=== PATIENT | female | born 1965 | race Caucasian/White ===

== ENCOUNTER 2017-04-15 20:57 | Inpatient (IN) | payer SELFPAY ==
[~2017-04-15] VITALS: Ht 170.2 cm; Wt 78.1 kg
[~2017-04-15 20:57] MED LIST: ACET325 PO; ASPI81TA82 PO; LISI-360 PO
[2017-04-15 20:58] VITALS: BP 152/79; PULSE 110; RESP 16; TEMP 98.9; O2SAT 96
[2017-04-16] VITALS (16 sets, daily range): BP systolic 96–133; BP diastolic 58–81; PULSE 81–95; RESP 16–20; TEMP 96.1–97.7; O2SAT 95–100
[2017-04-16] MEDS ORDERED: SODIUM CHLORIDE 0.9% FLUSH 10 ML FLUSH IV FLUSH PRN ×2 (00:15→02:00)
[2017-04-16 00:29] LABS: AUTOMATED NEUTROPHIL # 4.3 TH/MM3 (1.8-7.7); BASOPHIL # 0.1 TH/MM3 (0-0.2); EOSINOPHIL # 0.2 TH/MM3 (0-0.4); EOSINOPHIL % 2.1 % (0.0-4.0); LYMPH % 29.6 % (9.0-44.0); LYMPHOCYTE # 2.3 TH/MM3 (1.0-4.8); MEAN CELL VOLUME 130.5 FL (80.0-100.0); MEAN CORPUSCULAR HEMOGLOBIN 44.2 PG (27.0-34.0); MEAN CORPUSCULAR HGB CONC 33.8 % (32.0-36.0); MONO % 12.6 % (0.0-8.0); NEUT % 54.7 % (16.0-70.0); PLATELET COUNT 100 TH/MM3 (150-450); RED BLOOD COUNT 1.45 MIL/MM3 (4.00-5.30); WHITE BLOOD COUNT 7.8 TH/MM3 (4.0-11.0)
[2017-04-16 00:35] LABS: HEMO FLAGS DIFF FINAL
[2017-04-16 00:37] LABS: HEMATOCRIT 18.9 % (35.0-46.0)
[2017-04-16 00:38] LABS: APTT (PATIENT) 39.2 SEC (24.3-30.1); INTERNATIONAL NORMALIZED RATIO 2.1 RATIO; PROTHROMBIN TIME - PATIENT 23.7 SEC (9.8-11.6)
[2017-04-16 00:59] LABS: ALT (GPT) 22 U/L (10-53); ANION GAP 13 MEQ/L (5-15); AST (GOT) 67 U/L (15-37); BICARBONATE 18.1 MEQ/L (21.0-32.0); BLOOD UREA NITROGEN 10 MG/DL (7-18); CHLORIDE 108 MEQ/L (98-107); GLOMERULAR FILTRATION RATE 34 ML/MIN (>89); POTASSIUM 4.1 MEQ/L (3.5-5.1); SODIUM (NA) 139 MEQ/L (136-145)
[2017-04-16 01:00] LABS: ALKALINE PHOSPHATASE 66 U/L (45-117); TOTAL BILIRUBIN ADULT 4.4 MG/DL (0.2-1.0)
[2017-04-16] MEDS ORDERED: SODIUM CHLOR 0.9% 250 ML INJ 250 ML IV ONE ×2 (01:15→11:45)
[2017-04-16] MEDS ORDERED: PANTOPRAZOLE SODIUM 40 MG VIAL IV PUSH SCH (02:00)
[2017-04-16] MEDS ORDERED: NALOXONE HCL 0.4 MG/ML AMP IV PRN (02:00)
--- NOTE | 2017-04-16 02:08 | PD ---
HPI Chief Complaint: Abdominal Pain Time Seen by Provider: 00:11 Travel History International Travel<30 days: No Contact w/Intl Traveler<30days: No Traveled to known affect area: No History of Present Illness HPI Patient is a 52-year-old female with a history of heavy alcohol use in the past quit 7 days ago presents emergency Department with abdominal swelling. Patient states she first started noticing January and went away and then over the past week and started coming back. She denies any abdominal pain denies any fevers denies any nausea or vomiting. Patient states she has never discussed this with her care physician as she doesn't have one. She also notices some said some leg swelling. Denies any blood in the stool bloody emesis. She states she has little cut on her lip that she noticed started bleeding. No easy bruising. PFSH Past Medical History Arthritis: Yes (knees, arms ,hands feet , back) Asthma: Yes Autoimmune Disease: No Blood Disorders: Yes (BLOOD CLOTS) Anxiety: No Depression: No Heart Rhythm Problems: Yes Cancer: No Cardiac Catheterization: Yes (ANGIOPLASTY 2004) Cardiovascular Problems: Yes (HTN) High Cholesterol: No Chemotherapy: No Chest Pain: Yes Congestive Heart Failure: No Cirrhosis: Yes COPD: Yes Cerebrovascular Accident: Yes Diabetes: No Diminished Hearing: No Endocrine: No Gastrointestinal Disorders: Yes GERD: No Glaucoma: No Genitourinary: No Headaches: Yes Hepatitis: Yes (HEP C) Hiatal Hernia: No Hypertension: Yes Immune Disorder: No Implanted Vascular Access Dvce: Yes Kidney Stones: No Neurologic: No Psychiatric: No Reproductive: No Immunizations Current: Yes Migraines: Yes Myocardial Infarction: Yes (X1) Radiation Therapy: No Renal Failure: No Seizures: No Sickle Cell Disease: No Sleep Apnea: No Thyroid Disease: No Ulcer: No ?: Not Menopausal: Yes : 5 Para: 3 Miscarriage: 1 : 1 Tubal Ligation: Yes Past Surgical History Abdominal Surgery: No AICD: No Appendectomy: No Arteriovenous Shunt: No Body Medical Devices: TITANIUM ANDRES WITH SCREWS Cardiac Surgery: Yes (pt had one tia x 2 and one mi) Cholecystectomy: No Coronary Artery Bypass Graft: No Ear Surgery: Yes (LEFT EARDRUM PERFORATED , SURGERY REPAIR) Endocrine Surgery: No Eye Surgery: No Genitourinary Surgery: No Insulin Pump: No Joint Replacement: No Neurologic Surgery: No Oral Surgery: No Pacemaker: No Tympanostomy Tube: Yes Other Surgery: Yes (eardrun, back , tubal ligation, angioplasty,) Social History Alcohol Use: Yes (2-3 BEERS PER DAY) Tobacco Use: Yes (PK/DAY) Substance Use: No Allergies-Medications (Allergen,Severity, Reaction): Coded Allergies: No Known Allergies (Verified , 04/16/17) Reported Meds & Prescriptions Reported Meds & Active Scripts Active Lisinopril 10 mg (Lisinopril) 10 Mg Tab 10 Mg PO DAILY Tylenol (Acetaminophen) 325 Mg Tab 650 Mg PO Q6H 7 Days Reported Aspir-81 (Aspirin) 81 Mg Tab 81 Mg PO DAILY Review of Systems Except as stated in HPI: all other systems reviewed are Neg Physical Exam Narrative GENERAL: Well-developed, well-nourished in no obvious distress. SKIN: Pale and jaundiced. HEAD: Atraumatic. Normocephalic. EYES: Pupils equal and round. Positive scleral icterus. No injection or drainage. ENT: No nasal bleeding or discharge. Mucous membranes pink and moist. NECK: Trachea midline. No JVD. CARDIOVASCULAR: Regular rate and rhythm. No murmur appreciated. 2+ bilateral equal pulses in all 4 extremity's. RESPIRATORY: No accessory muscle use. Clear to auscultation. Breath sounds equal bilaterally. GASTROINTESTINAL: Abdomen soft, non-tender, moderately distended abdomen. Positive fluid wave. Hepatic and splenic margins not palpable. No rebound no percussive tenderness. Abdomen is distended but otherwise benign. MUSCULOSKELETAL: No obvious deformities. No clubbing. No cyanosis. No edema. NEUROLOGICAL: Awake and alert. No obvious cranial nerve deficits. Motor grossly within normal limits. Normal speech. PSYCHIATRIC: Appropriate mood and affect; insight and judgment normal. Data Data Last Documented VS Vital Signs Date Time Temp Pulse Resp B/P Pulse Ox O2 Delivery O2 Flow Rate FiO2 04/16/17 00:16 89 20 131/61 100 Room Air 04/15/17 20:58 98.9 Orders Complete Blood Count With Diff (04/16/17 00:01) Comprehensive Metabolic Panel (04/16/17 00:01) Prothrombin Time / Inr (Pt) (04/16/17 00:01) Act Partial Throm Time (Ptt) (04/16/17 00:01) Urinalysis - C+S If Indicated (04/16/17 00:01) Iv Access Insert/Monitor (04/16/17 00:01) Ecg Monitoring (04/16/17 00:01) Oximetry (04/16/17 00:01) Sodium Chloride 0.9% Flush (Ns Flush) (04/16/17 00:15) Ed Poc Ultrasound (04/16/17 ) Type And Screen (04/16/17 01:08) Red Blood Cells (Rbc) (04/16/17 01:08) Blood Product Administration .UPON TRANSFUSION (04/16/17 01:08) Sodium Chlor 0.9% 250 Ml Inj (Ns 250 Ml (04/16/17 01:15) Admit Order (Ed Use Only) (04/16/17 ) Labs Laboratory Tests Test 04/16/17 04/16/17 00:10 01:20 White Blood Count 7.8 TH/MM3 Red Blood Count 1.45 MIL/MM3 Hemoglobin 6.4 GM/DL Hematocrit 18.9 % Mean Corpuscular Volume 130.5 FL Mean Corpuscular Hemoglobin 44.2 PG Mean Corpuscular Hemoglobin 33.8 % Concent Red Cell Distribution Width 21.0 % Platelet Count 100 TH/MM3 Mean Platelet Volume 8.8 FL Neutrophils (%) (Auto) 54.7 % Lymphocytes (%) (Auto) 29.6 % Monocytes (%) (Auto) 12.6 % Eosinophils (%) (Auto) 2.1 % Basophils (%) (Auto) 1.0 % Neutrophils # (Auto) 4.3 TH/MM3 Lymphocytes # (Auto) 2.3 TH/MM3 Monocytes # (Auto) 1.0 TH/MM3 Eosinophils # (Auto) 0.2 TH/MM3 Basophils # (Auto) 0.1 TH/MM3 CBC Comment DIFF FINAL Differential Comment Prothrombin Time 23.7 SEC Prothromb Time International 2.1 RATIO Ratio Activated Partial 39.2 SEC Thromboplast Time Sodium Level 139 MEQ/L Potassium Level 4.1 MEQ/L Chloride Level 108 MEQ/L Carbon Dioxide Level 18.1 MEQ/L Anion Gap 13 MEQ/L Blood Urea Nitrogen 10 MG/DL Creatinine 1.61 MG/DL Estimat Glomerular Filtration 34 ML/MIN Rate Random Glucose 105 MG/DL Calcium Level 7.7 MG/DL Total Bilirubin 4.4 MG/DL Aspartate Amino Transf 67 U/L (AST/SGOT) Alanine Aminotransferase 22 U/L (ALT/SGPT) Alkaline Phosphatase 66 U/L Total Protein 8.0 GM/DL Albumin 1.8 GM/DL Urine Color DARK-BROWN Urine Turbidity HAZY Urine pH 5.5 Urine Specific [place] 1.019 Urine Protein TRACE mg/dL Urine Glucose (UA) NEG mg/dL Urine Ketones NEG mg/dL Urine Occult Blood NEG Urine Nitrite NEG Urine Bilirubin MOD Urine Urobilinogen 4.0 MG/DL Urine Leukocyte Esterase LARGE Urine RBC 1 /hpf Urine WBC 133 /hpf Urine Squamous Epithelial 5 /hpf Cells Urine Renal Epithelial Cells <1 /hpf Urine Amorphous Sediment RARE Urine Bacteria MOD /hpf Urine Hyaline Casts 11 /lpf Urine Mucus FEW /lpf Microscopic Urinalysis Comment CULTURE INDICATED Blood Type AB NEGATIVE Antibody Screen NEGATIVE Crossmatch Leukocyte-Reduced Red Blood Cells Blood Bank Comment MDM Medical Decision Making Medical Screen Exam Complete: Yes Emergency Medical Condition: Yes Differential Diagnosis Anemia, ascites, SBP seems unlikely, chronic liver disease. Narrative Course Patient roomed in the emergency department, hemoglobin 6.6 and after discussion of risks benefits, occasions alternative for blood transfusion patient agreed for blood transfusion. Bedside ultrasound does show that she does have some ascites, she has never had a paracentesis before. I think that given her benign abdomen and her not having any respiratory symptoms or hemodynamic compromise this should be postponed until she is transfused reassessed. This was discussed with Dr. Johnson who is agreeable for observation status. Her Meld- Na score predicts 14-15% 90 day mortality. HemaPrompt Point of Care Internal Pos. & Neg. Controls: Passed Fecal Specimen Occult Blood: Negative Diagnosis Primary Impression: Macrocytic anemia Additional Impressions: Liver failure Ascites Admitting Information Admitting Physician Requests: Admit Condition: Stable Christian Lechuga MD Apr 16, 2017 02:08
[2017-04-16 02:14] LABS: BACTERIA, URINE MOD /hpf; BLOOD, URINE NEG (NEG); GLUCOSE,URINE NEG (NEG); HYALINE CAST, URINE 11 /lpf (RARE); KETONE, URINE NEG (NEG); MUCUS URINE FEW /lpf (OCC); NITRITE,URINE NEG (NEG); PH, URINE 5.5 (5.0-8.5); RENAL EPITHELIAL CELLS <1 /hpf; SQUAMOUS EPITHELIAL CELL URINE 5 /hpf (0-5)
[2017-04-16 02:15] LABS: COMMENT (UR) CULTURE INDICATED; CULTURE IF INDICATED CULTURE INDICATED; URINE COLOR DARK-BROWN (YELLW/STRAW)
--- NOTE | 2017-04-16 04:52 | HHI.HP ---
[facility] Service [facility] Primary Care Physician No Primary Care Physician Admission Diagnosis Anemia, Chronic liver failure, Ascites (new onset) Diagnoses: Chief Complaint: abdominal pain and swelling Travel History International Travel<30 Days: No Contact w/Intl Traveler <30 Da: No Traveled to Known Affected Are: No History of Present Illness Written by PAULINO Jo acting as scribe for [Maxi] on 04/16/17 at 05: 02. 52 y/o female with a history of alcohol abuse, arthritis, HTN (no medication for 1 month), CAD, TIA, Questionable cirrhosis, Hep C, DVT, and COPD presented to the ED with complaints of abdomen swelling and pain that has increased the past week. She states she does have intermittent pain with associated diarrhea. States she had black stools at home. No red stools. She states 2 weeks ago she was having blood clots in her mouth from brushing her teeth. Denies any dysuria , chest pain or sob. She has never had a paracentesis in the past. She does not have a pcp, she states she did not like the PA/[employer]ARD at Dr. Rodriguez office so she never went back. Review of Systems Constitutional: DENIES: Fever, Chills Respiratory: DENIES: Cough, Sputum production, Shortness of breath Cardiovascular: DENIES: Chest pain, Lower Extremity Edema Gastrointestinal: COMPLAINS OF: Abdominal pain, Black stools, Diarrhea, DENIES : Nausea, Vomiting Genitourinary: DENIES: Hematuria, Dysuria Musculoskeletal: DENIES: Back pain, Neck pain Integumentary: DENIES: Rash Hematologic/lymphatic: DENIES: Lymphadenopathy Immunologic/allergic: DENIES: Urticaria Neurologic: DENIES: Headache Past Family Social History Past Medical History Alcohol abuse Arthritis HTN CAD Questionable Cirrhosis Hep C COPD Asthma TIA LA Past Surgical History Angioplasty Tubal Back surgery Bilateral TM (tympanic membrane) surgery Reported Medications Current Medications Medications (Trade) Dose Ordered Sig/Teresa Route Start Time Stop Time Status Last Admin (NS 250 ml Inj) 250 ml @ 15 mls/hr ONCE ONCE IV 04/16/17 01:15 04/16/17 17:54 (NS Flush) 2 ml UNSCH PRN IV FLUSH 04/16/17 02:00 (NS Flush) 2 ml BID IV FLUSH 04/16/17 09:00 (Narcan Inj) 0.4 mg UNSCH PRN IV 04/16/17 02:00 (Protonix Inj) 40 mg Q12H IV PUSH 04/16/17 02:00 04/16/17 04:33 (Morphine Inj) 2 mg Q4H PRN IV PUSH 04/16/17 04:30 Allergies: Coded Allergies: No Known Allergies (Verified , 04/16/17) Active Ordered Medications Current Medications Medications (Trade) Dose Ordered Sig/Teresa Route Start Time Stop Time Status Last Admin (NS 250 ml Inj) 250 ml @ 15 mls/hr ONCE ONCE IV 04/16/17 01:15 04/16/17 17:54 (NS Flush) 2 ml UNSCH PRN IV FLUSH 04/16/17 02:00 (NS Flush) 2 ml BID IV FLUSH 04/16/17 09:00 (Narcan Inj) 0.4 mg UNSCH PRN IV 04/16/17 02:00 (Protonix Inj) 40 mg Q12H IV PUSH 04/16/17 02:00 04/16/17 04:33 (Morphine Inj) 2 mg Q4H PRN IV PUSH 04/16/17 04:30 Family History Mom: Cirrhosis Brother: DM Social History Tobacco use: Quit 7 days ago Alcohol use: Quit 7 days ago, 3-4 beers a day prior Illicit drug use: Denies Physical Exam Vital Signs Vital Signs Date Time Temp Pulse Resp B/P Pulse Ox O2 Delivery O2 Flow Rate FiO2 04/16/17 04:00 97.0 89 18 133/73 99 04/16/17 04:00 96.3 84 18 121/81 99 04/16/17 00:16 89 20 131/61 100 Room Air 04/15/17 20:58 98.9 110 16 152/79 96 Room Air Physical Exam GENERAL: This is a well-nourished, well-developed patient, in no apparent distress. SKIN: No rashes, ecchymoses or lesions. Cool and dry. Spider angioma on chest HEAD: Atraumatic. Normocephalic. No temporal or scalp tenderness. EYES: Pupils equal round and reactive. ENT: Nose without bleeding, purulent drainage or septal hematoma. NECK: Trachea midline. No JVD or lymphadenopathy. CARDIOVASCULAR: Regular rate and rhythm without murmurs, gallops, or rubs. RESPIRATORY: Clear to auscultation. Breath sounds equal bilaterally. No wheezes , rales, or rhonchi. GASTROINTESTINAL: Abdomen soft, tender, distended. No hepato-splenomegaly, or palpable masses. MUSCULOSKELETAL: Bilateral lower extremities with +2 edema. No calf tenderness. NEUROLOGICAL: Awake and alert. Motor and sensory grossly within normal limits. Normal speech. Laboratory Laboratory Tests Test 04/16/17 04/16/17 00:10 01:20 White Blood Count 7.8 Red Blood Count 1.45 Hemoglobin 6.4 Hematocrit 18.9 Mean Corpuscular Volume 130.5 Mean Corpuscular Hemoglobin 44.2 Mean Corpuscular Hemoglobin 33.8 Concent Red Cell Distribution Width 21.0 Platelet Count 100 Mean Platelet Volume 8.8 Neutrophils (%) (Auto) 54.7 Lymphocytes (%) (Auto) 29.6 Monocytes (%) (Auto) 12.6 Eosinophils (%) (Auto) 2.1 Basophils (%) (Auto) 1.0 Neutrophils # (Auto) 4.3 Lymphocytes # (Auto) 2.3 Monocytes # (Auto) 1.0 Eosinophils # (Auto) 0.2 Basophils # (Auto) 0.1 CBC Comment DIFF FINAL Differential Comment Prothrombin Time 23.7 Prothromb Time International 2.1 Ratio Activated Partial 39.2 Thromboplast Time Sodium Level 139 Potassium Level 4.1 Chloride Level 108 Carbon Dioxide Level 18.1 Anion Gap 13 Blood Urea Nitrogen 10 Creatinine 1.61 Estimat Glomerular Filtration 34 Rate Random Glucose 105 Calcium Level 7.7 Total Bilirubin 4.4 Aspartate Amino Transf 67 (AST/SGOT) Alanine Aminotransferase 22 (ALT/SGPT) Alkaline Phosphatase 66 Total Protein 8.0 Albumin 1.8 Urine Color DARK-BROWN Urine Turbidity HAZY Urine pH 5.5 Urine Specific [place] 1.019 Urine Protein TRACE Urine Glucose (UA) NEG Urine Ketones NEG Urine Occult Blood NEG Urine Nitrite NEG Urine Bilirubin MOD Urine Urobilinogen 4.0 Urine Leukocyte Esterase LARGE Urine RBC 1 Urine WBC 133 Urine Squamous Epithelial 5 Cells Urine Renal Epithelial Cells <1 Urine Amorphous Sediment RARE Urine Bacteria MOD Urine Hyaline Casts 11 Urine Mucus FEW Microscopic Urinalysis Comment CULTURE INDICATED Blood Type AB NEGATIVE Antibody Screen NEGATIVE Crossmatch Leukocyte-Reduced Red Blood Cells Blood Bank Comment Date/Time Procedure Status Source Growth 04/16/17 01:20 Urine Culture Received Urine Clean Catch Pending Result Diagram: 04/16/17 0010 04/16/17 0010 Assessment and Plan Problem List: (1) Alcohol abuse ICD Code: F10.10 Status: Acute (2) NEGRO (acute kidney injury) ICD Code: N17.9 Status: Acute (3) Symptomatic anemia ICD Code: D64.9 Status: Acute Assessment and Plan 52 y/o female with a history of alcohol abuse, arthritis, HTN (no medication for 1 month), CAD, TIA, Questionable, cirrhosis, Hep C, DVT, and COPD presented to the ED with complaints of abdomen swelling and pain that has increased the past week. Symptomatic anemia, Hemoccult negative in ED, patient reports black stools Hgb 6.4 -2 units of PRBCs ordered -Serial H&H Q6 -Consult GI for recommendations -Protonix drip Acute kidney injury, creatine 1.6, baseline Oct 2015 .7, suspected volume loss from questionable gi bleed -Trend CBC -Encourage fluids Cirrhosis with Ascites -Paracentesis ordered with labs and cultures -Pain management with IV morphine -Patient will need treatment out patient treatment for Hep C Abnormal UA, no fever, no leukocytosis, no dysuria -Await antibiotics until culture returns Alcohol abuse, chronic, patient states last drink was 7 days ago -Encouraged to quit DVT prophylaxis: SCDs, avoid chemical due to anemia GI prophylaxis: Protonix Discussed Condition With Patient and ED physician Physician Certification 2 Midnight Certification Type: Admission for Inpatient Services Order for Inpatient Services The services are ordered in accordance with Medicare regulations or non- Medicare payer requirements, as applicable. In the case of services not specified as inpatient-only, they are appropriately provided as inpatient services in accordance with the 2-midnight benchmark. Estimated LOS (days): 2 days is the estimated time the patient will need to remain in the hospital, assuming treatment plan goals are met and no additional complications. Post-Hospital Plan: Kate Saha Apr 16, 2017 04:52
--- NOTE | 2017-04-16 08:01 | HHI.PR ---
Subjective Remarks in no acute distress. has mild abdominal pain. blood transfusion in process. Objective Vitals Vital Signs Date Time Temp Pulse Resp B/P Pulse Ox O2 Delivery O2 Flow Rate FiO2 04/16/17 06:44 97.7 89 19 119/70 100 04/16/17 04:41 89 04/16/17 04:25 97.1 88 18 112/73 99 04/16/17 04:00 97.0 89 18 133/73 99 04/16/17 04:00 96.3 84 18 121/81 99 04/16/17 00:16 89 20 131/61 100 Room Air 04/15/17 20:58 98.9 110 16 152/79 96 Room Air Result Diagram: 04/16/17 0010 04/16/17 0010 Objective Remarks GENERAL: This is a well-nourished, well-developed patient, in no apparent distress. CARDIOVASCULAR: Regular rate and regular rhythm without murmurs, gallops, or rubs. RESPIRATORY: Clear to auscultation. Breath sounds equal bilaterally. No wheezes , rales, or rhonchi. GASTROINTESTINAL: Abdomen soft, non-tender, nondistended. Normal, active bowel sounds MUSCULOSKELETAL: Extremities without clubbing, cyanosis, or edema. NEURO: Alert & Oriented x4 to person, place, time, situation. Moves all ext x4 Medications and IVs Current Medications Sodium Chloride 2 ml 2 ml UNSCH PRN IV FLUSH FLUSH AFTER USING IV ACCESS; Start 04/16/17 at 00:15; Stop 04/16/17 at 01:52; Status DC Sodium Chloride (NS 250 ml Inj) 250 ml @ 15 mls/hr ONCE ONCE IV ; Start at 01:15; Stop 04/16/17 at 17:54 Sodium Chloride (NS Flush) 2 ml UNSCH PRN IV FLUSH FLUSH AFTER USING IV ACCESS ; Start 04/16/17 at 02:00 Sodium Chloride (NS Flush) 2 ml BID IV FLUSH ; Start 04/16/17 at 09:00 Naloxone HCl (Narcan Inj) 0.4 mg UNSCH PRN IV SEE LABEL COMMENTS; Start at 02:00 Pantoprazole Sodium (Protonix Inj) 40 mg Q12H IV PUSH Last administered on t 04:33; Start 04/16/17 at 02:00; Stop 04/16/17 at 05:19; Status DC Morphine Sulfate 2 mg 2 mg Q4H PRN IV PUSH pain >5; Start 04/16/17 at 04:30 Pantoprazole Sodium/Sodium Chloride (Protonix Inj/NS Inj) 100 ml @ 10 mls/hr CONTINUOUS IV ; Start 04/16/17 at 05:30 A/P Assessment and Plan Symptomatic anemia, Hemoccult negative in ED, patient reports black stools Hgb 6.4 -blood transfusion in progress -Serial H&H Q6 -Consulted GI for recommendations -Protonix drip Acute kidney injury, creatine 1.6, baseline Oct 2015 .7, suspected volume loss from questionable gi bleed -Trend renal function -Encourage fluids Cirrhosis with Ascites -Paracentesis ordered with labs and cultures -Pain management with IV morphine -Patient will need treatment out patient treatment for Hep C Abnormal UA, no fever, no leukocytosis, no dysuria -Await antibiotics until culture returns Alcohol abuse, chronic, patient states last drink was 7 days ago -Encouraged to quit DVT prophylaxis: SCDs, avoid chemical due to anemia GI prophylaxis: Protonix Darling Diamond MD Apr 16, 2017 08:01
[2017-04-16] MEDS: SODIUM CHLORIDE 0.9% FLUSH 10 ML FLUSH IV FLUSH SCH ×2 (09:00→23:42)
--- NOTE | 2017-04-16 10:24 | PD.RAD ---
Post US Procedure Prog Note Pre Procedure Diagnosis: (1) Ascites (2) Liver failure Post Procedure Diagnosis: (1) Ascites (2) Liver failure Procedure Date: Apr 16, 2017 Supervising Radiologist: Dave Saha Proceduralist/Assist: Marilin Munson RDMS Estimated blood loss: none Anesthesia: Local Plan of Activity Patient to Unit: ROPU Patient Condition: Fair See PACS Report for procedural detail/treatment Drainage Procedure Procedure 1 Imaging Guidance: Ultrasound Side: Left Procedure Type: Paracentesis Fluid Removal (CCs): 4000 Fluid Description: Yellow Plan to ROPU then to floor Dave Saha MD Apr 16, 2017 10:24
--- NOTE | 2017-04-16 10:26 | RADRPT ---
EXAM DATE/TIME: 04/16/2017 09:39 [facility] COMPARISON: No previous studies available for comparison. INDICATIONS : Ascites. MEDICAL HISTORY : Hypertension. Hepatitis C. Myocardial infarction. ETOH. COPD. TIA. SURGICAL HISTORY : Back surgery. Ear drum surgery. ENCOUNTER: Initial ACUITY: 1 day PAIN SCORE: 6/10 LOCATION: Left FLUID: Total volume of 4000 cc of clear, yellow fluid was removed. Fluid was sent to lab for ordered studies. Post procedure scanning reveals no hematoma or other complication. TECHNIQUE: 1. Ultrasound guidance for abdominal paracentesis. 2. Paracentesis. The risks, benefits, and alternatives to ultrasound guided paracentesis were explained to the patient in detail including the risk of bleeding and infection. Written and verbal informed consent was obt ained. With the patient on the ultrasound table, ultrasound imaging was used to select the most appropriate approach for paracentesis. Overlying skin was prepped and draped in the usual sterile fashion and wi th a local anesthetic, a dermatotomy was made with an 11 blade scalpel. A 6 [place] [employer]-jxspokin ca theter was introduced into the peritoneal cavity and fluid was collected. The patient tolerated the procedure well and left the ultrasound suite in stable condition. CONCLUSION: Uncomplicated ultrasound guided paracentesis. Dave Saha MD on April 16, 2017 at 10:20 Board Certified Radiologist. This report was verified electronically.
[2017-04-16 11:08] LABS: PERITONEAL WBC 39 /MM3 (0-10)
--- NOTE | 2017-04-16 11:31 | PD.CONS ---
HPI History of Present Illness This is a 52 year old female patient with a history of liver disease and hepatitis C, who presented to the ER for evaluation of worsening abdominal distention and abdominal pain. She reports that she has been told off and on that she has liver disease, but denies ever being told specifically that she has cirrhosis until last night. She also reports that she's been told she may have hepatitis C, but has never been treated and states that it has never been confirmed. Looking back at the records, she had was noted to have antibodies for hepatitis C and October 2010. She reports that she is never had any further testing and has never been treated. She currently does not have a medical provider. She reports that she's been seen [facility] but felt as if they were not doing anything and therefore never went back. She has been having worsening abdominal distention with lower extremity edema for the past 2 weeks. She has diffuse abdominal pain that she describes this tightness or pressure that is constant but without any radiation. She reports it is related to her abdominal distention. She denies any nausea or vomiting. She has occasional heartburn but denies any hematemesis. She denies any weight loss. She has had dark tarry stools since last night. She does not take any medications for her stomach. She denies any history of peptic ulcer disease or GI bleeding. She denies any fevers. She reports that she quit smoking and drinking alcohol about one week ago. Prior to that she was drinking 3-4 beers per day. PFSH Past Medical History Alcohol abuse Arthritis HTN CAD Chronic liver disease Hep C COPD Asthma TIA MT Past Surgical History Angioplasty Tubal Back surgery Bilateral TM (tympanic membrane) surgery Coded Allergies: No Known Allergies (Verified , 04/16/17) Medications Allergies Coded Allergies Type Severity Reaction Last Updated Verified No Known Allergies 04/16/17 Yes Active Scripts Medications Dose Route/Sig Days Date Category Lisinopril 10 mg (Lisinopril) 10 Mg Tab 10 Mg PO DAILY 11/13/15 Rx Tylenol (Acetaminophen) 325 Mg Tab 650 Mg PO Q6H 7 02/10/14 Rx Aspir-81 (Aspirin) 81 Mg Tab 81 Mg PO DAILY 10/26/12 Reported Family History Mother had Cirrhosis Brother has DM Social History Tobacco use: Quit 7 days ago Alcohol use: Quit 7 days ago, 3-4 beers a day prior Illicit drug use: Denies Review of Systems Constitutional: COMPLAINS OF: Fatigue, Change in appetite, DENIES: Fever, Chills Respiratory: DENIES: Cough Gastrointestinal: COMPLAINS OF: Abdominal pain, Black stools, Swelling of Abdomen, Heartburn, DENIES: Bloody stools, Constipation, Diarrhea, Nausea, Vomiting Musculoskeletal: DENIES: Back pain Integumentary: DENIES: Abnormal pigmentation Hematologic/lymphatic: COMPLAINS OF: Bruising Neurologic: DENIES: Headache Psychiatric: DENIES: Confusion GI Exam Vitals I&O Vital Signs Date Time Temp Pulse Resp B/P Pulse Ox O2 Delivery O2 Flow Rate FiO2 04/16/17 10:44 97.0 81 16 108/77 97 04/16/17 10:31 97.0 85 16 107/70 99 04/16/17 09:53 97.4 89 18 126/79 100 04/16/17 08:00 97.7 95 16 126/70 96 04/16/17 06:44 97.7 89 19 119/70 100 04/16/17 04:41 89 04/16/17 04:25 97.1 88 18 112/73 99 04/16/17 04:00 97.0 89 18 133/73 99 04/16/17 04:00 96.3 84 18 121/81 99 04/16/17 00:16 89 20 131/61 100 Room Air 04/15/17 20:58 98.9 110 16 152/79 96 Room Air Imaging Last Impressions Cyst Biopsy Asp-Paracentesis US 04/16/17 0000 Signed Impressions: Service Date/Time: April 09:39 - CONCLUSION: Uncomplicated ultrasound guided paracentesis. Dave Saha MD Laboratory Test 04/16/17 04/16/17 00:10 01:20 White Blood Count 7.8 TH/MM3 Red Blood Count 1.45 MIL/MM3 Hemoglobin 6.4 GM/DL Hematocrit 18.9 % Mean Corpuscular Volume 130.5 FL Mean Corpuscular Hemoglobin 44.2 PG Mean Corpuscular Hemoglobin 33.8 % Concent Red Cell Distribution Width 21.0 % Platelet Count 100 TH/MM3 Mean Platelet Volume 8.8 FL Neutrophils (%) (Auto) 54.7 % Lymphocytes (%) (Auto) 29.6 % Monocytes (%) (Auto) 12.6 % Eosinophils (%) (Auto) 2.1 % Basophils (%) (Auto) 1.0 % Neutrophils # (Auto) 4.3 TH/MM3 Lymphocytes # (Auto) 2.3 TH/MM3 Monocytes # (Auto) 1.0 TH/MM3 Eosinophils # (Auto) 0.2 TH/MM3 Basophils # (Auto) 0.1 TH/MM3 CBC Comment DIFF FINAL Differential Comment Prothrombin Time 23.7 SEC Prothromb Time International 2.1 RATIO Ratio Activated Partial 39.2 SEC Thromboplast Time Sodium Level 139 MEQ/L Potassium Level 4.1 MEQ/L Chloride Level 108 MEQ/L Carbon Dioxide Level 18.1 MEQ/L Anion Gap 13 MEQ/L Blood Urea Nitrogen 10 MG/DL Creatinine 1.61 MG/DL Estimat Glomerular Filtration 34 ML/MIN Rate Random Glucose 105 MG/DL Calcium Level 7.7 MG/DL Total Bilirubin 4.4 MG/DL Aspartate Amino Transf 67 U/L (AST/SGOT) Alanine Aminotransferase 22 U/L (ALT/SGPT) Alkaline Phosphatase 66 U/L Total Protein 8.0 GM/DL Albumin 1.8 GM/DL Urine Color DARK-BROWN Urine Turbidity HAZY Urine pH 5.5 Urine Specific [place] 1.019 Urine Protein TRACE mg/dL Urine Glucose (UA) NEG mg/dL Urine Ketones NEG mg/dL Urine Occult Blood NEG Urine Nitrite NEG Urine Bilirubin MOD Urine Urobilinogen 4.0 MG/DL Urine Leukocyte Esterase LARGE Urine RBC 1 /hpf Urine WBC 133 /hpf Urine Squamous Epithelial 5 /hpf Cells Urine Renal Epithelial Cells <1 /hpf Urine Amorphous Sediment RARE Urine Bacteria MOD /hpf Urine Hyaline Casts 11 /lpf Urine Mucus FEW /lpf Microscopic Urinalysis Comment CULTURE INDICATED Blood Type AB NEGATIVE Antibody Screen NEGATIVE Crossmatch Leukocyte-Reduced Red Blood Cells Blood Bank Comment Date/Time Procedure Status Source Growth 04/16/17 09:53 Gram Stain Received Fluid Peritoneal Fluid Pending 04/16/17 09:53 Body Fluid Culture Received Fluid Peritoneal Fluid Pending 04/16/17 01:20 Urine Culture Received Urine Clean Catch Pending Physical Examination HEENT: Normocephalic; atraumatic; no jaundice. CHEST: CTA CARDIAC: RRR ABDOMEN: Soft, distended with large amount of ascites, diffuse tenderness, hepatosplenomegaly; bowel sounds are present in all four quadrants. EXTREMITIES: BLE edema. SKIN: Normal; no rash; no jaundice. INCIDENT RESPONSE LEAD: No focal deficits; alert and oriented times three. Assessment and Plan Plan ASSESSMENT: - Upper GIB with melena. Reports that she has had melena since last night. No hematemesis. Denies any hx of GI bleeding, PUD, or known varices. Will plan for EGD with possible band ligation today, ? FFP prior to procedure. Protonix Gtt. - Severe anemia secondary to blood loss. .01/27.9. 2 units PRBC ordered. - New onset ascites. Cyst Biopsy Asp-Paracentesis US (04/16/17)----> Uncomplicated ultrasound guided paracentesis with 4000cc removed. Fluid studies pending. Start Spironolactone 50mg po daily. - Liver cirrhosis with elevated LFTs. States she was told that she had liver disease for several years, but never told specifically that she had liver cirrhosis until last night. She has a hx of ETOH use, 3-4 beers per day up until one week ago and has HCV antibodies. MELD 25. - Thrombocytopenia, Coagulopathy. PT 23.7, INR 2.1. Plt 100. - HCV antibodies. - NEGRO. In October, she had GFR of 83. This is now 34. - HTN, CAD, Hx TIA, COPD, Hx DVT per primary PLAN: - Plan for EGD with possible band ligation - Obtain consents - NPO - Protonix Gtt - Monitor HH - Transfuse as necessary - HCV Genotype, Viral load - SHEA, ASMA, AMA - 2 units FFP today - Notify GI of active bleeding - Supportive care - Further recommendations to follow based on results of above - Pt seen and examined by Dr. Lemos and myself and this note is written on his behalf Krystyna Jessica Apr 16, 2017 11:31
[2017-04-16] MEDS ORDERED: PROPOFOL 200 MG/20 ML AMP IV ONE (12:19)
[2017-04-16] MEDS ORDERED: ROCURONIUM INJ 50 MG/5 ML VIAL IV ONE (12:19)
[2017-04-16] MEDS ORDERED: SUGAMMADEX SODIUM 200 MG/2 ML VIAL IV PUSH ONE ×2 (12:26)
--- NOTE | 2017-04-16 12:37 | HHI.GIFU ---
Subjective Remarks Immediate postop note: EGD Indication: GI bleeding with melena Meds: GET Findings: Loose teeth, poor dental hygiene Esophagus: barretts mucosa 3cm prox to GE Junction. No Varices. Stomach: erosive gastritis Duodenum: small ulcerations, no visible vessel, clot or active bleeding. Objective Vitals I&O Vital Signs Date Time Temp Pulse Resp B/P Pulse Ox O2 Delivery O2 Flow Rate FiO2 04/16/17 11:21 96.1 84 18 101/58 99 04/16/17 11:06 96.2 86 16 108/63 99 04/16/17 10:44 97.0 81 16 108/77 97 04/16/17 10:31 97.0 85 16 107/70 99 04/16/17 09:53 97.4 89 18 126/79 100 04/16/17 08:00 97.7 95 16 126/70 96 04/16/17 06:44 97.7 89 19 119/70 100 04/16/17 04:41 89 04/16/17 04:25 97.1 88 18 112/73 99 04/16/17 04:00 97.0 89 18 133/73 99 04/16/17 04:00 96.3 84 18 121/81 99 04/16/17 00:16 89 20 131/61 100 Room Air 04/15/17 20:58 98.9 110 16 152/79 96 Room Air Laboratory Laboratory Tests Test 04/16/17 04/16/17 04/16/17 04/16/17 00:10 01:20 09:53 11:47 White Blood Count 7.8 Red Blood Count 1.45 Hemoglobin 6.4 Hematocrit 18.9 Mean Corpuscular Volume 130.5 Mean Corpuscular Hemoglobin 44.2 Mean Corpuscular Hemoglobin 33.8 Concent Red Cell Distribution Width 21.0 Platelet Count 100 Mean Platelet Volume 8.8 Neutrophils (%) (Auto) 54.7 Lymphocytes (%) (Auto) 29.6 Monocytes (%) (Auto) 12.6 Eosinophils (%) (Auto) 2.1 Basophils (%) (Auto) 1.0 Neutrophils # (Auto) 4.3 Lymphocytes # (Auto) 2.3 Monocytes # (Auto) 1.0 Eosinophils # (Auto) 0.2 Basophils # (Auto) 0.1 CBC Comment DIFF FINAL Differential Comment Prothrombin Time 23.7 Prothromb Time International 2.1 Ratio Activated Partial 39.2 Thromboplast Time Sodium Level 139 Potassium Level 4.1 Chloride Level 108 Carbon Dioxide Level 18.1 Anion Gap 13 Blood Urea Nitrogen 10 Creatinine 1.61 Estimat Glomerular Filtration 34 Rate Random Glucose 105 Calcium Level 7.7 Total Bilirubin 4.4 Aspartate Amino Transf 67 (AST/SGOT) Alanine Aminotransferase 22 (ALT/SGPT) Alkaline Phosphatase 66 Total Protein 8.0 Albumin 1.8 Urine Color DARK-BROWN Urine Turbidity HAZY Urine pH 5.5 Urine Specific [place] 1.019 Urine Protein TRACE Urine Glucose (UA) NEG Urine Ketones NEG Urine Occult Blood NEG Urine Nitrite NEG Urine Bilirubin MOD Urine Urobilinogen 4.0 Urine Leukocyte Esterase LARGE Urine RBC 1 Urine WBC 133 Urine Squamous Epithelial 5 Cells Urine Renal Epithelial Cells <1 Urine Amorphous Sediment RARE Urine Bacteria MOD Urine Hyaline Casts 11 Urine Mucus FEW Microscopic Urinalysis Comment CULTURE INDICATED Blood Type AB NEGATIVE Antibody Screen NEGATIVE Crossmatch Leukocyte-Reduced Red Blood Cells Blood Bank Comment Peritoneal Fluid WBC 39 Peritoneal Fluid RBC 111 Date/Time Procedure Status Source Growth 04/16/17 09:53 Gram Stain Received Fluid Peritoneal Fluid Pending 04/16/17 09:53 Body Fluid Culture Received Fluid Peritoneal Fluid Pending 04/16/17 01:20 Urine Culture Received Urine Clean Catch Pending Physical Exam HEENT: Pupils round and reactive to light; normocephalic; atraumatic; no jaundice. Throat is clear. NECK: Neck is supple, no JVD, no lymphadenopathy. CHEST: Chest is clear to auscultation and percussion. CARDIAC: Regular rate and rhythm with no murmur gallop or rubs. ABDOMEN: Soft, nondistended, nontender; no hepatosplenomegaly; bowel sounds are present in all four quadrants. EXTREMITIES: No clubbing, cyanosis, or edema. SKIN: Normal; no rash; no jaundice. INSPECTOR RADAR AND ELECTRONICS: No focal deficits; alert and oriented times three. Assessment and Plan Plan ASSESSMENT: - Upper GIB with melena. Reports that she has had melena since last night. No hematemesis. Denies any hx of GI bleeding, PUD, or known varices. Will plan for EGD with possible band ligation today, ? FFP prior to procedure. Protonix Gtt. - Severe anemia secondary to blood loss. 6.4/18.9. 2 units PRBC ordered. - New onset ascites. Cyst Biopsy Asp-Paracentesis US (04/16/17)----> Uncomplicated ultrasound guided paracentesis with 4000cc removed. Fluid studies pending. Start Spironolactone 50mg po daily. - Liver cirrhosis with elevated LFTs. States she was told that she had liver disease for several years, but never told specifically that she had liver cirrhosis until last night. She has a hx of ETOH use, 3-4 beers per day up until one week ago and has HCV antibodies. MELD 25. - Thrombocytopenia, Coagulopathy. PT 23.7, INR 2.1. Plt 100. - HCV antibodies. - NEGRO. In October, she had GFR of 83. This is now 34. - HTN, CAD, Hx TIA, COPD, Hx DVT per primary - EGD performed. No active bleeding. No varices. ERosive gastritis, small duodenal ulcers. No intervention needed PLAN: - Clear liquids - Protonix Gtt - Monitor HH - Transfuse as necessary - HCV Genotype, Viral load - SHEA, ASMA, AMA - 2 units FFP today - Supportive care Ryan Lemos MD Apr 16, 2017 12:37
[2017-04-16 12:39] LABS: PERITONEAL EOS 4 %; PERITONEAL LYMPHS 21 %; PERITONEAL MONOS 18 %; PERITONEAL POLYS(SEGS) 49 %
[2017-04-16 12:40] LABS: PERITONEAL HISTIOCYTES 7 %; PERITONEAL MESOTHELIAL 1 %
[2017-04-16] MEDS ORDERED: DO NOT ADM ANY ANTICOAGULANT DRUGS PRN (12:42)
[2017-04-16] MEDS: SPIRONOLACTONE 50 MG TAB PO SCH (15:11)
[2017-04-16 17:45] LABS: HEMATOCRIT 21.8 % (35.0-46.0)
[2017-04-16 17:47] LABS: REVIEW FLAG FINAL
[2017-04-16] MEDS: PANTOPRAZOLE INJ 80 MG in SODIUM CHLORIDE 0.9% INJ 100 ML IV SCH (23:42)
[2017-04-17] VITALS (13 sets, daily range): BP systolic 91–133; BP diastolic 48–95; PULSE 84–91; RESP 16–19; TEMP 96.7–97.9; O2SAT 96–100
[2017-04-17 00:31] LABS: REVIEW FLAG FINAL
[2017-04-17 00:33] LABS: HEMATOCRIT 19.6 % (35.0-46.0)
[2017-04-17] MEDS: SODIUM CHLOR 0.45% 1000 ML INJ 1,000 ML IV SCH ×3 (00:40→17:20)
[2017-04-17 06:50] LABS: BODY FLUID LDH 41 U/L (()); BODY FLUID LDH SOURCE PERITONEAL (())
--- NOTE | 2017-04-17 06:57 | MR ---
cc: MISHA DIAMOND MD, HAROLD H. MD DATE OF PROCEDURE 04/16/2017 PROCEDURE Esophagogastroduodenoscopy. INDICATION GI bleeding with melena. REQUESTING PHYSICIAN Referred by Dr. Diamond. PROCEDURE After informed consent was obtained, the patient was placed in the supine position in the operating room. She was given general endotracheal anesthesia. Care was taken to avoid damaging her teeth many of which are loose because of her poor dental hygiene. The bite block was placed carefully to avoid loosening of her chief further after adequate sedation was achieved the Pentax video gastroscope was inserted in the oropharynx and advanced through the esophagus, stomach and duodenum. It was then slowly withdrawn examining the mucosal surfaces carefully. A retroflex exam was performed in the fundus and cardia. The scope was then straightened and pulsed slowly through the esophagus and the procedure was terminated. She tolerated the procedure well and was taken to the recovery area in stable condition. FINDINGS 1. Her esophagus showed Lackey's mucosa for about 3 cm proximal to the GE junction. No varices were present and no biopsies were taken because of her prolonged pro time. 2. Her stomach showed erosive gastritis. No biopsies were taken. 3. The duodenum showed some small ulcerations and duodenitis but there was no visible vessel, clot are active bleeding. IMPRESSION 1. Lackey's esophagus. 2. Erosive gastritis. 3. Duodenal ulcers. PLAN 1. She may take a clear liquid diet. 1. Supportive measures for her alcohol hepatitis. 2. Protonix should be given 40 mg b.i.d. intravenously. Ryan Lemos MD HHS/SSB /3:37 PM /6:50 AM
[2017-04-17] MEDS: SPIRONOLACTONE 50 MG TAB PO SCH (08:22)
[2017-04-17] MEDS: SODIUM CHLORIDE 0.9% FLUSH 10 ML FLUSH IV FLUSH SCH ×2 (08:23→21:00)
--- NOTE | 2017-04-17 08:26 | HHI.PR ---
Subjective Remarks f/u; anemia resting comfortably with no distress. has mild pain to the right flank. received PRBC last night. no active GI bleed over night. d/w the RN. Objective Vitals Vital Signs Date Time Temp Pulse Resp B/P Pulse Ox O2 Delivery O2 Flow Rate FiO2 04/17/17 04:42 97.6 84 18 103/55 97 04/17/17 04:27 97.1 90 19 103/65 99 04/17/17 02:11 97.5 89 18 91/48 96 04/17/17 01:57 97.5 89 19 102/56 97 04/17/17 00:00 97.1 88 16 101/55 100 04/16/17 21:00 97.2 86 20 96/73 95 04/16/17 20:43 97.4 88 20 106/79 100 04/16/17 20:00 97.6 89 16 117/65 100 04/16/17 16:03 97.2 85 20 104/59 100 04/16/17 16:00 97.2 85 20 104/59 100 04/16/17 13:00 81 16 128/64 99 Room Air 04/16/17 12:45 78 16 110/57 99 Room Air 04/16/17 12:41 97.3 79 17 106/58 100 Simple Mask 5 04/16/17 11:21 96.1 84 18 101/58 99 04/16/17 11:06 96.2 86 16 108/63 99 04/16/17 10:44 97.0 81 16 108/77 97 04/16/17 10:31 97.0 85 16 107/70 99 04/16/17 09:53 97.4 89 18 126/79 100 I/O 04/16/17 04/16/17 04/16/17 04/17/17 04/17/17 04/17/17 07:00 15:00 23:00 07:00 15:00 23:00 Intake Total 650 ml 1301 ml Balance 650 ml 1301 ml Intake Oral 0 ml IV Total 1301 ml Packed Cells 250 ml Other 400 ml # Voids 1 2 # Bowel Movements 2 Result Diagram: 04/16/17 2353 04/16/17 0010 Imaging Last Impressions Cyst Biopsy Asp-Paracentesis US 04/16/17 0000 Signed Impressions: Service Date/Time: April 09:39 - CONCLUSION: Uncomplicated ultrasound guided paracentesis. Dave Saha MD Objective Remarks GENERAL: This is a well-nourished, well-developed patient, in no apparent distress. CARDIOVASCULAR: Regular rate and regular rhythm without murmurs, gallops, or rubs. RESPIRATORY: Clear to auscultation. Breath sounds equal bilaterally. No wheezes , rales, or rhonchi. GASTROINTESTINAL: Abdomen soft, non-tender, distended. Normal, active bowel sounds MUSCULOSKELETAL: Extremities with bilateral pedal edema. NEURO: Alert & Oriented x4 to person, place, time, situation. Moves all ext x4 Procedures EGD paracentesis Medications and IVs Current Medications Sodium Chloride 2 ml 2 ml UNSCH PRN IV FLUSH FLUSH AFTER USING IV ACCESS; Start 04/16/17 at 00:15; Stop 04/16/17 at 01:52; Status DC Sodium Chloride (NS 250 ml Inj) 250 ml @ 15 mls/hr ONCE ONCE IV ; Start at 01:15; Stop 04/16/17 at 17:54; Status DC Sodium Chloride (NS Flush) 2 ml UNSCH PRN IV FLUSH FLUSH AFTER USING IV ACCESS ; Start 04/16/17 at 02:00 Sodium Chloride (NS Flush) 2 ml BID IV FLUSH Last administered on 04/16/17 23: 42; Start 04/16/17 at 09:00 Naloxone HCl (Narcan Inj) 0.4 mg UNSCH PRN IV SEE LABEL COMMENTS; Start at 02:00 Pantoprazole Sodium (Protonix Inj) 40 mg Q12H IV PUSH Last administered on 04:33; Start 04/16/17 at 02:00; Stop 04/16/17 at 05:19; Status DC Morphine Sulfate 2 mg 2 mg Q4H PRN IV PUSH pain >5; Start 04/16/17 at 04:30 Pantoprazole Sodium 80 mg/ Sodium Chloride 100 ml @ 10 mls/hr CONTINUOUS IV Last administered on 04/16/17 23:42; Start 04/16/17 at 05:30 Sodium Chloride 1,000 ml @ 60 mls/hr [id number] IV Last administered on 04/17/17 07:00; Start 04/16/17 at 08:00 Sodium Chloride (NS 250 ml Inj) 250 ml @ 15 mls/hr ONCE ONCE IV ; Start at 11:45; Stop 04/17/17 at 04:24; Status DC Spironolactone (Aldactone) 50 mg DAILY PO Last administered on 04/16/17t 15:11; Start 04/16/17 at 11:45 Sugammadex Sodium ([place] Inj) 200 mg STK-MED ONCE IV PUSH ; Start 04/16/17 at 12:26; Stop 04/16/17 at 12:27; Status DC Miscellaneous Information ALL NURSING DEPARTME... UNSCH PRN .XX SEE LABEL COMMENTS; Start 04/16/17 at 12:42; Stop 04/17/17 at 12:41 Propofol (Diprivan 200 Mg/20 ml Inj) 150 mg STK-MED ONCE IV ; Start 04/16/17 at 12:19; Stop 04/16/17 at 14:24; Status DC Rocuronium [place] (Zemuron Inj) 50 mg STK-MED ONCE IV ; Start 04/16/17 at 12:19 ; Stop 04/16/17 at 14:24; Status DC A/P Assessment and Plan A/P Symptomatic anemia, Hemoccult negative in ED, patient reports black stools - s/p PRBC transfusion -continue to monitor H/H and transfuse as needed - s/p EGD with 1. Lackey's esophagus. 2. Erosive gastritis. 3. Duodenal ulcers. -continue PPI. -follow the pathology -GI following. Acute kidney injury, creatine 1.6, baseline Oct 2015 .7, suspected volume loss from questionable gi bleed -Trend renal function -Encourage fluids Cirrhosis with Ascites -s/p paracentesis with removal of four liters of fluid -follow the fluid culture -Pain management with IV morphine -Patient will need treatment out patient treatment for Hep C -follow-up with GI Abnormal UA, no fever, no leukocytosis, no dysuria -Await antibiotics until culture returns Alcohol abuse, chronic, patient states last drink was 7 days ago -Encouraged to quit DVT prophylaxis: SCDs, avoid chemical due to anemia GI prophylaxis: Protonix Darling Diamond MD Apr 17, 2017 08:26
[2017-04-17 12:32] LABS: INTERNATIONAL NORMALIZED RATIO 1.9 RATIO; PROTHROMBIN TIME - PATIENT 21.8 SEC (9.8-11.6)
[2017-04-17 12:34] LABS: AUTOMATED NEUTROPHIL # 3.6 TH/MM3 (1.8-7.7); BASOPHIL # 0.1 TH/MM3 (0-0.2); BASOPHIL % 0.8 % (0.0-2.0); EOSINOPHIL # 0.2 TH/MM3 (0-0.4); HEMATOCRIT 26.1 % (35.0-46.0); LYMPH % 26.1 % (9.0-44.0); LYMPHOCYTE # 1.7 TH/MM3 (1.0-4.8); MEAN CELL VOLUME 104.2 FL (80.0-100.0); MEAN CORPUSCULAR HEMOGLOBIN 36.3 PG (27.0-34.0); MEAN CORPUSCULAR HGB CONC 34.8 % (32.0-36.0); MONO % 14.1 % (0.0-8.0); PLATELET COUNT 71 TH/MM3 (150-450); RED BLOOD COUNT 2.51 MIL/MM3 (4.00-5.30); RED CELL DISTRIBUTION WIDTH 29.2 % (11.6-17.2); WHITE BLOOD COUNT 6.4 TH/MM3 (4.0-11.0)
[2017-04-17 12:42] LABS: HEMO FLAGS AUTO DIFF
[2017-04-17 13:11] LABS: CALCIUM-PROTEIN CORRECTED 7.6 MG/DL (8.5-10.1); POTASSIUM 3.9 MEQ/L (3.5-5.1); TOTAL BILIRUBIN ADULT 7.9 MG/DL (0.2-1.0)
[2017-04-17] MEDS: PANTOPRAZOLE INJ 80 MG in SODIUM CHLORIDE 0.9% INJ 100 ML IV SCH (13:42)
[2017-04-17 13:47] LABS: ACANTHOCYTES OCC (NORMAL); OVALOCYTES 1+ (NORMAL)
[2017-04-17 13:48] LABS: PLATELET ESTIMATE SMEAR LOW (NORMAL); PLATELET MORPHOLOGY NORMAL (NORMAL); SCAN/DIFF AUTO DIFF CONFIRMED
--- NOTE | 2017-04-17 16:54 | HHI.GIFU ---
Subjective Remarks Resting in bed reading the newspaper in no distress. Mild nausea at times. No vomiting. No abdominal pain. No bleeding. Tolerating liquids. requesting "real food." Upset that she has not been able to eat "real food" in a few days. Objective Vitals I&O Vital Signs Date Time Temp Pulse Resp B/P Pulse Ox O2 Delivery O2 Flow Rate FiO2 04/17/17 12:37 97.4 86 16 126/75 99 04/17/17 08:00 97.2 89 16 124/93 98 04/17/17 04:42 97.6 84 18 103/55 97 04/17/17 04:27 97.1 90 19 103/65 99 04/17/17 02:11 97.5 89 18 91/48 96 04/17/17 01:57 97.5 89 19 102/56 97 04/17/17 00:00 97.1 88 16 101/55 100 04/16/17 21:00 97.2 86 20 96/73 95 04/16/17 20:43 97.4 88 20 106/79 100 04/16/17 20:00 97.6 89 16 117/65 100 I/O 04/16/17 04/16/17 04/16/17 04/17/17 04/17/17 04/17/17 07:00 15:00 23:00 07:00 15:00 23:00 Intake Total 650 ml 1301 ml 900 ml Balance 650 ml 1301 ml 900 ml Intake Oral 0 ml 900 ml IV Total 1301 ml Packed Cells 250 ml Other 400 ml # Voids 1 2 3 # Bowel Movements 2 1 Laboratory Laboratory Tests Test 04/16/17 04/16/17 04/17/17 04/17/17 17:30 23:53 01:22 11:52 Hemoglobin 7.5 6.8 9.1 Hematocrit 21.8 19.6 26.1 Lactate Dehydrogenase 225 Total Protein 6.7 6.7 Anti-Nuclear Antibody Screen NEG Blood Type AB NEGATIVE Crossmatch Leukocyte-Reduced Red Blood Cells Blood Bank Comment White Blood Count 6.4 Red Blood Count 2.51 Mean Corpuscular Volume 104.2 Mean Corpuscular Hemoglobin 36.3 Mean Corpuscular Hemoglobin 34.8 Concent Red Cell Distribution Width 29.2 Platelet Count 71 Mean Platelet Volume 8.6 Neutrophils (%) (Auto) 56.0 Lymphocytes (%) (Auto) 26.1 Monocytes (%) (Auto) 14.1 Eosinophils (%) (Auto) 3.0 Basophils (%) (Auto) 0.8 Neutrophils # (Auto) 3.6 Lymphocytes # (Auto) 1.7 Monocytes # (Auto) 0.9 Eosinophils # (Auto) 0.2 Basophils # (Auto) 0.1 CBC Comment AUTO DIFF Differential Comment AUTO DIFF CONFIRMED Platelet Estimate LOW Platelet Morphology Comment NORMAL Ovalocytes 1+ Acanthocytes OCC Prothrombin Time 21.8 Prothromb Time International 1.9 Ratio Sodium Level 137 Potassium Level 3.9 Chloride Level 107 Carbon Dioxide Level 21.0 Anion Gap 9 Blood Urea Nitrogen 8 Creatinine 1.18 Estimat Glomerular Filtration 48 Rate Random Glucose 104 Calcium Level 7.4 Protein Corrected Calcium 7.6 Total Bilirubin 7.9 Aspartate Amino Transf 50 (AST/SGOT) Alanine Aminotransferase 20 (ALT/SGPT) Alkaline Phosphatase 53 Albumin 1.7 Date/Time Procedure Status Source Growth 04/16/17 09:53 Gram Stain - Final Resulted Fluid Peritoneal Fluid 04/16/17 09:53 Body Fluid Culture - Preliminary Resulted Fluid Peritoneal Fluid NO GROWTH IN 24 HOURS. 04/16/17 01:20 Urine Culture - Preliminary Resulted Urine Clean Catch Gram Negative [facility] Imaging Last Impressions Cyst Biopsy Asp-Paracentesis US 04/16/17 0000 Signed Impressions: Service Date/Time: April 09:39 - CONCLUSION: Uncomplicated ultrasound guided paracentesis. Dave Saha MD Physical Exam HEENT: Normocephalic; atraumatic; no jaundice. CHEST: CTA CARDIAC: RRR ABDOMEN: Soft, mildly distended with ascites, nontender; hepatosplenomegaly; bowel sounds are present in all four quadrants. EXTREMITIES: No clubbing, cyanosis, or edema. SKIN: Normal; no rash; no jaundice. CLUB WAITER/WAITRESS: No focal deficits; alert and oriented times three. Assessment and Plan Plan ASSESSMENT: - Upper GIB with melena. Denies any hx of GI bleeding, PUD, or known varices. S /P EGD (04/16/17)----> Lackey's Esophagus, erosive gastritis, duodenal ulcers. No further bleeding. Tolerating clears. HH stable 9.1/26.1. Protonix Gtt. - Duodenal ulcers. Change to Protonix with BID dosing. - Severe anemia secondary to blood loss. S/P 4 units PRBC, 2 units FFP. 0..1. - New onset ascites. Cyst Biopsy Asp-Paracentesis US (04/16/17)----> Uncomplicated ultrasound guided paracentesis with 4000cc removed. Fluid studies wbc 39, Peritoneal rbc 111. Cytology pending. Peritoneal cx no growth x 24 hours. Start Spironolactone 50mg po daily. Add ceftriaxone - Liver cirrhosis with elevated LFTs. States she was told that she had liver disease for several years, but never told specifically that she had liver cirrhosis until this hospitalization. She has a hx of ETOH use, 3-4 beers per day up until one week ago and has HCV antibodies. MELD 25. T. Bilirubin went to 7.9 today AST 50, ALT 20, Alk Phosph. 53. DF is 52.9. This is likely alcoholic hepatitis on underlying liver cirrhosis. Has UTI so will avoid steroids and start pentoxifylline. - Alcoholic hepatitis. DF 52.9. Add pentoxifylline. (UTI) - Thrombocytopenia, Coagulopathy. PT 21.8, INR 1.9. Plt 72. - HCV antibodies. HCV Genotype, viral load pending. - NEGRO. In October, she had GFR of 83. This is now 34. - UTI, Cx with GNR. Add Ceftriaxone. - HTN, CAD, Hx TIA, COPD, Hx DVT per primary PLAN: - Heart healthy diet - D/C Protonix Gtt - Protonix 40mg po bid - Start Pentoxifylline - Add Ceftriaxone for uti and possible sbp - Monitor HH - Transfuse as necessary - Await HCV Genotype, Viral load - Await ASMA, AMA - CBC, CMP in am - Supportive care - Pt seen and examined by Dr. Lemos and myself and this note is written on his behalf Krystyna Jessica Apr 17, 2017 16:54
[2017-04-17] MEDS: cefTRIAXone INJ 1,000 MG in SODIUM CHLORIDE 0.9% INJ 100 ML IV SCH (18:49)
[2017-04-17] MEDS: PENTOXIFYLLINE 400 MG CONTROLLED RELEASE TAB PO SCH (23:19)
[2017-04-18 04:00] VITALS: BP 112/80; PULSE 95; RESP 18; TEMP 97.9; O2SAT 97
[2017-04-18] MEDS: PENTOXIFYLLINE 400 MG CONTROLLED RELEASE TAB PO SCH ×3 (05:38→21:53)
[2017-04-18 06:16] LABS: BASOPHIL % 0.7 % (0.0-2.0); EOSINOPHIL # 0.1 TH/MM3 (0-0.4); EOSINOPHIL % 2.2 % (0.0-4.0); HEMATOCRIT 25.7 % (35.0-46.0); LYMPH % 27.2 % (9.0-44.0); LYMPHOCYTE # 1.8 TH/MM3 (1.0-4.8); MEAN CELL VOLUME 104.5 FL (80.0-100.0); MEAN CORPUSCULAR HEMOGLOBIN 35.9 PG (27.0-34.0); MEAN CORPUSCULAR HGB CONC 34.3 % (32.0-36.0); MONO % 10.3 % (0.0-8.0); NEUT % 59.6 % (16.0-70.0); PLATELET COUNT 66 TH/MM3 (150-450); RED BLOOD COUNT 2.46 MIL/MM3 (4.00-5.30); RED CELL DISTRIBUTION WIDTH 29.5 % (11.6-17.2); WHITE BLOOD COUNT 6.7 TH/MM3 (4.0-11.0)
[2017-04-18] MEDS: ONDANSETRON HCL 4 MG/2 ML VIAL IV PUSH PRN ×2 (06:18→20:18)
[2017-04-18 06:23] LABS: HEMO FLAGS AUTO DIFF
[2017-04-18 07:07] LABS: BICARBONATE 21.9 MEQ/L (21.0-32.0); CALCIUM-PROTEIN CORRECTED 7.5 MG/DL (8.5-10.1); POTASSIUM 3.6 MEQ/L (3.5-5.1); TOTAL BILIRUBIN ADULT 5.5 MG/DL (0.2-1.0)
--- NOTE | 2017-04-18 07:24 | HHI.PR ---
Subjective Remarks resting comfortably with no distress. says that she has small rectal bleed over night. no dizziness, chest pain or sob. had some nausea earlier which has resolved. d/w the RN. Objective Vitals Vital Signs Date Time Temp Pulse Resp B/P Pulse Ox O2 Delivery O2 Flow Rate FiO2 04/18/17 04:00 97.9 95 18 112/80 97 04/18/17 00:52 19 04/17/17 23:52 97.9 89 18 133/82 100 04/17/17 20:00 97.3 91 18 121/95 99 04/17/17 16:30 96.7 85 16 127/85 100 04/17/17 16:00 85 04/17/17 12:37 97.4 86 16 126/75 99 04/17/17 12:00 91 04/17/17 08:00 97.2 89 16 124/93 98 I/O 04/17/17 04/17/17 04/17/17 04/18/17 04/18/17 04/18/17 07:00 15:00 23:00 07:00 15:00 23:00 Intake Total 1301 ml 900 ml 480 ml 720 ml Balance 1301 ml 900 ml 480 ml 720 ml Intake Oral 900 ml 480 ml 720 ml IV Total 1301 ml # Voids 2 3 2 # Bowel Movements 1 1 Result Diagram: 04/18/17 0552 04/18/17 0552 Imaging Last Impressions Cyst Biopsy Asp-Paracentesis US 04/16/17 0000 Signed Impressions: Service Date/Time: April 09:39 - CONCLUSION: Uncomplicated ultrasound guided paracentesis. Dave Saha MD Objective Remarks GENERAL: This is a well-nourished, well-developed patient, in no apparent distress. CARDIOVASCULAR: Regular rate and regular rhythm without murmurs, gallops, or rubs. RESPIRATORY: Clear to auscultation. Breath sounds equal bilaterally. No wheezes , rales, or rhonchi. GASTROINTESTINAL: Abdomen soft, non-tender, distended. Normal, active bowel sounds MUSCULOSKELETAL: Extremities with bilateral pedal edema. NEURO: Alert & Oriented x4 to person, place, time, situation. Moves all ext x4 Procedures EGD paracentesis Medications and IVs Current Medications Sodium Chloride 2 ml 2 ml UNSCH PRN IV FLUSH FLUSH AFTER USING IV ACCESS; Start 04/16/17 at 00:15; Stop 04/16/17 at 01:52; Status DC Sodium Chloride (NS 250 ml Inj) 250 ml @ 15 mls/hr ONCE ONCE IV ; Start at 01:15; Stop 04/16/17 at 17:54; Status DC Sodium Chloride (NS Flush) 2 ml UNSCH PRN IV FLUSH FLUSH AFTER USING IV ACCESS ; Start 04/16/17 at 02:00 Sodium Chloride (NS Flush) 2 ml BID IV FLUSH Last administered on 04/16/17 23: 42; Start 04/16/17 at 09:00 Naloxone HCl (Narcan Inj) 0.4 mg UNSCH PRN IV SEE LABEL COMMENTS; Start at 02:00 Pantoprazole Sodium (Protonix Inj) 40 mg Q12H IV PUSH Last administered on 04:33; Start 04/16/17 at 02:00; Stop 04/16/17 at 05:19; Status DC Morphine Sulfate 2 mg 2 mg Q4H PRN IV PUSH pain >5; Start 04/16/17 at 04:30 Pantoprazole Sodium 80 mg/ Sodium Chloride 100 ml @ 10 mls/hr CONTINUOUS IV Last administered on 04/17/17 13:42; Start 04/16/17 at 05:30; Stop 04/17/17 at 16: 37; Status DC Sodium Chloride 1,000 ml @ 60 mls/hr [id number] IV Last administered on 04/17/17 07:00; Start 04/16/17 at 08:00 Sodium Chloride (NS 250 ml Inj) 250 ml @ 15 mls/hr ONCE ONCE IV Last administered on 04/17/17 06:50; Start 04/16/17 at 11:45; Stop 04/17/17 at 04:24; Status DC Spironolactone (Aldactone) 50 mg DAILY PO Last administered on 04/17/17 08:22; Start 04/16/17 at 11:45 Sugammadex Sodium (Bridion Inj) 200 mg STK-MED ONCE IV PUSH ; Start 04/16/17 at 12:26; Stop 04/16/17 at 12:27; Status DC Miscellaneous Information ALL NURSING DEPARTME... UNSCH PRN .XX SEE LABEL COMMENTS; Start 04/16/17 at 12:42; Stop 04/17/17 at 12:41; Status DC Propofol (Diprivan 200 Mg/20 ml Inj) 150 mg STK-MED ONCE IV ; Start 04/16/17 at 12:19; Stop 04/16/17 at 14:24; Status DC Rocuronium [place] (Zemuron Inj) 50 mg STK-MED ONCE IV ; Start 04/16/17 at 12:19 ; Stop 04/16/17 at 14:24; Status DC Oxycodone HCl (Roxicodone) 5 mg Q8H PRN PO PAIN >5 Last administered on 23:24; Start 04/17/17 at 08:15 Pantoprazole Sodium (Protonix) 40 mg DAILY PO ; Start 04/18/17 at 09:00; Stop 04/18/17 at 09:00; Status DC Pantoprazole Sodium (Protonix) 40 mg BID PO ; Start 04/18/17 at 09:00 Pentoxifylline 400 mg 400 mg Q8HR PO Last administered on 04/18/17 05:38; Start 04/17/17 at 22:00 Ceftriaxone Sodium/Sodium Chloride (Rocephin Inj/NS Inj) 100 ml @ 200 mls/hr Q24H IV Last administered on 04/17/17 18:49; Start 04/17/17 at 18:00 Ondansetron HCl (Zofran Inj) 4 mg Q6HR PRN IV PUSH nausea Last administered on 04/18/17 06:18; Start 04/18/17 at 06:15 A/P Assessment and Plan A/P Symptomatic anemia- - s/p PRBC transfusion; H/H fairly stable -continue to monitor H/H and transfuse as needed - s/p EGD with 1. Lackey's esophagus. 2. Erosive gastritis. 3. Duodenal ulcers. -continue PPI. -follow the pathology -GI following. Acute kidney injury, creatine 1.6, baseline Oct 2015 .7, suspected volume loss from questionable gi bleed- improved. -Encourage fluids Cirrhosis with Ascites -s/p paracentesis with removal of four liters of fluid -fluid culture negative so far. -continue pain control -Patient will need treatment out patient treatment for Hep C -follow-up with GI UTI with gram negative jonah -continue Rocephin Alcohol abuse, chronic, patient states last drink was 7 days ago -Encouraged to quit DVT prophylaxis: SCDs, avoid chemical due to anemia GI prophylaxis: Protonix Darling Diamond MD Apr 18, 2017 07:24
[2017-04-18 07:40] LABS: EOSINOPHILS 5 % (0-4); METAMYELOCYTES 1 % (0-1); NEUTROPHIL # MANUAL DIFF 4.5 TH/MM3 (1.8-7.7); POLYS (SEG NEUTROPHILS) 66 % (16-70); WBC DIFF SAMPLE 100
[2017-04-18 07:41] LABS: PLATELET ESTIMATE SMEAR LOW (NORMAL); PLATELET MORPHOLOGY NORMAL (NORMAL); SCAN/DIFF FINAL DIFF MANUAL
[2017-04-18 08:50] VITALS: BP 107/81; PULSE 84; RESP 16; TEMP 97.8; O2SAT 98
[2017-04-18] MEDS: PANTOPRAZOLE SOD 40 MG DELAYED RELEASE TAB PO SCH ×2 (08:53→20:18)
[2017-04-18] MEDS: SPIRONOLACTONE 50 MG TAB PO SCH (08:53)
[2017-04-18] MEDS ORDERED: PANTOPRAZOLE SOD 40 MG DELAYED RELEASE TAB PO SCH (09:00)
[2017-04-18 12:00] VITALS: BP 106/62; PULSE 88; RESP 16; TEMP 97.1; O2SAT 98
[2017-04-18] MEDS: SODIUM CHLOR 0.45% 1000 ML INJ 1,000 ML IV SCH (13:29)
[2017-04-18] MEDS: SODIUM CHLORIDE 0.9% FLUSH 10 ML FLUSH IV FLUSH SCH ×2 (13:31→20:18)
[2017-04-18 16:00] VITALS: BP 104/61; PULSE 83; PULSE 89; RESP 16; TEMP 96.4; O2SAT 99
[2017-04-18] MEDS: cefTRIAXone INJ 1,000 MG in SODIUM CHLORIDE 0.9% INJ 100 ML IV SCH (18:33)
[2017-04-18 20:00] VITALS: BP 118/59; PULSE 86; RESP 18; TEMP 97.6; O2SAT 98
[2017-04-18 21:00] VITALS: PULSE 82
[2017-04-19] VITALS: BP 97/52; PULSE 88; RESP 18; TEMP 96.9; O2SAT 97
[2017-04-19 04:00] VITALS: BP 99/55; PULSE 87; RESP 18; TEMP 96.9; O2SAT 97
[2017-04-19] MEDS: ONDANSETRON HCL 4 MG/2 ML VIAL IV PUSH PRN ×2 (06:15→18:43)
[2017-04-19] MEDS: PENTOXIFYLLINE 400 MG CONTROLLED RELEASE TAB PO SCH ×3 (06:19→22:12)
[2017-04-19] MEDS: SODIUM CHLOR 0.45% 1000 ML INJ 1,000 ML IV SCH (06:50)
--- NOTE | 2017-04-19 07:43 | HHI.PR ---
Subjective Remarks she says that ' she's not feeling good today'. complaining of nausea. has mild generalized abdominal pain. no rectal bleed. d/w the RN. Objective Vitals Vital Signs Date Time Temp Pulse Resp B/P Pulse Ox O2 Delivery O2 Flow Rate FiO2 04/19/17 04:00 96.9 87 18 99/55 97 04/19/17 00:00 96.9 88 18 97/52 97 04/18/17 23:13 20 04/18/17 21:00 82 04/18/17 20:00 97.6 86 18 118/59 98 04/18/17 16:00 83 04/18/17 16:00 96.4 89 16 104/61 99 04/18/17 12:00 97.1 88 16 106/62 98 04/18/17 08:50 97.8 84 16 107/81 98 I/O 04/18/17 04/18/17 04/18/17 04/19/17 04/19/17 04/19/17 07:00 15:00 23:00 07:00 15:00 23:00 Intake Total 720 ml 720 ml 1046 ml 669 ml Balance 720 ml 720 ml 1046 ml 669 ml Intake Oral 720 ml 720 ml 480 ml 120 ml IV Total 566 ml 549 ml # Voids 2 3 2 3 # Bowel Movements 1 Result Diagram: 04/18/17 0552 04/18/17 0552 Imaging Last Impressions Cyst Biopsy Asp-Paracentesis US 04/16/17 0000 Signed Impressions: Service Date/Time: April 09:39 - CONCLUSION: Uncomplicated ultrasound guided paracentesis. Dave Saha MD Objective Remarks GENERAL: This is a well-nourished, well-developed patient, in no apparent distress. CARDIOVASCULAR: Regular rate and regular rhythm without murmurs, gallops, or rubs. RESPIRATORY: Clear to auscultation. Breath sounds equal bilaterally. No wheezes , rales, or rhonchi. GASTROINTESTINAL: Abdomen soft, non-tender, distended. Normal, active bowel sounds MUSCULOSKELETAL: Extremities with bilateral pedal edema. NEURO: Alert & Oriented x4 to person, place, time, situation. Moves all ext x4 Procedures EGD paracentesis Medications and IVs Current Medications Sodium Chloride 2 ml 2 ml UNSCH PRN IV FLUSH FLUSH AFTER USING IV ACCESS; Start 04/16/17 at 00:15; Stop 04/16/17 at 01:52; Status DC Sodium Chloride (NS 250 ml Inj) 250 ml @ 15 mls/hr ONCE ONCE IV ; Start at 01:15; Stop 04/16/17 at 17:54; Status DC Sodium Chloride (NS Flush) 2 ml UNSCH PRN IV FLUSH FLUSH AFTER USING IV ACCESS ; Start 04/16/17 at 02:00 Sodium Chloride (NS Flush) 2 ml BID IV FLUSH Last administered on 04/18/17 20: 18; Start 04/16/17 at 09:00 Naloxone HCl (Narcan Inj) 0.4 mg UNSCH PRN IV SEE LABEL COMMENTS; Start at 02:00 Pantoprazole Sodium (Protonix Inj) 40 mg Q12H IV PUSH Last administered on 04:33; Start 04/16/17 at 02:00; Stop 04/16/17 at 05:19; Status DC Morphine Sulfate 2 mg 2 mg Q4H PRN IV PUSH pain >5; Start 04/16/17 at 04:30 Pantoprazole Sodium 80 mg/ Sodium Chloride 100 ml @ 10 mls/hr CONTINUOUS IV Last administered on 04/17/17 13:42; Start 04/16/17 at 05:30; Stop 04/17/17 at 16: 37; Status DC Sodium Chloride 1,000 ml @ 60 mls/hr [id number] IV Last administered on 04/18/17 13:29; Start 04/16/17 at 08:00 Sodium Chloride (NS 250 ml Inj) 250 ml @ 15 mls/hr ONCE ONCE IV Last administered on 04/17/17 06:50; Start 04/16/17 at 11:45; Stop 04/17/17 at 04:24; Status DC Spironolactone (Aldactone) 50 mg DAILY PO Last administered on 04/18/17 08:53; Start 04/16/17 at 11:45 Sugammadex Sodium (Bridion Inj) 200 mg STK-MED ONCE IV PUSH ; Start 04/16/17 at 12:26; Stop 04/16/17 at 12:27; Status DC Miscellaneous Information ALL NURSING DEPARTME... UNSCH PRN .XX SEE LABEL COMMENTS; Start 04/16/17 at 12:42; Stop 04/17/17 at 12:41; Status DC Propofol (Diprivan 200 Mg/20 ml Inj) 150 mg STK-MED ONCE IV ; Start 04/16/17 at 12:19; Stop 04/16/17 at 14:24; Status DC Rocuronium [place] (Zemuron Inj) 50 mg STK-MED ONCE IV ; Start 04/16/17 at 12:19 ; Stop 04/16/17 at 14:24; Status DC Oxycodone HCl (Roxicodone) 5 mg Q8H PRN PO PAIN >5 Last administered on 06:15; Start 04/17/17 at 08:15 Pantoprazole Sodium (Protonix) 40 mg DAILY PO ; Start 04/18/17 at 09:00; Stop 04/18/17 at 09:00; Status DC Pantoprazole Sodium (Protonix) 40 mg BID PO Last administered on 04/18/17 20:18 ; Start 04/18/17 at 09:00 Pentoxifylline 400 mg 400 mg Q8HR PO Last administered on 04/19/17 06:19; Start 04/17/17 at 22:00 Ceftriaxone Sodium/Sodium Chloride (Rocephin Inj/NS Inj) 100 ml @ 200 mls/hr Q24H IV Last administered on 04/18/17 18:33; Start 04/17/17 at 18:00 Ondansetron HCl (Zofran Inj) 4 mg Q6HR PRN IV PUSH nausea Last administered on 04/19/17 06:15; Start 04/18/17 at 06:15 A/P Assessment and Plan A/P Symptomatic anemia- - s/p PRBC transfusion; H/H fairly stable -continue to monitor H/H and transfuse as needed - s/p EGD with 1. Lackey's esophagus. 2. Erosive gastritis. 3. Duodenal ulcers. -continue PPI. -follow the pathology -GI following. Acute kidney injury- suspected volume loss from questionable gi bleed- improved. -Encourage fluids Cirrhosis with Ascites -s/p paracentesis with removal of four liters of fluid -fluid culture negative so far. -continue pain control -Patient will need treatment out patient treatment for Hep C -follow-up with GI UTI with e-coli -continue Rocephin Alcohol abuse, chronic, patient states last drink was 7 days ago -Encouraged to quit DVT prophylaxis: SCDs, avoid chemical due to anemia GI prophylaxis: Protonix consult PT Discharge Planning dc planning within the next 24-48 hrs if stable and ok with GI. Darling Diamond MD Apr 19, 2017 07:43
[2017-04-19 08:00] VITALS: BP 120/68; PULSE 85; RESP 14; TEMP 97.3; O2SAT 99
[2017-04-19] MEDS: MORPHINE SULFATE 8 MG/ML INJ IV PUSH PRN (08:07)
[2017-04-19 08:09] LABS: AUTOMATED NEUTROPHIL # 3.4 TH/MM3 (1.8-7.7); BASOPHIL % 0.5 % (0.0-2.0); EOSINOPHIL # 0.1 TH/MM3 (0-0.4); EOSINOPHIL % 2.3 % (0.0-4.0); HEMATOCRIT 26.3 % (35.0-46.0); LYMPH % 28.4 % (9.0-44.0); LYMPHOCYTE # 1.7 TH/MM3 (1.0-4.8); MEAN CELL VOLUME 106.5 FL (80.0-100.0); MEAN CORPUSCULAR HEMOGLOBIN 36.8 PG (27.0-34.0); MEAN CORPUSCULAR HGB CONC 34.6 % (32.0-36.0); MONO % 10.3 % (0.0-8.0); NEUT % 58.5 % (16.0-70.0); PLATELET COUNT 69 TH/MM3 (150-450); RED BLOOD COUNT 2.47 MIL/MM3 (4.00-5.30); WHITE BLOOD COUNT 5.9 TH/MM3 (4.0-11.0)
[2017-04-19 08:21] LABS: HEMO FLAGS AUTO DIFF
[2017-04-19 09:23] LABS: ACANTHOCYTES OCC (NORMAL)
[2017-04-19 09:24] LABS: OVALOCYTES 1+ (NORMAL); PLATELET ESTIMATE SMEAR LOW (NORMAL); PLATELET MORPHOLOGY NORMAL (NORMAL); SCAN/DIFF AUTO DIFF CONFIRMED
[2017-04-19] MEDS: PANTOPRAZOLE SOD 40 MG DELAYED RELEASE TAB PO SCH ×2 (11:10→22:12)
[2017-04-19] MEDS: SPIRONOLACTONE 50 MG TAB PO SCH ×2 (11:10→22:13)
[2017-04-19] MEDS: SODIUM CHLORIDE 0.9% FLUSH 10 ML FLUSH IV FLUSH SCH ×2 (11:10→21:00)
--- NOTE | 2017-04-19 11:35 | HHI.GIFU ---
Subjective Remarks Patient reports that she has had nausea and vomiting with po intake the last 2 days. She had a very small stool this morning but feels her abdomen is more distended. Some flatus. (Sharlene Boles) Objective Vitals I&O Vital Signs Date Time Temp Pulse Resp B/P Pulse Ox O2 Delivery O2 Flow Rate FiO2 04/19/17 08:12 18 04/19/17 08:00 97.3 85 14 120/68 99 04/19/17 07:15 20 04/19/17 04:00 96.9 87 18 99/55 97 04/19/17 00:00 96.9 88 18 97/52 97 04/18/17 21:00 82 04/18/17 20:00 97.6 86 18 118/59 98 04/18/17 16:00 83 04/18/17 16:00 96.4 89 16 104/61 99 04/18/17 12:00 97.1 88 16 106/62 98 I/O 04/18/17 04/18/17 04/18/17 04/19/17 04/19/17 04/19/17 07:00 15:00 23:00 07:00 15:00 23:00 Intake Total 720 ml 720 ml 1046 ml 669 ml Balance 720 ml 720 ml 1046 ml 669 ml Intake Oral 720 ml 720 ml 480 ml 120 ml IV Total 566 ml 549 ml # Voids 2 3 2 3 # Bowel Movements 1 Laboratory Laboratory Tests Test 04/19/17 07:23 White Blood Count 5.9 Red Blood Count 2.47 Hemoglobin 9.1 Hematocrit 26.3 Mean Corpuscular Volume 106.5 Mean Corpuscular Hemoglobin 36.8 Mean Corpuscular Hemoglobin 34.6 Concent Red Cell Distribution Width 29.0 Platelet Count 69 Mean Platelet Volume 8.6 Neutrophils (%) (Auto) 58.5 Lymphocytes (%) (Auto) 28.4 Monocytes (%) (Auto) 10.3 Eosinophils (%) (Auto) 2.3 Basophils (%) (Auto) 0.5 Neutrophils # (Auto) 3.4 Lymphocytes # (Auto) 1.7 Monocytes # (Auto) 0.6 Eosinophils # (Auto) 0.1 Basophils # (Auto) 0.0 CBC Comment AUTO DIFF Differential Comment AUTO DIFF CONFIRMED Platelet Estimate LOW Platelet Morphology Comment NORMAL Ovalocytes 1+ Acanthocytes OCC Date/Time Procedure Status Source Growth 04/16/17 09:53 Gram Stain - Final Complete Fluid Peritoneal Fluid 04/16/17 09:53 Body Fluid Culture - Final Complete Fluid Peritoneal Fluid NO GROWTH IN 72 HRS.--AEROBICALLY OR ... 04/16/17 01:20 Urine Culture - Final Complete Urine Clean Catch Escherichia Coli Imaging Last Impressions Cyst Biopsy Asp-Paracentesis US 04/16/17 0000 Signed Impressions: Service Date/Time: April 09:39 - CONCLUSION: Uncomplicated ultrasound guided paracentesis. Dave Saha MD Physical Exam HEENT: Normocephalic; atraumatic; no jaundice. CHEST: CTA CARDIAC: RRR ABDOMEN: Minimal BS, mildly distended, mild diffuse tenderness; hepatosplenomegaly. EXTREMITIES: Bilateral LE edema. SKIN: Normal; no rash; no jaundice. SEEING EYE DOG TEACHER: No focal deficits; alert and oriented times three. (Sharlene Boles) Assessment and Plan Plan ASSESSMENT: - Upper GIB with melena. Denies any hx of GI bleeding, PUD, or known varices. S /P EGD (04/16/17)----> Lackey's Esophagus, erosive gastritis, duodenal ulcers. No further bleeding. HH stable .11/06.3. Protonix Gtt. - Duodenal ulcers. Change to Protonix with BID dosing. - Severe anemia secondary to blood loss. S/P 4 units PRBC, 2 units FFP. ..3. - New onset ascites. Cyst Biopsy Asp-Paracentesis US (04/16/17)----> Uncomplicated ultrasound guided paracentesis with 4000cc removed. Fluid studies wbc 39, Peritoneal rbc 111. Cytology pending. Peritoneal cx no growth x 24 hours. Spironolactone 50mg po daily. Ceftriaxone added on 04/17. - Liver cirrhosis with elevated LFTs. States she was told that she had liver disease for several years, but never told specifically that she had liver cirrhosis until this hospitalization. She has a hx of ETOH use, 3-4 beers per day up until one week ago and has HCV antibodies. MELD 25. Labs on 04/18 with T. Bilirubin 5.5, AST 49, ALT 20, Alk Phosph. 61. DF is 52.9. This is likely alcoholic hepatitis on underlying liver cirrhosis. Has UTI so will avoid steroids and start pentoxifylline. ASA negative; ASMA negative; AMA pending; - Alcoholic hepatitis. DF 52.9. Pentoxifylline. (UTI) - Thrombocytopenia, Coagulopathy. PT 21.8, INR 1.9 (04/17). Plt 69. - HCV antibodies. HCV Genotype, viral load pending. - NEGRO. In October, she had GFR of 83. This is now 34. - UTI, Cx with GNR. Ceftriaxone. - HTN, CAD, Hx TIA, COPD, Hx DVT per primary PLAN: - Deescalate diet to full liquids - KUB today - Minimize narcotics - Zofran Q4H PRN - Cont. Protonix 40mg po bid - Cont. Pentoxifylline - Monitor HH - Transfuse as necessary - Await HCV Genotype, Viral load - Await AMA - CBC, CMP in am - Supportive care - Pt seen and examined by Dr. Lee and myself and this note is written on her behalf (Sharlene Boles) Physician Comments seen, examined agree with above ascites, increase distension, mass right flank-possible loculated ascites edema of lower extremities fu albumin/protein from peritoneal fluid add albumin iv , followed by lasix ib bid increase Aldactone to 50 mg po bid low salt diet strict i/o charting (Tamara Lee MD) Sharlene Boles Apr 19, 2017 11:35 Tamara Lee MD Apr 19, 2017 14:46
[2017-04-19 12:00] VITALS: BP 164/58; PULSE 81; RESP 12; TEMP 97.5; O2SAT 98
[2017-04-19] MEDS ORDERED: DIATRIZOATE MEGLUM/DIATRIZOATE SOD 9 ML CUP PO ONE (15:00)
[2017-04-19] MEDS: ALBUMIN HUMAN 25% 25 GM/100 ML BAGP IV SCH (15:06)
[2017-04-19 15:47] VITALS: BP 115/81; PULSE 82; RESP 18; TEMP 97.6; O2SAT 100
[2017-04-19] MEDS: FUROSEMIDE 40 MG/4 ML VIAL IV PUSH SCH (18:00)
[2017-04-19] MEDS: cefTRIAXone INJ 1,000 MG in SODIUM CHLORIDE 0.9% INJ 100 ML IV SCH (18:43)
[2017-04-19] MEDS ORDERED: IOHEXOL 350 MG/ML 10 ML VIAL (for RAD DIAG) IV ONE (19:25)
--- NOTE | 2017-04-19 19:56 | RADRPT ---
EXAM DATE/TIME: 04/19/2017 19:24 [facility] COMPARISON: No previous studies available for comparison. INDICATIONS : Ascites and abdominal distention. IV CONTRAST: 91 cc Omnipaque 350 (iohexol) IV ORAL CONTRAST: Prescribed oral contrast ingested. RADIATION DOSE: 15.77 CTDIvol (mGy) MEDICAL HISTORY : Cardiovascular disease. Hepatitis C. Hypertension.CVA. SURGICAL HISTORY : Tubal ligation. ENCOUNTER: Initial ACUITY: 1 day PAIN SCALE: 6/10 LOCATION: Bilateral abdomen TECHNIQUE: Volumetric scanning of the abdomen and pelvis was performed. Using automated exposure control and ad justment of the mA and/or kV according to patient size, radiation dose was kept as low as reasonably achievable to obtain optimal diagnostic quality images. DICOM format image data is available electro nically for review and comparison. FINDINGS: LOWER LUNGS: There is a small right pleural effusion. LIVER: The liver is small in size and mildly heterogeneous with no focal mass or ductal dilatation. The gall bladder appears unremarkable. There is a moderate amount of ascitic fluid surrounding the liver. SPLEEN: Normal size without lesion. PANCREAS: Within normal limits. KIDNEYS: Normal in size and shape. There is no mass, stone or hydronephrosis. ADRENAL GLANDS: Within normal limits. VASCULAR: There is no aortic aneurysm. BOWEL/MESENTERY: The stomach, small bowel, and colon demonstrate no acute abnormality. There is no free intraperitone al air. There is a moderate amount of ascitic fluid in the abdomen and pelvis. ABDOMINAL WALL: Within normal limits. There is evidence of diffuse anasarca. RETROPERITONEUM: There is no lymphadenopathy. BLADDER: No wall thickening or mass. REPRODUCTIVE: Within normal limits. INGUINAL: There is no lymphadenopathy or hernia. MUSCULOSKELETAL: There are postsurgical changes in the lumbar spine status post multilevel fusion. CONCLUSION: 1. Moderate amount of ascitic fluid in the abdomen and pelvis. 2. Small right pleural effusion. 3. The liver is small and mildly heterogeneous with no focal mass or ductal dilatation. Devang Mustafa MD on April 19, 2017 at 19:52 Board Certified Radiologist. This report was verified electronically.
[2017-04-19 20:00] VITALS: BP 109/68; PULSE 78; RESP 18; TEMP 97.6; O2SAT 98
[2017-04-19 23:52] LABS: HCV RNA PCR IU/ML 12100 IU/mL (()); HCV RNA PCR LOGIU/ML 4.08 (())
[2017-04-20] VITALS (8 sets, daily range): BP systolic 95–118; BP diastolic 57–74; PULSE 76–88; RESP 17–20; TEMP 96–96.5; O2SAT 98–100
[2017-04-20] MEDS: SODIUM CHLOR 0.45% 1000 ML INJ 1,000 ML IV SCH (03:49)
[2017-04-20] MEDS: ALBUMIN HUMAN 25% 25 GM/100 ML BAGP IV SCH ×2 (03:49→14:52)
[2017-04-20] MEDS: PENTOXIFYLLINE 400 MG CONTROLLED RELEASE TAB PO SCH ×3 (06:00→21:43)
[2017-04-20] MEDS: SPIRONOLACTONE 50 MG TAB PO SCH ×2 (08:20→21:43)
[2017-04-20] MEDS: PANTOPRAZOLE SOD 40 MG DELAYED RELEASE TAB PO SCH ×2 (08:20→21:43)
[2017-04-20] MEDS: FUROSEMIDE 40 MG/4 ML VIAL IV PUSH SCH ×2 (08:21→18:00)
--- NOTE | 2017-04-20 08:21 | HHI.PR ---
Subjective Remarks in no acute distress. but still with on and off nausea and emesis. no GI bleed. d/w the RN. Objective Vitals Vital Signs Date Time Temp Pulse Resp B/P Pulse Ox O2 Delivery O2 Flow Rate FiO2 04/20/17 04:00 96.2 82 18 106/58 98 04/20/17 00:00 96.2 80 18 109/57 99 04/19/17 20:00 97.6 78 18 109/68 98 04/19/17 15:47 97.6 82 18 115/81 100 04/19/17 15:00 18 04/19/17 12:00 97.5 81 12 164/58 98 I/O 04/19/17 04/19/17 04/19/17 04/20/17 04/20/17 04/20/17 07:00 15:00 23:00 07:00 15:00 23:00 Intake Total 669 ml 769 ml 240 ml Balance 669 ml 769 ml 240 ml Intake Oral 120 ml 220 ml 240 ml IV Total 549 ml 549 ml # Voids 3 7 3 # Bowel Movements 1 Result Diagram: 04/19/17 0723 04/18/17 0552 Imaging Last Impressions Abdomen/Pelvis CT 04/19/17 0000 Signed Impressions: Service Date/Time: Wednesday, April 19, 2017 19:24 - CONCLUSION: 1. Moderate amount of ascitic fluid in the abdomen and pelvis. 2. Small right pleural effusion. 3. The liver is small and mildly heterogeneous with no focal mass or ductal dilatation. Devang Mustafa MD Cyst Biopsy Asp-Paracentesis US 04/16/17 0000 Signed Impressions: Service Date/Time: April 09:39 - CONCLUSION: Uncomplicated ultrasound guided paracentesis. Dave Saha MD Objective Remarks GENERAL: This is a well-nourished, well-developed patient, in no apparent distress. CARDIOVASCULAR: Regular rate and regular rhythm without murmurs, gallops, or rubs. RESPIRATORY: Clear to auscultation. Breath sounds equal bilaterally. No wheezes , rales, or rhonchi. GASTROINTESTINAL: Abdomen soft, non-tender, distended. Normal, active bowel sounds MUSCULOSKELETAL: Extremities with bilateral pedal edema. NEURO: Alert & Oriented x4 to person, place, time, situation. Moves all ext x4 Procedures EGD paracentesis Medications and IVs Current Medications Sodium Chloride 2 ml 2 ml UNSCH PRN IV FLUSH FLUSH AFTER USING IV ACCESS; Start 04/16/17 at 00:15; Stop 04/16/17 at 01:52; Status DC Sodium Chloride (NS 250 ml Inj) 250 ml @ 15 mls/hr ONCE ONCE IV ; Start at 01:15; Stop 04/16/17 at 17:54; Status DC Sodium Chloride (NS Flush) 2 ml UNSCH PRN IV FLUSH FLUSH AFTER USING IV ACCESS ; Start 04/16/17 at 02:00 Sodium Chloride (NS Flush) 2 ml BID IV FLUSH Last administered on 04/19/17 11: 10; Start 04/16/17 at 09:00 Naloxone HCl (Narcan Inj) 0.4 mg UNSCH PRN IV SEE LABEL COMMENTS; Start at 02:00 Pantoprazole Sodium (Protonix Inj) 40 mg Q12H IV PUSH Last administered on 04:33; Start 04/16/17 at 02:00; Stop 04/16/17 at 05:19; Status DC Morphine Sulfate 2 mg 2 mg Q4H PRN IV PUSH pain >5 Last administered on 08:07; Start 04/16/17 at 04:30 Pantoprazole Sodium 80 mg/ Sodium Chloride 100 ml @ 10 mls/hr CONTINUOUS IV Last administered on 04/17/17 13:42; Start 04/16/17 at 05:30; Stop 04/17/17 at 16: 37; Status DC Sodium Chloride 1,000 ml @ 60 mls/hr [id number] IV Last administered on 03:49; Start 04/16/17 at 08:00 Sodium Chloride (NS 250 ml Inj) 250 ml @ 15 mls/hr ONCE ONCE IV Last administered on 04/17/17 06:50; Start 04/16/17 at 11:45; Stop 04/17/17 at 04:24; Status DC Spironolactone (Aldactone) 50 mg DAILY PO Last administered on 04/19/17 11:10; Start 04/16/17 at 11:45; Stop 04/19/17 at 14:51; Status DC Sugammadex Sodium (Bridion Inj) 200 mg STK-MED ONCE IV PUSH ; Start 04/16/17 at 12:26; Stop 04/16/17 at 12:27; Status DC Miscellaneous Information ALL NURSING DEPARTME... UNSCH PRN .XX SEE LABEL COMMENTS; Start 04/16/17 at 12:42; Stop 04/17/17 at 12:41; Status DC Propofol (Diprivan 200 Mg/20 ml Inj) 150 mg STK-MED ONCE IV ; Start 04/16/17 at 12:19; Stop 04/16/17 at 14:24; Status DC Rocuronium [place] (Zemuron Inj) 50 mg STK-MED ONCE IV ; Start 04/16/17 at 12:19 ; Stop 04/16/17 at 14:24; Status DC Oxycodone HCl (Roxicodone) 5 mg Q8H PRN PO PAIN >5 Last administered on 11:10; Start 04/17/17 at 08:15 Pantoprazole Sodium (Protonix) 40 mg DAILY PO ; Start 04/18/17 at 09:00; Stop 04/18/17 at 09:00; Status DC Pantoprazole Sodium (Protonix) 40 mg BID PO Last administered on 04/19/17 22:12 ; Start 04/18/17 at 09:00 Pentoxifylline 400 mg 400 mg Q8HR PO Last administered on 04/20/17 06:00; Start 04/17/17 at 22:00 Ceftriaxone Sodium/Sodium Chloride (Rocephin Inj/NS Inj) 100 ml @ 200 mls/hr Q24H IV Last administered on 04/19/17 18:43; Start 04/17/17 at 18:00 Ondansetron HCl (Zofran Inj) 4 mg Q6HR PRN IV PUSH nausea Last administered on 04/19/17 06:15; Start 04/18/17 at 06:15; Stop 04/19/17 at 11:29; Status DC Ondansetron HCl (Zofran Inj) 4 mg Q4HR PRN IV PUSH nausea Last administered on 04/19/17 18:43; Start 04/19/17 at 12:00 Furosemide (Lasix Inj) 40 mg BID@09,18 IV PUSH ; Start 04/19/17 at 18:00 Albumin Human (Albumin 25% Inj) 25 gm Q12H IV Last administered on 04/20/17 03 :49; Start 04/19/17 at 15:00 Spironolactone (Aldactone) 50 mg BID PO Last administered on 04/19/17 22:13; Start 04/19/17 at 21:00 Diatrizoate Meglum/ Diatrizoate Sod ( Gastroview Liq) 18 ml ONCE ONCE PO Last administered on 04/19/17 15:43; Start 04/19/17 at 15:00; Stop 04/19/17 at 15: 01; Status DC Iohexol (Omnipaque 350 Inj) 91 ml STK-MED ONCE IV Last administered on 19:25; Start 04/19/17 at 19:25; Stop 04/19/17 at 19:26; Status DC A/P Assessment and Plan A/P Symptomatic anemia- - s/p PRBC transfusion; H/H fairly stable -continue to monitor H/H and transfuse as needed - s/p EGD with 1. Lackey's esophagus. 2. Erosive gastritis. 3. Duodenal ulcers. -continue PPI. -follow the pathology -GI following. Acute kidney injury- suspected volume loss from questionable GI bleed- improved. -Encourage fluids Cirrhosis with Ascites -s/p paracentesis with removal of four liters of fluid -fluid culture negative so far. -continue with lasix, albumin and aldactone -might need repeated paracentesis -continue pain control -Patient will need treatment out patient treatment for Hep C -follow-up with GI UTI with e-coli -continue Rocephin Alcohol abuse, chronic, patient states last drink was 7 days ago -Encouraged to quit DVT prophylaxis: SCDs, avoid chemical due to anemia GI prophylaxis: Protonix consulted PT Discharge Planning awaiting GI follow-up and recommendations. Darling Diamond MD Apr 20, 2017 08:21
[2017-04-20] MEDS: SODIUM CHLORIDE 0.9% FLUSH 10 ML FLUSH IV FLUSH SCH ×2 (08:22→21:00)
[2017-04-20] MEDS: ONDANSETRON HCL 4 MG/2 ML VIAL IV PUSH PRN ×3 (08:33→21:45)
[2017-04-20 10:22] LABS: AUTOMATED NEUTROPHIL # 4.3 TH/MM3 (1.8-7.7); BASOPHIL # 0.1 TH/MM3 (0-0.2); BASOPHIL % 1.1 % (0.0-2.0); EOSINOPHIL # 0.1 TH/MM3 (0-0.4); EOSINOPHIL % 1.7 % (0.0-4.0); HEMATOCRIT 27.7 % (35.0-46.0); LYMPH % 20.3 % (9.0-44.0); LYMPHOCYTE # 1.3 TH/MM3 (1.0-4.8); MEAN CELL VOLUME 108.5 FL (80.0-100.0); MEAN CORPUSCULAR HEMOGLOBIN 36.3 PG (27.0-34.0); MEAN CORPUSCULAR HGB CONC 33.4 % (32.0-36.0); NEUT % 67.9 % (16.0-70.0); PLATELET COUNT 60 TH/MM3 (150-450); RED BLOOD COUNT 2.55 MIL/MM3 (4.00-5.30); RED CELL DISTRIBUTION WIDTH 28.7 % (11.6-17.2); WHITE BLOOD COUNT 6.3 TH/MM3 (4.0-11.0)
[2017-04-20 10:30] LABS: HEMO FLAGS AUTO DIFF
[2017-04-20 10:58] LABS: ALKALINE PHOSPHATASE 52 U/L (45-117); ALT (GPT) 17 U/L (10-53); ANION GAP 14 MEQ/L (5-15); AST (GOT) 40 U/L (15-37); BICARBONATE 17.9 MEQ/L (21.0-32.0); BLOOD UREA NITROGEN 7 MG/DL (7-18); CHLORIDE 103 MEQ/L (98-107); GLOMERULAR FILTRATION RATE 47 ML/MIN (>89); POTASSIUM 3.5 MEQ/L (3.5-5.1); SODIUM (NA) 135 MEQ/L (136-145); TOTAL BILIRUBIN ADULT 5.2 MG/DL (0.2-1.0)
[2017-04-20 11:06] LABS: ACANTHOCYTES 1+ (NORMAL); OVALOCYTES 1+ (NORMAL)
[2017-04-20 11:07] LABS: PLATELET ESTIMATE SMEAR LOW (NORMAL); PLATELET MORPHOLOGY NORMAL (NORMAL); SCAN/DIFF AUTO DIFF CONFIRMED; TARGET CELLS 1+ (NORMAL)
[2017-04-20 13:53] LABS: MITOCHONDRIAL ABS LESS THAN 20.0 U (())
[2017-04-20 15:53] LABS: HEPATITIS C RNA GENOTYPE 1a (())
[2017-04-20] MEDS: cefTRIAXone INJ 1,000 MG in SODIUM CHLORIDE 0.9% INJ 100 ML IV SCH (18:01)
[2017-04-21] VITALS (9 sets, daily range): BP systolic 96–112; BP diastolic 55–72; PULSE 86–98; RESP 17–20; TEMP 96.1–97.3; O2SAT 95–98
[2017-04-21] MEDS: ALBUMIN HUMAN 25% 25 GM/100 ML BAGP IV SCH ×2 (03:17→13:26)
[2017-04-21] MEDS: SODIUM CHLOR 0.45% 1000 ML INJ 1,000 ML IV SCH ×3 (03:18→21:00)
[2017-04-21] MEDS: PENTOXIFYLLINE 400 MG CONTROLLED RELEASE TAB PO SCH ×3 (05:09→20:55)
[2017-04-21 06:39] LABS: AUTOMATED NEUTROPHIL # 4.9 TH/MM3 (1.8-7.7); BASOPHIL % 0.6 % (0.0-2.0); EOSINOPHIL # 0.1 TH/MM3 (0-0.4); EOSINOPHIL % 1.4 % (0.0-4.0); HEMATOCRIT 23.2 % (35.0-46.0); LYMPHOCYTE # 1.1 TH/MM3 (1.0-4.8); MEAN CORPUSCULAR HEMOGLOBIN 36.5 PG (27.0-34.0); MEAN CORPUSCULAR HGB CONC 33.8 % (32.0-36.0); MONO % 10.3 % (0.0-8.0); NEUT % 71.7 % (16.0-70.0); PLATELET COUNT 48 TH/MM3 (150-450); RED BLOOD COUNT 2.15 MIL/MM3 (4.00-5.30); WHITE BLOOD COUNT 6.9 TH/MM3 (4.0-11.0)
[2017-04-21 06:52] LABS: HEMO FLAGS AUTO DIFF
[2017-04-21 07:30] LABS: ACANTHOCYTES 1+ (NORMAL); OVALOCYTES 1+ (NORMAL); PLATELET ESTIMATE SMEAR LOW (NORMAL); PLATELET MORPHOLOGY NORMAL (NORMAL); SCAN/DIFF AUTO DIFF CONFIRMED; TARGET CELLS 1+ (NORMAL)
[2017-04-21 07:56] LABS: BICARBONATE 17.2 MEQ/L (21.0-32.0); POTASSIUM 3.3 MEQ/L (3.5-5.1); TOTAL BILIRUBIN ADULT 3.7 MG/DL (0.2-1.0)
--- NOTE | 2017-04-21 08:15 | HHI.PR ---
Subjective Remarks in no acute distress. mild generalized abdominal pain. has nausea but with no emesis. d/w the RN. Objective Vitals Vital Signs Date Time Temp Pulse Resp B/P Pulse Ox O2 Delivery O2 Flow Rate FiO2 04/21/17 04:00 96.5 91 17 96/55 98 04/21/17 00:00 96.1 89 18 99/55 98 04/20/17 21:54 76 04/20/17 20:00 96.5 83 17 110/59 99 04/20/17 16:00 82 04/20/17 15:50 96.1 86 20 118/74 99 04/20/17 11:30 96.0 88 20 95/60 99 I/O 04/20/17 04/20/17 04/20/17 04/21/17 04/21/17 04/21/17 07:00 15:00 23:00 07:00 15:00 23:00 Intake Total 240 ml 401 ml Balance 240 ml 401 ml Intake Oral 240 ml 401 ml # Voids 3 4 1 2 # Bowel Movements 2 Result Diagram: 04/21/17 0618 04/20/17 0933 Imaging Last Impressions Abdomen/Pelvis CT 04/19/17 0000 Signed Impressions: Service Date/Time: Wednesday, April 19, 2017 19:24 - CONCLUSION: 1. Moderate amount of ascitic fluid in the abdomen and pelvis. 2. Small right pleural effusion. 3. The liver is small and mildly heterogeneous with no focal mass or ductal dilatation. Devang Mustafa MD Cyst Biopsy Asp-Paracentesis US 04/16/17 0000 Signed Impressions: Service Date/Time: April 09:39 - CONCLUSION: Uncomplicated ultrasound guided paracentesis. Dave Saha MD Objective Remarks GENERAL: This is a well-nourished, well-developed patient, in no apparent distress. CARDIOVASCULAR: Regular rate and regular rhythm without murmurs, gallops, or rubs. RESPIRATORY: Clear to auscultation. Breath sounds equal bilaterally. No wheezes , rales, or rhonchi. GASTROINTESTINAL: Abdomen soft, non-tender, distended. Normal, active bowel sounds MUSCULOSKELETAL: Extremities with bilateral pedal edema. NEURO: Alert & Oriented x4 to person, place, time, situation. Moves all ext x4 Procedures EGD paracentesis Medications and IVs Current Medications Sodium Chloride 2 ml 2 ml UNSCH PRN IV FLUSH FLUSH AFTER USING IV ACCESS; Start 04/16/17 at 00:15; Stop 04/16/17 at 01:52; Status DC Sodium Chloride (NS 250 ml Inj) 250 ml @ 15 mls/hr ONCE ONCE IV ; Start at 01:15; Stop 04/16/17 at 17:54; Status DC Sodium Chloride (NS Flush) 2 ml UNSCH PRN IV FLUSH FLUSH AFTER USING IV ACCESS ; Start 04/16/17 at 02:00 Sodium Chloride (NS Flush) 2 ml BID IV FLUSH Last administered on 04/20/17 08: 22; Start 04/16/17 at 09:00 Naloxone HCl (Narcan Inj) 0.4 mg UNSCH PRN IV SEE LABEL COMMENTS; Start at 02:00 Pantoprazole Sodium (Protonix Inj) 40 mg Q12H IV PUSH Last administered on 04:33; Start 04/16/17 at 02:00; Stop 04/16/17 at 05:19; Status DC Morphine Sulfate 2 mg 2 mg Q4H PRN IV PUSH pain >5 Last administered on 08:07; Start 04/16/17 at 04:30 Pantoprazole Sodium 80 mg/ Sodium Chloride 100 ml @ 10 mls/hr CONTINUOUS IV Last administered on 04/17/17 13:42; Start 04/16/17 at 05:30; Stop 04/17/17 at 16: 37; Status DC Sodium Chloride 1,000 ml @ 60 mls/hr [id number] IV Last administered on 05:10; Start 04/16/17 at 08:00 Sodium Chloride (NS 250 ml Inj) 250 ml @ 15 mls/hr ONCE ONCE IV Last administered on 04/17/17 06:50; Start 04/16/17 at 11:45; Stop 04/17/17 at 04:24; Status DC Spironolactone (Aldactone) 50 mg DAILY PO Last administered on 04/19/17 11:10; Start 04/16/17 at 11:45; Stop 04/19/17 at 14:51; Status DC Sugammadex Sodium (Bridion Inj) 200 mg STK-MED ONCE IV PUSH ; Start 04/16/17 at 12:26; Stop 04/16/17 at 12:27; Status DC Miscellaneous Information ALL NURSING DEPARTME... UNSCH PRN .XX SEE LABEL COMMENTS; Start 04/16/17 at 12:42; Stop 04/17/17 at 12:41; Status DC Propofol (Diprivan 200 Mg/20 ml Inj) 150 mg STK-MED ONCE IV ; Start 04/16/17 at 12:19; Stop 04/16/17 at 14:24; Status DC Rocuronium [place] (Zemuron Inj) 50 mg STK-MED ONCE IV ; Start 04/16/17 at 12:19 ; Stop 04/16/17 at 14:24; Status DC Oxycodone HCl (Roxicodone) 5 mg Q8H PRN PO PAIN >5 Last administered on 08:20; Start 04/17/17 at 08:15 Pantoprazole Sodium (Protonix) 40 mg DAILY PO ; Start 04/18/17 at 09:00; Stop 04/18/17 at 09:00; Status DC Pantoprazole Sodium (Protonix) 40 mg BID PO Last administered on 04/20/17 21: 43; Start 04/18/17 at 09:00 Pentoxifylline 400 mg 400 mg Q8HR PO Last administered on 04/21/17 05:09; Start 04/17/17 at 22:00 Ceftriaxone Sodium/Sodium Chloride (Rocephin Inj/NS Inj) 100 ml @ 200 mls/hr Q24H IV Last administered on 04/20/17 18:01; Start 04/17/17 at 18:00 Ondansetron HCl (Zofran Inj) 4 mg Q6HR PRN IV PUSH nausea Last administered on 04/19/17 06:15; Start 04/18/17 at 06:15; Stop 04/19/17 at 11:29; Status DC Ondansetron HCl (Zofran Inj) 4 mg Q4HR PRN IV PUSH nausea Last administered on 04/20/17 21:45; Start 04/19/17 at 12:00 Furosemide (Lasix Inj) 40 mg BID@09,18 IV PUSH Last administered on 04/20/17 18:00; Start 04/19/17 at 18:00 Albumin Human (Albumin 25% Inj) 25 gm Q12H IV Last administered on 04/21/17 03 :17; Start 04/19/17 at 15:00 Spironolactone (Aldactone) 50 mg BID PO Last administered on 04/20/17 21:43; Start 04/19/17 at 21:00 Diatrizoate Meglum/ Diatrizoate Sod ( Gastroashwini Liq) 18 ml ONCE ONCE PO Last administered on 04/19/17 15:43; Start 04/19/17 at 15:00; Stop 04/19/17 at 15: 01; Status DC Iohexol (Omnipaque 350 Inj) 91 ml STK-MED ONCE IV Last administered on 19:25; Start 04/19/17 at 19:25; Stop 04/19/17 at 19:26; Status DC A/P Assessment and Plan A/P Symptomatic anemia- - s/p PRBC transfusion. -continue to monitor H/H and transfuse as needed - s/p EGD with 1. Lackey's esophagus. 2. Erosive gastritis. 3. Duodenal ulcers. -continue PPI. -GI following. Acute kidney injury- suspected volume loss from questionable GI bleed- improved. -Encourage fluids Cirrhosis with Ascites -s/p paracentesis with removal of four liters of fluid -fluid culture negative so far and negative for malignant cells. -continue with lasix, albumin and aldactone -might need repeated paracentesis -continue pain control -Patient will need treatment out patient treatment for Hep C -awaiting GI f/u and recommendations. UTI with e-coli -continue Rocephin Alcohol abuse, chronic, patient states last drink was 7 days ago -Encouraged to quit DVT prophylaxis: SCDs, avoid chemical due to anemia GI prophylaxis: Protonix consulted PT Discharge Planning awaiting GI follow-up . Darling Diamond MD Apr 21, 2017 08:15
[2017-04-21 08:27] LABS: CALCIUM-PROTEIN CORRECTED 7.4 MG/DL (8.5-10.1)
[2017-04-21] MEDS: PANTOPRAZOLE SOD 40 MG DELAYED RELEASE TAB PO SCH ×2 (09:33→20:55)
[2017-04-21] MEDS: FUROSEMIDE 40 MG/4 ML VIAL IV PUSH SCH ×2 (09:33→16:59)
[2017-04-21] MEDS: SODIUM CHLORIDE 0.9% FLUSH 10 ML FLUSH IV FLUSH SCH ×2 (09:33→21:00)
[2017-04-21] MEDS: SPIRONOLACTONE 50 MG TAB PO SCH ×2 (09:33→20:55)
[2017-04-21] MEDS: MORPHINE SULFATE 8 MG/ML INJ IV PUSH PRN ×2 (09:37→20:59)
--- NOTE | 2017-04-21 12:50 | HHI.GIFU ---
Subjective Remarks Resting in bed. No n/v. States her abdomen is slightly more bloated today and that she does have some discomfort from the distention. Multiple loose stools today. No active gi bleeding. Objective Vitals I&O Vital Signs Date Time Temp Pulse Resp B/P Pulse Ox O2 Delivery O2 Flow Rate FiO2 04/21/17 07:50 97.3 93 20 108/57 96 04/21/17 04:00 96.5 91 17 96/55 98 04/21/17 00:00 96.1 89 18 99/55 98 04/20/17 21:54 76 04/20/17 20:00 96.5 83 17 110/59 99 04/20/17 16:00 82 04/20/17 15:50 96.1 86 20 118/74 99 I/O 04/20/17 04/20/17 04/20/17 04/21/17 04/21/17 04/21/17 07:00 15:00 23:00 07:00 15:00 23:00 Intake Total 240 ml 401 ml Balance 240 ml 401 ml Intake Oral 240 ml 401 ml # Voids 3 4 1 2 # Bowel Movements 2 Laboratory Laboratory Tests Test 04/21/17 04/21/17 05:37 06:18 Sodium Level 135 Potassium Level 3.3 Chloride Level 105 Carbon Dioxide Level 17.2 Anion Gap 13 Blood Urea Nitrogen 6 Creatinine 1.13 Estimat Glomerular Filtration 51 Rate Random Glucose 94 Calcium Level 7.3 Protein Corrected Calcium 7.4 Total Bilirubin 3.7 Aspartate Amino Transf 34 (AST/SGOT) Alanine Aminotransferase 14 (ALT/SGPT) Alkaline Phosphatase 38 Total Protein 7.0 Albumin 2.5 White Blood Count 6.9 Red Blood Count 2.15 Hemoglobin 7.8 Hematocrit 23.2 Mean Corpuscular Volume 108.0 Mean Corpuscular Hemoglobin 36.5 Mean Corpuscular Hemoglobin 33.8 Concent Red Cell Distribution Width 28.0 Platelet Count 48 Mean Platelet Volume 9.1 Neutrophils (%) (Auto) 71.7 Lymphocytes (%) (Auto) 16.0 Monocytes (%) (Auto) 10.3 Eosinophils (%) (Auto) 1.4 Basophils (%) (Auto) 0.6 Neutrophils # (Auto) 4.9 Lymphocytes # (Auto) 1.1 Monocytes # (Auto) 0.7 Eosinophils # (Auto) 0.1 Basophils # (Auto) 0.0 CBC Comment AUTO DIFF Differential Comment AUTO DIFF CONFIRMED Platelet Estimate LOW Platelet Morphology Comment NORMAL Target Cells 1+ Ovalocytes 1+ Acanthocytes 1+ Imaging Last Impressions Abdomen/Pelvis CT 04/19/17 0000 Signed Impressions: Service Date/Time: Wednesday, April 19, 2017 19:24 - CONCLUSION: 1. Moderate amount of ascitic fluid in the abdomen and pelvis. 2. Small right pleural effusion. 3. The liver is small and mildly heterogeneous with no focal mass or ductal dilatation. Devang Mustafa MD Cyst Biopsy Asp-Paracentesis US 04/16/17 0000 Signed Impressions: Service Date/Time: April 09:39 - CONCLUSION: Uncomplicated ultrasound guided paracentesis. Dave Saha MD Physical Exam HEENT: Normocephalic; atraumatic; no jaundice. CHEST: CTA CARDIAC: RRR ABDOMEN: Abdomen, moderately distended, mild diffuse tenderness; hepatosplenomegaly. EXTREMITIES: Bilateral LE edema. SKIN: Normal; no rash; no jaundice. GAS LINE SERVICER: No focal deficits; alert and oriented times three. Assessment and Plan Plan ASSESSMENT: - Upper GIB with melena. Denies any hx of GI bleeding, PUD, or known varices. S /P EGD (04/16/17)----> Lackey's Esophagus, erosive gastritis, duodenal ulcers. No obvious active bleeding, although HH dropped from 9.3--- > 7.8/23.2 overnight. further bleeding. HH stable ./26.3. She is on Protonix 40mg po BID. - Duodenal ulcers. Change to Protonix with BID dosing. - Severe anemia secondary to blood loss. Abdomen/Pelvis CT (04/19/17)----> 1. Moderate amount of ascitic fluid in the abdomen and pelvis. 2. Small right pleural effusion. 3. The liver is small and mildly heterogeneous with no focal mass or ductal dilatation. S/P 4 units PRBC, 2 units FFP. 9./26.3. - New onset ascites. Cyst Biopsy Asp-Paracentesis US (04/16/17)----> Uncomplicated ultrasound guided paracentesis with 4000cc removed. Fluid studies wbc 39, Peritoneal rbc 111. Cytology numerous mesothelial cells, macrophages and few neutrophils, negative for malignant cells. Peritoneal cx no growth x 48 hours. Spironolactone 50mg po with BID dosing, Lasix 40mg IV BID, Albumin. Ceftriaxone. She does seem to have worsening ascites again, but I am hesitant to adjust the diuretics given her renal function, will defer to attending. She is on a full liquid diet. Will change this to low sodium diet with fluid restriction. - Liver cirrhosis with elevated LFTs. States she was told that she had liver disease for several years, but never told specifically that she had liver cirrhosis until this hospitalization. She has a hx of ETOH use, 3-4 beers per day up until one week ago and has HCV antibodies. MELD 25. CT as above. This is likely alcoholic hepatitis on underlying liver cirrhosis. Has UTI so will avoid steroids and start pentoxifylline. ASA negative; ASMA negative; AMA < 20.0. LFTs are improving. T. Bili 3.7, AST 34, ALT 14, ALk Phosph 38. - Alcoholic hepatitis. DF 52.9. Pentoxifylline. LFTs improving. - Thrombocytopenia, Coagulopathy. Persistent coagulopathy. PT 23.0, INR 2.0 yesterday. Will recheck in am. - HCV antibodies. 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 - Diarrhea. Pt denies black stool or red blood. Will get CDiff (on ceftriaxone ) - NEGRO. Improving. Creat 1.13, GFR 94. - UTI, Cx with GNR. Ceftriaxone. - HTN, CAD, Hx TIA, COPD, Hx DVT per primary PLAN: - Low sodium diet, fluid restriction - Will make NPO after MN just in case she has another drop in Hgb overnight - Cont. Protonix 40mg po bid - Cont. Pentoxifylline - Stool for Cdiff - Monitor HH - Transfuse as necessary - CBC, CMP, PT/INR in am - Supportive care - Had drop in hgb overnight, although does not have any obvious active bleeding. Will make NPO after MN just in case she needs repeat EGD tomorrow - Further recommendations to follow based on results of above - Pt seen and examined by Dr. Lemos and myself and this note is written on his behalf Krystyna Jessica Apr 21, 2017 12:50
[2017-04-21 15:42] LABS: HEMATOCRIT 23.6 % (35.0-46.0)
[2017-04-21 15:44] LABS: REVIEW FLAG FINAL
[2017-04-21 16:24] LABS: INTERNATIONAL NORMALIZED RATIO 2.5 RATIO; PROTHROMBIN TIME - PATIENT 28.2 SEC (9.8-11.6)
[2017-04-21] MEDS: cefTRIAXone INJ 1,000 MG in SODIUM CHLORIDE 0.9% INJ 100 ML IV SCH (16:59)
[2017-04-21] MEDS: ONDANSETRON HCL 4 MG/2 ML VIAL IV PUSH PRN (21:00)
[2017-04-21 21:05] LABS: HEMATOCRIT 24.3 % (35.0-46.0)
[2017-04-21 21:09] LABS: REVIEW FLAG FINAL
[2017-04-22] VITALS: BP 107/56; PULSE 88; PULSE 90; RESP 18; TEMP 96.4; O2SAT 97
[2017-04-22 01:04] LABS: HEMATOCRIT 22.9 % (35.0-46.0)
[2017-04-22 01:09] LABS: REVIEW FLAG FINAL
[2017-04-22 04:00] VITALS: BP 95/75; PULSE 93; PULSE 94; RESP 18; TEMP 96.9; O2SAT 96
[2017-04-22] MEDS: ALBUMIN HUMAN 25% 25 GM/100 ML BAGP IV SCH ×2 (04:05→16:09)
[2017-04-22] MEDS: MORPHINE SULFATE 8 MG/ML INJ IV PUSH PRN ×3 (04:08→23:12)
[2017-04-22] MEDS: PENTOXIFYLLINE 400 MG CONTROLLED RELEASE TAB PO SCH ×3 (04:08→23:09)
[2017-04-22] MEDS: ONDANSETRON HCL 4 MG/2 ML VIAL IV PUSH PRN ×3 (04:11→20:08)
[2017-04-22 07:53] LABS: AUTOMATED NEUTROPHIL # 4.9 TH/MM3 (1.8-7.7); BASOPHIL % 0.3 % (0.0-2.0); EOSINOPHIL # 0.1 TH/MM3 (0-0.4); EOSINOPHIL % 1.4 % (0.0-4.0); HEMATOCRIT 22.5 % (35.0-46.0); LYMPH % 18.4 % (9.0-44.0); LYMPHOCYTE # 1.3 TH/MM3 (1.0-4.8); MEAN CELL VOLUME 108.1 FL (80.0-100.0); MEAN CORPUSCULAR HEMOGLOBIN 36.3 PG (27.0-34.0); MEAN CORPUSCULAR HGB CONC 33.6 % (32.0-36.0); MONO % 10.9 % (0.0-8.0); PLATELET COUNT 45 TH/MM3 (150-450); RED BLOOD COUNT 2.08 MIL/MM3 (4.00-5.30); RED CELL DISTRIBUTION WIDTH 27.3 % (11.6-17.2); WHITE BLOOD COUNT 7.1 TH/MM3 (4.0-11.0)
[2017-04-22 08:00] VITALS: BP 127/69; PULSE 90; RESP 20; TEMP 98.2; O2SAT 97
[2017-04-22 08:00] LABS: HEMO FLAGS AUTO DIFF
[2017-04-22] MEDS: PANTOPRAZOLE SOD 40 MG DELAYED RELEASE TAB PO SCH ×2 (08:10→20:06)
[2017-04-22] MEDS: SODIUM CHLORIDE 0.9% FLUSH 10 ML FLUSH IV FLUSH SCH ×2 (08:10→20:04)
[2017-04-22] MEDS: SPIRONOLACTONE 50 MG TAB PO SCH ×2 (08:10→20:06)
[2017-04-22] MEDS: FUROSEMIDE 40 MG/4 ML VIAL IV PUSH SCH ×2 (08:10→17:12)
--- NOTE | 2017-04-22 08:19 | HHI.PR ---
Subjective Remarks in no acute distress. has on and off nausea. has mild abdominal pain. no fever. Objective Vitals Vital Signs Date Time Temp Pulse Resp B/P Pulse Ox O2 Delivery O2 Flow Rate FiO2 04/22/17 04:00 96.9 94 18 95/75 96 04/22/17 04:00 93 04/22/17 00:00 88 04/22/17 00:00 96.4 90 18 107/56 97 04/21/17 20:00 96.8 90 18 101/61 95 04/21/17 15:50 96.6 92 20 112/72 97 04/21/17 15:08 86 04/21/17 12:53 86 04/21/17 11:50 96.2 86 20 107/56 98 I/O 04/21/17 04/21/17 04/21/17 04/22/17 04/22/17 04/22/17 07:00 15:00 23:00 07:00 15:00 23:00 Intake Total 720 ml 977 ml Balance 720 ml 977 ml Intake Oral 720 ml IV Total 977 ml # Voids 2 3 1 # Bowel Movements 0 1 Result Diagram: 04/22/17 0715 04/21/17 0537 Imaging Last Impressions Abdomen/Pelvis CT 04/19/17 0000 Signed Impressions: Service Date/Time: Wednesday, April 19, 2017 19:24 - CONCLUSION: 1. Moderate amount of ascitic fluid in the abdomen and pelvis. 2. Small right pleural effusion. 3. The liver is small and mildly heterogeneous with no focal mass or ductal dilatation. Devang Mustafa MD Cyst Biopsy Asp-Paracentesis US 04/16/17 0000 Signed Impressions: Service Date/Time: April 09:39 - CONCLUSION: Uncomplicated ultrasound guided paracentesis. Dave Saha MD Objective Remarks GENERAL: This is a well-nourished, well-developed patient, in no apparent distress. CARDIOVASCULAR: Regular rate and regular rhythm without murmurs, gallops, or rubs. RESPIRATORY: Clear to auscultation. Breath sounds equal bilaterally. No wheezes , rales, or rhonchi. GASTROINTESTINAL: Abdomen soft, non-tender, distended. Normal, active bowel sounds MUSCULOSKELETAL: Extremities with bilateral pedal edema. NEURO: Alert & Oriented x4 to person, place, time, situation. Moves all ext x4 Procedures EGD paracentesis Medications and IVs Current Medications Sodium Chloride 2 ml 2 ml UNSCH PRN IV FLUSH FLUSH AFTER USING IV ACCESS; Start 04/16/17 at 00:15; Stop 04/16/17 at 01:52; Status DC Sodium Chloride (NS 250 ml Inj) 250 ml @ 15 mls/hr ONCE ONCE IV ; Start at 01:15; Stop 04/16/17 at 17:54; Status DC Sodium Chloride (NS Flush) 2 ml UNSCH PRN IV FLUSH FLUSH AFTER USING IV ACCESS ; Start 04/16/17 at 02:00 Sodium Chloride (NS Flush) 2 ml BID IV FLUSH Last administered on 04/22/17 08: 10; Start 04/16/17 at 09:00 Naloxone HCl (Narcan Inj) 0.4 mg UNSCH PRN IV SEE LABEL COMMENTS; Start at 02:00 Pantoprazole Sodium (Protonix Inj) 40 mg Q12H IV PUSH Last administered on 04:33; Start 04/16/17 at 02:00; Stop 04/16/17 at 05:19; Status DC Morphine Sulfate 2 mg 2 mg Q4H PRN IV PUSH pain >5 Last administered on 04:08; Start 04/16/17 at 04:30 Pantoprazole Sodium 80 mg/ Sodium Chloride 100 ml @ 10 mls/hr CONTINUOUS IV Last administered on 04/17/17 13:42; Start 04/16/17 at 05:30; Stop 04/17/17 at 16: 37; Status DC Sodium Chloride 1,000 ml @ 60 mls/hr [id number] IV Last administered on 21:00; Start 04/16/17 at 08:00 Sodium Chloride (NS 250 ml Inj) 250 ml @ 15 mls/hr ONCE ONCE IV Last administered on 04/17/17 06:50; Start 04/16/17 at 11:45; Stop 04/17/17 at 04:24; Status DC Spironolactone (Aldactone) 50 mg DAILY PO Last administered on 04/19/17 11:10; Start 04/16/17 at 11:45; Stop 04/19/17 at 14:51; Status DC Sugammadex Sodium (Bridion Inj) 200 mg STK-MED ONCE IV PUSH ; Start 04/16/17 at 12:26; Stop 04/16/17 at 12:27; Status DC Miscellaneous Information ALL NURSING DEPARTME... UNSCH PRN .XX SEE LABEL COMMENTS; Start 04/16/17 at 12:42; Stop 04/17/17 at 12:41; Status DC Propofol (Diprivan 200 Mg/20 ml Inj) 150 mg STK-MED ONCE IV ; Start 04/16/17 at 12:19; Stop 04/16/17 at 14:24; Status DC Rocuronium [place] (Zemuron Inj) 50 mg STK-MED ONCE IV ; Start 04/16/17 at 12:19 ; Stop 04/16/17 at 14:24; Status DC Oxycodone HCl (Roxicodone) 5 mg Q8H PRN PO PAIN >5 Last administered on 08:20; Start 04/17/17 at 08:15 Pantoprazole Sodium (Protonix) 40 mg DAILY PO ; Start 04/18/17 at 09:00; Stop 04/18/17 at 09:00; Status DC Pantoprazole Sodium (Protonix) 40 mg BID PO Last administered on 04/22/17 08: 10; Start 04/18/17 at 09:00 Pentoxifylline 400 mg 400 mg Q8HR PO Last administered on 04/22/17 04:08; Start 04/17/17 at 22:00 Ceftriaxone Sodium/Sodium Chloride (Rocephin Inj/NS Inj) 100 ml @ 200 mls/hr Q24H IV Last administered on 04/21/17 16:59; Start 04/17/17 at 18:00 Ondansetron HCl (Zofran Inj) 4 mg Q6HR PRN IV PUSH nausea Last administered on 04/19/17 06:15; Start 04/18/17 at 06:15; Stop 04/19/17 at 11:29; Status DC Ondansetron HCl (Zofran Inj) 4 mg Q4HR PRN IV PUSH nausea Last administered on 04/22/17 08:10; Start 04/19/17 at 12:00 Furosemide (Lasix Inj) 40 mg BID@09,18 IV PUSH Last administered on 04/22/17 08:10; Start 04/19/17 at 18:00 Albumin Human (Albumin 25% Inj) 25 gm Q12H IV Last administered on 04/22/17 04 :05; Start 04/19/17 at 15:00 Spironolactone (Aldactone) 50 mg BID PO Last administered on 04/22/17 08:10; Start 04/19/17 at 21:00 Diatrizoate Meglum/ Diatrizoate Sod ( Gastroview Liq) 18 ml ONCE ONCE PO Last administered on 04/19/17 15:43; Start 04/19/17 at 15:00; Stop 04/19/17 at 15: 01; Status DC Iohexol (Omnipaque 350 Inj) 91 ml STK-MED ONCE IV Last administered on 19:25; Start 04/19/17 at 19:25; Stop 04/19/17 at 19:26; Status DC A/P Assessment and Plan A/P Symptomatic anemia- - s/p PRBC transfusion. -H/H fairly stable. -continue to monitor H/H and transfuse as needed - s/p EGD with 1. Lackey's esophagus. 2. Erosive gastritis. 3. Duodenal ulcers. -continue PPI. -GI following. Acute kidney injury- suspected volume loss from questionable GI bleed- improved. -Encourage fluids Cirrhosis with Ascites -s/p paracentesis with removal of four liters of fluid -fluid culture negative so far and negative for malignant cells. -continue with lasix, albumin and aldactone -might need repeated paracentesis -continue pain control -Patient will need treatment out patient treatment for Hep C -GI following UTI with e-coli -continue Rocephin Alcohol abuse, chronic, patient states last drink was 7 days ago -Encouraged to quit DVT prophylaxis: SCDs, avoid chemical due to anemia GI prophylaxis: Protonix consulted PT Discharge Planning not ready for discharge today. Darling Diamond MD Apr 22, 2017 08:19
[2017-04-22 08:36] LABS: BICARBONATE 18.7 MEQ/L (21.0-32.0); POTASSIUM 3.5 MEQ/L (3.5-5.1)
[2017-04-22 09:16] LABS: CALCIUM-PROTEIN CORRECTED 7.5 MG/DL (8.5-10.1)
[2017-04-22 10:04] LABS: ACANTHOCYTES 1+ (NORMAL)
[2017-04-22 10:08] LABS: OVALOCYTES 1+ (NORMAL); SCAN/DIFF AUTO DIFF CONFIRMED
[2017-04-22 12:00] VITALS: BP 115/71; PULSE 81; RESP 18; TEMP 97; O2SAT 100
[2017-04-22] MEDS: PROCHLORPERAZINE INJ 10 MG/2 ML VIAL IV PUSH PRN (12:31)
[2017-04-22] MEDS: SODIUM CHLOR 0.45% 1000 ML INJ 1,000 ML IV SCH (14:00)
--- NOTE | 2017-04-22 14:02 | HHI.GIFU ---
Subjective Remarks Resting in bed. States she had nausea/vomiting earlier today. She did not look at this so she does not know what color it is. She does not believe this was blood. She has some mild epigastric pain. States she is hungry. Objective Vitals I&O Vital Signs Date Time Temp Pulse Resp B/P Pulse Ox O2 Delivery O2 Flow Rate FiO2 04/22/17 12:00 97.0 81 18 115/71 100 04/22/17 08:00 98.2 90 20 127/69 97 04/22/17 04:00 96.9 94 18 95/75 96 04/22/17 04:00 93 04/22/17 00:00 88 04/22/17 00:00 96.4 90 18 107/56 97 04/21/17 20:00 96.8 90 18 101/61 95 04/21/17 15:50 96.6 92 20 112/72 97 04/21/17 15:08 86 I/O 04/21/17 04/21/17 04/21/17 04/22/17 04/22/17 04/22/17 07:00 15:00 23:00 07:00 15:00 23:00 Intake Total 720 ml 977 ml Balance 720 ml 977 ml Intake Oral 720 ml IV Total 977 ml # Voids 2 3 1 # Bowel Movements 0 1 Laboratory Laboratory Tests Test 04/21/17 04/21/17 04/22/17 04/22/17 15:17 20:55 00:28 07:15 Hemoglobin 8.0 8.1 7.8 7.6 Hematocrit 23.6 24.3 22.9 22.5 Prothrombin Time 28.2 Prothromb Time International 2.5 Ratio White Blood Count 7.1 Red Blood Count 2.08 Mean Corpuscular Volume 108.1 Mean Corpuscular Hemoglobin 36.3 Mean Corpuscular Hemoglobin 33.6 Concent Red Cell Distribution Width 27.3 Platelet Count 45 Mean Platelet Volume 9.2 Neutrophils (%) (Auto) 69.0 Lymphocytes (%) (Auto) 18.4 Monocytes (%) (Auto) 10.9 Eosinophils (%) (Auto) 1.4 Basophils (%) (Auto) 0.3 Neutrophils # (Auto) 4.9 Lymphocytes # (Auto) 1.3 Monocytes # (Auto) 0.8 Eosinophils # (Auto) 0.1 Basophils # (Auto) 0.0 CBC Comment AUTO DIFF Differential Comment AUTO DIFF CONFIRMED Ovalocytes 1+ Acanthocytes 1+ Sodium Level 136 Potassium Level 3.5 Chloride Level 103 Carbon Dioxide Level 18.7 Anion Gap 14 Blood Urea Nitrogen 6 Creatinine 0.97 Estimat Glomerular Filtration 60 Rate Random Glucose 75 Calcium Level 7.4 Protein Corrected Calcium 7.5 Total Protein 6.9 Imaging Last Impressions Abdomen/Pelvis CT 04/19/17 0000 Signed Impressions: Service Date/Time: Wednesday, April 19, 2017 19:24 - CONCLUSION: 1. Moderate amount of ascitic fluid in the abdomen and pelvis. 2. Small right pleural effusion. 3. The liver is small and mildly heterogeneous with no focal mass or ductal dilatation. Devang Mustafa MD Cyst Biopsy Asp-Paracentesis US 04/16/17 0000 Signed Impressions: Service Date/Time: April 09:39 - CONCLUSION: Uncomplicated ultrasound guided paracentesis. Dave Saha MD Physical Exam HEENT: Normocephalic; atraumatic; no jaundice. CHEST: CTA CARDIAC: RRR ABDOMEN: Abdomen soft, moderately distended, mild epigastric tenderness; hepatosplenomegaly. EXTREMITIES: Bilateral LE edema. SKIN: Normal; no rash; no jaundice. ACCOUNT MANAGER FOREST SERVICE: No focal deficits; alert and oriented times three. Assessment and Plan Plan ASSESSMENT: - Upper GIB with melena. Denies any hx of GI bleeding, PUD, or known varices. S /P EGD (04/16/17)----> Lackey's Esophagus, erosive gastritis, duodenal ulcers. No obvious active bleeding. Did vomit earlier, but does not know what color this was- does not believe this was blood. 7.04/02.5. PPI with BID dosing. - Duodenal ulcers. PPI with BID dosing. - Severe anemia secondary to blood loss. Abdomen/Pelvis CT (04/19/17)----> 1. Moderate amount of ascitic fluid in the abdomen and pelvis. 2. Small right pleural effusion. 3. The liver is small and mildly heterogeneous with no focal mass or ductal dilatation. S/P 4 units PRBC, 2 units FFP. HH 7.04/02.5. - New onset ascites. Cyst Biopsy Asp-Paracentesis US (04/16/17)----> Uncomplicated ultrasound guided paracentesis with 4000cc removed. Fluid studies wbc 39, Peritoneal rbc 111. Cytology numerous mesothelial cells, macrophages and few neutrophils, negative for malignant cells. Peritoneal cx no growth x 48 hours. Spironolactone 50mg po with BID dosing, Lasix 40mg IV BID, Albumin. Ceftriaxone - Liver cirrhosis with elevated LFTs. States she was told that she had liver disease for several years, but never told specifically that she had liver cirrhosis until this hospitalization. She has a hx of ETOH use, 3-4 beers per day up until one week ago and has HCV antibodies. MELD 25. CT as above. This is likely alcoholic hepatitis on underlying liver cirrhosis. Has UTI so will avoid steroids and start pentoxifylline. ASA negative; ASMA negative; AMA < 20.0. LFTs are improving. T. Bili 3.7, AST 34, ALT 14, ALk Phosph 38 yesterday. - Alcoholic hepatitis. DF 52.9. Pentoxifylline. LFTs improving. - Thrombocytopenia, Coagulopathy. Persistent coagulopathy. PT 28.2 INR 2.5 - HCV antibodies. 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 - Diarrhea. Pt denies black stool or red blood. Will get CDiff (on ceftriaxone ). States she has not had further episodes - NEGRO. Improving. Creat 1.13 - UTI, Cx with E. Coli. Ceftriaxone. - HTN, CAD, Hx TIA, COPD, Hx DVT per primary PLAN: - Low sodium diet, fluid restriction - Cont. Protonix 40mg po bid - Add Carafate - Cont. Pentoxifylline - Monitor HH - Transfuse as necessary - CBC, CMP, PT/INR in am - Supportive care - Further recommendations to follow based on results of above - Pt seen and examined by Dr. Lemos and myself and this note is written on his behalf Krystyna Jessica Apr 22, 2017 14:02
[2017-04-22 16:00] VITALS: BP 107/67; PULSE 90; RESP 18; TEMP 97.4; O2SAT 100
[2017-04-22] MEDS: SUCRALFATE 1 GM/10 ML CUP PO SCH ×2 (16:09→20:06)
[2017-04-22] MEDS: cefTRIAXone INJ 1,000 MG in SODIUM CHLORIDE 0.9% INJ 100 ML IV SCH (17:12)
--- NOTE | 2017-04-22 18:47 | RADRPT ---
EXAM DATE/TIME: 04/22/2017 17:26 [facility] COMPARISON: No previous studies available for comparison. INDICATIONS : Ascites. MEDICAL HISTORY : Cirrhosis. Myocardial infarction. Hepatitis C. CVA. Migraines. COPD. Asthma. Arthritis. Hx of blood c lots. ETOH abuse. Hypertension. SURGICAL HISTORY : Tubal ligation. Left eardrum surgery. Angioplasty. ENCOUNTER: Initial ACUITY: 1 day PAIN SCORE: 0/10 LOCATION: Bilateral upper and lower quadrants. AREA EVALUATED: Bilateral upper and lower quadrants and midline. FINDINGS: Imaging of the abdomen and pelvis was performed to evaluate for ascites for possible paracentesis. CONCLUSION: Moderate free fluid in the abdomen. Michael Sevilla MD FACR on April 22, 2017 at 18:45 Board Certified Radiologist. This report was verified electronically.
[2017-04-22 20:00] VITALS: BP 116/68; PULSE 81; PULSE 87; RESP 18; TEMP 97; O2SAT 97
[2017-04-22 22:46] LABS: C. DIFF EPI 027 PRESUMPTIVE NEGATIVE (NEGATIVE); C. DIFF TOXIN PCR NEGATIVE (NEGATIVE)
[2017-04-23] VITALS (15 sets, daily range): BP systolic 95–136; BP diastolic 57–74; PULSE 73–95; RESP 17–20; TEMP 96.7–98.4; O2SAT 95–99
[2017-04-23] MEDS: ALBUMIN HUMAN 25% 25 GM/100 ML BAGP IV SCH ×2 (03:31→16:16)
[2017-04-23] MEDS: SODIUM CHLOR 0.45% 1000 ML INJ 1,000 ML IV SCH ×2 (03:32→23:20)
[2017-04-23] MEDS: ONDANSETRON HCL 4 MG/2 ML VIAL IV PUSH PRN ×3 (05:58→21:11)
[2017-04-23] MEDS: SUCRALFATE 1 GM/10 ML CUP PO SCH ×4 (06:00→21:11)
[2017-04-23] MEDS: MORPHINE SULFATE 8 MG/ML INJ IV PUSH PRN ×2 (06:00→21:15)
[2017-04-23] MEDS: PENTOXIFYLLINE 400 MG CONTROLLED RELEASE TAB PO SCH ×3 (06:00→21:12)
[2017-04-23 07:13] LABS: AUTOMATED NEUTROPHIL # 3.7 TH/MM3 (1.8-7.7); BASOPHIL % 0.3 % (0.0-2.0); EOSINOPHIL # 0.1 TH/MM3 (0-0.4); EOSINOPHIL % 2.3 % (0.0-4.0); LYMPH % 23.3 % (9.0-44.0); LYMPHOCYTE # 1.4 TH/MM3 (1.0-4.8); MEAN CELL VOLUME 106.6 FL (80.0-100.0); MEAN CORPUSCULAR HGB CONC 35.7 % (32.0-36.0); MONO % 12.1 % (0.0-8.0); PLATELET COUNT 42 TH/MM3 (150-450); RED BLOOD COUNT 1.89 MIL/MM3 (4.00-5.30); RED CELL DISTRIBUTION WIDTH 27.4 % (11.6-17.2)
[2017-04-23 07:17] LABS: HEMO FLAGS AUTO DIFF
[2017-04-23 07:18] LABS: HEMATOCRIT 20.1 % (35.0-46.0)
[2017-04-23 07:43] LABS: CALCIUM-PROTEIN CORRECTED 7.6 MG/DL (8.5-10.1)
[2017-04-23 07:48] LABS: INTERNATIONAL NORMALIZED RATIO 2.7 RATIO; PROTHROMBIN TIME - PATIENT 31.7 SEC (9.8-11.6)
[2017-04-23] MEDS: PROCHLORPERAZINE INJ 10 MG/2 ML VIAL IV PUSH PRN (08:10)
[2017-04-23] MEDS: FUROSEMIDE 40 MG/4 ML VIAL IV PUSH SCH ×2 (08:10→17:11)
[2017-04-23] MEDS: SODIUM CHLORIDE 0.9% FLUSH 10 ML FLUSH IV FLUSH SCH ×2 (08:11→21:12)
[2017-04-23 08:54] LABS: PLATELET ESTIMATE SMEAR LOW (NORMAL); PLATELET MORPHOLOGY NORMAL (NORMAL); SCAN/DIFF AUTO DIFF CONFIRMED; STOMATOCYTES 1+ (NORMAL)
[2017-04-23 08:55] LABS: OVALOCYTES 1+ (NORMAL); TARGET CELLS 1+ (NORMAL)
[2017-04-23] MEDS: SPIRONOLACTONE 50 MG TAB PO SCH ×2 (09:00→21:11)
[2017-04-23] MEDS ORDERED: SODIUM CHLOR 0.9% 250 ML INJ 250 ML IV ONE (09:00)
[2017-04-23] MEDS: PANTOPRAZOLE SOD 40 MG DELAYED RELEASE TAB PO SCH ×2 (09:00→21:12)
--- NOTE | 2017-04-23 09:14 | HHI.PR ---
Subjective Remarks f/u ; cirrhosis/anemia in no acute distress. still with some nausea- had one episode of non-bloody emesis earlier today. no rectal bleed. noted a drop in H/H today. complaining of dizziness. d/w the RN. Objective Vitals Vital Signs Date Time Temp Pulse Resp B/P Pulse Ox O2 Delivery O2 Flow Rate FiO2 04/23/17 08:31 85 111/63 04/23/17 08:00 97.2 90 20 116/64 96 04/23/17 04:00 97.3 73 18 112/69 95 04/23/17 00:00 85 04/23/17 00:00 97.0 91 17 99/57 96 04/22/17 20:00 97.0 87 18 116/68 97 04/22/17 20:00 81 04/22/17 16:00 97.4 90 18 107/67 100 04/22/17 12:00 97.0 81 18 115/71 100 I/O 04/22/17 04/22/17 04/22/17 04/23/17 04/23/17 04/23/17 07:00 15:00 23:00 07:00 15:00 23:00 Intake Total 600 ml Balance 600 ml IV Total 600 ml # Voids 1 2 # Bowel Movements 1 Result Diagram: 04/23/17 0640 04/23/17 0640 Imaging Last Impressions Abdomen Ultrasound 04/22/17 0000 Signed Impressions: Service Date/Time: Saturday, April 22, 2017 17:26 - CONCLUSION: Moderate free fluid in the abdomen. Michael Sevilla MD FACR Abdomen/Pelvis CT 04/19/17 0000 Signed Impressions: Service Date/Time: Wednesday, April 19, 2017 19:24 - CONCLUSION: 1. Moderate amount of ascitic fluid in the abdomen and pelvis. 2. Small right pleural effusion. 3. The liver is small and mildly heterogeneous with no focal mass or ductal dilatation. Devang Mustafa MD Cyst Biopsy Asp-Paracentesis US 04/16/17 0000 Signed Impressions: Service Date/Time: April 09:39 - CONCLUSION: Uncomplicated ultrasound guided paracentesis. Dave Saha MD Objective Remarks GENERAL: This is a well-nourished, well-developed patient, in no apparent distress. CARDIOVASCULAR: Regular rate and regular rhythm without murmurs, gallops, or rubs. RESPIRATORY: Clear to auscultation. Breath sounds equal bilaterally. No wheezes , rales, or rhonchi. GASTROINTESTINAL: Abdomen soft, non-tender, distended. Normal, active bowel sounds MUSCULOSKELETAL: Extremities with bilateral pedal edema. NEURO: Alert & Oriented x4 to person, place, time, situation. Moves all ext x4 Procedures EGD paracentesis Medications and IVs Current Medications Sodium Chloride 2 ml 2 ml UNSCH PRN IV FLUSH FLUSH AFTER USING IV ACCESS; Start 04/16/17 at 00:15; Stop 04/16/17 at 01:52; Status DC Sodium Chloride (NS 250 ml Inj) 250 ml @ 15 mls/hr ONCE ONCE IV Last administered on 04/22/17 17:18; Start 04/16/17 at 01:15; Stop 04/16/17 at 17:54; Status DC Sodium Chloride (NS Flush) 2 ml UNSCH PRN IV FLUSH FLUSH AFTER USING IV ACCESS ; Start 04/16/17 at 02:00 Sodium Chloride (NS Flush) 2 ml BID IV FLUSH Last administered on 04/23/17 08: 11; Start 04/16/17 at 09:00 Naloxone HCl (Narcan Inj) 0.4 mg UNSCH PRN IV SEE LABEL COMMENTS; Start at 02:00 Pantoprazole Sodium (Protonix Inj) 40 mg Q12H IV PUSH Last administered on 04:33; Start 04/16/17 at 02:00; Stop 04/16/17 at 05:19; Status DC Morphine Sulfate 2 mg 2 mg Q4H PRN IV PUSH pain >5 Last administered on 06:00; Start 04/16/17 at 04:30 Pantoprazole Sodium 80 mg/ Sodium Chloride 100 ml @ 10 mls/hr CONTINUOUS IV Last administered on 04/17/17 13:42; Start 04/16/17 at 05:30; Stop 04/17/17 at 16: 37; Status DC Sodium Chloride 1,000 ml @ 60 mls/hr [id number] IV Last administered on 03:32; Start 04/16/17 at 08:00 Sodium Chloride (NS 250 ml Inj) 250 ml @ 15 mls/hr ONCE ONCE IV Last administered on 04/17/17 06:50; Start 04/16/17 at 11:45; Stop 04/17/17 at 04:24; Status DC Spironolactone (Aldactone) 50 mg DAILY PO Last administered on 04/19/17 11:10; Start 04/16/17 at 11:45; Stop 04/19/17 at 14:51; Status DC Sugammadex Sodium (Bridion Inj) 200 mg STK-MED ONCE IV PUSH ; Start 04/16/17 at 12:26; Stop 04/16/17 at 12:27; Status DC Miscellaneous Information ALL NURSING DEPARTME... UNSCH PRN .XX SEE LABEL COMMENTS; Start 04/16/17 at 12:42; Stop 04/17/17 at 12:41; Status DC Propofol (Diprivan 200 Mg/20 ml Inj) 150 mg STK-MED ONCE IV ; Start 04/16/17 at 12:19; Stop 04/16/17 at 14:24; Status DC Rocuronium [place] (Zemuron Inj) 50 mg STK-MED ONCE IV ; Start 04/16/17 at 12:19 ; Stop 04/16/17 at 14:24; Status DC Oxycodone HCl (Roxicodone) 5 mg Q8H PRN PO PAIN >5 Last administered on 08:18; Start 04/17/17 at 08:15 Pantoprazole Sodium (Protonix) 40 mg DAILY PO ; Start 04/18/17 at 09:00; Stop 04/18/17 at 09:00; Status DC Pantoprazole Sodium (Protonix) 40 mg BID PO Last administered on 04/22/17 20: 06; Start 04/18/17 at 09:00 Pentoxifylline 400 mg 400 mg Q8HR PO Last administered on 04/23/17 06:00; Start 04/17/17 at 22:00 Ceftriaxone Sodium/Sodium Chloride (Rocephin Inj/NS Inj) 100 ml @ 200 mls/hr Q24H IV Last administered on 04/22/17 17:12; Start 04/17/17 at 18:00 Ondansetron HCl (Zofran Inj) 4 mg Q6HR PRN IV PUSH nausea Last administered on 04/19/17 06:15; Start 04/18/17 at 06:15; Stop 04/19/17 at 11:29; Status DC Ondansetron HCl (Zofran Inj) 4 mg Q4HR PRN IV PUSH nausea Last administered on 04/23/17 05:58; Start 04/19/17 at 12:00 Furosemide (Lasix Inj) 40 mg BID@09,18 IV PUSH Last administered on 04/23/17 08:10; Start 04/19/17 at 18:00 Albumin Human (Albumin 25% Inj) 25 gm Q12H IV Last administered on 04/23/17 03 :31; Start 04/19/17 at 15:00 Spironolactone (Aldactone) 50 mg BID PO Last administered on 04/22/17 20:06; Start 04/19/17 at 21:00 Diatrizoate Meglum/ Diatrizoate Sod ( Gastroview Liq) 18 ml ONCE ONCE PO Last administered on 04/19/17 15:43; Start 04/19/17 at 15:00; Stop 04/19/17 at 15: 01; Status DC Iohexol (Omnipaque 350 Inj) 91 ml STK-MED ONCE IV Last administered on 19:25; Start 04/19/17 at 19:25; Stop 04/19/17 at 19:26; Status DC Prochlorperazine Edisylate (Compazine Inj) 5 mg Q8H PRN IV PUSH NAUSEA Last administered on 04/23/17 08:10; Start 04/22/17 at 08:30 Sucralfate 1 gm 1 gm ACHS PO Last administered on 04/23/17 06:00; Start at 16:00 Sodium Chloride (NS 250 ml Inj) 250 ml @ 15 mls/hr ONCE ONCE IV ; Start at 09:00; Stop 04/24/17 at 01:39 A/P Assessment and Plan A/P Symptomatic anemia- now with further drop in H/H- - will transfuse one unit of PRBC today -continue to monitor H/H and transfuse as needed - s/p EGD with 1. Lackey's esophagus. 2. Erosive gastritis. 3. Duodenal ulcers. -continue PPI. -GI following. Acute kidney injury- suspected volume loss from questionable GI bleed- improved. -Encourage fluids Cirrhosis with Ascites -s/p paracentesis with removal of four liters of fluid -fluid culture negative so far and negative for malignant cells. -will consult IR to repeat paracentesis today. -continue with lasix, albumin and aldactone -continue pain control -Patient will need treatment out patient treatment for Hep C -GI following UTI with e-coli -continue Rocephin Alcohol abuse, chronic, patient states last drink was 7 days ago -Encouraged to quit Hypokalemia; will replace and monitor.check magnesium level. DVT prophylaxis: SCDs, avoid chemical due to anemia GI prophylaxis: Protonix consulted PT Discharge Planning not ready for discharge . Darling Diamond MD Apr 23, 2017 09:14
[2017-04-23] MEDS ORDERED: POTASSIUM CHLORIDE 10 MEQ CONTROLLED RELEASE TAB PO ONE (10:00)
--- NOTE | 2017-04-23 12:35 | HHI.GIFU ---
Subjective Remarks Resting in bed. No n/v today. No diarrhea. She reports that she has more abdominal discomfort from worsening distention. Objective Vitals I&O Vital Signs Date Time Temp Pulse Resp B/P Pulse Ox O2 Delivery O2 Flow Rate FiO2 04/23/17 12:00 97.6 95 20 136/63 99 04/23/17 08:31 85 111/63 04/23/17 08:00 97.2 90 20 116/64 96 04/23/17 04:00 97.3 73 18 112/69 95 04/23/17 00:00 85 04/23/17 00:00 97.0 91 17 99/57 96 04/22/17 20:00 97.0 87 18 116/68 97 04/22/17 20:00 81 04/22/17 16:00 97.4 90 18 107/67 100 I/O 04/22/17 04/22/17 04/22/17 04/23/17 04/23/17 04/23/17 07:00 15:00 23:00 07:00 15:00 23:00 Intake Total 600 ml Balance 600 ml IV Total 600 ml # Voids 1 2 # Bowel Movements 1 Laboratory Laboratory Tests Test 04/23/17 06:40 White Blood Count 6.0 Red Blood Count 1.89 Hemoglobin 7.2 Hematocrit 20.1 Mean Corpuscular Volume 106.6 Mean Corpuscular Hemoglobin 38.0 Mean Corpuscular Hemoglobin 35.7 Concent Red Cell Distribution Width 27.4 Platelet Count 42 Mean Platelet Volume 9.7 Neutrophils (%) (Auto) 62.0 Lymphocytes (%) (Auto) 23.3 Monocytes (%) (Auto) 12.1 Eosinophils (%) (Auto) 2.3 Basophils (%) (Auto) 0.3 Neutrophils # (Auto) 3.7 Lymphocytes # (Auto) 1.4 Monocytes # (Auto) 0.7 Eosinophils # (Auto) 0.1 Basophils # (Auto) 0.0 CBC Comment AUTO DIFF Differential Comment AUTO DIFF CONFIRMED Platelet Estimate LOW Platelet Morphology Comment NORMAL Target Cells 1+ Ovalocytes 1+ Stomatocytes 1+ Prothrombin Time 31.7 Prothromb Time International 2.7 Ratio Sodium Level 134 Potassium Level 3.0 Chloride Level 101 Carbon Dioxide Level 22.0 Anion Gap 11 Blood Urea Nitrogen 5 Creatinine 1.13 Estimat Glomerular Filtration 51 Rate Random Glucose 86 Calcium Level 7.4 Protein Corrected Calcium 7.6 Total Bilirubin 4.0 Aspartate Amino Transf 32 (AST/SGOT) Alanine Aminotransferase 14 (ALT/SGPT) Alkaline Phosphatase 35 Total Protein 6.7 Albumin 3.3 Imaging Last Impressions Abdomen Ultrasound 04/22/17 0000 Signed Impressions: Service Date/Time: Saturday, April 22, 2017 17:26 - CONCLUSION: Moderate free fluid in the abdomen. Michael Sevilla MD FACR Abdomen/Pelvis CT 04/19/17 0000 Signed Impressions: Service Date/Time: Wednesday, April 19, 2017 19:24 - CONCLUSION: 1. Moderate amount of ascitic fluid in the abdomen and pelvis. 2. Small right pleural effusion. 3. The liver is small and mildly heterogeneous with no focal mass or ductal dilatation. Devang Mustafa MD Cyst Biopsy Asp-Paracentesis US 04/16/17 0000 Signed Impressions: Service Date/Time: April 09:39 - CONCLUSION: Uncomplicated ultrasound guided paracentesis. Dave Saha MD Physical Exam HEENT: Normocephalic; atraumatic; no jaundice. CHEST: CTA CARDIAC: RRR ABDOMEN: Abdomen soft, moderately distended, mild epigastric tenderness; hepatosplenomegaly. EXTREMITIES: Bilateral LE edema. SKIN: Normal; no rash; no jaundice. CHEMICAL ENGINEER: No focal deficits; alert and oriented times three. Assessment and Plan Plan ASSESSMENT: - Upper GIB with melena. Denies any hx of GI bleeding, PUD, or known varices. S /P EGD (04/16/17)----> Lackey's Esophagus, erosive gastritis, duodenal ulcers. No obvious active bleeding. No further n/v. No melena. PPI with BID dosing. - Duodenal ulcers. PPI with BID dosing. - Severe anemia secondary to blood loss. Abdomen/Pelvis CT (04/19/17)----> 1. Moderate amount of ascitic fluid in the abdomen and pelvis. 2. Small right pleural effusion. 3. The liver is small and mildly heterogeneous with no focal mass or ductal dilatation. S/P 4 units PRBC, 2 units FFP. HH 7.2/20.1. Additional unit of PRBC ordered for today. - New onset ascites. Cyst Biopsy Asp-Paracentesis US (04/16/17)----> Uncomplicated ultrasound guided paracentesis with 4000cc removed. Fluid studies wbc 39, Peritoneal rbc 111. Cytology numerous mesothelial cells, macrophages and few neutrophils, negative for malignant cells. Peritoneal cx no growth x 48 hours. Spironolactone 50mg po with BID dosing, Lasix 40mg IV BID, Albumin. Ceftriaxone. She has worsening distention again and c/o more discomfort with this. Lower Limited US (04/22/17)-----> Moderate free fluid in the abdomen. Rpt. US guided paracentesis ordered, but INR is increasing (2.7) today and will need 2 units of FFP prior to having this done. - Liver cirrhosis with elevated LFTs. States she was told that she had liver disease for several years, but never told specifically that she had liver cirrhosis until this hospitalization. She has a hx of ETOH use, 3-4 beers per day up until one week ago and has HCV antibodies. MELD 25. CT as above. This is likely alcoholic hepatitis on underlying liver cirrhosis. Has UTI so will avoid steroids and start pentoxifylline. ASA negative; ASMA negative; AMA < 20.0. LFTs are improving. T. Bili 4.0, AST 32, ALT 14, ALk Phosph 35. - Alcoholic hepatitis. DF 52.9. Pentoxifylline. LFTs improving. - Thrombocytopenia, Coagulopathy. Worsening coagulopathy. PT 31.7 INR 2.7. Getting FFP today for procedure. - HCV antibodies. 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 - Diarrhea. Pt denies black stool or red blood. Will get CDiff (on ceftriaxone ). States she has not had further episodes - NEGRO. Improving. Creat 1.13 - UTI, Cx with E. Coli. Ceftriaxone. - HTN, CAD, Hx TIA, COPD, Hx DVT per primary PLAN: - Low sodium diet, fluid restriction - 2 units FFP prior to US guided paracentesis - 1 unit of PRBC ordered today by attending. - Cont. Protonix 40mg po bid - Cont. Carafate - Cont. Pentoxifylline - Monitor HH - Transfuse as necessary - Monitor labs - Supportive care - Further recommendations to follow based on results of above - Pt seen and examined by Dr. Lemos and myself and this note is written on his behalf Krystyna Jessica Apr 23, 2017 12:35
[2017-04-23] MEDS: cefTRIAXone INJ 1,000 MG in SODIUM CHLORIDE 0.9% INJ 100 ML IV SCH (17:11)
[2017-04-24] VITALS (13 sets, daily range): BP systolic 107–126; BP diastolic 67–79; PULSE 76–83; RESP 16–18; TEMP 97–98.1; O2SAT 94–97
[2017-04-24] MEDS: PENTOXIFYLLINE 400 MG CONTROLLED RELEASE TAB PO SCH ×3 (05:22→23:07)
[2017-04-24] MEDS: SUCRALFATE 1 GM/10 ML CUP PO SCH ×4 (05:22→23:06)
[2017-04-24] MEDS: ALBUMIN HUMAN 25% 25 GM/100 ML BAGP IV SCH ×2 (05:23→15:19)
--- NOTE | 2017-04-24 08:03 | HHI.PR ---
Subjective Remarks resting comfortably with no distress. still has some nausea but she says that overall it's better. no GI bleed. Objective Vitals Vital Signs Date Time Temp Pulse Resp B/P Pulse Ox O2 Delivery O2 Flow Rate FiO2 04/24/17 05:17 98.0 80 18 122/79 97 04/24/17 00:00 98.0 79 18 121/69 97 04/23/17 21:32 18 04/23/17 21:27 96.7 92 18 125/68 95 04/23/17 20:38 79 04/23/17 20:38 82 04/23/17 20:38 74 04/23/17 20:00 97.4 85 18 109/67 97 04/23/17 19:26 96.7 92 18 125/68 95 04/23/17 18:21 97.3 91 20 123/69 97 04/23/17 17:51 98.4 86 18 117/74 96 04/23/17 16:07 85 04/23/17 16:00 96.8 85 20 95/62 97 04/23/17 16:00 96.8 85 20 95/62 97 04/23/17 15:00 97.3 84 18 114/69 96 04/23/17 14:44 98.4 87 18 108/69 04/23/17 12:00 97.6 95 20 136/63 99 04/23/17 08:31 85 111/63 I/O 04/23/17 04/23/17 04/23/17 04/24/17 04/24/17 04/24/17 07:00 15:00 23:00 07:00 15:00 23:00 Intake Total 1140 ml 650 ml Balance 1140 ml 650 ml Intake Oral 240 ml 330 ml IV Total 900 ml FFP 320 ml # Voids 2 5 1 2 Result Diagram: 04/23/17 0640 04/23/17 0640 Imaging Last Impressions Abdomen Ultrasound 04/22/17 0000 Signed Impressions: Service Date/Time: Saturday, April 22, 2017 17:26 - CONCLUSION: Moderate free fluid in the abdomen. Michael Sevilla MD FACR Abdomen/Pelvis CT 04/19/17 0000 Signed Impressions: Service Date/Time: Wednesday, April 19, 2017 19:24 - CONCLUSION: 1. Moderate amount of ascitic fluid in the abdomen and pelvis. 2. Small right pleural effusion. 3. The liver is small and mildly heterogeneous with no focal mass or ductal dilatation. Devang Mustafa MD Cyst Biopsy Asp-Paracentesis US 04/16/17 0000 Signed Impressions: Service Date/Time: April 09:39 - CONCLUSION: Uncomplicated ultrasound guided paracentesis. Dave Saha MD Objective Remarks GENERAL: This is a well-nourished, well-developed patient, in no apparent distress. CARDIOVASCULAR: Regular rate and regular rhythm without murmurs, gallops, or rubs. RESPIRATORY: Clear to auscultation. Breath sounds equal bilaterally. No wheezes , rales, or rhonchi. GASTROINTESTINAL: Abdomen soft, non-tender, distended. Normal, active bowel sounds MUSCULOSKELETAL: Extremities with bilateral pedal edema. NEURO: Alert & Oriented x4 to person, place, time, situation. Moves all ext x4 Procedures EGD paracentesis Medications and IVs Current Medications Sodium Chloride 2 ml 2 ml UNSCH PRN IV FLUSH FLUSH AFTER USING IV ACCESS; Start 04/16/17 at 00:15; Stop 04/16/17 at 01:52; Status DC Sodium Chloride (NS 250 ml Inj) 250 ml @ 15 mls/hr ONCE ONCE IV Last administered on 04/22/17 17:18; Start 04/16/17 at 01:15; Stop 04/16/17 at 17:54; Status DC Sodium Chloride (NS Flush) 2 ml UNSCH PRN IV FLUSH FLUSH AFTER USING IV ACCESS ; Start 04/16/17 at 02:00 Sodium Chloride (NS Flush) 2 ml BID IV FLUSH Last administered on 04/23/17 21: 12; Start 04/16/17 at 09:00 Naloxone HCl (Narcan Inj) 0.4 mg UNSCH PRN IV SEE LABEL COMMENTS; Start at 02:00 Pantoprazole Sodium (Protonix Inj) 40 mg Q12H IV PUSH Last administered on 04:33; Start 04/16/17 at 02:00; Stop 04/16/17 at 05:19; Status DC Morphine Sulfate 2 mg 2 mg Q4H PRN IV PUSH pain >5 Last administered on 21:15; Start 04/16/17 at 04:30 Pantoprazole Sodium 80 mg/ Sodium Chloride 100 ml @ 10 mls/hr CONTINUOUS IV Last administered on 04/17/17 13:42; Start 04/16/17 at 05:30; Stop 04/17/17 at 16: 37; Status DC Sodium Chloride 1,000 ml @ 60 mls/hr [id number] IV Last administered on 03:32; Start 04/16/17 at 08:00 Sodium Chloride (NS 250 ml Inj) 250 ml @ 15 mls/hr ONCE ONCE IV Last administered on 04/17/17 06:50; Start 04/16/17 at 11:45; Stop 04/17/17 at 04:24; Status DC Spironolactone (Aldactone) 50 mg DAILY PO Last administered on 04/19/17 11:10; Start 04/16/17 at 11:45; Stop 04/19/17 at 14:51; Status DC Sugammadex Sodium (Bridion Inj) 200 mg STK-MED ONCE IV PUSH ; Start 04/16/17 at 12:26; Stop 04/16/17 at 12:27; Status DC Miscellaneous Information ALL NURSING DEPARTME... UNSCH PRN .XX SEE LABEL COMMENTS; Start 04/16/17 at 12:42; Stop 04/17/17 at 12:41; Status DC Propofol (Diprivan 200 Mg/20 ml Inj) 150 mg STK-MED ONCE IV ; Start 04/16/17 at 12:19; Stop 04/16/17 at 14:24; Status DC Rocuronium [place] (Zemuron Inj) 50 mg STK-MED ONCE IV ; Start 04/16/17 at 12:19 ; Stop 04/16/17 at 14:24; Status DC Oxycodone HCl (Roxicodone) 5 mg Q8H PRN PO PAIN >5 Last administered on 08:18; Start 04/17/17 at 08:15 Pantoprazole Sodium (Protonix) 40 mg DAILY PO ; Start 04/18/17 at 09:00; Stop 04/18/17 at 09:00; Status DC Pantoprazole Sodium (Protonix) 40 mg BID PO Last administered on 04/23/17 21: 12; Start 04/18/17 at 09:00 Pentoxifylline 400 mg 400 mg Q8HR PO Last administered on 04/24/17 05:22; Start 04/17/17 at 22:00 Ceftriaxone Sodium/Sodium Chloride (Rocephin Inj/NS Inj) 100 ml @ 200 mls/hr Q24H IV Last administered on 04/23/17 17:11; Start 04/17/17 at 18:00 Ondansetron HCl (Zofran Inj) 4 mg Q6HR PRN IV PUSH nausea Last administered on 04/19/17 06:15; Start 04/18/17 at 06:15; Stop 04/19/17 at 11:29; Status DC Ondansetron HCl (Zofran Inj) 4 mg Q4HR PRN IV PUSH nausea Last administered on 04/23/17 21:11; Start 04/19/17 at 12:00 Furosemide (Lasix Inj) 40 mg BID@09,18 IV PUSH Last administered on 04/23/17 17:11; Start 04/19/17 at 18:00 Albumin Human (Albumin 25% Inj) 25 gm Q12H IV Last administered on 04/24/17 05 :23; Start 04/19/17 at 15:00 Spironolactone (Aldactone) 50 mg BID PO Last administered on 04/23/17 21:11; Start 04/19/17 at 21:00 Diatrizoate Meglum/ Diatrizoate Sod ( Gastroview Liq) 18 ml ONCE ONCE PO Last administered on 04/19/17 15:43; Start 04/19/17 at 15:00; Stop 04/19/17 at 15: 01; Status DC Iohexol (Omnipaque 350 Inj) 91 ml STK-MED ONCE IV Last administered on 19:25; Start 04/19/17 at 19:25; Stop 04/19/17 at 19:26; Status DC Prochlorperazine Edisylate (Compazine Inj) 5 mg Q8H PRN IV PUSH NAUSEA Last administered on 04/23/17 08:10; Start 04/22/17 at 08:30 Sucralfate 1 gm 1 gm ACHS PO Last administered on 04/24/17 05:22; Start at 16:00 Sodium Chloride (NS 250 ml Inj) 250 ml @ 15 mls/hr ONCE ONCE IV Last administered on 04/23/17t 15:05; Start 04/23/17 at 09:00; Stop 04/24/17 at 01:39 ; Status DC Potassium Chloride (KCl) 40 meq ONCE ONCE PO ; Start 04/23/17 at 10:00; Stop at 10:01; Status DC Phytonadione (Vitamin K Inj) 10 mg DAILY SQ ; Start 04/24/17 at 09:00; Stop at 08:59 A/P Assessment and Plan A/P Symptomatic anemia- - s/p PRBC transfusion -continue to monitor H/H and transfuse as needed - s/p EGD with 1. Lackey's esophagus. 2. Erosive gastritis. 3. Duodenal ulcers. -continue PPI. -GI follow-up appreciated. Acute kidney injury- suspected volume loss from questionable GI bleed- improved. -Encourage fluids Cirrhosis with Ascites -s/p paracentesis with removal of four liters of fluid -fluid culture negative so far and negative for malignant cells. - consulted IR to repeat paracentesis . -continue with lasix, albumin and aldactone -continue pain control -Patient will need treatment out patient treatment for Hep C -GI following coagulopathy due to liver disease -s/p FFP transfusion -will monitor UTI with e-coli -continue Rocephin Alcohol abuse, chronic, patient states last drink was 7 days ago -Encouraged to quit Hypokalemia/hypomagnesemia; repeat the levels today and replace as needed. DVT prophylaxis: SCDs, avoid chemical due to anemia GI prophylaxis: Protonix consulted PT Discharge Planning not ready for discharge . Darling Diamond MD Apr 24, 2017 08:03
[2017-04-24] MEDS: ONDANSETRON HCL 4 MG/2 ML VIAL IV PUSH PRN ×2 (09:44→18:31)
[2017-04-24] MEDS: SPIRONOLACTONE 50 MG TAB PO SCH ×2 (09:45→23:06)
[2017-04-24] MEDS: PANTOPRAZOLE SOD 40 MG DELAYED RELEASE TAB PO SCH ×2 (09:45→23:06)
[2017-04-24] MEDS: FUROSEMIDE 40 MG/4 ML VIAL IV PUSH SCH ×2 (09:45→17:11)
[2017-04-24] MEDS: PHYTONADIONE 10 MG/ML VIAL SQ SCH (09:45)
[2017-04-24] MEDS: SODIUM CHLORIDE 0.9% FLUSH 10 ML FLUSH IV FLUSH SCH ×2 (09:46→23:07)
[2017-04-24 09:56] LABS: HEMATOCRIT 23.9 % (35.0-46.0)
[2017-04-24] MEDS ORDERED: POTASSIUM CHLORIDE 10 MEQ CONTROLLED RELEASE TAB PO ONE ×3 (10:30→18:00)
[2017-04-24 12:45] LABS: INTERNATIONAL NORMALIZED RATIO 2.5 RATIO; PROTHROMBIN TIME - PATIENT 28.2 SEC (9.8-11.6)
[2017-04-24] MEDS: MAGNESIUM SULFATE 1 GM PREMIX 100 ML IV SCH ×2 (13:03→14:15)
[2017-04-24] MEDS: SODIUM CHLOR 0.45% 1000 ML INJ 1,000 ML IV SCH (15:19)
[2017-04-24] MEDS ORDERED: SODIUM CHLOR 0.9% 250 ML INJ 250 ML IV ONE (16:30)
--- NOTE | 2017-04-24 16:45 | HHI.GIFU ---
Subjective Remarks Resting in bed. Had nausea/vomiting with nonbloody emesis earlier today, better since she received the antiemetics (Compazine was added). + BM. C/O abdominal pressure. Paracentesis was not able to be done secondary to elevated INR. Objective Vitals I&O Vital Signs Date Time Temp Pulse Resp B/P Pulse Ox O2 Delivery O2 Flow Rate FiO2 04/24/17 16:21 77 04/24/17 12:02 80 04/24/17 12:00 97.0 80 16 126/74 97 04/24/17 08:14 79 04/24/17 08:00 97.3 76 17 107/71 97 04/24/17 05:17 98.0 80 18 122/79 97 04/24/17 00:00 98.0 79 18 121/69 97 04/23/17 21:32 18 04/23/17 21:27 96.7 92 18 125/68 95 04/23/17 20:38 79 04/23/17 20:38 82 04/23/17 20:38 74 04/23/17 20:00 97.4 85 18 109/67 97 04/23/17 19:26 96.7 92 18 125/68 95 04/23/17 18:21 97.3 91 20 123/69 97 04/23/17 17:51 98.4 86 18 117/74 96 I/O 04/23/17 04/23/17 04/23/17 04/24/17 04/24/17 04/24/17 06:59 14:59 22:59 06:59 14:59 22:59 Intake Total 1140 ml 650 ml 420 ml 406 ml Balance 1140 ml 650 ml 420 ml 406 ml Intake Oral 240 ml 330 ml 420 ml IV Total 900 ml 406 ml FFP 320 ml # Voids 2 5 1 2 3 # Bowel Movements 1 Laboratory Laboratory Tests Test 04/24/17 04/24/17 08:19 11:41 Hemoglobin 8.3 Hematocrit 23.9 Potassium Level 2.7 Magnesium Level 0.6 Prothrombin Time 28.2 Prothromb Time International 2.5 Ratio Imaging Last Impressions Abdomen Ultrasound 04/22/17 0000 Signed Impressions: Service Date/Time: Saturday, April 22, 2017 17:26 - CONCLUSION: Moderate free fluid in the abdomen. Michael Sevilla MD FACR Abdomen/Pelvis CT 04/19/17 0000 Signed Impressions: Service Date/Time: Wednesday, April 19, 2017 19:24 - CONCLUSION: 1. Moderate amount of ascitic fluid in the abdomen and pelvis. 2. Small right pleural effusion. 3. The liver is small and mildly heterogeneous with no focal mass or ductal dilatation. eDvang Mustafa MD Cyst Biopsy Asp-Paracentesis US 04/16/17 0000 Signed Impressions: Service Date/Time: April 09:39 - CONCLUSION: Uncomplicated ultrasound guided paracentesis. Dave Saha MD Physical Exam HEENT: Normocephalic; atraumatic; no jaundice. CHEST: CTA CARDIAC: RRR ABDOMEN: Abdomen soft, moderately distended, mild epigastric tenderness; hepatosplenomegaly. EXTREMITIES: Bilateral LE edema. SKIN: Normal; no rash; no jaundice. [employer]: No focal deficits; alert and oriented times three. Assessment and Plan Plan ASSESSMENT: - Upper GIB with melena. Denies any hx of GI bleeding, PUD, or known varices. S /P EGD (04/16/17)----> Lackey's Esophagus, erosive gastritis, duodenal ulcers. No obvious active bleeding. No further n/v. No melena. PPI with BID dosing. Carafate. .01/01.9 - Duodenal ulcers. PPI with BID dosing, Carafate. - Persistent nausea/vomiting. PPI, Carafate, Zofran, Compazine added today. Improved. ? R/T ascites pressing on stomach. Will keep on clear liquids until after paracentesis and give trial of reglan (reduced dose). Asher plan for paracentesis tomorrow if INR allows. - Severe anemia secondary to blood loss. Abdomen/Pelvis CT (04/19/17)----> 1. Moderate amount of ascitic fluid in the abdomen and pelvis. 2. Small right pleural effusion. 3. The liver is small and mildly heterogeneous with no focal mass or ductal dilatation. S/P 5 units PRBC, 4 units FFP. HH 8.3.9 - New onset ascites. Cyst Biopsy Asp-Paracentesis US (04/16/17)----> Uncomplicated ultrasound guided paracentesis with 4000cc removed. Fluid studies wbc 39, Peritoneal rbc 111. Cytology numerous mesothelial cells, macrophages and few neutrophils, negative for malignant cells. Peritoneal cx no growth x 48 hours. Spironolactone 50mg po with BID dosing, Lasix 40mg IV BID, Albumin. Ceftriaxone. She has worsening distention again and c/o more discomfort with this. Lower Limited US (04/22/17)-----> Moderate free fluid in the abdomen. Rpt. US guided paracentesis ordered, but INR is increasing (2.7) today and will need 2 units of FFP prior to having this done. - Liver cirrhosis with elevated LFTs. States she was told that she had liver disease for several years, but never told specifically that she had liver cirrhosis until this hospitalization. She has a hx of ETOH use, 3-4 beers per day up until one week ago and has HCV antibodies. MELD 25. CT as above. This is likely alcoholic hepatitis on underlying liver cirrhosis. Has UTI so will avoid steroids and start pentoxifylline. ASA negative; ASMA negative; AMA < 20.0. LFTs are improving. T. Bili 4.0, AST 32, ALT 14, ALk Phosph 35 yesterday. - Alcoholic hepatitis. DF 52.9. Pentoxifylline. LFTs improving. - Thrombocytopenia, Coagulopathy. Worsening coagulopathy. PT 28.2, INR 2.5 Will give additional 2 units of FFP today so she can hopefully get paracentesis tomorrow. She is on Vitamin K - HCV antibodies. 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 - Diarrhea. Pt denies black stool or red blood. Will get CDiff (on ceftriaxone ). States she has not had further episodes - NEGRO. Improving. Creat 1.13 yesterday - UTI, Cx with E. Coli. Ceftriaxone. - HTN, CAD, Hx TIA, COPD, Hx DVT per primary PLAN: - Clear liquids until after paracentesis - 2 units FFP today - INR tomorrow at 6am- notify GI if > than 1.9 - Will attempt US guided paracentesis tomorrow if INR allows, Radiology will need to be called to schedule - Trial of Reglan - Cont. Protonix 40mg po bid - Cont. Carafate - Cont. Pentoxifylline - Cont. Zofran/Compazine prn - Monitor HH - Transfuse as necessary - Monitor labs - Supportive care - Further recommendations to follow based on results of above - Pt seen and examined by Dr. Lemos and myself and this note is written on his behalf Krystyna Jessica Apr 24, 2017 16:45
[2017-04-24] MEDS: cefTRIAXone INJ 1,000 MG in SODIUM CHLORIDE 0.9% INJ 100 ML IV SCH (17:11)
[2017-04-24] MEDS: METOCLOPRAMIDE HCL 10 MG/2 ML VIAL IV PUSH SCH (23:05)
[2017-04-25] VITALS (11 sets, daily range): BP systolic 95–137; BP diastolic 54–81; PULSE 81–90; RESP 14–20; TEMP 96.9–98.4; O2SAT 93–100
[2017-04-25] MEDS: PENTOXIFYLLINE 400 MG CONTROLLED RELEASE TAB PO SCH ×3 (04:49→22:11)
[2017-04-25] MEDS: ALBUMIN HUMAN 25% 25 GM/100 ML BAGP IV SCH ×2 (04:49→18:18)
[2017-04-25] MEDS: METOCLOPRAMIDE HCL 10 MG/2 ML VIAL IV PUSH SCH ×3 (04:49→22:00)
[2017-04-25] MEDS: SUCRALFATE 1 GM/10 ML CUP PO SCH ×4 (06:02→21:00)
--- NOTE | 2017-04-25 08:02 | HHI.PR ---
Subjective Remarks in no acute distress. has some nausea which she says is worse in the morning. no GI bleed. no fever. Objective Vitals Vital Signs Date Time Temp Pulse Resp B/P Pulse Ox O2 Delivery O2 Flow Rate FiO2 04/25/17 04:09 84 04/25/17 04:00 96.9 83 18 124/63 95 04/25/17 01:12 97.3 85 18 97/54 93 04/25/17 01:11 16 04/25/17 00:42 97.0 84 16 95/55 94 04/25/17 00:42 97.0 85 16 95/55 94 04/25/17 00:00 82 04/24/17 23:34 97.4 83 18 120/67 95 04/24/17 20:40 77 04/24/17 20:00 97.7 79 18 118/69 97 04/24/17 19:06 97.7 76 16 116/69 94 04/24/17 18:26 97.6 79 16 120/69 95 04/24/17 16:21 77 04/24/17 16:00 98.1 78 16 120/73 97 04/24/17 12:02 80 04/24/17 12:00 97.0 80 16 126/74 97 04/24/17 08:14 79 04/24/17 08:00 97.3 76 17 107/71 97 I/O 04/24/17 04/24/17 04/24/17 04/25/17 04/25/17 04/25/17 07:00 15:00 23:00 07:00 15:00 23:00 Intake Total 420 ml 646 ml 480 ml Balance 420 ml 646 ml 480 ml Intake Oral 420 ml 240 ml 480 ml IV Total 406 ml # Voids 2 3 1 3 # Bowel Movements 1 Result Diagram: 04/24/17 0819 04/24/17 0819 Imaging Last Impressions Abdomen Ultrasound 04/22/17 0000 Signed Impressions: Service Date/Time: Saturday, April 22, 2017 17:26 - CONCLUSION: Moderate free fluid in the abdomen. Michael Sevilla MD FACR Abdomen/Pelvis CT 04/19/17 0000 Signed Impressions: Service Date/Time: Wednesday, April 19, 2017 19:24 - CONCLUSION: 1. Moderate amount of ascitic fluid in the abdomen and pelvis. 2. Small right pleural effusion. 3. The liver is small and mildly heterogeneous with no focal mass or ductal dilatation. Devang Mustafa MD Cyst Biopsy Asp-Paracentesis US 04/16/17 0000 Signed Impressions: Service Date/Time: April 09:39 - CONCLUSION: Uncomplicated ultrasound guided paracentesis. Dave Saha MD Objective Remarks GENERAL: This is a well-nourished, well-developed patient, in no apparent distress. CARDIOVASCULAR: Regular rate and regular rhythm without murmurs, gallops, or rubs. RESPIRATORY: Clear to auscultation. Breath sounds equal bilaterally. No wheezes , rales, or rhonchi. GASTROINTESTINAL: Abdomen soft, non-tender, distended. Normal, active bowel sounds MUSCULOSKELETAL: Extremities with bilateral pedal edema. NEURO: Alert & Oriented x4 to person, place, time, situation. Moves all ext x4 Procedures EGD paracentesis Medications and IVs Current Medications Sodium Chloride 2 ml 2 ml UNSCH PRN IV FLUSH FLUSH AFTER USING IV ACCESS; Start 04/16/17 at 00:15; Stop 04/16/17 at 01:52; Status DC Sodium Chloride (NS 250 ml Inj) 250 ml @ 15 mls/hr ONCE ONCE IV Last administered on 04/22/17 17:18; Start 04/16/17 at 01:15; Stop 04/16/17 at 17:54; Status DC Sodium Chloride (NS Flush) 2 ml UNSCH PRN IV FLUSH FLUSH AFTER USING IV ACCESS ; Start 04/16/17 at 02:00 Sodium Chloride (NS Flush) 2 ml BID IV FLUSH Last administered on 04/24/17 23: 07; Start 04/16/17 at 09:00 Naloxone HCl (Narcan Inj) 0.4 mg UNSCH PRN IV SEE LABEL COMMENTS; Start at 02:00 Pantoprazole Sodium (Protonix Inj) 40 mg Q12H IV PUSH Last administered on 04:33; Start 04/16/17 at 02:00; Stop 04/16/17 at 05:19; Status DC Morphine Sulfate 2 mg 2 mg Q4H PRN IV PUSH pain >5 Last administered on 21:15; Start 04/16/17 at 04:30 Pantoprazole Sodium 80 mg/ Sodium Chloride 100 ml @ 10 mls/hr CONTINUOUS IV Last administered on 04/17/17 13:42; Start 04/16/17 at 05:30; Stop 04/17/17 at 16: 37; Status DC Sodium Chloride 1,000 ml @ 60 mls/hr [id number] IV Last administered on 15:19; Start 04/16/17 at 08:00 Sodium Chloride (NS 250 ml Inj) 250 ml @ 15 mls/hr ONCE ONCE IV Last administered on 04/17/17 06:50; Start 04/16/17 at 11:45; Stop 04/17/17 at 04:24; Status DC Spironolactone (Aldactone) 50 mg DAILY PO Last administered on 04/19/17 11:10; Start 04/16/17 at 11:45; Stop 04/19/17 at 14:51; Status DC Sugammadex Sodium (Bridion Inj) 200 mg STK-MED ONCE IV PUSH ; Start 04/16/17 at 12:26; Stop 04/16/17 at 12:27; Status DC Miscellaneous Information ALL NURSING DEPARTME... UNSCH PRN .XX SEE LABEL COMMENTS; Start 04/16/17 at 12:42; Stop 04/17/17 at 12:41; Status DC Propofol (Diprivan 200 Mg/20 ml Inj) 150 mg STK-MED ONCE IV ; Start 04/16/17 at 12:19; Stop 04/16/17 at 14:24; Status DC Rocuronium [place] (Zemuron Inj) 50 mg STK-MED ONCE IV ; Start 04/16/17 at 12:19 ; Stop 04/16/17 at 14:24; Status DC Oxycodone HCl (Roxicodone) 5 mg Q8H PRN PO PAIN >5 Last administered on 23:06; Start 04/17/17 at 08:15 Pantoprazole Sodium (Protonix) 40 mg DAILY PO ; Start 04/18/17 at 09:00; Stop 04/18/17 at 09:00; Status DC Pantoprazole Sodium (Protonix) 40 mg BID PO Last administered on 04/24/17 23: 06; Start 04/18/17 at 09:00 Pentoxifylline 400 mg 400 mg Q8HR PO Last administered on 04/25/17 04:49; Start 04/17/17 at 22:00 Ceftriaxone Sodium/Sodium Chloride (Rocephin Inj/NS Inj) 100 ml @ 200 mls/hr Q24H IV Last administered on 04/24/17 17:11; Start 04/17/17 at 18:00 Ondansetron HCl (Zofran Inj) 4 mg Q6HR PRN IV PUSH nausea Last administered on 04/19/17 06:15; Start 04/18/17 at 06:15; Stop 04/19/17 at 11:29; Status DC Ondansetron HCl (Zofran Inj) 4 mg Q4HR PRN IV PUSH nausea Last administered on 04/24/17 18:31; Start 04/19/17 at 12:00 Furosemide (Lasix Inj) 40 mg BID@09,18 IV PUSH Last administered on 04/24/17 17:11; Start 04/19/17 at 18:00 Albumin Human (Albumin 25% Inj) 25 gm Q12H IV Last administered on 04/25/17 04 :49; Start 04/19/17 at 15:00 Spironolactone (Aldactone) 50 mg BID PO Last administered on 04/24/17 23:06; Start 04/19/17 at 21:00 Diatrizoate Meglum/ Diatrizoate Sod ( Gastroview Liq) 18 ml ONCE ONCE PO Last administered on 04/19/17 15:43; Start 04/19/17 at 15:00; Stop 04/19/17 at 15: 01; Status DC Iohexol (Omnipaque 350 Inj) 91 ml STK-MED ONCE IV Last administered on 19:25; Start 04/19/17 at 19:25; Stop 04/19/17 at 19:26; Status DC Prochlorperazine Edisylate (Compazine Inj) 5 mg Q8H PRN IV PUSH NAUSEA Last administered on 04/23/17 08:10; Start 04/22/17 at 08:30 Sucralfate 1 gm 1 gm ACHS PO Last administered on 04/25/17 06:02; Start at 16:00 Sodium Chloride (NS 250 ml Inj) 250 ml @ 15 mls/hr ONCE ONCE IV Last administered on 04/23/17 15:05; Start 04/23/17 at 09:00; Stop 04/24/17 at 01:39 ; Status DC Potassium Chloride (KCl) 40 meq ONCE ONCE PO ; Start 04/23/17 at 10:00; Stop at 10:01; Status DC Phytonadione (Vitamin K Inj) 10 mg DAILY SQ Last administered on 04/24/17 09: 45; Start 04/24/17 at 09:00; Stop 04/27/17 at 08:59 Potassium Chloride (KCl) 40 meq ONCE ONCE PO Last administered on 04/24/17 11 :22; Start 04/24/17 at 10:30; Stop 04/24/17 at 10:31; Status DC Potassium Chloride (KCl) 40 meq ONCE ONCE PO Last administered on 04/24/17 14 :15; Start 04/24/17 at 14:00; Stop 04/24/17 at 14:01; Status DC Potassium Chloride 40 meq 40 meq ONCE ONCE PO Last administered on 04/24/17 17:11; Start 04/24/17 at 18:00; Stop 04/24/17 at 18:01; Status DC Magnesium Sulfate/ Dextrose 100 ml @ 100 mls/hr Q1H IV Last administered on 14:15; Start 04/24/17 at 12:30; Stop 04/24/17 at 14:29; Status DC Sodium Chloride (NS 250 ml Inj) 250 ml @ 15 mls/hr ONCE ONCE IV Last administered on 04/24/17 18:24; Start 04/24/17 at 16:30; Stop 04/25/17 at 09:09 Metoclopramide HCl (Reglan Inj) 5 mg Q8HR IV PUSH Last administered on 04:49; Start 04/24/17 at 22:00 A/P Assessment and Plan A/P Symptomatic anemia- - s/p PRBC transfusion -continue to monitor H/H and transfuse as needed - s/p EGD with 1. Lackey's esophagus. 2. Erosive gastritis. 3. Duodenal ulcers. -continue PPI. -GI following. Acute kidney injury- suspected volume loss from questionable GI bleed- improved. -Encourage fluids Cirrhosis with Ascites -s/p paracentesis with removal of four liters of fluid -fluid culture negative so far and negative for malignant cells. - consulted IR to repeat paracentesis . -continue with lasix, albumin and aldactone -continue pain control -Patient will need treatment out patient treatment for Hep C -GI following coagulopathy due to liver disease -s/p FFP transfusion and vit. K -will monitor UTI with e-coli -continue Rocephin Alcohol abuse, chronic, patient states last drink was 7 days ago -Encouraged to quit Hypokalemia/hypomagnesemia; replaced- will monitor. DVT prophylaxis: SCDs, avoid chemical due to anemia/liver disease GI prophylaxis: Protonix consulted PT Discharge Planning not ready for discharge . Darling Diamond MD Apr 25, 2017 08:01
[2017-04-25 08:11] LABS: BICARBONATE 28.4 MEQ/L (21.0-32.0); MAGNESIUM 0.9 MG/DL (1.5-2.5); POTASSIUM 3.1 MEQ/L (3.5-5.1)
[2017-04-25] MEDS: SODIUM CHLORIDE 0.9% FLUSH 10 ML FLUSH IV FLUSH SCH ×2 (09:00→21:00)
[2017-04-25] MEDS: SPIRONOLACTONE 50 MG TAB PO SCH ×2 (10:11→22:12)
[2017-04-25] MEDS: PANTOPRAZOLE SOD 40 MG DELAYED RELEASE TAB PO SCH ×2 (10:11→22:12)
[2017-04-25] MEDS: ONDANSETRON HCL 4 MG/2 ML VIAL IV PUSH PRN (10:12)
[2017-04-25] MEDS: FUROSEMIDE 40 MG/4 ML VIAL IV PUSH SCH ×2 (10:13→18:18)
[2017-04-25] MEDS: SODIUM CHLOR 0.45% 1000 ML INJ 1,000 ML IV SCH (10:15)
[2017-04-25] MEDS: PHYTONADIONE 10 MG/ML VIAL SQ SCH (10:15)
[2017-04-25 11:07] LABS: PROTHROMBIN TIME - PATIENT 23.2 SEC (9.8-11.6)
[2017-04-25] MEDS ORDERED: MAGNESIUM SULFATE 1 GM PREMIX 100 ML IV SCH (14:15)
[2017-04-25] MEDS ORDERED: POTASSIUM CHLORIDE 10 MEQ CONTROLLED RELEASE TAB PO ONE ×3 (14:15→22:00)
--- NOTE | 2017-04-25 14:24 | HHI.GIFU ---
Subjective Remarks Pt resting in bed, denies n/v, abd discomfort, SOB. (Coco Frankel) Objective Vitals I&O Vital Signs Date Time Temp Pulse Resp B/P Pulse Ox O2 Delivery O2 Flow Rate FiO2 04/25/17 12:00 97.5 81 14 137/81 97 04/25/17 08:00 97.9 86 18 123/74 96 04/25/17 04:09 84 04/25/17 04:00 96.9 83 18 124/63 95 04/25/17 01:12 97.3 85 18 97/54 93 04/25/17 01:11 16 04/25/17 00:42 97.0 84 16 95/55 94 04/25/17 00:42 97.0 85 16 95/55 94 04/25/17 00:00 82 04/24/17 23:34 97.4 83 18 120/67 95 04/24/17 20:40 77 04/24/17 20:00 97.7 79 18 118/69 97 04/24/17 19:06 97.7 76 16 116/69 94 04/24/17 18:26 97.6 79 16 120/69 95 04/24/17 16:21 77 04/24/17 16:00 98.1 78 16 120/73 97 I/O 04/24/17 04/24/17 04/24/17 04/25/17 04/25/17 04/25/17 07:00 15:00 23:00 07:00 15:00 23:00 Intake Total 420 ml 646 ml 480 ml 480 ml Balance 420 ml 646 ml 480 ml 480 ml Intake Oral 420 ml 240 ml 480 ml 480 ml IV Total 406 ml # Voids 2 3 1 3 3 # Bowel Movements 1 0 Laboratory Laboratory Tests Test 04/24/17 04/25/17 04/25/17 16:26 06:42 09:18 Blood Bank Comment Sodium Level 135 Potassium Level 3.1 Chloride Level 95 Carbon Dioxide Level 28.4 Anion Gap 12 Blood Urea Nitrogen 4 Creatinine 1.15 Estimat Glomerular Filtration 50 Rate Random Glucose 103 Calcium Level 7.9 Magnesium Level 0.9 Prothrombin Time 23.2 Prothromb Time International 2.0 Ratio Imaging Last Impressions Abdomen Ultrasound 04/22/17 0000 Signed Impressions: Service Date/Time: Saturday, April 22, 2017 17:26 - CONCLUSION: Moderate free fluid in the abdomen. Michael Sevilla MD FACR Abdomen/Pelvis CT 04/19/17 0000 Signed Impressions: Service Date/Time: Wednesday, April 19, 2017 19:24 - CONCLUSION: 1. Moderate amount of ascitic fluid in the abdomen and pelvis. 2. Small right pleural effusion. 3. The liver is small and mildly heterogeneous with no focal mass or ductal dilatation. Devang Mustafa MD Cyst Biopsy Asp-Paracentesis US 04/16/17 0000 Signed Impressions: Service Date/Time: April 09:39 - CONCLUSION: Uncomplicated ultrasound guided paracentesis. Dave Saha MD Physical Exam HEENT: Normocephalic; atraumatic; no jaundice. CHEST: CTA CARDIAC: RRR ABDOMEN: Abdomen soft, moderately distended, nontender; hepatosplenomegaly. EXTREMITIES: Bilateral LE edema. SKIN: Normal; no rash; no jaundice. UPPER AND BOTTOM LACER HAND: No focal deficits; alert and oriented times three. (Coco Frankel [facility]) Assessment and Plan Plan ASSESSMENT: - Upper GIB with melena. Denies any hx of GI bleeding, PUD, or known varices. S /P EGD (04/16/17)----> Lackey's Esophagus, erosive gastritis, duodenal ulcers. No obvious active bleeding. No further n/v. No melena. PPI with BID dosing. Carafate. 8.3/23.9 - Duodenal ulcers. PPI with BID dosing, Carafate. - Persistent nausea/vomiting. PPI, Carafate, Zofran, Compazine added today. Improved. ? R/T ascites pressing on stomach. Will keep on clear liquids until after paracentesis and give trial of reglan (reduced dose). Asher plan for paracentesis tomorrow if INR allows. - Severe anemia secondary to blood loss. Abdomen/Pelvis CT (04/19/17)----> 1. Moderate amount of ascitic fluid in the abdomen and pelvis. 2. Small right pleural effusion. 3. The liver is small and mildly heterogeneous with no focal mass or ductal dilatation. S/P 5 units PRBC, 4 units FFP. HH 8.3/23.9 - New onset ascites. Cyst Biopsy Asp-Paracentesis US (04/16/17)----> Uncomplicated ultrasound guided paracentesis with 4000cc removed. Fluid studies wbc 39, Peritoneal rbc 111. Cytology numerous mesothelial cells, macrophages and few neutrophils, negative for malignant cells. Peritoneal cx no growth x 48 hours. Spironolactone 50mg po with BID dosing, Lasix 40mg IV BID, Albumin. Ceftriaxone. She has worsening distention again and c/o more discomfort with this. Lower Limited US (04/22/17)-----> Moderate free fluid in the abdomen. Rpt. US guided paracentesis ordered, but INR was increasing and came back down to 2 after 2 x FFP but pt also with less distention and discomfort today, has lost 2.5 kilos in last 24h so will hold off - Liver cirrhosis with elevated LFTs. States she was told that she had liver disease for several years, but never told specifically that she had liver cirrhosis until this hospitalization. She has a hx of ETOH use, 3-4 beers per day up until one week ago and has HCV antibodies. MELD 25. CT as above. This is likely alcoholic hepatitis on underlying liver cirrhosis. Has UTI so will avoid steroids and start pentoxifylline. ASA negative; ASMA negative; AMA < 20.0. LFTs are improving. - Alcoholic hepatitis. DF 52.9. Pentoxifylline. LFTs improving. - Thrombocytopenia, Coagulopathy. s/p 2 x FFP. INR 2.0 - HCV antibodies. 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 - Diarrhea. Pt denies black stool or red blood. Will get CDiff (on ceftriaxone ). States she has not had further episodes - NEGRO. Improving. Creat 1.15 - UTI, Cx with E. Coli. Ceftriaxone. - HTN, CAD, Hx TIA, COPD, Hx DVT per primary PLAN: - paracentesis if ascites worsens - full liquids - Trial of Reglan - Cont. Protonix 40mg po bid - Cont. Carafate - Cont. Pentoxifylline - Cont. Zofran/Compazine prn - Monitor HH - Transfuse as necessary - Monitor labs - Supportive care - Further recommendations to follow based on results of above - Pt seen and examined by and myself and this note is written on his behalf (Coco Frankel) Physician Comments patient was seen and examined, agree with above note and plan, no ETOH, hep C treatment in few months as outpatient. (Payal Stratton MD) Coco Frankel Apr 25, 2017 14:24 Payal Stratton MD Apr 25, 2017 16:08
[2017-04-25] MEDS: cefTRIAXone INJ 1,000 MG in SODIUM CHLORIDE 0.9% INJ 100 ML IV SCH (18:00)
--- NOTE | 2017-04-25 18:13 | RADRPT ---
EXAM DATE/TIME: 04/25/2017 16:08 [facility] COMPARISON: US GUIDED ABD PARACENTESIS, April 16, 2017, 9:39. INDICATIONS : Ascities. MEDICAL HISTORY : Hypertension. Hepatitis C. Myocardial infarction. ETOH. COPD. TIA. SURGICAL HISTORY : Back surgery. Ear drum surgery. ENCOUNTER: Subsequent ACUITY: 1 month PAIN SCORE: 0/10 LOCATION: Left lower quadrant FLUID: Total volume of 4100 cc of fluid was removed. Fluid was sent to lab for ordered studies. Post procedure scanning reveals no hematoma or other complication. TECHNIQUE: 1. Ultrasound guidance for abdominal paracentesis. 2. Paracentesis. The risks, benefits, and alternatives to ultrasound guided paracentesis were explained to the patient in detail including the risk of bleeding and infection. Written and verbal informed consent was obt ained. With the patient on the ultrasound table, ultrasound imaging was used to select the most appropriate approach for paracentesis. Overlying skin was prepped and draped in the usual sterile fashion and wi th a local anesthetic, a dermatotomy was made with an 11 blade scalpel. A 6 [place] [employer] ca theter was introduced into the peritoneal cavity and fluid was collected. The patient tolerated the procedure well and left the ultrasound suite in stable condition. CONCLUSION: Uncomplicated ultrasound guided paracentesis. Tony Potter Jr., MD on April 25, 2017 at 18:11 Board Certified Radiologist. This report was verified electronically.
[2017-04-26] VITALS (7 sets, daily range): BP systolic 100–127; BP diastolic 55–69; PULSE 82–110; RESP 16–20; TEMP 97.1–100.8; O2SAT 91–98
[2017-04-26] MEDS: ALBUMIN HUMAN 25% 25 GM/100 ML BAGP IV SCH ×2 (03:00→14:02)
[2017-04-26] MEDS: METOCLOPRAMIDE HCL 10 MG/2 ML VIAL IV PUSH SCH ×3 (06:00→22:00)
[2017-04-26] MEDS: PENTOXIFYLLINE 400 MG CONTROLLED RELEASE TAB PO SCH ×3 (06:00→22:28)
[2017-04-26] MEDS: SUCRALFATE 1 GM/10 ML CUP PO SCH ×4 (06:49→21:00)
[2017-04-26 08:16] LABS: AUTOMATED NEUTROPHIL # 4.3 TH/MM3 (1.8-7.7); BASOPHIL % 0.3 % (0.0-2.0); EOSINOPHIL # 0.1 TH/MM3 (0-0.4); HEMATOCRIT 25.2 % (35.0-46.0); LYMPH % 25.1 % (9.0-44.0); LYMPHOCYTE # 1.7 TH/MM3 (1.0-4.8); MEAN CELL VOLUME 106.1 FL (80.0-100.0); MEAN CORPUSCULAR HEMOGLOBIN 36.1 PG (27.0-34.0); MONO % 9.3 % (0.0-8.0); NEUT % 63.3 % (16.0-70.0); PLATELET COUNT 42 TH/MM3 (150-450); RED BLOOD COUNT 2.38 MIL/MM3 (4.00-5.30); RED CELL DISTRIBUTION WIDTH 27.4 % (11.6-17.2); WHITE BLOOD COUNT 6.8 TH/MM3 (4.0-11.0)
[2017-04-26 08:19] LABS: HEMO FLAGS AUTO DIFF
--- NOTE | 2017-04-26 08:36 | HHI.PR ---
Subjective Remarks No acute events overnight. Afebrile, vital signs stable. Patient status post paracentesis yesterday. States she is feeling much better since the procedure. Able to take deep breaths and to sit up without difficulty. She requests solid food. Objective Vitals Vital Signs Date Time Temp Pulse Resp B/P Pulse Ox O2 Delivery O2 Flow Rate FiO2 04/26/17 04:00 98.0 88 20 102/60 94 04/26/17 00:00 97.1 88 20 106/69 94 04/25/17 20:00 98.4 85 20 117/71 95 04/25/17 18:16 97.1 82 18 114/70 97 04/25/17 17:33 97.9 90 16 125/75 100 04/25/17 16:00 98.0 84 18 124/74 96 04/25/17 12:00 97.5 81 14 137/81 97 I/O 04/25/17 04/25/17 04/25/17 04/26/17 04/26/17 04/26/17 06:59 14:59 22:59 06:59 14:59 22:59 Intake Total 480 ml 480 ml 220 ml Balance 480 ml 480 ml 220 ml Intake Oral 480 ml 480 ml 220 ml # Voids 3 3 # Bowel Movements 0 Result Diagram: 04/26/17 0731 04/25/17 0642 Objective Remarks GENERAL: This is a well-nourished, well-developed patient, in no apparent distress. CARDIOVASCULAR: Regular rate and regular rhythm without murmurs, gallops, or rubs. RESPIRATORY: Clear to auscultation. Breath sounds equal bilaterally. No wheezes , rales, or rhonchi. GASTROINTESTINAL: Abdomen soft, non-tender, distended. Normal, active bowel sounds MUSCULOSKELETAL: Extremities with bilateral pedal edema. NEURO: Alert & Oriented x4 to person, place, time, situation. Moves all ext x4 Procedures EGD paracentesis A/P Problem List: (1) Alcohol abuse ICD Code: F10.10 Status: Acute (2) NEGRO (acute kidney injury) ICD Code: N17.9 Status: Acute (3) Symptomatic anemia ICD Code: D64.9 Status: Acute Assessment and Plan Symptomatic anemia- - s/p PRBC transfusion -continue to monitor H/H and transfuse as needed - s/p EGD with 1. Lackey's esophagus. 2. Erosive gastritis. 3. Duodenal ulcers. -continue PPI. -GI following. Acute kidney injury- suspected volume loss from questionable GI bleed- improved. -Encourage fluids Cirrhosis with Ascites -s/p paracentesis with removal of four liters of fluid -Repeat paracentesis on 04/25 with removal of additional 4 L of fluid -fluid culture negative so far and negative for malignant cells. -continue with lasix, albumin and aldactone -continue pain control -Patient will need treatment out patient treatment for Hep C -GI following - trial of solid food with Reglan coagulopathy due to liver disease -s/p FFP transfusion and vit. K -will monitor UTI with e-coli -Completed Rocephin x 10 days Alcohol abuse, chronic, patient states last drink was 7 days ago -Encouraged to quit Hypokalemia/hypomagnesemia; replaced- will monitor. DVT prophylaxis: SCDs, avoid chemical due to anemia/liver disease GI prophylaxis: Protonix consulted PT Sharlene Green MD R3 Apr 26, 2017 08:36
[2017-04-26 08:41] LABS: BICARBONATE 31.7 MEQ/L (21.0-32.0); MAGNESIUM 0.7 MG/DL (1.5-2.5); POTASSIUM 3.7 MEQ/L (3.5-5.1)
[2017-04-26 09:08] LABS: PLATELET ESTIMATE SMEAR LOW (NORMAL); PLATELET MORPHOLOGY NORMAL (NORMAL); SCAN/DIFF AUTO DIFF CONFIRMED; TARGET CELLS 1+ (NORMAL)
[2017-04-26] MEDS: PANTOPRAZOLE SOD 40 MG DELAYED RELEASE TAB PO SCH ×2 (10:05→22:28)
[2017-04-26] MEDS: SODIUM CHLOR 0.45% 1000 ML INJ 1,000 ML IV SCH ×2 (10:05→17:31)
[2017-04-26] MEDS: PHYTONADIONE 10 MG/ML VIAL SQ SCH (10:05)
[2017-04-26] MEDS: SPIRONOLACTONE 50 MG TAB PO SCH ×2 (10:05→22:28)
[2017-04-26] MEDS: FUROSEMIDE 40 MG/4 ML VIAL IV PUSH SCH ×2 (10:06→17:30)
[2017-04-26] MEDS: SODIUM CHLORIDE 0.9% FLUSH 10 ML FLUSH IV FLUSH SCH ×2 (10:06→21:00)
--- NOTE | 2017-04-26 12:58 | HHI.GIFU ---
Subjective Remarks Pt resting in bed, s/p paracentesis yesterday. Says she feels better. Did have n/v this morning, which she has every morning. (Coco Frankel) Objective Vitals I&O Vital Signs Date Time Temp Pulse Resp B/P Pulse Ox O2 Delivery O2 Flow Rate FiO2 04/26/17 08:00 97.2 82 18 106/69 95 04/26/17 04:00 98.0 88 20 102/60 94 04/26/17 00:00 97.1 88 20 106/69 94 04/25/17 20:00 98.4 85 20 117/71 95 04/25/17 18:16 97.1 82 18 114/70 97 04/25/17 17:33 97.9 90 16 125/75 100 04/25/17 16:00 98.0 84 18 124/74 96 I/O 04/25/17 04/25/17 04/25/17 04/26/17 04/26/17 04/26/17 07:00 15:00 23:00 07:00 15:00 23:00 Intake Total 480 ml 480 ml 220 ml 480 ml Balance 480 ml 480 ml 220 ml 480 ml Intake Oral 480 ml 480 ml 220 ml 480 ml # Voids 3 3 # Bowel Movements 0 Laboratory Laboratory Tests Test 04/26/17 07:31 White Blood Count 6.8 Red Blood Count 2.38 Hemoglobin 8.6 Hematocrit 25.2 Mean Corpuscular Volume 106.1 Mean Corpuscular Hemoglobin 36.1 Mean Corpuscular Hemoglobin 34.0 Concent Red Cell Distribution Width 27.4 Platelet Count 42 Mean Platelet Volume 9.3 Neutrophils (%) (Auto) 63.3 Lymphocytes (%) (Auto) 25.1 Monocytes (%) (Auto) 9.3 Eosinophils (%) (Auto) 2.0 Basophils (%) (Auto) 0.3 Neutrophils # (Auto) 4.3 Lymphocytes # (Auto) 1.7 Monocytes # (Auto) 0.6 Eosinophils # (Auto) 0.1 Basophils # (Auto) 0.0 CBC Comment AUTO DIFF Differential Comment AUTO DIFF CONFIRMED Platelet Estimate LOW Platelet Morphology Comment NORMAL Basophilic Stippling FAINT Target Cells 1+ Sodium Level 136 Potassium Level 3.7 Chloride Level 94 Carbon Dioxide Level 31.7 Anion Gap 10 Blood Urea Nitrogen 4 Creatinine 1.17 Estimat Glomerular Filtration 49 Rate Random Glucose 86 Calcium Level 8.2 Magnesium Level 0.7 Date/Time Procedure Status Source Growth 04/25/17 16:45 Gram Stain - Final Resulted Fluid Peritoneal Fluid 04/25/17 16:45 Body Fluid Culture Resulted Fluid Peritoneal Fluid Pending Imaging Last Impressions Cyst Biopsy Asp-Paracentesis US 04/25/17 0000 Signed Impressions: Service Date/Time: Tuesday, April 25, 2017 16:08 - CONCLUSION: Uncomplicated ultrasound guided paracentesis. Tony Potter Jr., MD Abdomen Ultrasound 04/22/17 0000 Signed Impressions: Service Date/Time: Saturday, April 22, 2017 17:26 - CONCLUSION: Moderate free fluid in the abdomen. Michael Sevilla MD FACR Abdomen/Pelvis CT 04/19/17 0000 Signed Impressions: Service Date/Time: Wednesday, April 19, 2017 19:24 - CONCLUSION: 1. Moderate amount of ascitic fluid in the abdomen and pelvis. 2. Small right pleural effusion. 3. The liver is small and mildly heterogeneous with no focal mass or ductal dilatation. Devang Mustafa MD Physical Exam HEENT: Normocephalic; atraumatic; + mild icterus. CHEST: CTA CARDIAC: RRR ABDOMEN: Abdomen soft, moderately distended, nontender; hepatosplenomegaly. EXTREMITIES: Bilateral LE edema. SKIN: Normal; no rash; OFFSHORE DIVER: lethargic (Coco Frankel CHAIR MENDER) Assessment and Plan Plan ASSESSMENT: - Upper GIB with melena. Denies any hx of GI bleeding, PUD, or known varices. S /P EGD (04/16/17)----> Lackey's Esophagus, erosive gastritis, duodenal ulcers. No obvious active bleeding. No further n/v. No melena. PPI with BID dosing. Carafate. 8.3/23.9 - Duodenal ulcers. PPI with BID dosing, Carafate. - Persistent nausea/vomiting. PPI, Carafate, Zofran, Compazine added today. Improved. ? R/T ascites pressing on stomach. Will keep on clear liquids until after paracentesis and give trial of reglan (reduced dose). Asher plan for paracentesis tomorrow if INR allows. - Severe anemia secondary to blood loss. Abdomen/Pelvis CT (04/19/17)----> 1. Moderate amount of ascitic fluid in the abdomen and pelvis. 2. Small right pleural effusion. 3. The liver is small and mildly heterogeneous with no focal mass or ductal dilatation. S/P 5 units PRBC, 4 units FFP. - New onset ascites. Cyst Biopsy Asp-Paracentesis US (04/16/17)----> Uncomplicated ultrasound guided paracentesis with 4000cc removed. Fluid studies wbc 39, Peritoneal rbc 111. Cytology numerous mesothelial cells, macrophages and few neutrophils, negative for malignant cells. Peritoneal cx no growth x 48 hours. Spironolactone 50mg po with BID dosing, Lasix 40mg IV BID, Albumin. Ceftriaxone. She has worsening distention again and c/o more discomfort with this. Lower Limited US (04/22/17)-----> Moderate free fluid in the abdomen. Rpt. US guided paracentesis ordered, but INR was increasing and came back down to 2 after 2 x FFP but pt also with less distention and discomfort today, has lost 2.5 kilos in last 24h so will hold off - Liver cirrhosis with elevated LFTs. States she was told that she had liver disease for several years, but never told specifically that she had liver cirrhosis until this hospitalization. She has a hx of ETOH use, 3-4 beers per day up until one week ago and has HCV antibodies. MELD 25. CT as above. This is likely alcoholic hepatitis on underlying liver cirrhosis. Has UTI so will avoid steroids and start pentoxifylline. ASA negative; ASMA negative; AMA < 20.0. LFTs are improving. - Alcoholic hepatitis. DF 52.9. Pentoxifylline. LFTs improving. - Thrombocytopenia, Coagulopathy. s/p 2 x FFP. INR 2.0 - HCV antibodies. 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 - Diarrhea. Pt denies black stool or red blood. Will get CDiff (on ceftriaxone ). States she has not had further episodes - NEGRO. Improving. Creat 1.15 - UTI, Cx with E. Coli. Ceftriaxone. - HTN, CAD, Hx TIA, COPD, Hx DVT per primary PLAN: - JEANETH - outpatient f/u for hep C tx - Trial of Reglan - Cont. Protonix 40mg po bid - Cont. Carafate - Cont. Pentoxifylline - Cont. Zofran/Compazine prn - Monitor HH - Transfuse as necessary - Monitor labs - Supportive care - Further recommendations to follow based on results of above - Pt seen and examined by and myself and this note is written on his behalf (Coco Frankel) Physician Comments patient was seen and examined, agree with above note and plan, continue current care, recheck LFTs (Payal Stratton MD) Coco Frankel Apr 26, 2017 12:57 Payal Stratton MD Apr 26, 2017 13:13
[2017-04-26] MEDS: MORPHINE SULFATE 8 MG/ML INJ IV PUSH PRN (14:01)
[2017-04-26] MEDS ORDERED: cefTRIAXone INJ 1,000 MG in SODIUM CHLORIDE 0.9% INJ 100 ML IV SCH (18:00)
--- NOTE | 2017-04-26 18:18 | RADRPT ---
EXAM DATE/TIME: 04/26/2017 17:12 [facility] COMPARISON: CHEST PA & LAT, February 10, 2014, 23:55. INDICATIONS : Shortness of breath. MEDICAL HISTORY : Hypertension. Hepatitis C. Myocardial infarction. ETOH. COPD. TIA. SURGICAL HISTORY : None. ENCOUNTER: Subsequent ACUITY: 1 week PAIN SCORE: 0/10 LOCATION: Bilateral chest FINDINGS: Mild left lung base atelectasis and/or infiltrate is seen. Heart and mediastinum are unremarkable for technique. CONCLUSION: Mild left lung base atelectasis and/or infiltrate is seen. Nolvia Zavala MD on April 26, 2017 at 18:16 Board Certified Radiologist. This report was verified electronically.
[2017-04-26 19:34] LABS: BLOOD, URINE NEG (NEG); COMMENT (UR) CULT NOT INDICATED; CULTURE IF INDICATED CULT NOT INDICATED; GLUCOSE,URINE NEG (NEG); HYALINE CAST, URINE 3 /lpf (RARE); KETONE, URINE NEG (NEG); NITRITE,URINE NEG (NEG); PH, URINE 5.5 (5.0-8.5); SQUAMOUS EPITHELIAL CELL URINE <1 /hpf (0-5); URINE COLOR YELLOW (YELLW/STRAW)
[2017-04-26] MEDS: ONDANSETRON HCL 4 MG/2 ML VIAL IV PUSH PRN (22:32)
[2017-04-27] VITALS (7 sets, daily range): BP systolic 103–120; BP diastolic 55–75; PULSE 81–100; RESP 16–18; TEMP 96.5–98.2; O2SAT 93–96
[2017-04-27] MEDS: ALBUMIN HUMAN 25% 25 GM/100 ML BAGP IV SCH ×2 (02:55→18:15)
[2017-04-27] MEDS: ONDANSETRON HCL 4 MG/2 ML VIAL IV PUSH PRN ×2 (03:13→18:24)
[2017-04-27] MEDS: SUCRALFATE 1 GM/10 ML CUP PO SCH ×4 (05:53→23:00)
[2017-04-27] MEDS: METOCLOPRAMIDE HCL 10 MG/2 ML VIAL IV PUSH SCH ×3 (05:53→23:01)
[2017-04-27] MEDS: PENTOXIFYLLINE 400 MG CONTROLLED RELEASE TAB PO SCH ×3 (05:53→23:00)
[2017-04-27] MEDS: SPIRONOLACTONE 50 MG TAB PO SCH ×2 (09:53→23:00)
[2017-04-27] MEDS: FUROSEMIDE 40 MG/4 ML VIAL IV PUSH SCH ×2 (09:53→18:15)
[2017-04-27] MEDS: PANTOPRAZOLE SOD 40 MG DELAYED RELEASE TAB PO SCH ×2 (09:54→23:00)
[2017-04-27] MEDS: SODIUM CHLORIDE 0.9% FLUSH 10 ML FLUSH IV FLUSH SCH ×2 (09:54→21:00)
[2017-04-27 11:09] LABS: AUTOMATED NEUTROPHIL # 11.6 TH/MM3 (1.8-7.7); BASOPHIL % 0.1 % (0.0-2.0); EOSINOPHIL # 0.1 TH/MM3 (0-0.4); EOSINOPHIL % 0.6 % (0.0-4.0); HEMATOCRIT 25.8 % (35.0-46.0); LYMPH % 11.3 % (9.0-44.0); LYMPHOCYTE # 1.6 TH/MM3 (1.0-4.8); MEAN CELL VOLUME 106.5 FL (80.0-100.0); MEAN CORPUSCULAR HEMOGLOBIN 35.6 PG (27.0-34.0); MEAN CORPUSCULAR HGB CONC 33.4 % (32.0-36.0); MONO % 5.6 % (0.0-8.0); NEUT % 82.4 % (16.0-70.0); PLATELET COUNT 45 TH/MM3 (150-450); RED BLOOD COUNT 2.42 MIL/MM3 (4.00-5.30); RED CELL DISTRIBUTION WIDTH 27.4 % (11.6-17.2)
[2017-04-27 11:13] LABS: HEMO FLAGS AUTO DIFF
[2017-04-27 11:40] LABS: BICARBONATE 29.2 MEQ/L (21.0-32.0)
[2017-04-27 11:59] LABS: OVALOCYTES 1+ (NORMAL); PLATELET ESTIMATE SMEAR LOW (NORMAL); PLATELET MORPHOLOGY NORMAL (NORMAL); SCAN/DIFF AUTO DIFF CONFIRMED
[2017-04-27] MEDS ORDERED: POTASSIUM CHLORIDE 10 MEQ CONTROLLED RELEASE TAB PO ONE (12:00)
--- NOTE | 2017-04-27 12:08 | HHI.PR ---
Subjective Remarks Follow-up symptomatic anemia/coagulopathy/cirrhosis 04/27/17-patient seen and examined, alert and oriented 3. Denies any GI bleed. No diarrheal episode. Appetites increase denies any nausea and vomiting. Objective Vitals Vital Signs Date Time Temp Pulse Resp B/P Pulse Ox O2 Delivery O2 Flow Rate FiO2 04/27/17 08:00 96.6 83 18 103/55 93 04/27/17 04:40 83 04/27/17 03:00 98.2 95 16 111/58 93 04/27/17 00:00 93 04/26/17 21:35 97 04/26/17 20:34 99.0 93 18 100/55 91 04/26/17 16:00 100.8 110 18 127/61 91 I/O 04/26/17 04/26/17 04/26/17 04/27/17 04/27/17 04/27/17 07:00 15:00 23:00 07:00 15:00 23:00 Intake Total 600 ml Balance 600 ml Intake Oral 600 ml # Voids 11 # Bowel Movements 3 Result Diagram: 04/27/17 1032 04/27/17 1032 Imaging Last Impressions Chest X-Ray 04/26/17 0000 Signed Impressions: Service Date/Time: Wednesday, April 26, 2017 17:12 - CONCLUSION: Mild left lung base atelectasis and/or infiltrate is seen. Nolvia Zavala MD Cyst Biopsy Asp-Paracentesis US 04/25/17 0000 Signed Impressions: Service Date/Time: Tuesday, April 25, 2017 16:08 - CONCLUSION: Uncomplicated ultrasound guided paracentesis. Tony Potter Jr., MD Abdomen Ultrasound 04/22/17 0000 Signed Impressions: Service Date/Time: Saturday, April 22, 2017 17:26 - CONCLUSION: Moderate free fluid in the abdomen. Michael Sevilla MD FACR Abdomen/Pelvis CT 04/19/17 0000 Signed Impressions: Service Date/Time: Wednesday, April 19, 2017 19:24 - CONCLUSION: 1. Moderate amount of ascitic fluid in the abdomen and pelvis. 2. Small right pleural effusion. 3. The liver is small and mildly heterogeneous with no focal mass or ductal dilatation. Devang Mustafa MD Objective Remarks GENERAL: NAD SKIN: Warm and dry. HEAD: Normocephalic. EYES: No scleral icterus. No injection or drainage. NECK: Supple, trachea midline. No JVD or lymphadenopathy. CARDIOVASCULAR: Regular rate and rhythm without murmurs, gallops, or rubs. RESPIRATORY: Breath sounds equal bilaterally. No accessory muscle use. GASTROINTESTINAL: Abdomen soft, non-tender, nondistended. MUSCULOSKELETAL: No cyanosis, or edema. BACK: Nontender without obvious deformity. No CVA tenderness. Procedures EGD paracentesis A/P Problem List: (1) Alcohol abuse ICD Code: F10.10 Status: Acute (2) NEGRO (acute kidney injury) ICD Code: N17.9 Status: Acute (3) Symptomatic anemia ICD Code: D64.9 Status: Acute (4) Ascites ICD Code: R18.8 Status: Acute (5) Coagulopathy ICD Code: D68.9 Status: Acute (6) HCAP (healthcare-associated pneumonia) ICD Code: J18.9 Status: Acute Assessment and Plan 52-year-old female with Symptomatic anemia- - s/p PRBC transfusion -continue to monitor H/H and transfuse as needed - s/p EGD with 1. Lackey's esophagus. 2. Erosive gastritis. 3. Duodenal ulcers. -continue PPI. -GI following. Acute kidney injury- suspected volume loss from questionable GI bleed -Creatinine slightly up Continue gentle IV fluid hydration Cirrhosis with Ascites -s/p paracentesis with removal of four liters of fluid -Repeat paracentesis on 04/25 with removal of additional 4 L of fluid -fluid culture negative so far and negative for malignant cells. -continue with Lasix, albumin and Aldactone -Patient will need treatment out patient treatment for Hep C -GI following coagulopathy due to liver disease -s/p FFP transfusion and vit. K 3 days total (end date 04/27/17) -Monitor INR/PT UTI with e-coli -Completed Rocephin x 10 days Healthcare associated pneumonia Chest x-ray 04/26/17 noted and review by me with finding of Mild left lung base atelectasis and/or infiltrate Will start cefepime IV today 04/27/17 as patient with increased leukocytosis Alcohol abuse, chronic -Rally pack Hypokalemia Give 60 mEq of potassium today and monitor DVT prophylaxis: SCDs, avoid chemical due to anemia/liver disease GI prophylaxis: Protonix Lenin South MD Apr 27, 2017 12:08
[2017-04-27] MEDS: CEFEPIME INJ 2,000 MG in SODIUM CHLORIDE 0.9% INJ 100 ML IV SCH ×2 (13:18→23:01)
[2017-04-27] MEDS: LACTOBACILLUS ACIDOPHILUS TAB PO SCH (23:00)
[2017-04-28] VITALS (9 sets, daily range): BP systolic 100–123; BP diastolic 55–67; PULSE 81–89; RESP 16–20; TEMP 97.1–97.7; O2SAT 95–96
[2017-04-28] MEDS: MORPHINE SULFATE 8 MG/ML INJ IV PUSH PRN (01:24)
[2017-04-28] MEDS: SODIUM CHLOR 0.45% 1000 ML INJ 1,000 ML IV SCH ×2 (01:25→03:04)
[2017-04-28] MEDS: ALBUMIN HUMAN 25% 25 GM/100 ML BAGP IV SCH ×2 (03:02→17:13)
[2017-04-28] MEDS: PENTOXIFYLLINE 400 MG CONTROLLED RELEASE TAB PO SCH ×3 (05:59→22:28)
[2017-04-28] MEDS: METOCLOPRAMIDE HCL 10 MG/2 ML VIAL IV PUSH SCH ×3 (06:00→22:28)
[2017-04-28] MEDS: CEFEPIME INJ 2,000 MG in SODIUM CHLORIDE 0.9% INJ 100 ML IV SCH ×3 (06:00→22:27)
[2017-04-28] MEDS: SUCRALFATE 1 GM/10 ML CUP PO SCH ×4 (06:01→22:27)
[2017-04-28 06:33] LABS: AUTOMATED NEUTROPHIL # 8.3 TH/MM3 (1.8-7.7); EOSINOPHIL # 0.2 TH/MM3 (0-0.4); EOSINOPHIL % 1.8 % (0.0-4.0); LYMPH % 13.1 % (9.0-44.0); LYMPHOCYTE # 1.3 TH/MM3 (1.0-4.8); MEAN CELL VOLUME 105.2 FL (80.0-100.0); MEAN CORPUSCULAR HEMOGLOBIN 37.2 PG (27.0-34.0); MEAN CORPUSCULAR HGB CONC 35.3 % (32.0-36.0); MONO % 4.9 % (0.0-8.0); NEUT % 80.2 % (16.0-70.0); PLATELET COUNT 40 TH/MM3 (150-450); RED BLOOD COUNT 2.18 MIL/MM3 (4.00-5.30); RED CELL DISTRIBUTION WIDTH 27.6 % (11.6-17.2); WHITE BLOOD COUNT 10.3 TH/MM3 (4.0-11.0)
[2017-04-28 06:36] LABS: HEMO FLAGS AUTO DIFF
[2017-04-28 07:01] LABS: BICARBONATE 29.9 MEQ/L (21.0-32.0); POTASSIUM 3.3 MEQ/L (3.5-5.1)
[2017-04-28 07:17] LABS: INTERNATIONAL NORMALIZED RATIO 3.2 RATIO; PROTHROMBIN TIME - PATIENT 36.9 SEC (9.8-11.6)
[2017-04-28 08:52] LABS: SCAN/DIFF AUTO DIFF CONFIRMED
[2017-04-28] MEDS: SODIUM CHLORIDE 0.9% FLUSH 10 ML FLUSH IV FLUSH SCH ×2 (09:00→22:29)
[2017-04-28] MEDS: SPIRONOLACTONE 50 MG TAB PO SCH ×2 (09:11→22:28)
[2017-04-28] MEDS: PANTOPRAZOLE SOD 40 MG DELAYED RELEASE TAB PO SCH ×2 (09:11→22:28)
[2017-04-28] MEDS: LACTOBACILLUS ACIDOPHILUS TAB PO SCH ×2 (09:11→22:28)
[2017-04-28] MEDS: FUROSEMIDE 40 MG/4 ML VIAL IV PUSH SCH (09:11)
--- NOTE | 2017-04-28 11:59 | HHI.PR ---
Subjective Remarks Follow-up symptomatic anemia/coagulopathy/cirrhosis and now HCAP as well as bacteremia 04/27/17-patient seen and examined, alert and oriented 3. Denies any GI bleed. No diarrheal episode. Appetites increase denies any nausea and vomiting. 04/28/17-patient seen and examined, denies any chills, abdominal pain or nausea. 4 out of 4 blood culture positive. Renal indices improving. Afebrile. INR up to 3.2 today Objective Vitals Vital Signs Date Time Temp Pulse Resp B/P Pulse Ox O2 Delivery O2 Flow Rate FiO2 04/28/17 08:00 97.1 83 18 121/63 96 04/28/17 04:00 97.4 84 18 121/67 96 04/28/17 01:29 18 04/28/17 00:00 97.7 81 18 100/57 96 04/27/17 20:00 97.6 85 18 116/75 95 04/27/17 16:00 81 04/27/17 16:00 97.8 86 16 120/68 96 04/27/17 12:00 100 04/27/17 12:00 96.5 86 18 114/66 96 I/O 04/27/17 04/27/17 04/27/17 04/28/17 04/28/17 04/28/17 07:00 15:00 23:00 07:00 15:00 23:00 Intake Total 960 ml 240 ml 480 ml Balance 960 ml 240 ml 480 ml Intake Oral 960 ml 240 ml 480 ml # Voids 8 2 2 # Bowel Movements 2 Result Diagram: 04/28/17 0607 04/28/17 0607 Objective Remarks GENERAL: NAD SKIN: Warm and dry. HEAD: Normocephalic. EYES: No scleral icterus. No injection or drainage. NECK: Supple, trachea midline. No JVD or lymphadenopathy. CARDIOVASCULAR: Regular rate and rhythm without murmurs, gallops, or rubs. RESPIRATORY: Breath sounds equal bilaterally. No accessory muscle use. GASTROINTESTINAL: Abdomen soft, non-tender, nondistended. MUSCULOSKELETAL: No cyanosis, or edema. BACK: Nontender without obvious deformity. No CVA tenderness. Procedures EGD paracentesis A/P Problem List: (1) Bacteremia due to Gram-negative bacteria ICD Code: R78.81 Status: Acute (2) Alcohol abuse ICD Code: F10.10 Status: Acute (3) NEGRO (acute kidney injury) ICD Code: N17.9 Status: Acute (4) Symptomatic anemia ICD Code: D64.9 Status: Acute (5) Ascites ICD Code: R18.8 Status: Acute (6) Coagulopathy ICD Code: D68.9 Status: Acute (7) HCAP (healthcare-associated pneumonia) ICD Code: J18.9 Status: Acute Assessment and Plan 52-year-old female with Juvrukjznh-vnvg-oldf-negative rods Repeat blood culture Start IV vancomycin and continue cefepime Consult infectious disease specialist Symptomatic anemia- - s/p PRBC transfusion -continue to monitor H/H and transfuse as needed - s/p EGD with 1. Lackey's esophagus. 2. Erosive gastritis. 3. Duodenal ulcers. -continue PPI. -GI following. Acute kidney injury- suspected volume loss from questionable GI bleed -Resolved -Renal indices improving with IV fluid hydration Cirrhosis with Ascites -s/p paracentesis with removal of four liters of fluid -Repeat paracentesis on 04/25 with removal of additional 4 L of fluid -fluid culture negative so far and negative for malignant cells. -continue with Lasix however switch to by mouth 40 mg daily, albumin and Aldactone -Patient will need treatment out patient treatment for Hep C -GI following coagulopathy due to liver disease -s/p FFP transfusion and vit. K 3 days total (end date 04/27/17) however INR 3.2 today 04/28/17 therefore will give vitamin K 10 mg 1 now -Monitor INR/PT UTI with e-coli -Completed Rocephin x 10 days Healthcare associated pneumonia Chest x-ray 04/26/17 with finding of Mild left lung base atelectasis and/or infiltrate Currently on cefepime IV as off 04/27/17 Alcohol abuse, chronic -Rally pack Hypokalemia Give 60 mEq of potassium today and monitor DVT prophylaxis: SCDs, avoid chemical due to anemia/liver disease GI prophylaxis: Protonix Discharge Planning Not medically stable for discharge as patient now with bacteremia Lenin South MD Apr 28, 2017 11:59
[2017-04-28] MEDS ORDERED: POTASSIUM CHLORIDE 10 MEQ CONTROLLED RELEASE TAB PO ONE (12:00)
[2017-04-28] MEDS ORDERED: Vancomycin Consult Pharmacy 1 EA OTHER SCH (12:45)
[2017-04-28] MEDS ORDERED: VANCOMYCIN INJ 1,250 MG in SODIUM CHLOR 0.9% 250 ML INJ 250 ML IV SCH (15:00)
--- NOTE | 2017-04-28 17:15 | MB ---
cc: J CARLOS DORSEY MD DATE OF CONSULTATION 04/28/[address] South REASON FOR CONSULTATION A 52-year-old female treated for UTI and currently on treatment for pneumonia, now with bacteremia. HISTORY OF PRESENT ILLNESS This is a 52-year-old white female who presented to the emergency department on 04/16 with abdominal pain. The patient is noted to be a heavy alcohol user. She came to the emergency department to be evaluated for the abdominal pain and abdominal swelling. She apparently was having pain off and on over the week before presenting. The patient had a normal white blood cell count and was afebrile on admission. She was noted to have anemia and ascites and suspected SBP. Paracentesis was performed and the fluid reveals 39 white cells, 111 red cells, 49% neutrophils and 21% lymphocytes. The peritoneal fluid culture was negative. The patient was noted to have E-coli UTI and she was treated for that. She was also being treated for pneumonia. A chest x-ray on April 26 revealed mild left lung base atelectasis and/or infiltrate. She had a temperature of 100.8 degrees on 04/26. She underwent EGD which revealed Lackey's esophagus, erosive gastritis and duodenal ulcers. Cultures were repeated on 04/26 and all four bottles had gram-negative jonah. Her white blood cell count increased to 14,000 yesterday and today it is down to 10.3. The patient is currently sitting upright in bed reading a newspaper. She tells me that she does not have any chills, nausea or vomiting, diarrhea or abdominal pain currently. She denies other symptoms. She states that she was getting chills when she was admitted but no longer gets them. PAST MEDICAL HISTORY 1. Hypertension, 2. Arthritis, 3. Coronary artery disease, 4. Asthma, 5. COPD, 6. Hepatitis C 7. TIA. 8. Alcohol abuse 9. Angioplasty 10. Back surgery. 11. Bilateral tympanic membrane surgery, 12. Tubal ligation. ALLERGIES No drug allergies. MEDICATIONS 1. Cefepime. 2. Vancomycin 3. Reglan 4. Carafate. 5. Aldactone. 6. Protonix. 7. Trental. 8. Oxycodone 5 mg p.r.n. 9. Morphine sulfate p.r.n. PERSONAL AND SOCIAL HISTORY Positive for alcohol use. Positive tobacco use of 1 pack a day. No illicit drugs. FAMILY HISTORY Noncontributory. REVIEW OF SYSTEMS Significant for easy bruising, otherwise, negative. PHYSICAL EXAMINATION GENERAL: This is a well-developed female who is awake, alert and in no acute distress. She appears comfortable. VITAL SIGNS: Temperature of 97.6, BP 103/63, respirations 16, heart rate 85. HEENT: Head is atraumatic. Extraocular movements grossly intact, pupils reactive to light. No icterus. Oropharynx - Mild thrush at the posterior aspect of the tongue. NECK: Supple without adenopathy. LUNGS: Decreased breath sounds bilateral. HEART: Regular rate and rhythm without murmurs, rubs or gallops. ABDOMEN: Bowel sounds present, soft, no tenderness appreciated. RECTAL: Not performed. EXTREMITIES: No clubbing, cyanosis or edema. SKIN: Pale. No rash. NEUROLOGIC: Nonfocal. PSYCHIATRIC: Calm and cooperative. LABORATORY DATA WBC 10.3, platelets 40,000, hemoglobin 8.1. Creatinine 1.09, BUN six, sodium 132. IMPRESSION 1. Gram-negative bacteremia, probably arising from peritonitis. 2. UTI due to E-coli which has been treated. RECOMMENDATIONS 1. Continue cefepime 2. Discontinue vancomycin 3. Follow the blood cultures for identity of the gram-negative bacteria and also sensitivity. 4. Monitor the patient's clinical response to treatment. Currently, the patient is comfortable and she appears to be clinically stable. Thank you for this consultation. I will follow the patient's progress along with you and will make further recommendations if necessary. J Carlos Dorsey MD FD/ /4:46 PM /5:06 PM
--- NOTE | 2017-04-28 18:54 | HHI.GIFU ---
GI Follow-up Note Consult Follow-up Subjective: Patient laying in bed comfortably, feeling better.Nausea, minimal vomiting, decreased appetite .Sp paracentesis -no indication of sbp, pending total protein and albumin . Objective: PHYSICAL EXAMINATION: Vitals signs stable No fever Vital Signs Date Time Temp Pulse Resp B/P Pulse Ox O2 Delivery O2 Flow Rate FiO2 04/28/17 15:50 97.4 89 20 100/55 95 04/28/17 13:21 87 04/28/17 12:00 97.6 85 16 103/63 96 HEENT: Pupils round and reactive to light; normocephalic; atraumatic; jaundice. Throat is clear. NECK: Neck is supple, no JVD, no lymphadenopathy. CHEST: Chest is clear to auscultation and percussion. CARDIAC: Regular rate and rhythm with no murmur gallop or rubs. ABDOMEN: Soft,distended, nontender; hepatosplenomegaly; bowel sounds are present in all four quadrants. EXTREMITIES: No clubbing, cyanosis, or edema. SKIN: Normal; no rash; jaundice. DIRECTOR CORPORATE SECURITY: No focal deficits; alert and oriented times three. Available Data (labs, X- Rays, Procedues) : Laboratory Tests Test 04/27/17 04/28/17 10:32 06:07 White Blood Count 14.0 TH/MM3 10.3 TH/MM3 Red Blood Count 2.42 MIL/MM3 2.18 MIL/MM3 Hemoglobin 8.6 GM/DL 8.1 GM/DL Hematocrit 25.8 % 23.0 % Mean Corpuscular Volume 106.5 FL 105.2 FL Mean Corpuscular Hemoglobin 35.6 PG 37.2 PG Mean Corpuscular Hemoglobin 33.4 % 35.3 % Concent Red Cell Distribution Width 27.4 % 27.6 % Platelet Count 45 TH/MM3 40 TH/MM3 Mean Platelet Volume 9.1 FL 9.7 FL Neutrophils (%) (Auto) 82.4 % 80.2 % Lymphocytes (%) (Auto) 11.3 % 13.1 % Monocytes (%) (Auto) 5.6 % 4.9 % Eosinophils (%) (Auto) 0.6 % 1.8 % Basophils (%) (Auto) 0.1 % 0.0 % Neutrophils # (Auto) 11.6 TH/MM3 8.3 TH/MM3 Lymphocytes # (Auto) 1.6 TH/MM3 1.3 TH/MM3 Monocytes # (Auto) 0.8 TH/MM3 0.5 TH/MM3 Eosinophils # (Auto) 0.1 TH/MM3 0.2 TH/MM3 Basophils # (Auto) 0.0 TH/MM3 0.0 TH/MM3 CBC Comment AUTO DIFF AUTO DIFF Differential Comment AUTO DIFF AUTO DIFF CONFIRMED CONFIRMED Platelet Estimate LOW Platelet Morphology Comment NORMAL Ovalocytes 1+ Sodium Level 133 MEQ/L 132 MEQ/L Potassium Level 3.0 MEQ/L 3.3 MEQ/L Chloride Level 89 MEQ/L 89 MEQ/L Carbon Dioxide Level 29.2 MEQ/L 29.9 MEQ/L Anion Gap 15 MEQ/L 13 MEQ/L Blood Urea Nitrogen 5 MG/DL 6 MG/DL Creatinine 1.31 MG/DL 1.09 MG/DL Estimat Glomerular Filtration 43 ML/MIN 53 ML/MIN Rate Random Glucose 91 MG/DL 86 MG/DL Calcium Level 8.1 MG/DL 7.9 MG/DL Prothrombin Time 36.9 SEC Prothromb Time International 3.2 RATIO Ratio ASSESSMENT/PLAN: liver cirrhosis secondary hep c and etoh coagulopathy secondary liver cirrhosis anemia-no indication of active bleeding bacteremia on antibiotics -source unclear urinary vs gi tract new onset ascites -s/p paracentesis times 2-no clear indication of malignancy or sbp, pending total proteins and albumin Recommendation strict i/o charting daily weight fu ascites results iv antibiotics Lasix/spironolactone if stable may dc in 1-2 days hep c treatment outpatient avoid etoh and hepatotoxics It was a pleasure seeing Nicki Kilpartick Thank you for this consult. Entered by: Tamara Mccoy MD Apr 28, 2017 18:54
[2017-04-28 20:41] LABS: INDIRECT BILIRUBIN 3.5 MG/DL (0.0-0.8); TOTAL BILIRUBIN ADULT 5.8 MG/DL (0.2-1.0)
[2017-04-29] VITALS (9 sets, daily range): BP systolic 99–124; BP diastolic 57–66; PULSE 79–94; RESP 16–20; TEMP 97–98.1; O2SAT 95–98
[2017-04-29] MEDS: PENTOXIFYLLINE 400 MG CONTROLLED RELEASE TAB PO SCH ×3 (05:03→20:24)
[2017-04-29] MEDS: METOCLOPRAMIDE HCL 10 MG/2 ML VIAL IV PUSH SCH ×2 (05:03→15:29)
[2017-04-29] MEDS: SUCRALFATE 1 GM/10 ML CUP PO SCH ×4 (05:04→20:23)
[2017-04-29] MEDS: CEFEPIME INJ 2,000 MG in SODIUM CHLORIDE 0.9% INJ 100 ML IV SCH ×2 (05:04→15:30)
[2017-04-29] MEDS: ALBUMIN HUMAN 25% 25 GM/100 ML BAGP IV SCH (05:04)
[2017-04-29 08:02] LABS: BICARBONATE 29.1 MEQ/L (21.0-32.0); POTASSIUM 3.2 MEQ/L (3.5-5.1)
[2017-04-29] MEDS: SODIUM CHLORIDE 0.9% FLUSH 10 ML FLUSH IV FLUSH SCH ×2 (09:00→20:24)
[2017-04-29] MEDS ORDERED: FUROSEMIDE 40 MG TAB PO SCH (09:00)
[2017-04-29] MEDS: PHYTONADIONE 5 MG TAB PO SCH (09:41)
[2017-04-29] MEDS: PANTOPRAZOLE SOD 40 MG DELAYED RELEASE TAB PO SCH ×2 (09:42→20:24)
[2017-04-29] MEDS: LACTOBACILLUS ACIDOPHILUS TAB PO SCH ×2 (09:42→20:24)
[2017-04-29] MEDS: SPIRONOLACTONE 50 MG TAB PO SCH (09:42)
--- NOTE | 2017-04-29 14:37 | HHI.GIFU ---
Subjective Remarks Resting in bed. No active bleeding. Mild nausea without vomiting. Denies abdominal pain. (Krystyna Jessica) Objective Vitals I&O Vital Signs Date Time Temp Pulse Resp B/P Pulse Ox O2 Delivery O2 Flow Rate FiO2 04/29/17 11:00 98.1 88 20 107/57 96 04/29/17 07:50 97.0 87 20 106/57 95 04/29/17 04:00 97.5 82 16 101/57 96 04/29/17 01:00 97.8 87 16 104/57 95 04/28/17 22:27 85 04/28/17 20:00 97.4 89 18 123/61 96 04/28/17 16:00 87 04/28/17 15:50 97.4 89 20 100/55 95 I/O 04/28/17 04/28/17 04/28/17 04/29/17 04/29/17 04/29/17 07:00 15:00 23:00 07:00 15:00 23:00 Intake Total 480 ml 960 ml 360 ml 240 ml Balance 480 ml 960 ml 360 ml 240 ml Intake Oral 480 ml 960 ml 360 ml 240 ml # Voids 2 5 2 2 # Bowel Movements 2 1 Laboratory Laboratory Tests Test 04/29/17 06:43 Sodium Level 130 Potassium Level 3.2 Chloride Level 91 Carbon Dioxide Level 29.1 Anion Gap 10 Blood Urea Nitrogen 9 Creatinine 1.02 Estimat Glomerular Filtration 57 Rate Random Glucose 90 Calcium Level 7.9 Date/Time Procedure Status Source Growth 04/28/17 16:27 Aerobic Blood Culture - Preliminary Resulted Blood Peripheral NO GROWTH IN 1 DAY 04/28/17 16:27 Anaerobic Blood Culture - Preliminary Resulted Blood Peripheral NO GROWTH IN 1 DAY 04/26/17 19:20 Aerobic Blood Culture - Final Complete Blood Peripheral Enterobacter Cloacae 04/26/17 19:20 Anaerobic Blood Culture - Final Complete Enterobacter Cloacae 04/25/17 16:45 Gram Stain - Final Complete Fluid Peritoneal Fluid 04/25/17 16:45 Body Fluid Culture - Final Complete Fluid Peritoneal Fluid NO GROWTH IN 72 HRS.--AEROBICALLY OR ... Imaging Last Impressions Chest X-Ray 04/26/17 0000 Signed Impressions: Service Date/Time: Wednesday, April 26, 2017 17:12 - CONCLUSION: Mild left lung base atelectasis and/or infiltrate is seen. Nolvia Zavala MD Cyst Biopsy Asp-Paracentesis US 04/25/17 0000 Signed Impressions: Service Date/Time: Tuesday, April 25, 2017 16:08 - CONCLUSION: Uncomplicated ultrasound guided paracentesis. Tony Potter Jr., MD Abdomen Ultrasound 04/22/17 0000 Signed Impressions: Service Date/Time: Saturday, April 22, 2017 17:26 - CONCLUSION: Moderate free fluid in the abdomen. Michael Sevilla MD FACR Abdomen/Pelvis CT 04/19/17 0000 Signed Impressions: Service Date/Time: Wednesday, April 19, 2017 19:24 - CONCLUSION: 1. Moderate amount of ascitic fluid in the abdomen and pelvis. 2. Small right pleural effusion. 3. The liver is small and mildly heterogeneous with no focal mass or ductal dilatation. Devang Mustafa MD Physical Exam HEENT: Normocephalic; atraumatic; + mild icterus. CHEST: CTA CARDIAC: RRR ABDOMEN: Abdomen soft, moderately distended, nontender; hepatosplenomegaly. EXTREMITIES: Bilateral LE edema. SKIN: Normal; no rash USED [employer]: Lethargic (Krystyna Jessica) Assessment and Plan Plan ASSESSMENT: - Upper GIB with melena. Denies any hx of GI bleeding, PUD, or known varices. S /P EGD (04/16/17)----> Lackey's Esophagus, erosive gastritis, duodenal ulcers. No obvious active bleeding. No further n/v. No melena. PPI with BID dosing. Carafate. 8.1/23.0. - Duodenal ulcers. PPI with BID dosing, Carafate. - Persistent nausea/vomiting. PPI, Carafate, Zofran, Compazine. Improved. ? R/ T ascites pressing on stomach. Nausea, without vomiting. - Severe anemia secondary to blood loss. Abdomen/Pelvis CT (04/19/17)----> 1. Moderate amount of ascitic fluid in the abdomen and pelvis. 2. Small right pleural effusion. 3. The liver is small and mildly heterogeneous with no focal mass or ductal dilatation. S/P 5 units PRBC, 4 units FFP. - New onset ascites. Cyst Biopsy Asp-Paracentesis US (04/16/17)----> Uncomplicated ultrasound guided paracentesis with 4000cc removed. Fluid studies wbc 39, Peritoneal rbc 111. Cytology numerous mesothelial cells, macrophages and few neutrophils, negative for malignant cells. Peritoneal cx no growth x 48 hours. Rpt. US guided paracentesis (04/25/17)----> 4,100cc removed. Spironolactone 50mg po with BID dosing, Lasix 40mg BID - Liver cirrhosis with worsening coagulopathy. States she was told that she had liver disease for several years, but never told specifically that she had liver cirrhosis until this hospitalization. She has a hx of ETOH use, 3-4 beers per day up until one week ago. MELD 25. CT as above. This is likely alcoholic hepatitis on underlying liver cirrhosis with hx of HCV. ASA negative; ASMA negative; AMA < 20.0. She has worsening coagulopathy, which is concerning for worsening liver disease. INR 3.2 today. Vitamin K ordered. - Alcoholic hepatitis. DF 52.9. Pentoxifylline. LFTs improving. - Thrombocytopenia, Coagulopathy. S/P 2 x FFP. INR 2.0 - HCV antibodies. 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 - Diarrhea. Pt denies black stool or red blood. Improved. - NEGRO. Improving. Creat 1.15 - UTI, Cx with E. Coli. Ceftriaxone. - HTN, CAD, Hx TIA, COPD, Hx DVT per primary PLAN: - JEANETH - Cont. Vit. K - Cont. Protonix 40mg po bid - Cont. Carafate - Cont. Pentoxifylline - Cont. Zofran/Compazine prn - Monitor HH - Transfuse as necessary - CBC, CMP, PT/INR in am - Supportive care - Further recommendations to follow based on results of above - Pt seen and examined by and myself and this note is written on his behalf (Krystyna Jessica) Physician Comments agree with above (Tamara Lee MD) Krystyna Jessica Apr 29, 2017 14:37 Tamara Lee MD Apr 29, 2017 16:31
--- NOTE | 2017-04-29 16:37 | HHI.IDPN ---
Note Infectious Disease Note Patient says she feels cold and had some chills today. Denies abdominal pain. No nausea or vomiting. Afebrile. PAST MEDICAL HISTORY 1. Hypertension, 2. Arthritis, 3. Coronary artery disease, 4. Asthma, 5. COPD, 6. Hepatitis C 7. TIA. 8. Alcohol abuse 9. Angioplasty 10. Back surgery. 11. Bilateral tympanic membrane surgery, 12. Tubal ligation. ALLERGIES No drug allergies. MEDICATIONS 1. Cefepime. 2. Vancomycin OBJECTIVE: Vital Signs Date Time Temp Pulse Resp B/P Pulse Ox O2 Delivery O2 Flow Rate FiO2 04/29/17 11:00 98.1 88 20 107/57 96 04/29/17 07:50 97.0 87 20 106/57 95 04/29/17 04:00 97.5 82 16 101/57 96 04/29/17 01:00 97.8 87 16 104/57 95 04/28/17 22:27 85 04/28/17 20:00 97.4 89 18 123/61 96 04/28/17 04/28/17 04/29/17 15:00 23:00 07:00 Intake Total 960 ml 360 ml 240 ml Balance 960 ml 360 ml 240 ml Intake Oral 960 ml 360 ml 240 ml # Voids 5 2 2 # Bowel Movements 2 1 Laboratory Tests Test 04/28/17 06:07 White Blood Count 10.3 TH/MM3 Red Blood Count 2.18 MIL/MM3 Hemoglobin 8.1 GM/DL Hematocrit 23.0 % Mean Corpuscular Volume 105.2 FL Mean Corpuscular Hemoglobin 37.2 PG Mean Corpuscular Hemoglobin 35.3 % Concent Red Cell Distribution Width 27.6 % Platelet Count 40 TH/MM3 Mean Platelet Volume 9.7 FL Neutrophils (%) (Auto) 80.2 % Lymphocytes (%) (Auto) 13.1 % Monocytes (%) (Auto) 4.9 % Eosinophils (%) (Auto) 1.8 % Basophils (%) (Auto) 0.0 % Neutrophils # (Auto) 8.3 TH/MM3 Lymphocytes # (Auto) 1.3 TH/MM3 Monocytes # (Auto) 0.5 TH/MM3 Eosinophils # (Auto) 0.2 TH/MM3 Basophils # (Auto) 0.0 TH/MM3 CBC Comment AUTO DIFF Differential Comment AUTO DIFF CONFIRMED Laboratory Tests Test 04/28/17 04/29/17 06:07 06:43 Sodium Level 132 MEQ/L 130 MEQ/L Potassium Level 3.3 MEQ/L 3.2 MEQ/L Chloride Level 89 MEQ/L 91 MEQ/L Carbon Dioxide Level 29.9 MEQ/L 29.1 MEQ/L Anion Gap 13 MEQ/L 10 MEQ/L Blood Urea Nitrogen 6 MG/DL 9 MG/DL Creatinine 1.09 MG/DL 1.02 MG/DL Estimat Glomerular Filtration 53 ML/MIN 57 ML/MIN Rate Random Glucose 86 MG/DL 90 MG/DL Calcium Level 7.9 MG/DL 7.9 MG/DL Total Bilirubin 5.8 MG/DL Direct Bilirubin 2.3 MG/DL Indirect Bilirubin 3.5 MG/DL Aspartate Amino Transf 31 U/L (AST/SGOT) Alanine Aminotransferase 18 U/L (ALT/SGPT) Alkaline Phosphatase 31 U/L Total Protein 6.9 GM/DL Albumin 4.1 GM/DL Microbiology Date/Time Procedure Status Source Growth 04/26/17 19:05 Aerobic Blood Culture - Final Complete Blood Peripheral Enterobacter Cloacae 04/26/17 19:05 Anaerobic Blood Culture - Final Complete Enterobacter Cloacae 04/26/17 19:20 Aerobic Blood Culture - Final Complete Blood Peripheral Enterobacter Cloacae 04/26/17 19:20 Anaerobic Blood Culture - Final Complete Enterobacter Cloacae 04/28/17 16:23 Aerobic Blood Culture - Preliminary Resulted Blood Peripheral NO GROWTH IN 1 DAY 04/28/17 16:23 Anaerobic Blood Culture - Preliminary Resulted Blood Peripheral NO GROWTH IN 1 DAY 04/28/17 16:27 Aerobic Blood Culture - Preliminary Resulted Blood Peripheral NO GROWTH IN 1 DAY 04/28/17 16:27 Anaerobic Blood Culture - Preliminary Resulted Blood Peripheral NO GROWTH IN 1 DAY PHYSICAL EXAMINATION GENERAL: no acute distress. She appears comfortable. HEENT: No icterus. Oropharynx - Mild thrush at the posterior aspect of the tongue. NECK: Supple without adenopathy. LUNGS: Decreased breath sounds. Clear. HEART: Regular rate and rhythm without murmurs, rubs or gallops. ABDOMEN: Bowel sounds present, soft, no tenderness appreciated. EXTREMITIES: No clubbing, cyanosis or edema. SKIN: Pale. No diffuse rash. NEUROLOGIC: Nonfocal. PSYCHIATRIC: Calm and cooperative. IMPRESSION 1. Enterobacter Bacteremia, unclear source. Probable GI. 2. UTI due to E-coli which has been treated. RECOMMENDATIONS 1. Stop cefepime 2. Stop vancomycin 3. Start Levaquin IV. If the repeat blood culture is negative at 72 hours she can be discharged on PO Levaquin 500 mg x 7 days. J Carlos Dorsey MD Apr 29, 2017 16:37
--- NOTE | 2017-04-29 17:07 | HHI.PR ---
Subjective Remarks c/o nausea vomited once today denies fevers (+) chills Objective Vitals Vital Signs Date Time Temp Pulse Resp B/P Pulse Ox O2 Delivery O2 Flow Rate FiO2 04/29/17 11:00 98.1 88 20 107/57 96 04/29/17 07:50 97.0 87 20 106/57 95 04/29/17 04:00 97.5 82 16 101/57 96 04/29/17 01:00 97.8 87 16 104/57 95 04/28/17 22:27 85 04/28/17 20:00 97.4 89 18 123/61 96 I/O 04/28/17 04/28/17 04/28/17 04/29/17 04/29/17 04/29/17 06:59 14:59 22:59 06:59 14:59 22:59 Intake Total 480 ml 960 ml 360 ml 240 ml Balance 480 ml 960 ml 360 ml 240 ml Intake Oral 480 ml 960 ml 360 ml 240 ml # Voids 2 5 2 2 # Bowel Movements 2 1 Result Diagram: 04/28/17 0607 04/29/17 0643 Imaging Last Impressions Chest X-Ray 04/26/17 0000 Signed Impressions: Service Date/Time: Wednesday, April 26, 2017 17:12 - CONCLUSION: Mild left lung base atelectasis and/or infiltrate is seen. Nolvia Zavala MD Cyst Biopsy Asp-Paracentesis US 04/25/17 0000 Signed Impressions: Service Date/Time: Tuesday, April 25, 2017 16:08 - CONCLUSION: Uncomplicated ultrasound guided paracentesis. Tony Potter Jr., MD Abdomen Ultrasound 04/22/17 0000 Signed Impressions: Service Date/Time: Saturday, April 22, 2017 17:26 - CONCLUSION: Moderate free fluid in the abdomen. Michael Sevilla MD FACR Abdomen/Pelvis CT 04/19/17 0000 Signed Impressions: Service Date/Time: Wednesday, April 19, 2017 19:24 - CONCLUSION: 1. Moderate amount of ascitic fluid in the abdomen and pelvis. 2. Small right pleural effusion. 3. The liver is small and mildly heterogeneous with no focal mass or ductal dilatation. Devang Mustafa MD Objective Remarks AAOx3 Jaundice Clear lungs BL S1S2 RRR Soft abdomen Procedures EGD paracentesis Medications and IVs Current Medications Medications (Trade) Dose Ordered Sig/Teresa Route Start Time Stop Time Status Last Admin (NS Flush) 2 ml UNSCH PRN IV FLUSH 04/16/17 02:00 (NS Flush) 2 ml BID IV FLUSH 04/16/17 09:00 04/29/17 09:00 (Narcan Inj) 0.4 mg UNSCH PRN IV 04/16/17 02:00 (Morphine Inj) 2 mg Q4H PRN IV PUSH 04/16/17 04:30 04/28/17 01:24 (Roxicodone) 5 mg Q8H PRN PO 04/17/17 08:15 04/29/17 09:54 (Protonix) 40 mg BID PO 04/18/17 09:00 04/29/17 09:42 (TRENtal SR) 400 mg Q8HR PO 04/17/17 22:00 04/29/17 15:29 (Zofran Inj) 4 mg Q4HR PRN IV PUSH 04/19/17 12:00 04/27/17 18:24 (Aldactone) 50 mg BID PO 04/19/17 21:00 04/29/17 09:42 (Compazine Inj) 5 mg Q8H PRN IV PUSH 04/22/17 08:30 04/23/17 08:10 (Carafate Liq) 1 gm ACHS PO 04/22/17 16:00 04/29/17 15:36 (Reglan Inj) 5 mg Q8HR IV PUSH 04/24/17 22:00 04/29/17 15:29 (Lactinex) 1 tab Q12HR PO 04/27/17 21:00 04/29/17 09:42 (Mephyton) 10 mg DAILY PO 04/29/17 09:00 04/29/17 09:41 Furosemide 40 mg 40 mg DAILY PO 04/29/17 09:00 04/29/17 09:41 (Levaquin 500 Mg Premix Inj) 100 ml @ 100 mls/hr Q24H IV 04/29/17 16:45 UNV A/P Problem List: (1) Bacteremia due to Gram-negative bacteria ICD Code: R78.81 Status: Acute (2) Alcohol abuse ICD Code: F10.10 Status: Acute (3) NEGRO (acute kidney injury) ICD Code: N17.9 Status: Acute (4) Symptomatic anemia ICD Code: D64.9 Status: Acute (5) Ascites ICD Code: R18.8 Status: Acute (6) Coagulopathy ICD Code: D68.9 Status: Acute (7) HCAP (healthcare-associated pneumonia) ICD Code: J18.9 Status: Acute Assessment and Plan 52-year-old female with 1. Upper GI bleed. No prior history of GI bleeding, peptic ulcer disease or varices. GI consulted and the patient underwent an EGD on 04/16 which showed Lackey's esophagus, erosive gastritis, duodenal ulcers. No obvious active bleeding. Some complaints of melanotic home. Continue PPI with twice a day dosing, Carafate. 2. Severe symptomatic anemia secondary to blood loss. Abdomen and pelvis CT obtained on showed moderate amount of ascitic fluid in the abdomen and pelvis. Small right pleural effusion. Liver small and mildly heterogeneous with no focal mass or ductal dilatation. The patient is status post fusion of 5 units of PRBCs and 4 units of FFP. 3. New-onset ascites. Ultrasound-guided abdominal paracentesis with removal of 4 L of fluid which was noninfectious. Cytology showed numerous mesothelial cells, macrophages, few neutrophils, negative for malignant cells. Peritoneal culture no growth 48 hours. Patient underwent a repeat ultrasound-guided paracentesis on 04/25/17. Patient placed on Lasix and his prolactin. 4. Liver cirrhosis with worsening coagulopathy. As per documentation the patient had been told that she had liver disease for several years but she was never told she specifically had liver cirrhosis until this hospitalization. Patient has history of alcohol abuse, 3-4 beers per day up until 1 week ago. Patient has a meld score of 25. This likely alcoholic hepatitis virus. ASA negative, ASMA negative, AMA less than 20. Patient has worsening coagulopathy. INR elevated today. Vitamin K order by cytology. 5. Alcoholic hepatitis. Continue pentoxifylline. GI following. LFTs continued to improve. Continue to monitor LFTs. 6. Thrombus cytopenia for stress: Upper 3. The patient status post 2 units of FFP. INR is trending up. Continue vitamin K. 7. Hepatitis C virus antibodies. Genotype 1A, vital load 121,000. 8. NEGRO. Likely prerenal azotemia secondary to GI bleed and dehydration. Resolving after IV fluid administration and blood transfusion. Continue to monitor BMP. 9. Hypokalemia. Likely secondary to nutritional deficiency as well as diuretic use. I will continue to replace orally and monitor BMP. 10. Hyponatremia. I suspect it is a combination of SIADH secondary to persistent nausea and vomiting, secondary to alcoholic hepatitis and diuretic use. I will hold Lasix and spironolactone and order 1 L per day fluid restriction. Continue to monitor sodium. 11. Gram-negative bacteremia. Blood cultures are growing Enterococcus Cloacae without obvious source. ID consulted, appreciate recommendations. The patient was started in IV Levaquin. The patient may be discharged if the repeated blood cultures are negative 72 hours. DVT prophylaxis: SCDs, avoid chemical due to anemia/liver disease GI prophylaxis: Protonix Discharge Planning Continue to monitor in the medical floor. Dago Beavers MD Apr 29, 2017 17:07
[2017-04-29] MEDS ORDERED: POTASSIUM CHLORIDE 10 MEQ CONTROLLED RELEASE TAB PO ONE (18:00)
[2017-04-29] MEDS: LEVOFLOXACIN 500 MG PREMIX INJ 100 ML IV SCH (18:46)
[2017-04-30] VITALS (12 sets, daily range): BP systolic 105–136; BP diastolic 54–74; PULSE 78–86; RESP 17–20; TEMP 96.6–98.4; O2SAT 94–96
[2017-04-30 03:28] LABS: AUTOMATED NEUTROPHIL # 7.3 TH/MM3 (1.8-7.7); BASOPHIL # 0.1 TH/MM3 (0-0.2); BASOPHIL % 0.5 % (0.0-2.0); EOSINOPHIL # 0.4 TH/MM3 (0-0.4); EOSINOPHIL % 3.6 % (0.0-4.0); HEMATOCRIT 24.4 % (35.0-46.0); LYMPHOCYTE # 1.4 TH/MM3 (1.0-4.8); MEAN CORPUSCULAR HEMOGLOBIN 37.1 PG (27.0-34.0); MEAN CORPUSCULAR HGB CONC 35.3 % (32.0-36.0); MONO % 9.2 % (0.0-8.0); NEUT % 72.7 % (16.0-70.0); PLATELET COUNT 48 TH/MM3 (150-450); RED BLOOD COUNT 2.33 MIL/MM3 (4.00-5.30); RED CELL DISTRIBUTION WIDTH 27.2 % (11.6-17.2)
[2017-04-30 03:34] LABS: HEMO FLAGS AUTO DIFF
[2017-04-30 03:42] LABS: MAGNESIUM 0.5 MG/DL (1.5-2.5); POTASSIUM 3.5 MEQ/L (3.5-5.1)
[2017-04-30] MEDS ORDERED: MAGNESIUM SULFATE 1 GM PREMIX 100 ML IV SCH (04:15)
[2017-04-30 04:17] LABS: INTERNATIONAL NORMALIZED RATIO 3.2 RATIO; PROTHROMBIN TIME - PATIENT 36.9 SEC (9.8-11.6)
[2017-04-30] MEDS ORDERED: POTASSIUM CHLORIDE 25 MEQ EFFERVESCENT TAB NG SCH (04:30)
[2017-04-30] MEDS: PENTOXIFYLLINE 400 MG CONTROLLED RELEASE TAB PO SCH ×3 (04:45→21:15)
[2017-04-30] MEDS ORDERED: MAGNESIUM SULFATE 1 GM PREMIX 100 ML IV ONE (04:45)
[2017-04-30] MEDS: MAGNESIUM SULFATE 1 GM PREMIX 100 ML IV SCH ×2 (04:45→05:45)
[2017-04-30] MEDS: SUCRALFATE 1 GM/10 ML CUP PO SCH ×4 (04:50→21:14)
[2017-04-30 04:55] LABS: ACANTHOCYTES OCC (NORMAL); PLATELET ESTIMATE SMEAR LOW (NORMAL); PLATELET MORPHOLOGY NORMAL (NORMAL); SCAN/DIFF AUTO DIFF CONFIRMED
[2017-04-30 04:56] LABS: OVALOCYTES 1+ (NORMAL)
[2017-04-30] MEDS ORDERED: MAGNESIUM OXIDE 400 MG TAB PO ONE (05:00)
[2017-04-30 08:57] LABS: ANION GAP 12 MEQ/L (5-15); AST (GOT) 41 U/L (15-37); BICARBONATE 26.9 MEQ/L (21.0-32.0); BLOOD UREA NITROGEN 9 MG/DL (7-18); CHLORIDE 91 MEQ/L (98-107); GLOMERULAR FILTRATION RATE 58 ML/MIN (>89); POTASSIUM 3.3 MEQ/L (3.5-5.1); SODIUM (NA) 130 MEQ/L (136-145)
[2017-04-30 08:58] LABS: ALT (GPT) 23 U/L (10-53)
[2017-04-30 09:01] LABS: ALKALINE PHOSPHATASE 35 U/L (45-117); TOTAL BILIRUBIN ADULT 7.8 MG/DL (0.2-1.0)
[2017-04-30] MEDS: LACTOBACILLUS ACIDOPHILUS TAB PO SCH ×2 (09:39→21:15)
[2017-04-30] MEDS: PANTOPRAZOLE SOD 40 MG DELAYED RELEASE TAB PO SCH ×2 (09:39→21:14)
[2017-04-30] MEDS: SODIUM CHLORIDE 0.9% FLUSH 10 ML FLUSH IV FLUSH SCH ×2 (09:39→21:15)
[2017-04-30] MEDS: PHYTONADIONE 5 MG TAB PO SCH (09:39)
[2017-04-30] MEDS ORDERED: POTASSIUM CHLORIDE 10 MEQ CONTROLLED RELEASE TAB PO ONE (11:00)
[2017-04-30] MEDS: FUROSEMIDE 40 MG TAB PO SCH (11:36)
--- NOTE | 2017-04-30 12:31 | HHI.PR ---
Subjective Remarks Denies cp/sob denies fevers/chills sodium still low denies diarrhea or abdominal pain Objective Vitals Vital Signs Date Time Temp Pulse Resp B/P Pulse Ox O2 Delivery O2 Flow Rate FiO2 04/30/17 07:30 96.7 85 20 112/60 95 04/30/17 04:03 80 04/30/17 04:00 97.0 82 17 105/57 96 04/30/17 02:25 79 04/30/17 00:00 96.6 85 17 108/54 94 04/29/17 23:17 16 04/29/17 20:01 94 04/29/17 20:00 97.2 92 18 99/57 95 04/29/17 15:50 97.7 79 20 124/66 98 I/O 04/29/17 04/29/17 04/29/17 04/30/17 04/30/17 04/30/17 07:00 15:00 23:00 07:00 15:00 23:00 Intake Total 240 ml 360 ml Balance 240 ml 360 ml Intake Oral 240 ml 360 ml # Voids 2 4 1 # Bowel Movements 1 2 1 Result Diagram: 04/30/17 0319 04/30/17 0745 Imaging Last Impressions Chest X-Ray 04/26/17 0000 Signed Impressions: Service Date/Time: Wednesday, April 26, 2017 17:12 - CONCLUSION: Mild left lung base atelectasis and/or infiltrate is seen. Nolvia Zavala MD Cyst Biopsy Asp-Paracentesis US 04/25/17 0000 Signed Impressions: Service Date/Time: Tuesday, April 25, 2017 16:08 - CONCLUSION: Uncomplicated ultrasound guided paracentesis. Tony Potter Jr., MD Abdomen Ultrasound 04/22/17 0000 Signed Impressions: Service Date/Time: Saturday, April 22, 2017 17:26 - CONCLUSION: Moderate free fluid in the abdomen. Michael Sevilla MD FACR Abdomen/Pelvis CT 04/19/17 0000 Signed Impressions: Service Date/Time: Wednesday, April 19, 2017 19:24 - CONCLUSION: 1. Moderate amount of ascitic fluid in the abdomen and pelvis. 2. Small right pleural effusion. 3. The liver is small and mildly heterogeneous with no focal mass or ductal dilatation. Devang Mustafa MD Objective Remarks AAOx3 Jaundice Clear lungs BL S1S2 RRR Soft abdomen Procedures EGD paracentesis Medications and IVs Current Medications Medications (Trade) Dose Ordered Sig/Teresa Route Start Time Stop Time Status Last Admin (NS Flush) 2 ml UNSCH PRN IV FLUSH 04/16/17 02:00 (NS Flush) 2 ml BID IV FLUSH 04/16/17 09:00 04/30/17 09:39 (Narcan Inj) 0.4 mg UNSCH PRN IV 04/16/17 02:00 (Morphine Inj) 2 mg Q4H PRN IV PUSH 04/16/17 04:30 04/28/17 01:24 (Roxicodone) 5 mg Q8H PRN PO 04/17/17 08:15 04/29/17 20:24 (Protonix) 40 mg BID PO 04/18/17 09:00 04/30/17 09:39 (TRENtal SR) 400 mg Q8HR PO 04/17/17 22:00 04/30/17 04:45 (Zofran Inj) 4 mg Q4HR PRN IV PUSH 04/19/17 12:00 04/27/17 18:24 (Compazine Inj) 5 mg Q8H PRN IV PUSH 04/22/17 08:30 04/23/17 08:10 (Carafate Liq) 1 gm ACHS PO 04/22/17 16:00 04/30/17 11:36 (Lactinex) 1 tab Q12HR PO 04/27/17 21:00 04/30/17 09:39 Phytonadione 10 mg 10 mg DAILY PO 04/29/17 09:00 04/30/17 09:39 (Levaquin 500 Mg Premix Inj) 100 ml @ 100 mls/hr Q24H IV 04/29/17 18:00 04/29/17 18:46 (K-Lyte Cl Eff) 50 meq STAT NG 04/30/17 04:30 04/30/17 04:45 (Lasix) 40 mg DAILY PO 04/30/17 11:00 04/30/17 11:36 (Aldactone) 50 mg DAILY PO 04/30/17 11:00 Urinary Catheter: No Vascular Central Line Catheter: No A/P Problem List: (1) Bacteremia due to Gram-negative bacteria ICD Code: R78.81 Status: Acute (2) Alcohol abuse ICD Code: F10.10 Status: Chronic (3) NEGRO (acute kidney injury) ICD Code: N17.9 Status: Resolved (4) Symptomatic anemia ICD Code: D64.9 Status: Resolved (5) Ascites ICD Code: R18.8 Status: Chronic (6) Coagulopathy ICD Code: D68.9 Status: Acute (7) HCAP (healthcare-associated pneumonia) ICD Code: J18.9 Status: Acute Assessment and Plan 52-year-old female with 1. Upper GI bleed. No prior history of GI bleeding, peptic ulcer disease or varices. GI consulted and the patient underwent an EGD on 04/16 which showed Lackey's esophagus, erosive gastritis, duodenal ulcers. No obvious active bleeding. Some complaints of melanotic home. Continue PPI with twice a day dosing, Carafate. 2. Severe symptomatic anemia secondary to blood loss. Abdomen and pelvis CT obtained on showed moderate amount of ascitic fluid in the abdomen and pelvis. Small right pleural effusion. Liver small and mildly heterogeneous with no focal mass or ductal dilatation. The patient is status post fusion of 5 units of PRBCs and 4 units of FFP. 3. New-onset ascites. Ultrasound-guided abdominal paracentesis with removal of 4 L of fluid which was noninfectious. Cytology showed numerous mesothelial cells, macrophages, few neutrophils, negative for malignant cells. Peritoneal culture no growth 48 hours. Patient underwent a repeat ultrasound-guided paracentesis on 04/25/17. Patient placed on Lasix and spironolactone. 4. Liver cirrhosis with coagulopathy. As per documentation the patient had been told that she had liver disease for several years but she was never told she specifically had liver cirrhosis until this hospitalization. Patient has history of alcohol abuse, 3-4 beers per day up until 1 week ago. Patient has a meld score of 25. This likely alcoholic hepatitis virus. ASA negative, ASMA negative, AMA less than 20. Patient has worsening coagulopathy. INR elevated today. Vitamin K order by Gastroenterology. 5. Alcoholic hepatitis. Continue pentoxifylline. GI following. LFTs continued to improve. Continue to monitor LFTs. 6., Thrombocytopenia/coagulopathy. The patient status post 2 units of FFP. INR is stable today at 3.2. Continue vitamin K. 7. Hepatitis C virus antibodies. Genotype 1A, vital load 121,000. GI following. 8. NEGRO. Likely prerenal azotemia secondary to GI bleed and dehydration. Resolving after IV fluid administration and blood transfusion. Continue to monitor BMP. 9. Hypokalemia. Likely secondary to nutritional deficiency as well as diuretic use. I will continue to replace orally and monitor BMP. 10. Hyponatremia. I suspect it is a combination of SIADH secondary to persistent nausea and vomiting, secondary to alcoholic hepatitis. Continue Fluid restriction, resume Lasix and spironolactone. 11. Gram-negative bacteremia. Blood cultures are growing Enterococcus Cloacae without obvious source. ID consulted, appreciate recommendations. The patient was started in IV Levaquin. The patient may be discharged if the repeated blood cultures are negative 72 hours. DVT prophylaxis: SCDs, avoid chemical due to anemia/liver disease GI prophylaxis: Protonix Discharge Planning Continue to monitor in the medical floor. Sodium still low. DC pending ID clearance. Dago Beavers MD Apr 30, 2017 12:31
--- NOTE | 2017-04-30 14:24 | HHI.GIFU ---
Subjective Remarks Pt OOB to chair. Denies pain, bleeding. n/v. Eating ok. (Coco Frankel) Objective Vitals I&O Vital Signs Date Time Temp Pulse Resp B/P Pulse Ox O2 Delivery O2 Flow Rate FiO2 04/30/17 11:30 98.1 78 20 136/64 96 04/30/17 07:30 96.7 85 20 112/60 95 04/30/17 04:03 80 04/30/17 04:00 97.0 82 17 105/57 96 04/30/17 02:25 79 04/30/17 00:00 96.6 85 17 108/54 94 04/29/17 23:17 16 04/29/17 20:01 94 04/29/17 20:00 97.2 92 18 99/57 95 04/29/17 15:50 97.7 79 20 124/66 98 I/O 04/29/17 04/29/17 04/29/17 04/30/17 04/30/17 04/30/17 07:00 15:00 23:00 07:00 15:00 23:00 Intake Total 240 ml 360 ml Balance 240 ml 360 ml Intake Oral 240 ml 360 ml # Voids 2 4 1 # Bowel Movements 1 2 1 Laboratory Laboratory Tests Test 04/30/17 04/30/17 03:19 07:45 White Blood Count 10.0 Red Blood Count 2.33 Hemoglobin 8.6 Hematocrit 24.4 Mean Corpuscular Volume 105.0 Mean Corpuscular Hemoglobin 37.1 Mean Corpuscular Hemoglobin 35.3 Concent Red Cell Distribution Width 27.2 Platelet Count 48 Mean Platelet Volume 9.4 Neutrophils (%) (Auto) 72.7 Lymphocytes (%) (Auto) 14.0 Monocytes (%) (Auto) 9.2 Eosinophils (%) (Auto) 3.6 Basophils (%) (Auto) 0.5 Neutrophils # (Auto) 7.3 Lymphocytes # (Auto) 1.4 Monocytes # (Auto) 0.9 Eosinophils # (Auto) 0.4 Basophils # (Auto) 0.1 CBC Comment AUTO DIFF Differential Comment AUTO DIFF CONFIRMED Platelet Estimate LOW Platelet Morphology Comment NORMAL Ovalocytes 1+ Acanthocytes OCC Red Cell Morphology Comment Prothrombin Time 36.9 Prothromb Time International 3.2 Ratio Sodium Level 133 130 Potassium Level 3.5 3.3 Chloride Level 91 91 Carbon Dioxide Level 29.0 26.9 Anion Gap 13 12 Blood Urea Nitrogen 9 9 Creatinine 1.04 1.00 Estimat Glomerular Filtration 56 58 Rate Random Glucose 87 103 Calcium Level 7.9 8.3 Magnesium Level 0.5 Total Bilirubin 7.8 Aspartate Amino Transf 41 (AST/SGOT) Alanine Aminotransferase 23 (ALT/SGPT) Alkaline Phosphatase 35 Total Protein 7.1 Albumin 4.0 Date/Time Procedure Status Source Growth 04/28/17 16:27 Aerobic Blood Culture - Preliminary Resulted Blood Peripheral NO GROWTH IN 2 DAYS 04/28/17 16:27 Anaerobic Blood Culture - Preliminary Resulted Blood Peripheral NO GROWTH IN 2 DAYS 04/26/17 19:20 Aerobic Blood Culture - Final Complete Blood Peripheral Enterobacter Cloacae 04/26/17 19:20 Anaerobic Blood Culture - Final Complete Enterobacter Cloacae 04/25/17 16:45 Gram Stain - Final Complete Fluid Peritoneal Fluid 04/25/17 16:45 Body Fluid Culture - Final Complete Fluid Peritoneal Fluid NO GROWTH IN 72 HRS.--AEROBICALLY OR ... Imaging Last Impressions Chest X-Ray 04/26/17 0000 Signed Impressions: Service Date/Time: Wednesday, April 26, 2017 17:12 - CONCLUSION: Mild left lung base atelectasis and/or infiltrate is seen. Nolvia Zavala MD Cyst Biopsy Asp-Paracentesis US 04/25/17 0000 Signed Impressions: Service Date/Time: Tuesday, April 25, 2017 16:08 - CONCLUSION: Uncomplicated ultrasound guided paracentesis. Tony Potter Jr., MD Abdomen Ultrasound 04/22/17 0000 Signed Impressions: Service Date/Time: Saturday, April 22, 2017 17:26 - CONCLUSION: Moderate free fluid in the abdomen. Michael Sevilla MD FACR Abdomen/Pelvis CT 04/19/17 0000 Signed Impressions: Service Date/Time: Wednesday, April 19, 2017 19:24 - CONCLUSION: 1. Moderate amount of ascitic fluid in the abdomen and pelvis. 2. Small right pleural effusion. 3. The liver is small and mildly heterogeneous with no focal mass or ductal dilatation. Devang Mustafa MD Physical Exam HEENT: Normocephalic; atraumatic; + mild icterus. CHEST: CTA CARDIAC: RRR ABDOMEN: Abdomen soft, moderately distended, nontender; hepatosplenomegaly. EXTREMITIES: Bilateral LE edema. SKIN: Normal; no rash ARCHITECTURAL COATING FINISHER: Lethargic (Coco Frankel) Assessment and Plan Plan ASSESSMENT: - Upper GIB with melena. Denies any hx of GI bleeding, PUD, or known varices. S /P EGD (04/16/17)----> Lackey's Esophagus, erosive gastritis, duodenal ulcers. No obvious active bleeding. No further n/v. No melena. PPI with BID dosing. Carafate. 8./.0. - Duodenal ulcers. PPI with BID dosing, Carafate. - Persistent nausea/vomiting. PPI, Carafate, Zofran, Compazine. Improved. ? R/ T ascites pressing on stomach. Nausea, without vomiting. - Severe anemia secondary to blood loss. Abdomen/Pelvis CT (04/19/17)----> 1. Moderate amount of ascitic fluid in the abdomen and pelvis. 2. Small right pleural effusion. 3. The liver is small and mildly heterogeneous with no focal mass or ductal dilatation. S/P 5 units PRBC, 4 units FFP. - New onset ascites. Cyst Biopsy Asp-Paracentesis US (04/16/17)----> Uncomplicated ultrasound guided paracentesis with 4000cc removed. Fluid studies wbc 39, Peritoneal rbc 111. Cytology numerous mesothelial cells, macrophages and few neutrophils, negative for malignant cells. Peritoneal cx no growth x 48 hours. Rpt. US guided paracentesis (04/25/17)----> 4,100cc removed. Spironolactone 50mg po with BID dosing, Lasix 40mg BID - Liver cirrhosis with worsening coagulopathy. States she was told that she had liver disease for several years, but never told specifically that she had liver cirrhosis until this hospitalization. She has a hx of ETOH use, 3-4 beers per day up until one week ago. MELD 25. CT as above. This is likely alcoholic hepatitis on underlying liver cirrhosis with hx of HCV. ASA negative; ASMA negative; AMA < 20.0. She has worsening coagulopathy, which is concerning for worsening liver disease. INR 3.2 today. Vitamin K ordered. - Alcoholic hepatitis. DF 52.9. Pentoxifylline. LFTs improving. - Thrombocytopenia, Coagulopathy. S/P 2 x FFP. INR 2.0 - HCV antibodies. 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 - Diarrhea. Pt denies black stool or red blood. Improved. - NEGRO. Improving. Creat 1.15 - UTI, Cx with E. Coli. Ceftriaxone. - HTN, CAD, Hx TIA, COPD, Hx DVT per primary PLAN: - JEANETH - Cont. Vit. K PO - Cont. Protonix 40mg po bid - Cont. Carafate - Cont. Pentoxifylline - Cont. Zofran/Compazine prn - Monitor HH - Okay to d/c from GI standpoint with PO vit K - Pt seen and examined by and myself and this note is written on his behalf (Coco Frankel) Physician Comments agree with above (Tamara Lee MD) Coco Frankel Apr 30, 2017 14:24 Tamara Lee MD Apr 30, 2017 17:52
[2017-04-30] MEDS: SPIRONOLACTONE 50 MG TAB PO SCH (17:20)
[2017-04-30] MEDS: LEVOFLOXACIN 500 MG PREMIX INJ 100 ML IV SCH (17:20)
[2017-04-30] MEDS ORDERED: PHARMACY ORDERED LAB ONE (20:45)
[2017-04-30] MEDS: MORPHINE SULFATE 8 MG/ML INJ IV PUSH PRN (21:20)
[2017-05-01] VITALS (12 sets, daily range): BP systolic 96–107; BP diastolic 51–62; PULSE 11–110; RESP 16–18; TEMP 96.9–98.9; O2SAT 92–98
[2017-05-01] MEDS: PENTOXIFYLLINE 400 MG CONTROLLED RELEASE TAB PO SCH ×3 (06:13→20:53)
[2017-05-01] MEDS: SUCRALFATE 1 GM/10 ML CUP PO SCH ×4 (06:13→20:53)
[2017-05-01] MEDS: SPIRONOLACTONE 50 MG TAB PO SCH (09:00)
[2017-05-01] MEDS: LACTOBACILLUS ACIDOPHILUS TAB PO SCH ×2 (09:50→20:53)
[2017-05-01] MEDS: PANTOPRAZOLE SOD 40 MG DELAYED RELEASE TAB PO SCH ×2 (09:50→20:53)
[2017-05-01] MEDS: PHYTONADIONE 5 MG TAB PO SCH (09:50)
[2017-05-01] MEDS: SODIUM CHLORIDE 0.9% FLUSH 10 ML FLUSH IV FLUSH SCH ×2 (09:50→20:54)
--- NOTE | 2017-05-01 11:33 | HHI.PR ---
Subjective Remarks Patient wants to go home had 11 beats of V tach as per RN - asymptomatic denies cp/sob, dizziness denies fevers, chills no diarrhea Objective Vitals Vital Signs Date Time Temp Pulse Resp B/P Pulse Ox O2 Delivery O2 Flow Rate FiO2 05/01/17 08:00 97.5 94 18 103/57 95 05/01/17 04:00 97.8 95 17 107/56 98 05/01/17 04:00 92 05/01/17 00:04 85 05/01/17 00:00 97.0 89 17 98/62 93 04/30/17 21:15 117/74 04/30/17 20:05 81 04/30/17 16:11 86 04/30/17 15:50 98.4 20 107/55 95 04/30/17 12:00 80 I/O 04/30/17 04/30/17 04/30/17 05/01/17 05/01/17 05/01/17 07:00 15:00 23:00 07:00 15:00 23:00 Intake Total 240 ml Balance 240 ml Intake Oral 240 ml # Voids 1 7 3 # Bowel Movements 3 Result Diagram: 04/30/17 0319 04/30/17 0745 Imaging Last Impressions Chest X-Ray 04/26/17 0000 Signed Impressions: Service Date/Time: Wednesday, April 26, 2017 17:12 - CONCLUSION: Mild left lung base atelectasis and/or infiltrate is seen. Nolvia Zavala MD Cyst Biopsy Asp-Paracentesis US 04/25/17 0000 Signed Impressions: Service Date/Time: Tuesday, April 25, 2017 16:08 - CONCLUSION: Uncomplicated ultrasound guided paracentesis. Tony Potter Jr., MD Abdomen Ultrasound 04/22/17 0000 Signed Impressions: Service Date/Time: Saturday, April 22, 2017 17:26 - CONCLUSION: Moderate free fluid in the abdomen. Michael Sevilla MD FACR Abdomen/Pelvis CT 04/19/17 0000 Signed Impressions: Service Date/Time: Wednesday, April 19, 2017 19:24 - CONCLUSION: 1. Moderate amount of ascitic fluid in the abdomen and pelvis. 2. Small right pleural effusion. 3. The liver is small and mildly heterogeneous with no focal mass or ductal dilatation. Devang Mustafa MD Objective Remarks AAOx3 Jaundice Clear lungs BL S1S2 RRR Soft abdomen Procedures EGD paracentesis Medications and IVs Current Medications Medications (Trade) Dose Ordered Sig/Teresa Route Start Time Stop Time Status Last Admin (NS Flush) 2 ml UNSCH PRN IV FLUSH 04/16/17 02:00 (NS Flush) 2 ml BID IV FLUSH 04/16/17 09:00 05/01/17 09:50 (Narcan Inj) 0.4 mg UNSCH PRN IV 04/16/17 02:00 (Morphine Inj) 2 mg Q4H PRN IV PUSH 04/16/17 04:30 04/30/17 21:20 (Roxicodone) 5 mg Q8H PRN PO 04/17/17 08:15 04/30/17 13:11 (Protonix) 40 mg BID PO 04/18/17 09:00 05/01/17 09:50 (TRENtal SR) 400 mg Q8HR PO 04/17/17 22:00 05/01/17 06:13 (Zofran Inj) 4 mg Q4HR PRN IV PUSH 04/19/17 12:00 04/27/17 18:24 (Compazine Inj) 5 mg Q8H PRN IV PUSH 04/22/17 08:30 04/23/17 08:10 (Carafate Liq) 1 gm ACHS PO 04/22/17 16:00 05/01/17 06:13 (Lactinex) 1 tab Q12HR PO 04/27/17 21:00 05/01/17 09:50 Phytonadione 10 mg 10 mg DAILY PO 04/29/17 09:00 05/01/17 09:50 (Levaquin 500 Mg Premix Inj) 100 ml @ 100 mls/hr Q24H IV 04/29/17 18:00 04/30/17 17:20 (K-Lyte Cl Eff) 50 meq STAT NG 04/30/17 04:30 04/30/17 04:45 (Lasix) 40 mg DAILY PO 04/30/17 11:00 04/30/17 11:36 (Aldactone) 50 mg DAILY PO 04/30/17 11:00 04/30/17 17:20 Urinary Catheter: No Vascular Central Line Catheter: No A/P Problem List: (1) Bacteremia due to Gram-negative bacteria ICD Code: R78.81 Status: Acute (2) Alcohol abuse ICD Code: F10.10 Status: Chronic (3) NEGRO (acute kidney injury) ICD Code: N17.9 Status: Resolved (4) Symptomatic anemia ICD Code: D64.9 Status: Resolved (5) Ascites ICD Code: R18.8 Status: Chronic (6) Coagulopathy ICD Code: D68.9 Status: Acute (7) HCAP (healthcare-associated pneumonia) ICD Code: J18.9 Status: Acute Assessment and Plan 52-year-old female with 1. Upper GI bleed. No prior history of GI bleeding, peptic ulcer disease or varices. GI consulted and the patient underwent an EGD on 04/16 which showed Lackey's esophagus, erosive gastritis, duodenal ulcers. No obvious active bleeding. Some complaints of melanotic home. Continue PPI with twice a day dosing, Carafate. Cleared for Dc by GI. 2. Severe symptomatic anemia secondary to blood loss. Abdomen and pelvis CT obtained on showed moderate amount of ascitic fluid in the abdomen and pelvis. Small right pleural effusion. Liver small and mildly heterogeneous with no focal mass or ductal dilatation. The patient is status post fusion of 5 units of PRBCs and 4 units of FFP. 3. New-onset ascites. Ultrasound-guided abdominal paracentesis with removal of 4 L of fluid which was noninfectious. Cytology showed numerous mesothelial cells, macrophages, few neutrophils, negative for malignant cells. Peritoneal culture no growth 48 hours. Patient underwent a repeat ultrasound-guided paracentesis on 04/25/17. Patient placed on Lasix and spironolactone. 4. Liver cirrhosis with coagulopathy. As per documentation the patient had been told that she had liver disease for several years but she was never told she specifically had liver cirrhosis until this hospitalization. Patient has history of alcohol abuse, 3-4 beers per day up until 1 week ago. Patient has a meld score of 25. This likely alcoholic hepatitis virus. ASA negative, ASMA negative, AMA less than 20. Patient has worsening coagulopathy. INR elevated today. Vitamin K order by Gastroenterology. 5. Alcoholic hepatitis. Continue pentoxifylline. GI following. LFTs continued to improve. Continue to monitor LFTs. 6., Thrombocytopenia/coagulopathy. The patient status post 2 units of FFP. INR is stable today at 3.2. Continue vitamin K. 7. Hepatitis C virus antibodies. Genotype 1A, vital load 121,000. GI following. 8. NEGRO. Likely prerenal azotemia secondary to GI bleed and dehydration. Resolving after IV fluid administration and blood transfusion. Continue to monitor BMP. 9. Hypokalemia. Likely secondary to nutritional deficiency as well as diuretic use. I will continue to replace orally and monitor BMP. 10. Hyponatremia. I suspect it is a combination of SIADH secondary to persistent nausea and vomiting, secondary to alcoholic hepatitis. Continue Fluid restriction, Continue Lasix and spironolactone. 11. Gram-negative bacteremia. Blood cultures are growing Enterococcus Cloacae without obvious source. ID consulted, appreciate recommendations. The patient was started in IV Levaquin. The patient may be discharged if the repeated blood cultures are negative 72 hours. 12. Unsustained V. tach. Asymptomatic. Will check a stat BMP and corrected electrolytes if needed. Continue to monitor on telemetry. DVT prophylaxis: SCDs, avoid chemical due to anemia/liver disease GI prophylaxis: Protonix Discharge Planning Possible discharge later today pending the BMP and correction of electrolytes. Dago Beavers MD May 01, 2017 11:32
[2017-05-01] MEDS: FUROSEMIDE 40 MG TAB PO SCH (12:57)
[2017-05-01 14:18] LABS: BICARBONATE 28.2 MEQ/L (21.0-32.0); MAGNESIUM 1.1 MG/DL (1.5-2.5); POTASSIUM 4.2 MEQ/L (3.5-5.1)
--- NOTE | 2017-05-01 15:51 | HHI.GIFU ---
Subjective Remarks Resting in bed. Tolerating diet. Electrolytes being replaced by attending. Small amount of blood oozing from side of mouth. Pt states that her lips are cracked in the corners and this is from that. No obvious active bleeding ( Krystyna Jessica) Objective Vitals I&O Vital Signs Date Time Temp Pulse Resp B/P Pulse Ox O2 Delivery O2 Flow Rate FiO2 05/01/17 14:31 11 106/56 05/01/17 12:28 96 05/01/17 12:00 98.9 98 16 96/51 96 05/01/17 10:18 97 05/01/17 08:49 89 05/01/17 08:00 97.5 94 18 103/57 95 05/01/17 04:00 97.8 95 17 107/56 98 05/01/17 04:00 92 05/01/17 00:04 85 05/01/17 00:00 97.0 89 17 98/62 93 04/30/17 21:15 117/74 04/30/17 20:05 81 04/30/17 16:11 86 04/30/17 15:50 98.4 20 107/55 95 I/O 04/30/17 04/30/17 04/30/17 05/01/17 05/01/17 05/01/17 06:59 14:59 22:59 06:59 14:59 22:59 Intake Total 240 ml 480 ml 180 ml Balance 240 ml 480 ml 180 ml Intake Oral 240 ml 480 ml 180 ml # Voids 1 7 3 4 # Bowel Movements 3 2 Laboratory Laboratory Tests Test 05/01/17 13:35 Sodium Level 134 Potassium Level 4.2 Chloride Level 93 Carbon Dioxide Level 28.2 Anion Gap 13 Blood Urea Nitrogen 9 Creatinine 1.07 Estimat Glomerular Filtration 54 Rate Random Glucose 83 Calcium Level 8.4 Magnesium Level 1.1 Date/Time Procedure Status Source Growth 04/28/17 16:27 Aerobic Blood Culture - Preliminary Resulted Blood Peripheral NO GROWTH IN 3 DAYS 04/28/17 16:27 Anaerobic Blood Culture - Preliminary Resulted Blood Peripheral NO GROWTH IN 3 DAYS 04/26/17 19:20 Aerobic Blood Culture - Final Complete Blood Peripheral Enterobacter Cloacae 04/26/17 19:20 Anaerobic Blood Culture - Final Complete Enterobacter Cloacae Imaging Last Impressions Chest X-Ray 04/26/17 0000 Signed Impressions: Service Date/Time: Wednesday, April 26, 2017 17:12 - CONCLUSION: Mild left lung base atelectasis and/or infiltrate is seen. Nolvia Zavala MD Cyst Biopsy Asp-Paracentesis US 04/25/17 0000 Signed Impressions: Service Date/Time: Tuesday, April 25, 2017 16:08 - CONCLUSION: Uncomplicated ultrasound guided paracentesis. Tony Potter Jr., MD Abdomen Ultrasound 04/22/17 0000 Signed Impressions: Service Date/Time: Saturday, April 22, 2017 17:26 - CONCLUSION: Moderate free fluid in the abdomen. Michael Sevilla MD FACR Abdomen/Pelvis CT 04/19/17 0000 Signed Impressions: Service Date/Time: Wednesday, April 19, 2017 19:24 - CONCLUSION: 1. Moderate amount of ascitic fluid in the abdomen and pelvis. 2. Small right pleural effusion. 3. The liver is small and mildly heterogeneous with no focal mass or ductal dilatation. Devang Mustafa MD Physical Exam HEENT: Normocephalic; atraumatic; + mild icterus. CHEST: CTA CARDIAC: RRR ABDOMEN: Abdomen soft, moderately distended, nontender; hepatosplenomegaly. EXTREMITIES: Bilateral LE edema. SKIN: Normal; no rash BIBLICAL STUDIES PROFESSOR: Lethargic (Krystyna Jessica) Assessment and Plan Plan ASSESSMENT: - Upper GIB with melena. Denies any hx of GI bleeding, PUD, or known varices. S /P EGD (04/16/17)----> Lackey's Esophagus, erosive gastritis, duodenal ulcers. No obvious active bleeding. No further n/v. No melena. PPI with BID dosing. Carafate. 10.0/31.4. - Duodenal ulcers. PPI with BID dosing, Carafate. - Persistent nausea/vomiting. PPI, Carafate, Zofran, Compazine. Improved. No longer having n/v. - Severe anemia secondary to blood loss. Abdomen/Pelvis CT (04/19/17)----> 1. Moderate amount of ascitic fluid in the abdomen and pelvis. 2. Small right pleural effusion. 3. The liver is small and mildly heterogeneous with no focal mass or ductal dilatation. S/P 5 units PRBC, 6 units FFP. HH 8.6/24.4. - New onset ascites. Cyst Biopsy Asp-Paracentesis US (04/16/17)----> Uncomplicated ultrasound guided paracentesis with 4000cc removed. Fluid studies wbc 39, Peritoneal rbc 111. Cytology numerous mesothelial cells, macrophages and few neutrophils, negative for malignant cells. Peritoneal cx no growth x 48 hours. Rpt. US guided paracentesis (04/25/17)----> 4,100cc removed. Spironolactone 50mg po with BID dosing, Lasix 40mg BID- but nurse has not been able to give secondary to hypotension. Will give albumin for a few days. - Liver cirrhosis with worsening coagulopathy. States she was told that she had liver disease for several years, but never told specifically that she had liver cirrhosis until this hospitalization. She has a hx of ETOH use, 3-4 beers per day up until one week ago. MELD 25. CT as above. This is likely alcoholic hepatitis on underlying liver cirrhosis with hx of HCV. ASA negative; ASMA negative; AMA < 20.0. She has worsening coagulopathy, which is concerning for worsening liver disease. INR 3.2 today. Vitamin K ordered. - Alcoholic hepatitis. DF 52.9. Pentoxifylline. LFTs improving. - Thrombocytopenia, Coagulopathy. S/P 6 x FFP. INR 3.2 - HCV antibodies. 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 - Diarrhea. Pt denies black stool or red blood. Improved. - NEGRO. Improving. Creat 1.07 - Severe electrolyte abnormalities. Magnesium 0.5 yesterday. Magnesium 1.1 today. - Run of Vtach secondary to electrolyte abnormalities- per nurse no further episodes - UTI, Cx with E. Coli. S/P Ceftriaxone. - HTN, CAD, Hx TIA, COPD, Hx DVT per primary PLAN: - JEANETH - Albumin 12.5 IVPB q8h x 3 days - Nursing unable to give diuretics secondary to hypotension/electrolyte abnormalities - Cont. Protonix 40mg po bid - Cont. Carafate - Cont. Pentoxifylline - Cont. Zofran/Compazine prn - Monitor HH - Supportive care - Further recommendations to follow based on results of above - Pt seen and examined by and myself and this note is written on his behalf (Krystyna Jessica) Krystyna Jessica May 01, 2017 15:51 Tamara Lee MD May 01, 2017 22:15
[2017-05-01] MEDS: MAGNESIUM SULFATE 1 GM PREMIX 100 ML IV SCH ×2 (16:19→17:23)
[2017-05-01] MEDS: LEVOFLOXACIN 500 MG PREMIX INJ 100 ML IV SCH (18:23)
[2017-05-01] MEDS ORDERED: FURO20TA PO (18:31)
[2017-05-01] MEDS ORDERED: SUCR1S PO (18:31)
[2017-05-01] MEDS ORDERED: PENT400T PO (18:31)
[2017-05-01] MEDS ORDERED: PHYT5TAB2 PO (18:31)
[2017-05-01] MEDS ORDERED: PANT40TA3 PO (18:31)
[2017-05-01] MEDS ORDERED: ALDA50TA2 PO (18:31)
--- NOTE | 2017-05-01 18:34 | HHI.DCPOC ---
Discharge Care Plan Diagnosis: (1) Symptomatic anemia (2) NEGRO (acute kidney injury) (3) Ascites (4) Bacteremia due to Gram-negative bacteria (5) HCAP (healthcare-associated pneumonia) (6) Coagulopathy (7) Liver failure (8) GI bleed (9) UTI (urinary tract infection) Goals to Promote Your Health * To prevent worsening of your condition and complications * To maintain your health at the optimal level Directions to Meet Your Goals Take your medications as prescribed Follow your dietary instruction Follow activity as directed Keep your appointments as scheduled Take your immunizations and boosters as scheduled If your symptoms worsen call your PCP, if no PCP go to Urgent Care Center or Emergency Room Smoking is Dangerous to Your Health. Avoid second hand smoke Call the 24-hour hour crisis hotline for domestic abuse at Dago Beavers MD May 01, 2017 18:34
[2017-05-01] MEDS: ALBUMIN HUMAN 25% 12.5 GM/50 ML BAGP IV SCH ×2 (19:34→23:22)
[2017-05-02] VITALS: BP 103/58; PULSE 88; RESP 17; TEMP 96.4; O2SAT 95
[2017-05-02 01:33] VITALS: BP 105/58; PULSE 69; RESP 18; O2SAT 98
[2017-05-02] MEDS ORDERED: diphenhydrAMINE HCL 25 MG CAP PO ONE (01:45)
[2017-05-02 04:00] VITALS: PULSE 90
[2017-05-02] MEDS: SUCRALFATE 1 GM/10 ML CUP PO SCH ×2 (06:19→11:10)
[2017-05-02] MEDS: PENTOXIFYLLINE 400 MG CONTROLLED RELEASE TAB PO SCH (06:19)
[2017-05-02 07:15] LABS: AUTOMATED NEUTROPHIL # 7.7 TH/MM3 (1.8-7.7); BASOPHIL % 0.4 % (0.0-2.0); EOSINOPHIL # 0.3 TH/MM3 (0-0.4); EOSINOPHIL % 2.6 % (0.0-4.0); HEMATOCRIT 22.5 % (35.0-46.0); LYMPH % 15.7 % (9.0-44.0); LYMPHOCYTE # 1.7 TH/MM3 (1.0-4.8); MEAN CELL VOLUME 104.1 FL (80.0-100.0); MEAN CORPUSCULAR HEMOGLOBIN 37.2 PG (27.0-34.0); MEAN CORPUSCULAR HGB CONC 35.7 % (32.0-36.0); MONO % 9.8 % (0.0-8.0); NEUT % 71.5 % (16.0-70.0); PLATELET COUNT 48 TH/MM3 (150-450); RED BLOOD COUNT 2.16 MIL/MM3 (4.00-5.30); RED CELL DISTRIBUTION WIDTH 27.4 % (11.6-17.2); WHITE BLOOD COUNT 10.8 TH/MM3 (4.0-11.0)
[2017-05-02 07:19] LABS: HEMO FLAGS AUTO DIFF
[2017-05-02 07:40] LABS: BICARBONATE 28.9 MEQ/L (21.0-32.0); MAGNESIUM 1.6 MG/DL (1.5-2.5); POTASSIUM 3.7 MEQ/L (3.5-5.1)
[2017-05-02 08:00] VITALS: BP 134/61; PULSE 92; RESP 18; TEMP 97.5; O2SAT 96
[2017-05-02] MEDS: PHYTONADIONE 5 MG TAB PO SCH (08:19)
[2017-05-02] MEDS: PANTOPRAZOLE SOD 40 MG DELAYED RELEASE TAB PO SCH (08:19)
[2017-05-02] MEDS: LACTOBACILLUS ACIDOPHILUS TAB PO SCH (08:19)
[2017-05-02] MEDS: ALBUMIN HUMAN 25% 12.5 GM/50 ML BAGP IV SCH (08:21)
[2017-05-02] MEDS: SODIUM CHLORIDE 0.9% FLUSH 10 ML FLUSH IV FLUSH SCH (08:21)
[2017-05-02] MEDS: FUROSEMIDE 40 MG TAB PO SCH (09:00)
[2017-05-02] MEDS: SPIRONOLACTONE 50 MG TAB PO SCH (09:00)
[2017-05-02 09:28] VITALS: BP 94/52; PULSE 90
[2017-05-02] MEDS: MAGNESIUM SULFATE 1 GM PREMIX 100 ML IV SCH ×2 (09:28→11:10)
[2017-05-02 12:00] VITALS: BP 105/59; PULSE 87; RESP 16; TEMP 97.2; O2SAT 97
--- NOTE | 2017-05-02 12:33 | HHI.DS ---
Discharge Summary Admission Date Apr 16, 2017 at 01:49 Discharge Date: May 02, 2017 Admitting Diagnosis Anemia, Chronic liver failure, Ascites (new onset) (1) Bacteremia due to Gram-negative bacteria ICD Code: R78.81 (2) Alcohol abuse ICD Code: F10.10 (3) NEGRO (acute kidney injury) ICD Code: N17.9 (4) Symptomatic anemia ICD Code: D64.9 (5) Ascites ICD Code: R18.8 (6) Coagulopathy ICD Code: D68.9 (7) HCAP (healthcare-associated pneumonia) ICD Code: J18.9 Procedures EGD paracentesis Brief History - From Admission Written by PAULINO Jo acting as scribe for Dr. Jaimes] on 04/16/17 at 05: 02. 52 y/o female with a history of alcohol abuse, arthritis, HTN (no medication for 1 month), CAD, TIA, Questionable cirrhosis, Hep C, DVT, and COPD presented to the ED with complaints of abdomen swelling and pain that has increased the past week. She states she does have intermittent pain with associated diarrhea. States she had black stools at home. No red stools. She states 2 weeks ago she was having blood clots in her mouth from brushing her teeth. Denies any dysuria , chest pain or sob. She has never had a paracentesis in the past. She does not have a pcp, she states she did not like the PA/PIECE DYE WORKER at Dr. Rodriguez office so she never went back. CBC/BMP: 05/02/17 0507 05/02/17 0507 Significant Findings Laboratory Tests Test 04/30/17 04/30/17 05/01/17 05/02/17 03:19 07:45 13:35 05:07 Red Blood Count 2.33 MIL/MM3 2.16 MIL/MM3 (4.00-5.30) (4.00-5.30) Hemoglobin 8.6 GM/DL 8.0 GM/DL (11.6-15.3) (11.6-15.3) Hematocrit 24.4 % 22.5 % (35.0-46.0) (35.0-46.0) Mean Corpuscular Volume 105.0 FL 104.1 FL (80.0-100.0) (80.0-100.0) Mean Corpuscular Hemoglobin 37.1 PG 37.2 PG (27.0-34.0) (27.0-34.0) Red Cell Distribution Width 27.2 % 27.4 % (11.6-17.2) (11.6-17.2) Platelet Count 48 TH/MM3 48 TH/MM3 (150-450) (150-450) Neutrophils (%) (Auto) 72.7 % 71.5 % (16.0-70.0) (16.0-70.0) Monocytes (%) (Auto) 9.2 % (0.0-8.0) 9.8 % (0.0-8.0) Platelet Estimate LOW (NORMAL) Ovalocytes 1+ (NORMAL) Acanthocytes OCC (NORMAL) Prothrombin Time 36.9 SEC (9.8-11.6) Sodium Level 133 MEQ/L 130 MEQ/L 134 MEQ/L 131 MEQ/L (136-145) (136-145) (136-145) (136-145) Chloride Level 91 MEQ/L 91 MEQ/L 93 MEQ/L 92 MEQ/L (98-107) (98-107) (98-107) (98-107) Creatinine 1.04 MG/DL 1.07 MG/DL (0.50-1.00) (0.50-1.00) Estimat Glomerular Filtration 56 ML/MIN (>89) 58 ML/MIN (>89) 54 ML/MIN (>89) 63 ML/MIN (>89) Rate Calcium Level 7.9 MG/DL 8.3 MG/DL 8.4 MG/DL (8.5-10.1) (8.5-10.1) (8.5-10.1) Magnesium Level 0.5 MG/DL 1.1 MG/DL (1.5-2.5) (1.5-2.5) Potassium Level 3.3 MEQ/L (3.5-5.1) Total Bilirubin 7.8 MG/DL (0.2-1.0) Aspartate Amino Transf 41 U/L (15-37) (AST/SGOT) Alkaline Phosphatase 35 U/L (45-117) Monocytes # (Auto) 1.1 TH/MM3 (0-0.9) Imaging Last Impressions Chest X-Ray 04/26/17 0000 Signed Impressions: Service Date/Time: Thursday, April 26, 2017 17:12 - CONCLUSION: Mild left lung base atelectasis and/or infiltrate is seen. Nolvia Zavala MD Cyst Biopsy Asp-Paracentesis US 04/25/17 0000 Signed Impressions: Service Date/Time: Tuesday, April 25, 2017 16:08 - CONCLUSION: Uncomplicated ultrasound guided paracentesis. Tony Potter Jr., MD Abdomen Ultrasound 04/22/17 0000 Signed Impressions: Service Date/Time: Saturday, April 22, 2017 17:26 - CONCLUSION: Moderate free fluid in the abdomen. Michael Sevilla MD FACR Abdomen/Pelvis CT 04/19/17 0000 Signed Impressions: Service Date/Time: Wednesday, April 19, 2017 19:24 - CONCLUSION: 1. Moderate amount of ascitic fluid in the abdomen and pelvis. 2. Small right pleural effusion. 3. The liver is small and mildly heterogeneous with no focal mass or ductal dilatation. Devang Mustafa MD PE at Discharge AAOx3 Jaundice Clear lungs BL S1S2 RRR Soft abdomen Pt update on day of discharge Denies nausea, vomiting or abdominal pain. Wants to go home. Pt Condition on Discharge: Stable Discharge Disposition: Discharge Home Discharge Time: <= 30 minutes Discharge Instructions DIET: Follow Instructions for: Low Sodium Diet Activities you can perform: Regular-No Restrictions Follow up Referrals: PCP Follow-up with Farzana Rodriguez MD New Medications: Furosemide (Furosemide) 20 Mg Tab 20 MG PO DAILY liver cirrhosis #30 Ref 0 TAB Pantoprazole (Pantoprazole) 40 Mg Tab 40 MG PO BID GI bleed #62 TAB Pentoxifylline ER (Pentoxifylline ER) 400 Mg Tab 400 MG PO Q8HR alcoholic hepatitis #120 TAB Phytonadione (Mephyton) 5 Mg Tab 10 MG PO DAILY coagulopathy #31 TAB Spironolactone (Aldactone) 50 Mg Tab 50 MG PO DAILY liver cirrhosis #31 TAB Sucralfate Liq (Sucralfate Liq) 1 Gm/10 Ml Kasia 1 GM PO ACHS gi bleed #1 BOTTLE Discontinued Medications: Acetaminophen (Tylenol) 325 Mg Tab 650 MG PO Q6H Days 7 TAB Aspirin (Aspir-81) 81 Mg Tab 81 MG PO DAILY Lisinopril 10 mg (Lisinopril 10 mg) 10 Mg Tab 10 MG PO DAILY #30 Ref 3 TAB Dago Beavers MD May 02, 2017 12:33
[2017-05-02 12:38] LABS: OVALOCYTES 1+ (NORMAL); TARGET CELLS 1+ (NORMAL)
[2017-05-02 12:39] LABS: PLATELET ESTIMATE SMEAR LOW (NORMAL); PLATELET MORPHOLOGY NORMAL (NORMAL); SCAN/DIFF AUTO DIFF CONFIRMED; TEARDROP RBCS 1+ (NORMAL)
[2017-05-02] MEDS ORDERED: LEVOFLOXACIN 750 MG PREMIX INJ 150 ML IV SCH (18:00)
== END 2017-05-02 14:00 | disposition home or self-care (01) | DRG 432 ==
LOC: NEPE 20:57 → NEDA 04-16 01:49 → HOCB 04-16 03:00
PROVIDERS: ADMIT Hospitalist; ATTEND Hospitalist
PROC: 0W9G3ZX Drainage of Peritoneal Cavity, Percutaneous Approach, Diagnostic (ICD-10-PCS; 2017-04-16)
PROC: 30233N1 Transfusion of Nonautologous Red Blood Cells into Peripheral Vein, Percutaneous Approach (ICD-10-PCS; 2017-04-16)
PROC: 30233K1 Transfusion of Nonautologous Frozen Plasma into Peripheral Vein, Percutaneous Approach (ICD-10-PCS; 2017-04-16)
PROC: 0DJ08ZZ Inspection of Upper Intestinal Tract, Via Natural or Artificial Opening Endoscopic (ICD-10-PCS; principal; 2017-04-16 12:00)
PROC: 0W9G3ZX Drainage of Peritoneal Cavity, Percutaneous Approach, Diagnostic (ICD-10-PCS; 2017-04-25)
DX: K70.11 Alcoholic hepatitis with ascites (principal); J18.9 Pneumonia, unspecified organism; I47.2 Ventricular tachycardia; N17.9 Acute kidney failure, unspecified; D68.4 Acquired coagulation factor deficiency; K26.9 Duodenal ulcer, unspecified as acute or chronic, without hemorrhage or perforation; J44.0 Chronic obstructive pulmonary disease with (acute) lower respiratory infection; B37.0 Candidal stomatitis; K92.1 Melena; N39.0 Urinary tract infection, site not specified; R78.81 Bacteremia; E22.2 Syndrome of inappropriate secretion of antidiuretic hormone; D69.6 Thrombocytopenia, unspecified; F10.10 Alcohol abuse, uncomplicated; I10 Essential (primary) hypertension; B19.20 Unspecified viral hepatitis C without hepatic coma; K29.80 Duodenitis without bleeding; K29.60 Other gastritis without bleeding; K22.70 Barrett's esophagus without dysplasia; I25.10 Atherosclerotic heart disease of native coronary artery without angina pectoris; M19.90 Unspecified osteoarthritis, unspecified site; K74.60 Unspecified cirrhosis of liver; K72.10 Chronic hepatic failure without coma; D53.9 Nutritional anemia, unspecified; D50.0 Iron deficiency anemia secondary to blood loss (chronic); B96.20 Unspecified Escherichia coli [E. coli] as the cause of diseases classified elsewhere; E86.0 Dehydration; E87.6 Hypokalemia; Y95 Nosocomial condition; E83.42 Hypomagnesemia; B96.89 Other specified bacterial agents as the cause of diseases classified elsewhere; I25.2 Old myocardial infarction; Z86.73 Personal history of transient ischemic attack (TIA), and cerebral infarction without residual deficits; Z86.718 Personal history of other venous thrombosis and embolism; Z87.891 Personal history of nicotine dependence
CPT/HCPCS: 36430; 49083; 71010; 74177; 76705; 76937; 80048; 80053; 80076; 81001; 83520; 83615; 83735; 84132; 84155; 85007; 85014; 85018; 85025; 85027; 85610; 85730; 86038; 86255; 86850; 86900; 86901; 86920; 86927; 87040; 87070; 87077; 87086; 87186; 87205; 87493; 87522; 87902; 89051; C1729; C9113; J0692; J0696; J0780; J1940; J1956; J2270; J2405; J2765; J3370; J3430; J3475; J7050; P9016; P9017; P9047; Q9963; Q9967

== ENCOUNTER 2017-05-10 08:23 | Inpatient (IN) | payer OTHER ==
[2017-05-10] VITALS (14 sets, daily range): BP systolic 100–123; BP diastolic 56–72; PULSE 88–98; RESP 14–20; TEMP 96.4–98.7; O2SAT 95–99
[~2017-05-10] VITALS: Ht 170.2 cm; Wt 88.9 kg
[~2017-05-10 08:23] MED LIST changes: -ACET325 PO; +ALDA50TA2 PO; -ASPI81TA82 PO; +FURO20TA PO; -LISI-360 PO; +PANT40TA3 PO; +PENT400T PO; +PHYT5TAB2 PO; +SUCR1TAB PO
--- NOTE | 2017-05-10 09:02 | PD ---
HPI Chief Complaint: Pain: Acute or Chronic Time Seen by Provider: 08:49 Travel History International Travel<30 days: No Contact w/Intl Traveler<30days: No Traveled to known affect area: No History of Present Illness HPI 52-year-old female presents by ambulance for pain all over. When you ask her to specify where it is she will say both my right legs and point to her thighs. Then when you ask her again she'll say I don't know and not wanting give more details. She states that it has been bothering her for a while. She does confirm she was recently here in the hospital but does not remember what for. She states she took all of her medications like she should. Patient is a poor historian. She states she hasn't drank since she had a little bit after she was discharged [facility] Past Medical History Narrative Medical By records Arthritis: Yes (knees, arms ,hands feet , back) Asthma: Yes Autoimmune Disease: No Blood Disorders: Yes (BLOOD CLOTS) Anxiety: No Depression: No Heart Rhythm Problems: Yes Cancer: No Cardiac Catheterization: Yes (ANGIOPLASTY 2004) Cardiovascular Problems: Yes (HTN) High Cholesterol: No Chemotherapy: No Chest Pain: Yes Congestive Heart Failure: No Cirrhosis: Yes COPD: Yes Cerebrovascular Accident: Yes Diabetes: No Diminished Hearing: No Endocrine: No Gastrointestinal Disorders: Yes GERD: No Glaucoma: No Genitourinary: No Headaches: Yes Hepatitis: Yes (HEP C) Hiatal Hernia: No Hypertension: Yes Immune Disorder: No Implanted Vascular Access Dvce: Yes Kidney Stones: No Musculoskeletal: Yes Neurologic: No Psychiatric: No Reproductive: No Respiratory: Yes (ASTHMA, COPD) Immunizations Current: Yes Migraines: Yes Myocardial Infarction: Yes (X1) Radiation Therapy: No Renal Failure: No Seizures: No Sickle Cell Disease: No Sleep Apnea: No Thyroid Disease: No Ulcer: No ?: Not Menopausal: Yes : 5 Para: 3 Miscarriage: 1 : 1 Tubal Ligation: Yes Past Surgical History Narrative Surgical By records Abdominal Surgery: No AICD: No Appendectomy: No Arteriovenous Shunt: No Body Medical Devices: TITANIUM ANDRES WITH SCREWS Cardiac Surgery: Yes (pt had one tia x 2 and one mi) Cholecystectomy: No Coronary Artery Bypass Graft: No Ear Surgery: Yes (LEFT EARDRUM PERFORATED , SURGERY REPAIR) Endocrine Surgery: No Eye Surgery: No Genitourinary Surgery: No Insulin Pump: No Joint Replacement: No Neurologic Surgery: No Oral Surgery: No Pacemaker: No Tympanostomy Tube: Yes Other Surgery: Yes (eardrum, back , tubal ligation, angioplasty,) Social History Alcohol Use: Yes (2-3 BEERS PER DAY, PT STATES SHE QUIT ONE WEEK AGO) Tobacco Use: Yes (PK/DAY, PT STATES SHE QUIT ONE WEEK AGO) Substance Use: No Allergies-Medications (Allergen,Severity, Reaction): Coded Allergies: No Known Allergies (Verified , 05/10/17) Reported Meds & Prescriptions Reported Meds & Active Scripts Active Furosemide 20 Mg Tab 20 Mg PO DAILY Sucralfate 1 Gm Tab 1 Gm PO ACHS on empty stomach Aldactone (Spironolactone) 50 Mg Tab 50 Mg PO DAILY Mephyton (Phytonadione) 5 Mg Tab 10 Mg PO DAILY Pentoxifylline ER (Pentoxifylline) 400 Mg Tab 400 Mg PO Q8HR Pantoprazole (Pantoprazole Sodium) 40 Mg Tab 40 Mg PO BID Review of Systems ROS Limitations: Poor Historian Except as stated in HPI: all other systems reviewed are Neg Physical Exam Exam Limitations: Poor Historian Narrative GENERAL: Chronically ill-appearing, well-developed patient. SKIN: Warm and dry. Jaundiced HEAD: Normocephalic and atraumatic. EYES: No injection or drainage. ENT: No nasal drainage noted. NECK: Supple, trachea midline. CARDIOVASCULAR: Regular rate and rhythm RESPIRATORY: No increased effort. No accessory muscle use. GASTROINTESTINAL: Abdomen soft, non-tender, moderate distention NEUROLOGICAL: Awake. Moves all extremities and sensory grossly within normal limits. Clear speech. RECTAL EXAM: Performed with education general manager and after permission. No external hemorrhoid or fissure, stool is brown, non-bloody. Data Data Last Documented VS Vital Signs Date Time Temp Pulse Resp B/P Pulse Ox O2 Delivery O2 Flow Rate FiO2 05/10/17 09:02 20 99 05/10/17 08:32 98.1 93 120/59 Orders Magnesium (Mg) (05/10/17 08:50) Phosphorus (Po4) (05/10/17 08:50) Complete Blood Count With Diff (05/10/17 08:50) Comprehensive Metabolic Panel (05/10/17 08:50) Creatine Kinase (Cpk) (05/10/17 08:50) Act Partial Throm Time (Ptt) (05/10/17 08:50) Prothrombin Time / Inr (Pt) (05/10/17 08:50) Iv Access Insert/Monitor (05/10/17 08:50) Ecg Monitoring (05/10/17 08:50) Oximetry (05/10/17 08:50) Ammonia (05/10/17 08:55) Lactic Acid (05/10/17 08:55) Femur (Ap & Lat/2vws) (05/10/17 ) Urinalysis - C+S If Indicated (05/10/17 08:55) Chest, Single Ap (05/10/17 ) Pelvis, Ap Only (Routine) (05/10/17 ) Red Blood Cells (Rbc) (05/10/17 09:26) Blood Product Administration .UPON TRANSFUSION (05/10/17 09:26) Sodium Chlor 0.9% 250 Ml Inj (Ns 250 Ml (05/10/17 09:30) Type And Screen (05/10/17 09:26) Pantoprazole Inj (Protonix Inj) (05/10/17 10:00) Pantoprazole Inj (Protonix Inj) (05/10/17 10:00) Sodium Chlor 0.9% 1000 Ml Inj (Ns 1000 M (05/10/17 10:00) Lactulose Liq (Lactulose Liq) (05/10/17 10:00) Blood Culture (05/10/17 09:50) Vancomycin Inj (Vancomycin Inj) (05/10/17 09:50) Piperacil-Tazo 4.5 Gm Premix (Zosyn 4.5 (05/10/17 09:50) Urinary Catheter Insert/Apply (05/10/17 09:53) Admit Order (Ed Use Only) (05/10/17 10:32) Labs Laboratory Tests Test 05/10/17 05/10/17 05/10/17 09:05 09:25 10:10 White Blood Count 8.2 TH/MM3 Red Blood Count 1.60 MIL/MM3 Hemoglobin 6.2 GM/DL Hematocrit 16.9 % Mean Corpuscular Volume 105.6 FL Mean Corpuscular Hemoglobin 39.0 PG Mean Corpuscular Hemoglobin 37.0 % Concent Red Cell Distribution Width 29.2 % Platelet Count 74 TH/MM3 Mean Platelet Volume 9.2 FL Neutrophils (%) (Auto) 72.6 % Lymphocytes (%) (Auto) 14.7 % Monocytes (%) (Auto) 9.8 % Eosinophils (%) (Auto) 2.3 % Basophils (%) (Auto) 0.6 % Neutrophils # (Auto) 5.9 TH/MM3 Lymphocytes # (Auto) 1.2 TH/MM3 Monocytes # (Auto) 0.8 TH/MM3 Eosinophils # (Auto) 0.2 TH/MM3 Basophils # (Auto) 0.0 TH/MM3 CBC Comment AUTO DIFF Differential Comment AUTO DIFF CONFIRMED Platelet Estimate LOW Platelet Morphology Comment NORMAL [place] Cells 1+ Prothrombin Time 29.8 SEC Prothromb Time International 2.6 RATIO Ratio Activated Partial 77.3 SEC Thromboplast Time Sodium Level 132 MEQ/L Potassium Level 3.1 MEQ/L Chloride Level 96 MEQ/L Carbon Dioxide Level 20.1 MEQ/L Anion Gap 16 MEQ/L Blood Urea Nitrogen 43 MG/DL Creatinine 2.68 MG/DL Estimat Glomerular Filtration 19 ML/MIN Rate Random Glucose 156 MG/DL Lactic Acid Level 4.2 mmol/L Calcium Level 9.5 MG/DL Phosphorus Level 1.8 MG/DL Magnesium Level 1.0 MG/DL Total Bilirubin 13.4 MG/DL Aspartate Amino Transf 96 U/L (AST/SGOT) Alanine Aminotransferase 29 U/L (ALT/SGPT) Alkaline Phosphatase 58 U/L Ammonia 74 MCMOL/L Total Creatine Kinase 156 U/L Total Protein 7.3 GM/DL Albumin 3.4 GM/DL Blood Type AB NEGATIVE Antibody Screen NEGATIVE Crossmatch Leukocyte-Reduced Red Blood Cells Blood Bank Comment Urine Color DARK-BROWN Urine Turbidity CLEAR Urine pH 5.5 Urine Specific [place] 1.016 Urine Protein TRACE mg/dL Urine Glucose (UA) NEG mg/dL Urine Ketones NEG mg/dL Urine Occult Blood NEG Urine Nitrite NEG Urine Bilirubin SMALL Urine Urobilinogen LESS THAN 2.0 MG/DL Urine Leukocyte Esterase SMALL Urine RBC 5 /hpf Urine WBC 7 /hpf Urine Hyaline Casts 3 /lpf Urine Mucus FEW /lpf Urine Yeast (Budding) FEW Microscopic Urinalysis Comment CULT NOT INDICATED MDM Medical Decision Making Medical Screen Exam Complete: Yes Emergency Medical Condition: Yes Medical Record Reviewed: Yes (past history confirmed, recent hospitalization reviewed for hospital-acquired pneumonia with gram-negative bacteremia) Interpretation(s) CBC & BMP Diagram 05/10/17 09:05 Last 24 hours Impressions Pelvis X-Ray 05/10/17 0000 Signed Impressions: Service Date/Time: Wednesday, May 10, 2017 09:07 - CONCLUSION: Negative for fracture Michael Sevilla MD FACR Femur X-Ray 05/10/17 0000 Signed Impressions: Service Date/Time: Wednesday, May 10, 2017 09:09 - CONCLUSION: Degenerative changes about the knee otherwise negative. Michael Sevilla MD FACR Chest X-Ray 05/10/17 0000 Signed Impressions: Service Date/Time: Wednesday, May 10, 2017 09:08 - CONCLUSION: No acute disease. Michael Sevilla MD FACR Differential Diagnosis UTI, renal failure, arthritis, rhabdomyolysis... Narrative Course Will check blood work, urinalysis, imaging and reevaluate ed workup shows recurrence of critical anemia. Patient is guaiac negative but given history of recent EGD with ulcer Will place on Protonix drip. Patient also has significant lactic acidosis which is likely related to her end-stage liver disease but given her risk of infection we'll place on Zosyn and vancomycin while awaiting cultures. Patient also has acute renal failure and IV fluids will be given. Patient additionally has hepatic encephalopathy and lactulose was ordered. She was updated about these results and agrees to admission. Critical Care Narrative Aggregate critical care time was 31 minutes. Time to perform other separately billable procedures was not included in the critical care time. My time did not include minutes spent treating any other patients simultaneously or on activities that did not directly contribute to the patient's treatment. The services I provided to this patient were to treat and/or prevent clinically significant deterioration that could result in: Shock, I provided critical care services requiring my management, as noted below: Chart data review, documentation time, medication orders and management, vital sign assessments/reviewing monitor data, ordering and reviewing lab tests, ordering and interpreting/reviewing x-rays and diagnostic studies, care of the patient and discussion of the patient with the admitting physicians. [facility] Point of Care Internal Pos. & Neg. Controls: Passed Fecal Specimen Occult Blood: Negative Physician Communication Physician Communication dr bloom agrees to admit, states ok for floor Diagnosis Primary Impression: Anemia Qualified Code: D64.9 - Anemia, unspecified type Additional Impressions: Liver failure Qualified Code: K72.90 - Liver failure without hepatic coma, unspecified chronicity Right knee pain Qualified Code: M25.561 - Right knee pain, unspecified chronicity Coagulopathy NEGRO (acute kidney injury) Hepatic encephalopathy Lactic acidosis Thrombocytopenia Hypokalemia Admitting Information Admitting Physician Requests: Admit Laverne Akbar MD May 10, 2017 09:02
[2017-05-10 09:14] LABS: AUTOMATED NEUTROPHIL # 5.9 TH/MM3 (1.8-7.7); BASOPHIL % 0.6 % (0.0-2.0); EOSINOPHIL # 0.2 TH/MM3 (0-0.4); EOSINOPHIL % 2.3 % (0.0-4.0); LYMPH % 14.7 % (9.0-44.0); LYMPHOCYTE # 1.2 TH/MM3 (1.0-4.8); MEAN CELL VOLUME 105.6 FL (80.0-100.0); MONO % 9.8 % (0.0-8.0); NEUT % 72.6 % (16.0-70.0); PLATELET COUNT 74 TH/MM3 (150-450); RED CELL DISTRIBUTION WIDTH 29.2 % (11.6-17.2); WHITE BLOOD COUNT 8.2 TH/MM3 (4.0-11.0)
[2017-05-10 09:19] LABS: HEMO FLAGS AUTO DIFF
[2017-05-10 09:20] LABS: HEMATOCRIT 16.9 % (35.0-46.0)
[2017-05-10 09:30] LABS: ANION GAP 16 MEQ/L (5-15); AST (GOT) 96 U/L (15-37); BICARBONATE 20.1 MEQ/L (21.0-32.0); BLOOD UREA NITROGEN 43 MG/DL (7-18); CHLORIDE 96 MEQ/L (98-107); GLOMERULAR FILTRATION RATE 19 ML/MIN (>89); POTASSIUM 3.1 MEQ/L (3.5-5.1); SODIUM (NA) 132 MEQ/L (136-145)
[2017-05-10] MEDS ORDERED: SODIUM CHLOR 0.9% 250 ML INJ 250 ML IV ONE (09:30)
[2017-05-10 09:31] LABS: ALT (GPT) 29 U/L (10-53)
[2017-05-10 09:34] LABS: ALKALINE PHOSPHATASE 58 U/L (45-117); CREATINE KINASE 156 U/L (26-192); TOTAL BILIRUBIN ADULT 13.4 MG/DL (0.2-1.0)
--- NOTE | 2017-05-10 09:35 | RADRPT ---
EXAM DATE/TIME: 05/10/2017 09:08 [facility] COMPARISON: CHEST SINGLE AP, April 26, 2017, 17:12. INDICATIONS : Cough. Right leg pain. MEDICAL HISTORY : Hypertension. Hepatitis C. Myocardial infarction. ETOH. COPD. TIA. SURGICAL HISTORY : Lumbar fusion. ENCOUNTER: Initial ACUITY: 1 day PAIN SCORE: 0/10 LOCATION: Bilateral chest FINDINGS: A single view of the chest demonstrates the lungs to be symmetrically aerated without evidence of mas s, infiltrate or effusion. The cardiomediastinal contours are unremarkable. Osseous structures are intact. CONCLUSION: No acute disease. Michael Sevilla MD FACR on May 10, 2017 at 9:33 Board Certified Radiologist. This report was verified electronically.
--- NOTE | 2017-05-10 09:35 | RADRPT ---
EXAM DATE/TIME: 05/10/2017 09:07 [facility] COMPARISON: No previous studies available for comparison. INDICATIONS : Pain without fall. MEDICAL HISTORY : Hypertension. Hepatitis C. Myocardial infarction. ETOH. COPD. TIA. SURGICAL HISTORY : Lumbar fusion. ENCOUNTER: Initial ACUITY: 2 days PAIN SCORE: 7/10 LOCATION: Right leg. FINDINGS: A single frontal view of the pelvis demonstrates no evidence of fracture. The bony pelvic ring is in tact. Bony mineralization is normal. The soft tissues are intact. CONCLUSION: Negative for fracture Michael Sevilla MD FACR on May 10, 2017 at 9:33 Board Certified Radiologist. This report was verified electronically.
--- NOTE | 2017-05-10 09:36 | RADRPT ---
EXAM DATE/TIME: 05/10/2017 09:09 [facility] COMPARISON: No previous studies available for comparison. INDICATIONS : Pain without fall. MEDICAL HISTORY : Hypertension. Hepatitis C. Myocardial infarction. ETOH. COPD. TIA. SURGICAL HISTORY : Lumbar fusion. ENCOUNTER: Initial ACUITY: 2 days PAIN SCORE: 7/10 LOCATION: Right leg. FINDINGS: Two view examination of the right femur demonstrates no evidence of fracture or dislocation. Bony mi neralization is normal. The soft tissue structures are intact. CONCLUSION: Degenerative changes about the knee otherwise negative. Michael Sevilla MD FACR on May 10, 2017 at 9:34 Board Certified Radiologist. This report was verified electronically.
[2017-05-10 09:40] LABS: BURR CELLS 1+ (NORMAL); PLATELET ESTIMATE SMEAR LOW (NORMAL); PLATELET MORPHOLOGY NORMAL (NORMAL); SCAN/DIFF AUTO DIFF CONFIRMED
[2017-05-10] MEDS ORDERED: VANCOMYCIN INJ 1,000 MG in SODIUM CHLOR 0.9% 250 ML INJ 250 ML IV STA (09:50)
[2017-05-10] MEDS ORDERED: PIPERACIL-TAZO 4.5 GM PREMIX 100 ML IV STA (09:50)
[2017-05-10] MEDS ORDERED: LACTULOSE SYRUP 20 GM/30 ML CUP PO ONE (10:00)
[2017-05-10] MEDS ORDERED: SODIUM CHLOR 0.9% 1000 ML INJ 1,000 ML IV ONE (10:00)
[2017-05-10] MEDS ORDERED: PANTOPRAZOLE INJ 80 MG in SODIUM CHLORIDE 0.9% INJ 35 ML IV ONE (10:00)
[2017-05-10 10:05] LABS: APTT (PATIENT) 77.3 SEC (24.3-30.1); INTERNATIONAL NORMALIZED RATIO 2.6 RATIO; PROTHROMBIN TIME - PATIENT 29.8 SEC (9.8-11.6)
[2017-05-10] MEDS: PANTOPRAZOLE INJ 80 MG in SODIUM CHLORIDE 0.9% INJ 100 ML IV SCH ×3 (10:15→20:39)
[2017-05-10] MEDS: SODIUM CHLOR 0.45% 1000 ML INJ 1,000 ML IV SCH ×2 (10:32→22:15)
[2017-05-10 10:36] LABS: BLOOD, URINE NEG (NEG); COMMENT (UR) CULT NOT INDICATED; CULTURE IF INDICATED CULT NOT INDICATED; GLUCOSE,URINE NEG (NEG); HYALINE CAST, URINE 3 /lpf (RARE); KETONE, URINE NEG (NEG); MUCUS URINE FEW /lpf (OCC); NITRITE,URINE NEG (NEG); PH, URINE 5.5 (5.0-8.5)
[2017-05-10 10:45] LABS: URINE COLOR DARK-BROWN (YELLW/STRAW)
[2017-05-10] MEDS ORDERED: BISACODYL 10 MG SUPP RECTAL PRN (10:45)
[2017-05-10] MEDS ORDERED: NALOXONE HCL 0.4 MG/ML AMP IV PRN (10:45)
[2017-05-10] MEDS ORDERED: MAGNESIUM HYDROXIDE SUSP 30 ML CUP PO PRN (10:45)
[2017-05-10] MEDS ORDERED: ONDANSETRON HCL 4 MG/2 ML VIAL IVP PRN (10:45)
[2017-05-10] MEDS ORDERED: LACTULOSE SYRUP 20 GM/30 ML CUP PO PRN (10:45)
[2017-05-10] MEDS ORDERED: SENNOSIDES 8.6 MG TAB PO PRN (10:45)
[2017-05-10] MEDS ORDERED: SODIUM CHLORIDE 0.9% FLUSH 10 ML FLUSH IV FLUSH PRN (10:45)
[2017-05-10] MEDS ORDERED: FLUCONAZOLE 200 MG TAB PO ONE (11:00)
--- NOTE | 2017-05-10 11:50 | HHI.HP ---
[facility] Service [facility] ([place], [place])ists Primary Care Physician Farzana Rodriguez MD Admission Diagnosis anemia, lactic acidosis, hepatic encephalopathy Diagnoses: Chief Complaint: Right lower extreme pain Travel History International Travel<30 Days: No Contact w/Intl Traveler <30 Da: No Traveled to Known Affected Are: No History of Present Illness 52-year-old female with recent admission secondary to end-stage liver disease with coagulopathy secondary to hepatitis C and alcoholism, GI bleed, bacteremia who presented with right lower extremity pain. Patient stated that before being discharged on her last admission in April she did have right lower extremity pain but it was not addressed. She stated it got worse where she was unable get up because of the pain. She cannot tell me where the pain was exactly located and stated that it's was generalized to her entire right lower leg only when she moves. She denies any calf pain. During the workup in the emergency department patient was found to be anemic with hemoglobin is 6.2 and in renal failure. She denies any fevers or chills. Patient denies any GI bleed. Alcohol use. She could not tell me about her urine output. Patient stated that she would want to be comfortable. Review of Systems Constitutional: DENIES: Diaphoretic episodes, Fatigue, Fever, Weight gain, Weight loss, Chills, Dizziness, Change in appetite, Night Sweats Endocrine: DENIES: Abnorml menstrual pattern, Heat/cold intolerance, Polydipsia , Polyuria, Polyphagia Eyes: DENIES: Blurred vision, Diplopia, Eye inflammation, Eye pain, Vision loss , Photosensitivity, Double Vision Ears, nose, mouth, throat: DENIES: Tinnitus, Hearing loss, Vertigo, Nasal discharge, Oral lesions, Throat pain, Hoarseness, Ear Pain, Running Nose, Epistaxis, Sinus Pain, Toothache, Odynophagia Respiratory: DENIES: Apneas, Cough, Snoring, Wheezing, Hemoptysis, Sputum production, Shortness of breath Cardiovascular: DENIES: Chest pain, Palpitations, Syncope, Dyspnea on Exertion , PND, Lower Extremity Edema, Orthopnea, Claudication Gastrointestinal: DENIES: Abdominal pain, Black stools, Bloody stools, Constipation, Diarrhea, Nausea, Vomiting, Difficulty Swallowing, Anorexia Genitourinary: DENIES: Abnormal vaginal bleeding, Dysmenorrhea, Dyspareunia, Sexual dysfunction, Urinary frequency, Urinary incontinence, Urgency, Hematuria , Dysuria, Nocturia, Vaginal discharge Musculoskeletal: DENIES: Joint pain, Muscle aches, Stiffness, Joint Swelling, Back pain, Neck pain Integumentary: DENIES: Abnormal pigmentation, Pruritus, Rash, Nail changes, Breast masses, Breast skin changes, Nipple discharge Hematologic/lymphatic: DENIES: Bruising, Lymphadenopathy Immunologic/allergic: DENIES: Eczema, Urticaria Neurologic: COMPLAINS OF: Abnormal gait Psychiatric: DENIES: Anxiety, Confusion, Mood changes, Depression, Hallucinations, Agitation, Suicidal Ideation, Homicidal Ideation, Delusions Right lower extremity pain Past Family Social History Past Medical History End-stage liver disease Cirrhosis of the liver Alcohol abuse Arthritis HTN CAD Hep C COPD Asthma hx TIA hx ID Gastritis, duodenal ulcer, Lackey's esophagus Recently treated for bacteremia Past Surgical History Angioplasty Tubal Back surgery Bilateral TM (tympanic membrane) surgery Reported Medications Reported Meds & Active Scripts Active Furosemide 20 Mg Tab 20 Mg PO DAILY Sucralfate 1 Gm Tab 1 Gm PO ACHS on empty stomach Aldactone (Spironolactone) 50 Mg Tab 50 Mg PO DAILY Mephyton (Phytonadione) 5 Mg Tab 10 Mg PO DAILY Pentoxifylline ER (Pentoxifylline) 400 Mg Tab 400 Mg PO Q8HR Pantoprazole (Pantoprazole Sodium) 40 Mg Tab 40 Mg PO BID Allergies: Coded Allergies: No Known Allergies (Verified , 05/10/17) Active Ordered Medications Current Medications Sodium Chloride 250 ml @ 15 mls/hr ONCE ONCE IV Last administered on 11:37; Start 05/10/17 at 09:30; Stop 05/11/17 at 02:09 Pantoprazole Sodium 80 mg/ Sodium Chloride 35 ml @ 420 mls/hr ONCE ONCE IV Last administered on 05/10/17 11:14; Start 05/10/17 at 10:00; Stop 05/10/17 at 10:04; Status DC Pantoprazole Sodium 80 mg/ Sodium Chloride 100 ml @ 10 mls/hr Q10H IV Last administered on 05/10/17 10:17; Start 05/10/17 at 10:00 Sodium Chloride (NS 1000 ml Inj) 1,000 ml @ 999 mls/hr BOLUS ONCE IV Last administered on 05/10/17 10:14; Start 05/10/17 at 10:00; Stop 05/10/17 at 11:00 ; Status DC Lactulose 30 ml 30 ml ONCE ONCE PO Last administered on 05/10/17 11:15; Start 05/10/17 at 10:00; Stop 05/10/17 at 10:01; Status DC Vancomycin HCl 1000 mg/Sodium Chloride 250 ml @ 250 mls/hr ONCE STAT IV Last administered on 05/10/17 11:14; Start 05/10/17 at 09:50; Stop 05/10/17 at 10:49 ; Status DC Piperacillin Sod/ Tazobactam Sod 100 ml @ 200 mls/hr ONCE STAT IV Last administered on 05/10/17 10:14; Start 05/10/17 at 09:50; Stop 05/10/17 at 10:19 ; Status DC Sodium Chloride (1/2 NS 1000 ml Inj) 1,000 ml @ 75 mls/hr [id number] IV ; Start at 10:32 Sodium Chloride (NS Flush) 2 ml UNSCH PRN IV FLUSH FLUSH AFTER USING IV ACCESS ; Start 05/10/17 at 10:45 Sodium Chloride (NS Flush) 2 ml BID IV FLUSH ; Start 05/10/17 at 21:00 Ondansetron HCl (Zofran Inj) 4 mg Q6H PRN IVP NAUSEA OR VOMITING; Start at 10:45 Naloxone HCl (Narcan Inj) 0.4 mg UNSCH PRN IV SEE LABEL COMMENTS; Start at 10:45 Senna/Docusate Sodium (Anna-Colace) 1 tab BID PO ; Start 05/10/17 at 21:00 Magnesium Hydroxide (Milk Of Magnesia Liq) 30 ml Q12H PRN PO MILD - MODERATE CONSTIPATION; Start 05/10/17 at 10:45 Sennosides (Senokot) 17.2 mg Q12H PRN PO MODERATE - SEVERE CONSTIPATION; Start 05/10/17 at 10:45 Bisacodyl (Dulcolax Supp) 10 mg DAILY PRN RECTAL SEVERE CONSITIPATION; Start at 10:45 Lactulose (Lactulose Liq) 30 ml DAILY PRN PO SEVERE CONSITIPATION; Start at 10:45 Fluconazole (Diflucan) 200 mg ONCE ONCE PO ; Start 05/10/17 at 11:00; Stop at 11:01; Status DC Family History Mom: Cirrhosis Brother: DM Social History Per patient quit smoking on last admission. Also denied any recent alcohol use since recent admission. Denies any illicit drug use. Physical Exam Vital Signs Vital Signs Date Time Temp Pulse Resp B/P Pulse Ox O2 Delivery O2 Flow Rate FiO2 05/10/17 11:35 98.5 96 20 106/57 99 Room Air 05/10/17 10:55 98 18 113/61 98 Room Air 05/10/17 09:02 20 99 05/10/17 08:42 18 05/10/17 08:32 98.1 93 20 120/59 99 Physical Exam GENERAL: This is a chronic ill appearing patient's in no acute distress but his jaundice. SKIN: Patient is diffusely jaundiced HEAD: Atraumatic. Normocephalic. No temporal or scalp tenderness. EYES: Pupils equal round and reactive. Extraocular motions intact.+ scleral icterus. No injection or drainage. ENT: Nose without bleeding, purulent drainage or septal hematoma. Throat without erythema, tonsillar hypertrophy or exudate. Uvula midline. Airway patent. NECK: Trachea midline. No JVD or lymphadenopathy. Supple, nontender, no meningeal signs. CARDIOVASCULAR: Regular rate and rhythm without murmurs, gallops, or rubs. RESPIRATORY: Clear to auscultation. Breath sounds equal bilaterally. No wheezes , rales, or rhonchi. GASTROINTESTINAL: Abdomen soft, non-tender, positive for distention. Negative for any peritoneal signs. MUSCULOSKELETAL: Right lower extremity patient was able to move her lower extremity with full range of motion, but per patient had pain. She cannot localize the pain. No calf tenderness. Negative Homans sign bilaterally. NEUROLOGICAL: Awake and alert. Cranial nerves II through XII intact. Motor and sensory grossly within normal limits. Speech is normal. Laboratory Laboratory Tests Test 05/10/17 05/10/17 05/10/17 09:05 09:25 10:10 White Blood Count 8.2 Red Blood Count 1.60 Hemoglobin 6.2 Hematocrit 16.9 Mean Corpuscular Volume 105.6 Mean Corpuscular Hemoglobin 39.0 Mean Corpuscular Hemoglobin 37.0 Concent Red Cell Distribution Width 29.2 Platelet Count 74 Mean Platelet Volume 9.2 Neutrophils (%) (Auto) 72.6 Lymphocytes (%) (Auto) 14.7 Monocytes (%) (Auto) 9.8 Eosinophils (%) (Auto) 2.3 Basophils (%) (Auto) 0.6 Neutrophils # (Auto) 5.9 Lymphocytes # (Auto) 1.2 Monocytes # (Auto) 0.8 Eosinophils # (Auto) 0.2 Basophils # (Auto) 0.0 CBC Comment AUTO DIFF Differential Comment AUTO DIFF CONFIRMED Platelet Estimate LOW Platelet Morphology Comment NORMAL Radha Cells 1+ Prothrombin Time 29.8 Prothromb Time International 2.6 Ratio Activated Partial 77.3 Thromboplast Time Sodium Level 132 Potassium Level 3.1 Chloride Level 96 Carbon Dioxide Level 20.1 Anion Gap 16 Blood Urea Nitrogen 43 Creatinine 2.68 Estimat Glomerular Filtration 19 Rate Random Glucose 156 Lactic Acid Level 4.2 Calcium Level 9.5 Phosphorus Level 1.8 Magnesium Level 1.0 Total Bilirubin 13.4 Aspartate Amino Transf 96 (AST/SGOT) Alanine Aminotransferase 29 (ALT/SGPT) Alkaline Phosphatase 58 Ammonia 74 Total Creatine Kinase 156 Total Protein 7.3 Albumin 3.4 Blood Type AB NEGATIVE Antibody Screen NEGATIVE Crossmatch Leukocyte-Reduced Red Blood Cells Blood Bank Comment Urine Color DARK-BROWN Urine Turbidity CLEAR Urine pH 5.5 Urine Specific [place] 1.016 Urine Protein TRACE Urine Glucose (UA) NEG Urine Ketones NEG Urine Occult Blood NEG Urine Nitrite NEG Urine Bilirubin SMALL Urine Urobilinogen LESS THAN 2.0 Urine Leukocyte Esterase SMALL Urine RBC 5 Urine WBC 7 Urine Hyaline Casts 3 Urine Mucus FEW Urine Yeast (Budding) FEW Microscopic Urinalysis Comment CULT NOT INDICATED Date/Time Procedure Status Source Growth 05/10/17 10:04 Aerobic Blood Culture Received Blood Peripheral Pending 05/10/17 10:04 Anaerobic Blood Culture Received Blood Peripheral Pending Result Diagram: 05/10/17 0905 05/10/17 0905 Imaging Last Impressions Pelvis X-Ray 05/10/17 0000 Signed Impressions: Service Date/Time: Wednesday, May 10, 2017 09:07 - CONCLUSION: Negative for fracture Michael Sevilla MD FACR Femur X-Ray 05/10/17 0000 Signed Impressions: Service Date/Time: Wednesday, May 10, 2017 09:09 - CONCLUSION: Degenerative changes about the knee otherwise negative. Michael Sevilla MD FACR Chest X-Ray 05/10/17 0000 Signed Impressions: Service Date/Time: Wednesday, May 10, 2017 09:08 - CONCLUSION: No acute disease. Michael Sevilla MD FACR Assessment and Plan Assessment and Plan 52-year-old female with End-stage liver disease with coagulopathy, complicated by ascites secondary to alcoholism and hepatitis C -Very poor prognosis. INR is 2.6. During recent admission she was given multiple transfusion. -Will consult palliative care. -Continue with supportive care and resume home medication. Right lower extremity leg pain -Very nonspecific. Only occurs with movement. -Per patient she did have symptoms before being discharged on her prior admission. -X-rays are negative. Very unlikely a DVT. She does not have any calf pain and no swelling. Plus patient INR is 2.6. -Continue with pain control. -consult PT but due to underlying diagnoses she will not do well with physical therapy. Acute renal failure -On prior recent admission patient acute renal failure resolved. Now she is an acute renal failure again. Most likely hepatorenal. -Patient is third spacing. -Strict ins and outs. Continue to monitor creatinine. -Avoid nephrotoxins. -Consult automotive professional. Anemia Hemoglobin 6.2 which last H was 8.0 -Secondary to liver failure. -Patient denied any GI bleed. She had a recent EGD done. -She is currently being transfused packed red blood cells. Follow posttransfusion H&H. Continue to monitor clinically. Erosive gastritis, duodenal ulcers, Lackey's esophagus, EGD on 04/16/17 -Resume home medication. DVT prophylaxis -Patient is auto anticoagulated Code Status Discussed extensively on code status with patient and she stated she wants to be a DO NOT RESUSCITATE. Discussed Condition With Patient has end-stage liver disease with possible hepatorenal failure very poor prognosis. Will consult palliative care. Patient is a DO NOT RESUSCITATE. Physician Certification 2 Midnight Certification Type: Admission for Inpatient Services Order for Inpatient Services The services are ordered in accordance with Medicare regulations or non- Medicare payer requirements, as applicable. In the case of services not specified as inpatient-only, they are appropriately provided as inpatient services in accordance with the 2-midnight benchmark. Estimated LOS (days): 3 3 days is the estimated time the patient will need to remain in the hospital, assuming treatment plan goals are met and no additional complications. Post-Hospital Plan: Not yet determined Virginia Rivera MD May 10, 2017 11:50
[2017-05-10] MEDS ORDERED: MORPHINE SULFATE ORAL SOLN 10 MG/0.5 ML SYRINGE PO ONE (12:15)
[2017-05-10] MEDS: PENTOXIFYLLINE 400 MG CONTROLLED RELEASE TAB PO SCH ×2 (14:48→22:15)
[2017-05-10] MEDS: SUCRALFATE 1 GM TAB PO SCH ×2 (14:48→20:39)
--- NOTE | 2017-05-10 15:48 | PD.CONS ---
HPI Service Nephrology Consult Requested By Dr. Rivera Reason for Consult Dr. Farooq Primary Care Physician Farzana Rodriguez MD History of Present Illness Patient is a 52-year-old white female with history of cirrhosis of the liver, alcoholism, hepatitis C who has been admitted with increasing right lower extremity pain fatigue, ascites and jaundice, patient has indwelling Morfin catheter in place, she states her last alcoholic beverage was on April 15, She has a hemoglobin of 6.2 and acute renal failure with a creatinine of 2.6 a week ago her creatinine was 0.9 Review of Systems Constitutional: COMPLAINS OF: Fatigue Gastrointestinal: COMPLAINS OF: Anorexia Musculoskeletal: COMPLAINS OF: Joint pain, Muscle aches Past Family Social History Allergies: Coded Allergies: No Known Allergies (Verified , 05/10/17) Past Medical History End-stage liver disease Cirrhosis of the liver Alcohol abuse Arthritis HTN CAD Hep C COPD Asthma hx TIA hx [place] Gastritis, duodenal ulcer, Lackey's esop Past Surgical History Angioplasty Tubal Back surgery Bilateral TM surgery Reported Medications Reported Meds & Active Scripts Active Furosemide 20 Mg Tab 20 Mg PO DAILY Sucralfate 1 Gm Tab 1 Gm PO ACHS on empty stomach Aldactone (Spironolactone) 50 Mg Tab 50 Mg PO DAILY Mephyton (Phytonadione) 5 Mg Tab 10 Mg PO DAILY Pentoxifylline ER (Pentoxifylline) 400 Mg Tab 400 Mg PO Q8HR Pantoprazole (Pantoprazole Sodium) 40 Mg Tab 40 Mg PO BID Active Ordered Medications Current Medications Medications (Trade) Dose Ordered Sig/Teresa Route Start Time Stop Time Status Last Admin Sodium Chloride 250 ml @ 15 mls/hr ONCE ONCE IV 05/10/17 09:30 05/11/17 02:09 05/10/17 11:37 Pantoprazole Sodium 80 mg/ Sodium Chloride 100 ml @ 10 mls/hr Q10H IV 05/10/17 10:00 05/10/17 10:17 (1/2 NS 1000 ml Inj) 1,000 ml @ 75 mls/hr [id number] IV 05/10/17 10:32 (NS Flush) 2 ml UNSCH PRN IV FLUSH 05/10/17 10:45 (NS Flush) 2 ml BID IV FLUSH 05/10/17 21:00 (Zofran Inj) 4 mg Q6H PRN IVP 05/10/17 10:45 (Narcan Inj) 0.4 mg UNSCH PRN IV 05/10/17 10:45 (Anna-Colace) 1 tab BID PO 05/10/17 21:00 (Milk Of Magnesia Liq) 30 ml Q12H PRN PO 05/10/17 10:45 (Senokot) 17.2 mg Q12H PRN PO 05/10/17 10:45 (Dulcolax Supp) 10 mg DAILY PRN RECTAL 05/10/17 10:45 (Lactulose Liq) 30 ml DAILY PRN PO 05/10/17 10:45 (Lasix) 20 mg DAILY PO 05/11/17 09:00 (Protonix) 40 mg BID PO 05/10/17 21:00 (TRENtal SR) 400 mg Q8HR PO 05/10/17 14:00 05/10/17 14:48 (Mephyton) 10 mg DAILY PO 05/11/17 09:00 (Aldactone) 50 mg DAILY PO 05/11/17 09:00 (Carafate) 1 gm ACHS PO 05/10/17 16:00 05/10/17 14:48 Family History Noncontributory Social History Drinks alcohol then have a lasting April 15 Physical Exam Vital Signs Vital Signs Date Time Temp Pulse Resp B/P Pulse Ox O2 Delivery O2 Flow Rate FiO2 05/10/17 14:56 96.7 88 17 104/56 98 05/10/17 13:00 96.9 88 17 104/56 98 05/10/17 12:20 98.5 94 18 100/58 95 05/10/17 11:45 98.7 92 18 107/60 95 Room Air 05/10/17 11:35 98.5 96 20 106/57 99 Room Air 05/10/17 10:55 98 18 113/61 98 Room Air 05/10/17 09:02 20 99 05/10/17 08:42 18 05/10/17 08:32 98.1 93 20 120/59 99 Physical Exam GENERAL: Well-nourished, well-developed patient. SKIN: Warm and dry. HEAD: Normocephalic. EYES: Positive scleral icterus. No injection or drainage. NECK: Supple, trachea midline. No JVD or lymphadenopathy. CARDIOVASCULAR: Regular rate and rhythm without murmurs, gallops, or rubs. RESPIRATORY: Breath sounds equal bilaterally. No accessory muscle use. GASTROINTESTINAL: Abdomen soft, distended. EXTREMITIES: No cyanosis, or edema. NEUROLOGICAL: Awake, alert, and oriented x 3. Non-focal. Laboratory Laboratory Tests Test 05/10/17 05/10/17 05/10/17 09:05 09:25 10:10 White Blood Count 8.2 Red Blood Count 1.60 Hemoglobin 6.2 Hematocrit 16.9 Mean Corpuscular Volume 105.6 Mean Corpuscular Hemoglobin 39.0 Mean Corpuscular Hemoglobin 37.0 Concent Red Cell Distribution Width 29.2 Platelet Count 74 Mean Platelet Volume 9.2 Neutrophils (%) (Auto) 72.6 Lymphocytes (%) (Auto) 14.7 Monocytes (%) (Auto) 9.8 Eosinophils (%) (Auto) 2.3 Basophils (%) (Auto) 0.6 Neutrophils # (Auto) 5.9 Lymphocytes # (Auto) 1.2 Monocytes # (Auto) 0.8 Eosinophils # (Auto) 0.2 Basophils # (Auto) 0.0 CBC Comment AUTO DIFF Differential Comment AUTO DIFF CONFIRMED Platelet Estimate LOW Platelet Morphology Comment NORMAL Gray Cells 1+ Prothrombin Time 29.8 Prothromb Time International 2.6 Ratio Activated Partial 77.3 Thromboplast Time Sodium Level 132 Potassium Level 3.1 Chloride Level 96 Carbon Dioxide Level 20.1 Anion Gap 16 Blood Urea Nitrogen 43 Creatinine 2.68 Estimat Glomerular Filtration 19 Rate Random Glucose 156 Lactic Acid Level 4.2 Calcium Level 9.5 Phosphorus Level 1.8 Magnesium Level 1.0 Total Bilirubin 13.4 Aspartate Amino Transf 96 (AST/SGOT) Alanine Aminotransferase 29 (ALT/SGPT) Alkaline Phosphatase 58 Ammonia 74 Total Creatine Kinase 156 Total Protein 7.3 Albumin 3.4 Ethyl Alcohol Level LESS THAN 3 Blood Type AB NEGATIVE Antibody Screen NEGATIVE Crossmatch Leukocyte-Reduced Red Blood Cells Blood Bank Comment Urine Color DARK-BROWN Urine Turbidity CLEAR Urine pH 5.5 Urine Specific [place] 1.016 Urine Protein TRACE Urine Glucose (UA) NEG Urine Ketones NEG Urine Occult Blood NEG Urine Nitrite NEG Urine Bilirubin SMALL Urine Urobilinogen LESS THAN 2.0 Urine Leukocyte Esterase SMALL Urine RBC 5 Urine WBC 7 Urine Hyaline Casts 3 Urine Mucus FEW Urine Yeast (Budding) FEW Microscopic Urinalysis Comment CULT NOT INDICATED Date/Time Procedure Status Source Growth 05/10/17 10:04 Aerobic Blood Culture Received Blood Peripheral Pending 05/10/17 10:04 Anaerobic Blood Culture Received Blood Peripheral Pending Result Diagram: 05/10/17 0905 05/10/17 09 Imaging Last Impressions Pelvis X-Ray 05/10/17 0000 Signed Impressions: Service Date/Time: Wednesday, May 10, 2017 09:07 - CONCLUSION: Negative for fracture Michael Sevilla MD FACR Femur X-Ray 05/10/17 0000 Signed Impressions: Service Date/Time: Wednesday, May 10, 2017 09:09 - CONCLUSION: Degenerative changes about the knee otherwise negative. Michael Sevilla MD FACR Chest X-Ray 05/10/17 0000 Signed Impressions: Service Date/Time: Wednesday, May 10, 2017 09:08 - CONCLUSION: No acute disease. Michael Sevilla MD FACR Assessment and Plan Problem List: (1) NEGRO (acute kidney injury) Plan: Patient has prerenal azotemia and she is passing urine continue to hydrate she is getting 2 units of packed red blood cell Follow BMP Avoid nephrotoxins (2) GI bleed Plan: Packed red blood cells (3) Liver failure Plan: Due to alcoholism and hepatitis C (4) Coagulopathy Plan: Follow liver function Problem Qualifiers (1) Liver failure: Qualified Code: K72.90 - Liver failure without hepatic coma, unspecified chronicity Melba Farooq MD May 10, 2017 15:48
[2017-05-10] MEDS: DOCUSATE SODIUM 50 MG/SENNA 8.6 MG TAB PO SCH (20:39)
[2017-05-10] MEDS: PANTOPRAZOLE SOD 40 MG DELAYED RELEASE TAB PO SCH (20:39)
[2017-05-10] MEDS: SODIUM CHLORIDE 0.9% FLUSH 10 ML FLUSH IV FLUSH SCH (20:39)
[2017-05-11] MEDS: SUCRALFATE 1 GM TAB PO SCH ×4 (06:24→22:54)
[2017-05-11] MEDS: PENTOXIFYLLINE 400 MG CONTROLLED RELEASE TAB PO SCH ×3 (06:24→22:54)
[2017-05-11] MEDS: PANTOPRAZOLE INJ 80 MG in SODIUM CHLORIDE 0.9% INJ 100 ML IV SCH (06:24)
[2017-05-11 06:26] LABS: HEMATOCRIT 22.2 % (35.0-46.0); MEAN CELL VOLUME 99.3 FL (80.0-100.0); MEAN CORPUSCULAR HEMOGLOBIN 35.4 PG (27.0-34.0); MEAN CORPUSCULAR HGB CONC 35.6 % (32.0-36.0); PLATELET COUNT 62 TH/MM3 (150-450); RED BLOOD COUNT 2.23 MIL/MM3 (4.00-5.30); RED CELL DISTRIBUTION WIDTH 26.6 % (11.6-17.2); WHITE BLOOD COUNT 8.2 TH/MM3 (4.0-11.0)
[2017-05-11 06:29] LABS: REVIEW FLAG FINAL
[2017-05-11 06:34] LABS: INTERNATIONAL NORMALIZED RATIO 2.5 RATIO; PROTHROMBIN TIME - PATIENT 28.2 SEC (9.8-11.6)
[2017-05-11 06:44] LABS: BICARBONATE 21.8 MEQ/L (21.0-32.0); POTASSIUM 3.2 MEQ/L (3.5-5.1)
[2017-05-11 07:46] VITALS: BP 110/59; PULSE 96; RESP 18; TEMP 96; O2SAT 97
[2017-05-11] MEDS: SODIUM CHLORIDE 0.9% FLUSH 10 ML FLUSH IV FLUSH SCH ×2 (09:00→22:54)
[2017-05-11] MEDS: PANTOPRAZOLE SOD 40 MG DELAYED RELEASE TAB PO SCH ×2 (09:47→22:54)
[2017-05-11] MEDS: DOCUSATE SODIUM 50 MG/SENNA 8.6 MG TAB PO SCH ×2 (09:47→22:54)
[2017-05-11] MEDS: SPIRONOLACTONE 50 MG TAB PO SCH (09:47)
[2017-05-11] MEDS: PHYTONADIONE 5 MG TAB PO SCH (09:48)
[2017-05-11] MEDS: FUROSEMIDE 20 MG TAB PO SCH (09:48)
[2017-05-11 11:50] VITALS: BP 115/63; PULSE 93; RESP 18; TEMP 95.7; O2SAT 98
--- NOTE | 2017-05-11 11:51 | PD.CONS ---
Consult Service Palliative Care Consult Requested By Dr Rivera . Primary Care Physician Farzana Rodriguez MD Reason for Consultation a. To assist with evaluation and management of symptoms including: encephalopathy , pain b. To assist medical decision maker(s) with: better understanding of current medical conditions; weighing benefits/burdens of medical treatment options; making medical treatment decisions. HPI History of Present Illness 52-year-old female presented to the ED on 05/10/17 via EMS, for pain all over. When asked to further specify she indicated both legs and thighs. However to repeated questioning would state I don't know. She reported it bothering her for a while. She was able to confirm recent hospitalization here but did not recall what for. She is noted to be a poor historian. She reported she has not drank since consuming a little bit after she was discharged. Hospital course: * ED: + anemia 6.2/ 16.9. Guaiac negative in the ED. Started on Protonix drip. + Significant lactic acidosis 4.2. + Acute renal failure BUN of 43/ creatinine 2.6. GFR 19. Started on IV fluids, Zosyn, vancomycin. Beckett cultures pending. + Hepatic encephalopathy ammonia 74. * Patient with known history of end-stage liver disease, coagulopathy, hepatitis C, chronic EtOH use, GI bleeds. Lower extremity Imaging negative for acute process/fx. PET consulted though not felt she will likely do well given multiple conditions. Pain is very nonspecific patient unable to further qualify. No GI bleeding reported. Recent EGD . Recent admission for hepatorenal failure which improved during last admission. Transfusions as needed RBCs. Medical attending notes discussion with patient regarding CODE STATUS she elected DNR. Overall prognosis felt to be poor, possible hepatorenal failure. Palliative care consulted to assist with clarification of goals of treatment. Nephrology also consulted. transfused 2 U RBC. * Nephrology: Patient with prerenal acidemia, passing urine, continue hydration. Void nephrotoxins. Transfusions as needed. Follow LFTs. Patient seen in room no visitors present. She is initially sleeping though arouses to my exam. She primarily keeps her eyes closed during conversation, only opens them when I specifically requests she does so. She is for the most part oriented though falls asleep easily. She at times gets irritable when asking questions for history, ROS etc. Upon review of her medical conditions she tells me "nobody has told me anything ", that she was discharged home from her last admission and nobody told her anything. He knows that she has liver disease, she indicates she was unaware of her current hepatic and renal state. Ask her if she's noted any lead in her stool or GI bleeding she denies. Upon further review of her condition and prognosis related to hepatic and renal issues--she tells me she just wants to go home and be comfortable. She does affirm DNR status she seems to understand that without those interventions she would . However on further exploration of going home to be comfortable I did review hospice options and she does indicate that she would want to medically treat her conditions if possible right now. She tells me that she has stopped drinking and that she is been trying to get well but she is not, and that she just left the hospital "a few days ago." Of note patient with recent admission 04/16 through 05/02: During that admission GI follow patient. Notes that she has cirrhosis reported she had liver disease for several years but it never been told specifically regarding cirrhosis. Over 25. S/P EGD (04/16/17)----> Lackey's Esophagus, erosive gastritis, duodenal ulcers. During that admission had severe anemia secondary to blood loss, requiring multiple transfusions.AST 50, ALT 20, Alk Phosph. 53. DF is 52.9. -- >>likely alcoholic hepatitis on underlying liver cirrhosis. She also had new onset of ascites requiring paracentesis 04/16, 4 L removed. +HCV antibodies. 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 She required treatment for UTI. She also had worsening coagulopathy during admission requiring FFP. LFTs improved, no further GI bleeding. She was discharged home 05/02 with recommendations to follow-up with primary Function/Cognitive Trajectory Lives at home w sig other, independent w adls . Review of Systems Constitutional: COMPLAINS OF: Generalized weakness, DENIES: Fever, Weight gain , Dizziness, Change in appetite Eyes: DENIES: Vision loss Respiratory: DENIES: Cough, Sputum production, Shortness of breath Cardiovascular: DENIES: Chest pain, Palpitations, Lower Extremity Edema Gastrointestinal: COMPLAINS OF: Nausea (intermittent for the past days), Vomiting (intermittent for the past days with meals), DENIES: Abdominal pain, Black stools, Bloody stools, Constipation, Diarrhea, Difficulty Swallowing Musculoskeletal: COMPLAINS OF: Joint pain (bilateral hip) Integumentary: DENIES: Abnormal pigmentation (denies jaundice), Rash Hematologic/Lymphatics: DENIES: Bruising Neurologic: DENIES: Headache Psychiatric: DENIES: Anxiety Past Family Social History Coded Allergies: No Known Allergies (Verified , 05/10/17) Past Medical History End-stage liver disease Cirrhosis of the liver Alcohol abuse Arthritis HTN CAD Hep C COPD Asthma hx TIA hx SD Gastritis, duodenal ulcer, Lackey's esophagus Recently treated for bacteremia . Past Surgical History Angioplasty Tubal Back surgery Bilateral TM (tympanic membrane) surgery . Reported Medications Furosemide 20 Mg Tab 20 Mg PO DAILY Sucralfate 1 Gm Tab 1 Gm PO ACHS on empty stomach Aldactone (Spironolactone) 50 Mg Tab 50 Mg PO DAILY Mephyton (Phytonadione) 5 Mg Tab 10 Mg PO DAILY Pentoxifylline ER (Pentoxifylline) 400 Mg Tab 400 Mg PO Q8HR Pantoprazole (Pantoprazole Sodium) 40 Mg Tab 40 Mg PO BID . Current Medications Medications (Trade) Dose Ordered Sig/Teresa Route Start Time Stop Time Status Last Admin Pantoprazole Sodium 80 mg/ Sodium Chloride 100 ml @ 10 mls/hr Q10H IV 05/10/17 10:00 05/11/17 06:24 (1/2 NS 1000 ml Inj) 1,000 ml @ 75 mls/hr [id number] IV 05/10/17 10:32 05/10/17 22:15 (NS Flush) 2 ml UNSCH PRN IV FLUSH 05/10/17 10:45 (NS Flush) 2 ml BID IV FLUSH 05/10/17 21:00 05/10/17 20:39 (Zofran Inj) 4 mg Q6H PRN IVP 05/10/17 10:45 (Narcan Inj) 0.4 mg UNSCH PRN IV 05/10/17 10:45 (Anna-Colace) 1 tab BID PO 05/10/17 21:00 05/11/17 09:47 (Milk Of Magnesia Liq) 30 ml Q12H PRN PO 05/10/17 10:45 (Senokot) 17.2 mg Q12H PRN PO 05/10/17 10:45 (Dulcolax Supp) 10 mg DAILY PRN RECTAL 05/10/17 10:45 (Lactulose Liq) 30 ml DAILY PRN PO 05/10/17 10:45 (Lasix) 20 mg DAILY PO 05/11/17 09:00 05/11/17 09:48 (Protonix) 40 mg BID PO 05/10/17 21:00 05/11/17 09:47 (TRENtal SR) 400 mg Q8HR PO 05/10/17 14:00 05/11/17 06:24 (Mephyton) 10 mg DAILY PO 05/11/17 09:00 05/11/17 09:48 (Aldactone) 50 mg DAILY PO 05/11/17 09:00 05/11/17 09:47 (Carafate) 1 gm ACHS PO 05/10/17 16:00 05/11/17 09:47 Family History Mom: Cirrhosis Brother: DM Substance Use Tobacco: Smokes 1 PPD, quit a few days prior to last admission. Alcohol: Drinks 3-4 alcohol beers a day, stopped at time of last admission (04/16) Prescription med abuse: Denies Illicits: Denies . Psychosocial History Lives at home in an apartment with significant other. 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 . Spiritual/Cultural Factors Voodoo . Ethical and Legal Issues Patient capacity and ability to make decisions fluctuates, she has some hepatic encephalopathy. She does have designated healthcare surrogate significant other Jaya gardiner dated 04/2017. Physical Exam Vital Signs Date Time Temp Pulse Resp B/P Pulse Ox O2 Delivery O2 Flow Rate FiO2 05/11/17 07:46 96.0 96 18 110/59 97 05/10/17 23:24 96.4 95 20 119/63 97 05/10/17 20:25 97.2 97 16 123/68 98 05/10/17 20:05 96 05/10/17 18:58 Room Air 05/10/17 17:30 96.9 96 15 106/67 98 05/10/17 17:15 97.4 95 14 114/64 98 05/10/17 16:00 96.7 92 17 102/72 99 05/10/17 15:46 18 05/10/17 14:56 96.7 88 17 104/56 98 05/10/17 13:00 96.9 88 17 104/56 98 05/10/17 12:20 98.5 94 18 100/58 95 05/10/17 11:45 98.7 92 18 107/60 95 Room Air 05/10/17 11:35 98.5 96 20 106/57 99 Room Air 05/10/17 05/11/17 19:00 07:00 Intake Total 1828 ml Output Total 900 ml Balance 928 ml Intake Oral 480 ml IV Total 1048 ml Packed Cells 300 ml Output Urine Total 900 ml # Bowel Movements 0 Exam CONSTITUTIONAL/GENERAL: This is an adequately nourished patient, very lethargic , flat affect TUBES/LINES/DRAINS: Peripheral IV right upper extremity 2, Morfin catheter SKIN: No rashes, or lesions. + Jaundiced. No wounds seen anteriorly. Skin temperature warm. HEAD: Atraumatic. Normocephalic. EYES: Pupils equal and round and reactive. Extraocular motions intact. + scleral icterus. No injection or drainage. Fundi not examined. ENT: Hearing grossly normal. Nose without bleeding or purulent drainage. Throat without visible erythema, exudates, mucous membranes dry. NECK: Trachea midline. Supple, nontender. No palpable thyroid enlargement or nodularity. CARDIOVASCULAR: Regular rate and rhythm without murmurs, No JVD. Peripheral pulses symmetric. RESPIRATORY/CHEST: Symmetric, unlabored respirations. Clear to auscultation. Breath sounds equal bilaterally. No wheezes, rales, or rhonchi. GASTROINTESTINAL: Abdomen soft, non-tender, nondistended. No hepato-splenomegaly , or palpable masses. No guarding. Bowel sounds present. GENITOURINARY: Without palpable bladder distension. Morfin catheter in place dark tea color urine present. MUSCULOSKELETAL: Extremities without clubbing, cyanosis, or edema. No joint tenderness or effusion noted. No calf tenderness. No mottling or clubbing. NEUROLOGICAL: Lethargic. Even when aroused keeps eyes closed during conversation. Flat affect. Appears to have some insight. Oriented 3. Moves all 4 extremities with generalized weakness. PSYCHIATRIC: Flat affect. No obvious anxiety. No hallucinations. . Diagnostic Tests Laboratory Laboratory Tests Test 05/10/17 05/10/17 05/10/17 05/11/17 09:05 09:25 10:10 05:52 White Blood Count 8.2 TH/MM3 8.2 TH/MM3 (4.0-11.0) (4.0-11.0) Red Blood Count 1.60 MIL/MM3 2.23 MIL/MM3 (4.00-5.30) (4.00-5.30) Hemoglobin 6.2 GM/DL 7.9 GM/DL (11.6-15.3) (11.6-15.3) Hematocrit 16.9 % 22.2 % (35.0-46.0) (35.0-46.0) Mean Corpuscular Volume 105.6 FL 99.3 FL (80.0-100.0) (80.0-100.0) Mean Corpuscular Hemoglobin 39.0 PG 35.4 PG (27.0-34.0) (27.0-34.0) Mean Corpuscular Hemoglobin 37.0 % 35.6 % Concent (32.0-36.0) (32.0-36.0) Red Cell Distribution Width 29.2 % 26.6 % (11.6-17.2) (11.6-17.2) Platelet Count 74 TH/MM3 62 TH/MM3 (150-450) (150-450) Mean Platelet Volume 9.2 FL 7.9 FL (7.0-11.0) (7.0-11.0) Neutrophils (%) (Auto) 72.6 % (16.0-70.0) Lymphocytes (%) (Auto) 14.7 % (9.0-44.0) Monocytes (%) (Auto) 9.8 % (0.0-8.0) Eosinophils (%) (Auto) 2.3 % (0.0-4.0) Basophils (%) (Auto) 0.6 % (0.0-2.0) Neutrophils # (Auto) 5.9 TH/MM3 (1.8-7.7) Lymphocytes # (Auto) 1.2 TH/MM3 (1.0-4.8) Monocytes # (Auto) 0.8 TH/MM3 (0-0.9) Eosinophils # (Auto) 0.2 TH/MM3 (0-0.4) Basophils # (Auto) 0.0 TH/MM3 (0-0.2) CBC Comment AUTO DIFF Differential Comment AUTO DIFF CONFIRMED Platelet Estimate LOW (NORMAL) Platelet Morphology Comment NORMAL (NORMAL) [place] Cells 1+ (NORMAL) Prothrombin Time 29.8 SEC 28.2 SEC (9.8-11.6) (9.8-11.6) Prothromb Time International 2.6 RATIO 2.5 RATIO Ratio Activated Partial 77.3 SEC Thromboplast Time (24.3-30.1) Sodium Level 132 MEQ/L 134 MEQ/L (136-145) (136-145) Potassium Level 3.1 MEQ/L 3.2 MEQ/L (3.5-5.1) (3.5-5.1) Chloride Level 96 MEQ/L 100 MEQ/L (98-107) (98-107) Carbon Dioxide Level 20.1 MEQ/L 21.8 MEQ/L (21.0-32.0) (21.0-32.0) Anion Gap 16 MEQ/L (5-15) 12 MEQ/L (5-15) Blood Urea Nitrogen 43 MG/DL (7-18) 37 MG/DL (7-18) Creatinine 2.68 MG/DL 2.01 MG/DL (0.50-1.00) (0.50-1.00) Estimat Glomerular Filtration 19 ML/MIN (>89) 26 ML/MIN (>89) Rate Random Glucose 156 MG/DL 94 MG/DL (74-106) (74-106) Lactic Acid Level 4.2 mmol/L (0.4-2.0) Calcium Level 9.5 MG/DL 8.8 MG/DL (8.5-10.1) (8.5-10.1) Phosphorus Level 1.8 MG/DL (2.5-4.9) Magnesium Level 1.0 MG/DL (1.5-2.5) Total Bilirubin 13.4 MG/DL (0.2-1.0) Aspartate Amino Transf 96 U/L (15-37) (AST/SGOT) Alanine Aminotransferase 29 U/L (10-53) (ALT/SGPT) Alkaline Phosphatase 58 U/L (45-117) Ammonia 74 MCMOL/L (11-32) Total Creatine Kinase 156 U/L (26-192) Total Protein 7.3 GM/DL (6.4-8.2) Albumin 3.4 GM/DL (3.4-5.0) Ethyl Alcohol Level LESS THAN 3 MG/DL (0-5) Blood Type AB NEGATIVE Antibody Screen NEGATIVE Crossmatch Leukocyte-Reduced Red Blood Cells Blood Bank Comment Urine Color DARK-BROWN (YELLW/STRAW) Urine Turbidity CLEAR (CLEAR) Urine pH 5.5 (5.0-8.5) Urine Specific [place] 1.016 (1.002-1.035) Urine Protein TRACE mg/dL (NEG-TRACE) Urine Glucose (UA) NEG mg/dL (NEG) Urine Ketones NEG mg/dL (NEG) Urine Occult Blood NEG (NEG) Urine Nitrite NEG (NEG) Urine Bilirubin SMALL (NEG) Urine Urobilinogen LESS THAN 2.0 MG/DL (LESS THAN 2.0) Urine Leukocyte Esterase SMALL (NEG) Urine RBC 5 /hpf (0-3) Urine WBC 7 /hpf (0-5) Urine Hyaline Casts 3 /lpf (RARE) Urine Mucus FEW /lpf (OCC) Urine Yeast (Budding) FEW (NONE) Microscopic Urinalysis Comment CULT NOT INDICATED Result Diagram: 05/11/17 0552 05/11/17 0552 Microbiology Microbiology Date/Time Procedure Status Source Growth 05/10/17 09:56 Aerobic Blood Culture - Preliminary Resulted Blood Peripheral NO GROWTH IN 1 DAY 05/10/17 09:56 Anaerobic Blood Culture - Preliminary Resulted Blood Peripheral NO GROWTH IN 1 DAY 05/10/17 10:04 Aerobic Blood Culture - Preliminary Resulted Blood Peripheral NO GROWTH IN 1 DAY 05/10/17 10:04 Anaerobic Blood Culture - Preliminary Resulted Blood Peripheral NO GROWTH IN 1 DAY Imaging Last Impressions Pelvis X-Ray 05/10/17 0000 Signed Impressions: Service Date/Time: Wednesday, May 10, 2017 09:07 - CONCLUSION: Negative for fracture Michael Sevilla MD FACR Femur X-Ray 05/10/17 0000 Signed Impressions: Service Date/Time: Wednesday, May 10, 2017 09:09 - CONCLUSION: Degenerative changes about the knee otherwise negative. Michael Sevilla MD FACR Chest X-Ray 05/10/17 0000 Signed Impressions: Service Date/Time: Wednesday, May 10, 2017 09:08 - CONCLUSION: No acute disease. Michael Sevilla MD FACR Patient/Family Conference Present at Family Conference: Patient Family Conference Time (mins): 30 (minutes) Family Conference Location: Bedside Issues Discussed: Discussion a bedside with patient include the following: * Palliative care role, purpose, approach * Additional medical, psychosocial, history * Patients general health, functional status, and cognitive changes in the months leading up to the current hospitalization * Patient understanding of the current medical problems * Patient understanding of prognosis * Patients goals of care as best understood from advance directives and/or conversations and/or values * Current medical treatment options and benefits/burdens of those options * Healthcare surrogate designation--she has previously named her significant other * CODE STATUSshe affirms DNR * Likely scenarios comparing ongoing aggressive care with a transition to comfort measures only-brief review of hospice role in philosophy * Questions answered to the best of my ability * Palliative care contact information provided She primarily keeps her eyes closed during conversation, only opens them when I specifically requests she does so. She is for the most part oriented though falls asleep easily. She at times gets irritable when asking questions for history, ROS etc. Upon review of her medical conditions she tells me "nobody has told me anything ", that she was discharged home from her last admission and nobody told her anything. He knows that she has liver disease, she indicates she was unaware of her current hepatic and renal state. Ask her if she's noted any lead in her stool or GI bleeding she denies. Upon further review of her condition and prognosis related to hepatic and renal issues--she tells me she just wants to go home and be comfortable. She does affirm DNR status she seems to understand that without those interventions she would . However on further exploration of going home to be comfortable I did review hospice options and she does indicate that she would want to medically treat her conditions if possible right now. She tells me that she has stopped drinking and that she is been trying to get well but she is not, and that she just left the hospital "a few days ago." Given her fluctuating mental status and lethargy likely she would be best supported with shared decision making from her significant other. I offered to call him and update him she tells me no, that she has been in communication with them. Requested that when he next comes to visit her after she has spoken with him that they call me so I might talk to them both together, she is in agreement with this. I have left palliative contact information. . Assessment and Plan Disease Oriented Problem List: (1) Lactic acidosis (2) Anemia (3) Coagulopathy (4) Liver failure Comment: Hepatitis C, chronic alcoholism (5) NEGRO (acute kidney injury) (6) Hepatic encephalopathy (7) Lackey's esophagus Comment: EGD 04/16/17 (8) Erosive gastritis Comment: EGD 04/16/17 (9) Duodenal ulcer Comment: EGD 04/16/17 Symptom Scale: (1) Encephalopathy (2) Pain Pertinent Non-Medical Issues Psychosocial: Supported by significant other Jaya, whom she shares an apartment with. 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 Spiritual: Rastafarian Legal:Patient capacity and ability to make decisions fluctuates, she has some hepatic encephalopathy. She does have designated healthcare surrogate significant other Jaya gardiner dated 04/2017. Ethical issues impacting care: Important Contacts Sig Other- Jaya Gardiner([phone]) . Prognosis Pt admitted for generalized pain, +findings of acute renal failure, +underlying liver disease. Recent GI bleed, h&h again trending down. Prognosis guarded-- recently admitted w EDG findings of duodenal ulcer, acute alcoholic hepatitis. Current ARF could be secondary to GI bleeding?, as BUN/creatinine had improved at last DC. Current MELD 35. . Code Status: No Code Plan * Legal decision maker:Patient capacity and ability to make decisions fluctuates , she has some hepatic encephalopathy. She does have designated healthcare surrogate significant other Jaya Gardiner dated 04/2017. Likely she can participate in decision-making, but may benefit from shared decision making with her designated healthcare surrogate. * Goals: On one hand patient endorsing "just wanting to go home and be comfortable"; however she does not have completely comfort oriented goals, she would still want to pursue some level of treatment if her conditions were treatable, short of resuscitation. I did briefly review with her hospice option today however she would like to further try to correct her underlying disease process if possible. She indicates that she has not been consuming alcohol since prior to her last hospitalization, but that she began feeling progressively worse following her last discharge. I offered to call her healthcare surrogate and significant other today, she did not want me to contact him indicated that she would be speaking with him however when he does come to visit her she is open to talking with him in her presence. * Recommend GI consultation; patient with recent duodenal ulcer, erosive gastritis, Lackey's esophagitis per EGD 04/16/17; ongoing anemia * CODE STATUS: DNR * SYMPTOMS: --Pain-generalized pain to lower extremity/hip region. She is unable to further describe indicates a deep pain inside her hips, no point tenderness. No trauma. Imaging negative for fracture or acute process. She indicates it started a couple of days ago. Slight improvement here.(She received Roxanol 1 yesterday) no prns available. Concern for lethargy, AMS , encephalopathy -- cautious use of opiates. --Encephalopathy-multifactorial: hepatic, renal. Ammonia 74. Beckett cultures pending. Rest BUN 43/creatinine 2.6. Anemic at admission 6.2/16.9. Currently oriented and for the most part appropriate though very lethargic. Currently has lactulose available prn--?consider scheduled given high ammonia level. * Palliative care will continue to follow during hospital course as condition evolves, to assist patient/decision-maker with understanding of medical conditions, weighing benefits/burdens of treatment options, for clarification of goals of treatment. Additionally will assist with any symptoms of palliative concern Thank you for the opportunity to participate in the care of Ms. Kilpatrick. Attestation To help prompt me to consider important information that might be impacting today's encounter and assessment, information from prior notes written by myself or my colleagues may have been "brought forward" into today's note. My signature on this note, however, is an attestation that I personally performed the exam, history, and/or decision-making noted today, and, unless otherwise indicated, the interactions with patient, family, and staff as well as the review of records all occurred today. I also attest that the listed assessment and stated plan reflect my best clinical judgment today based on the combination of historical information, prior notes, and today's exam/ interactions. When time spent is documented, it refers only to time spent today by the signer, or if indicated, combined time spent today by collaborating physician/nurse practitioner. Connie Pearce May 11, 2017 11:51
--- NOTE | 2017-05-11 13:24 | HHI.NPPN ---
Subjective History of Present Illness 52 year old with cirrhosis, anemia ARF Review of Systems General Constitutional: Fatigue Objective Data Data 05/10/17 05/11/17 19:00 07:00 Intake Total 1828 ml Output Total 900 ml Balance 928 ml Intake Oral 480 ml IV Total 1048 ml Packed Cells 300 ml Output Urine Total 900 ml # Bowel Movements 0 Vital Signs Date Time Temp Pulse Resp B/P Pulse Ox O2 Delivery O2 Flow Rate FiO2 05/11/17 11:50 95.7 93 18 115/63 98 05/11/17 07:46 96.0 96 18 110/59 97 05/10/17 23:24 96.4 95 20 119/63 97 05/10/17 20:25 97.2 97 16 123/68 98 05/10/17 20:05 96 05/10/17 18:58 Room Air 05/10/17 17:30 96.9 96 15 106/67 98 05/10/17 17:15 97.4 95 14 114/64 98 05/10/17 16:00 96.7 92 17 102/72 99 05/10/17 15:46 18 05/10/17 14:56 96.7 88 17 104/56 98 -: 05/11/17 0552 05/11/17 0552 Physical Exam General Appearance: Well Developed, Pale Pulmonary Resp Exam: Clear Bilaterally Cardiology CV Exam: Regular Gastrointestinal/Abdomen GI Exam: Soft, Bowel Sounds Present, Distended Extremeties Extremities Exam: No Edema Assessment/Plan Problem List: (1) NEGRO (acute kidney injury) Plan: Patient has prerenal azotemia improved after PRBC Replace K Avoid nephrotoxins (2) GI bleed Plan: Packed red blood cells (3) Liver failure Plan: Due to alcoholism and hepatitis C (4) Coagulopathy Plan: Follow liver function Problem Qualifiers (1) Liver failure: Qualified Code: K72.90 - Liver failure without hepatic coma, unspecified chronicity Melba Farooq MD May 11, 2017 13:24
[2017-05-11] MEDS ORDERED: POTASSIUM CHLORIDE 20 MEQ CONTROLLED RELEASE TAB PO ONE (13:30)
--- NOTE | 2017-05-11 14:49 | HHI.PR ---
Subjective Remarks Follow-up for end-stage liver disease, acute renal failure, anemia, and right leg pain.. Patient stated her right leg pain is improving. She stated that she order breakfasts in the morning and not have received any breakfast yet. During this interview was around 12 noon. Otherwise patient had no other complaints. She denies any nausea or vomiting or abdominal pain. She remains afebrile. Dealt with patient's nurse in regards to her complaints and management. Objective Vitals Vital Signs Date Time Temp Pulse Resp B/P Pulse Ox O2 Delivery O2 Flow Rate FiO2 05/11/17 11:50 95.7 93 18 115/63 98 05/11/17 07:46 96.0 96 18 110/59 97 05/10/17 23:24 96.4 95 20 119/63 97 05/10/17 20:25 97.2 97 16 123/68 98 05/10/17 20:05 96 05/10/17 18:58 Room Air 05/10/17 17:30 96.9 96 15 106/67 98 05/10/17 17:15 97.4 95 14 114/64 98 05/10/17 16:00 96.7 92 17 102/72 99 05/10/17 15:46 18 05/10/17 14:56 96.7 88 17 104/56 98 I/O 05/10/17 05/10/17 05/10/17 05/11/17 05/11/17 05/11/17 07:00 15:00 23:00 07:00 15:00 23:00 Intake Total 882 ml 946 ml Output Total 500 ml 400 ml Balance 382 ml 546 ml Intake Oral 240 ml 240 ml IV Total 342 ml 706 ml Packed Cells 300 ml Output Urine Total 500 ml 400 ml # Bowel Movements 0 0 Result Diagram: 05/11/17 0552 05/11/17 0552 Imaging Last Impressions Pelvis X-Ray 05/10/17 0000 Signed Impressions: Service Date/Time: Wednesday, May 10, 2017 09:07 - CONCLUSION: Negative for fracture Michael Sevilla MD FACR Femur X-Ray 05/10/17 0000 Signed Impressions: Service Date/Time: Wednesday, May 10, 2017 09:09 - CONCLUSION: Degenerative changes about the knee otherwise negative. Michael Sevilla MD FACR Chest X-Ray 05/10/17 0000 Signed Impressions: Service Date/Time: Wednesday, May 10, 2017 09:08 - CONCLUSION: No acute disease. Michael Sevilla MD FACR Objective Remarks GENERAL: This is a chronic ill appearing patient's in no acute distress but his jaundice. SKIN: Patient is diffusely jaundiced EYES: Pupils equal round and reactive. Extraocular motions intact.+ scleral icterus. No injection or drainage. CARDIOVASCULAR: Regular rate and rhythm without murmurs, gallops, or rubs. RESPIRATORY: Clear to auscultation. Breath sounds equal bilaterally. No wheezes , rales, or rhonchi. GASTROINTESTINAL: Abdomen soft, non-tender, positive for distention. Negative for any peritoneal signs. MUSCULOSKELETAL: Right lower extremity patient was able to move her lower extremity with full range of motion, but per patient had pain. She cannot localize the pain. No calf tenderness. Negative Homans sign bilaterally. NEUROLOGICAL: Awake and alert. Cranial nerves II through XII intact. Motor and sensory grossly within normal limits. Speech is normal. Medications and IVs Current Medications Sodium Chloride 250 ml @ 15 mls/hr ONCE ONCE IV Last administered on 11:37; Start 05/10/17 at 09:30; Stop 05/11/17 at 02:09; Status DC Pantoprazole Sodium 80 mg/ Sodium Chloride 35 ml @ 420 mls/hr ONCE ONCE IV Last administered on 05/10/17 11:14; Start 05/10/17 at 10:00; Stop 05/10/17 at 10:04; Status DC Pantoprazole Sodium 80 mg/ Sodium Chloride 100 ml @ 10 mls/hr Q10H IV Last administered on 05/11/17 06:24; Start 05/10/17 at 10:00 Sodium Chloride (NS 1000 ml Inj) 1,000 ml @ 999 mls/hr BOLUS ONCE IV Last administered on 05/10/17 10:14; Start 05/10/17 at 10:00; Stop 05/10/17 at 11:00 ; Status DC Lactulose 30 ml 30 ml ONCE ONCE PO Last administered on 05/10/17 11:15; Start 05/10/17 at 10:00; Stop 05/10/17 at 10:01; Status DC Vancomycin HCl 1000 mg/Sodium Chloride 250 ml @ 250 mls/hr ONCE STAT IV Last administered on 05/10/17 11:14; Start 05/10/17 at 09:50; Stop 05/10/17 at 10:49 ; Status DC Piperacillin Sod/ Tazobactam Sod 100 ml @ 200 mls/hr ONCE STAT IV Last administered on 05/10/17 10:14; Start 05/10/17 at 09:50; Stop 05/10/17 at 10:19 ; Status DC Sodium Chloride (1/2 NS 1000 ml Inj) 1,000 ml @ 75 mls/hr [id number] IV Last administered on 05/10/17 22:15; Start 05/10/17 at 10:32 Sodium Chloride (NS Flush) 2 ml UNSCH PRN IV FLUSH FLUSH AFTER USING IV ACCESS ; Start 05/10/17 at 10:45 Sodium Chloride (NS Flush) 2 ml BID IV FLUSH Last administered on 05/10/17 20: 39; Start 05/10/17 at 21:00 Ondansetron HCl (Zofran Inj) 4 mg Q6H PRN IVP NAUSEA OR VOMITING; Start at 10:45 Naloxone HCl (Narcan Inj) 0.4 mg UNSCH PRN IV SEE LABEL COMMENTS; Start at 10:45 Senna/Docusate Sodium (Anna-Colace) 1 tab BID PO Last administered on 09:47; Start 05/10/17 at 21:00 Magnesium Hydroxide (Milk Of Magnesia Liq) 30 ml Q12H PRN PO MILD - MODERATE CONSTIPATION; Start 05/10/17 at 10:45 Sennosides (Senokot) 17.2 mg Q12H PRN PO MODERATE - SEVERE CONSTIPATION; Start 05/10/17 at 10:45 Bisacodyl (Dulcolax Supp) 10 mg DAILY PRN RECTAL SEVERE CONSITIPATION; Start at 10:45 Lactulose (Lactulose Liq) 30 ml DAILY PRN PO SEVERE CONSITIPATION; Start at 10:45 Fluconazole (Diflucan) 200 mg ONCE ONCE PO Last administered on 05/10/17 14: 48; Start 05/10/17 at 11:00; Stop 05/10/17 at 11:01; Status DC Furosemide (Lasix) 20 mg DAILY PO Last administered on 05/11/17 09:48; Start 05/11/17 at 09:00 Pantoprazole Sodium (Protonix) 40 mg BID PO Last administered on 05/11/17 09: 47; Start 05/10/17 at 21:00 Pentoxifylline (TRENtal SR) 400 mg Q8HR PO Last administered on 05/11/17 06:24 ; Start 05/10/17 at 14:00 Phytonadione (Mephyton) 10 mg DAILY PO Last administered on 05/11/17 09:48; Start 05/11/17 at 09:00 Spironolactone (Aldactone) 50 mg DAILY PO Last administered on 05/11/17 09:47 ; Start 05/11/17 at 09:00 Sucralfate (Carafate) 1 gm ACHS PO Last administered on 05/11/17 09:47; Start 05/10/17 at 16:00 Morphine Sulfate (Roxanol Liq) 2 mg ONCE ONCE PO Last administered on 14:46; Start 05/10/17 at 12:15; Stop 05/10/17 at 12:16; Status DC Potassium Chloride (KCl) 20 meq ONCE ONCE PO ; Start 05/11/17 at 13:30; Stop at 13:31; Status DC Potassium Chloride (KCl) 20 meq DAILY PO ; Start 05/12/17 at 09:00 A/P Assessment and Plan 52-year-old female with End-stage liver disease with coagulopathy, complicated by ascites secondary to alcoholism and hepatitis C -Very poor prognosis. INR is 2.6. During recent admission she was given multiple transfusion. -Palliative care following. -Continue with supportive care and resume home medication. Right lower extremity leg pain -Very nonspecific. Only occurs with movement. Improved. -Per patient she did have symptoms before being discharged on her prior admission. -X-rays are negative. Very unlikely a DVT. She does not have any calf pain and no swelling. Plus patient INR is 2.6. -Continue with pain control. -PT consulted. 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 -Improving. -Continue to monitor. -Strict ins and outs. Avoid nephrotoxins. Anemia Hemoglobin 6.2 which last H was 8.0 -Status post transfused with 2 packed red blood cells with appropriate response. -Secondary to liver failure. -Patient denied any GI bleed. She had a recent EGD done. -On Protonix twice a day. Erosive gastritis, duodenal ulcers, Lackey's esophagus, EGD on 04/16/17 -Continue home medication. -On Protonix twice a day. DVT prophylaxis -Patient is auto anticoagulated Dealt with patient's nurse. Virginia Rivera MD May 11, 2017 14:49
[2017-05-11] MEDS: SODIUM CHLOR 0.45% 1000 ML INJ 1,000 ML IV SCH (15:46)
[2017-05-11] MEDS: MAGNESIUM SULFATE 1 GM PREMIX 100 ML IV SCH ×2 (15:47→18:28)
[2017-05-11 16:00] VITALS: BP 114/57; PULSE 93; RESP 18; TEMP 96; O2SAT 97
[2017-05-11] MEDS: traMADol HCL 50 MG TAB PO PRN (18:29)
[2017-05-11 20:00] VITALS: BP 115/59; PULSE 90; PULSE 93; RESP 16; TEMP 97.2; O2SAT 98
[2017-05-11 21:16] LABS: MEAN CORPUSCULAR HGB CONC 36.9 % (32.0-36.0)
[2017-05-12] VITALS (9 sets, daily range): BP systolic 114–126; BP diastolic 63–69; PULSE 91–100; RESP 16–20; TEMP 96–96.6; O2SAT 96–99
[2017-05-12] MEDS: SODIUM CHLOR 0.45% 1000 ML INJ 1,000 ML IV SCH ×2 (02:50→21:50)
[2017-05-12] MEDS: SUCRALFATE 1 GM TAB PO SCH ×4 (05:22→21:49)
[2017-05-12] MEDS: PENTOXIFYLLINE 400 MG CONTROLLED RELEASE TAB PO SCH ×3 (05:22→21:51)
[2017-05-12] MEDS: traMADol HCL 50 MG TAB PO PRN ×2 (05:22→16:51)
[2017-05-12 08:12] LABS: MEAN CELL VOLUME 98.6 FL (80.0-100.0); MEAN CORPUSCULAR HEMOGLOBIN 36.4 PG (27.0-34.0); PLATELET COUNT 66 TH/MM3 (150-450); RED BLOOD COUNT 2.01 MIL/MM3 (4.00-5.30); RED CELL DISTRIBUTION WIDTH 26.1 % (11.6-17.2); WHITE BLOOD COUNT 8.3 TH/MM3 (4.0-11.0)
[2017-05-12 08:17] LABS: ALT (GPT) 29 U/L (10-53); ANION GAP 11 MEQ/L (5-15); AST (GOT) 83 U/L (15-37); BICARBONATE 23.8 MEQ/L (21.0-32.0); BLOOD UREA NITROGEN 32 MG/DL (7-18); CHLORIDE 99 MEQ/L (98-107); GLOMERULAR FILTRATION RATE 37 ML/MIN (>89); MAGNESIUM 1.1 MG/DL (1.5-2.5); POTASSIUM 3.3 MEQ/L (3.5-5.1); SODIUM (NA) 134 MEQ/L (136-145)
[2017-05-12 08:19] LABS: REVIEW FLAG FINAL
[2017-05-12 08:22] LABS: HEMATOCRIT 19.8 % (35.0-46.0)
[2017-05-12 08:25] LABS: ALKALINE PHOSPHATASE 52 U/L (45-117); TOTAL BILIRUBIN ADULT 13.1 MG/DL (0.2-1.0)
[2017-05-12] MEDS: SODIUM CHLORIDE 0.9% FLUSH 10 ML FLUSH IV FLUSH SCH ×2 (09:00→21:49)
[2017-05-12] MEDS: PANTOPRAZOLE SOD 40 MG DELAYED RELEASE TAB PO SCH ×2 (09:44→21:49)
[2017-05-12] MEDS: SPIRONOLACTONE 50 MG TAB PO SCH (09:44)
[2017-05-12] MEDS: PHYTONADIONE 5 MG TAB PO SCH (09:45)
[2017-05-12] MEDS: FUROSEMIDE 20 MG TAB PO SCH (09:45)
[2017-05-12] MEDS: POTASSIUM CHLORIDE 20 MEQ CONTROLLED RELEASE TAB PO SCH (09:45)
[2017-05-12] MEDS: DOCUSATE SODIUM 50 MG/SENNA 8.6 MG TAB PO SCH ×2 (09:45→21:49)
--- NOTE | 2017-05-12 13:08 | HHI.NPPN ---
Subjective History of Present Illness 52 year old with cirrhosis, anemia ARF Review of Systems General Constitutional: Fatigue Objective Data Data 05/11/17 05/12/17 19:00 07:00 Intake Total 480 ml 1317 ml Output Total 450 ml 400 ml Balance 30 ml 917 ml Intake Oral 480 ml 840 ml IV Total 477 ml Output Urine Total 450 ml 400 ml # Voids 0 # Bowel Movements 0 1 Vital Signs Date Time Temp Pulse Resp B/P Pulse Ox O2 Delivery O2 Flow Rate FiO2 05/12/17 08:00 96.2 100 18 117/63 96 05/12/17 04:00 96.6 96 17 114/63 96 05/12/17 00:07 96.1 91 17 116/63 97 05/11/17 20:00 93 05/11/17 20:00 97.2 90 16 115/59 98 05/11/17 19:13 Room Air 05/11/17 16:00 96.0 93 18 114/57 97 -: 05/12/17 0722 05/12/17 0722 Physical Exam General Appearance: Well Developed, Pale Pulmonary Resp Exam: Clear Bilaterally Cardiology CV Exam: Regular Gastrointestinal/Abdomen GI Exam: Soft, Bowel Sounds Present, Distended Extremeties Extremities Exam: No Edema Assessment/Plan Problem List: (1) NEGRO (acute kidney injury) Plan: Patient has prerenal azotemia improved after PRBC Replace K Avoid nephrotoxins Cr declined will follow PRN bases (2) GI bleed Plan: Packed red blood cells (3) Liver failure Plan: Due to alcoholism and hepatitis C (4) Coagulopathy Plan: Follow liver function Problem Qualifiers (1) Liver failure: Qualified Code: K72.90 - Liver failure without hepatic coma, unspecified chronicity Melba Farooq MD May 12, 2017 13:08
--- NOTE | 2017-05-12 13:19 | HHI.HCPN ---
Reason for visit a. To assist with evaluation and management of symptoms including: encephalopathy , pain b. To assist medical decision maker(s) with: better understanding of current medical conditions; weighing benefits/burdens of medical treatment options; making medical treatment decisions. Subjective/Interval History Seen today to follow-up on goals, comfort. Stable overnight. H&H slowly trending down 7.3/19.8.Platelet slowly trending down 66. BUN 32/creatinine 1.48. Total bili still elevated 13.1. Blood cultures no growth 2 days. Ultram was added yesterday prn pain. Has used 2 times, once yesterday, once 5 am today. She is initially sleeping, arouses easily during my visit. She is oriented 3, for the most part appropriate. Forgetful at times. Appears to have some limited insight. She does remember me from visit yesterday. She again endorses that she understands she has liver disease, wants to try to get back home once her condition is treated to the maximum ability, and she is feeling better. Her primary complaint continues to be pain to her hips/lower extremities. Ask her if recently added Ultram is helping with the pain level-- she is not sure, she cannot remember when she last received a dose (it was 5 AM) . Encouraged her to request prn if the pain has returned. She denies dyspnea. Endorses some nausea when she took "too many "pills this morning and had small amount of emesis after taking pills. Otherwise she has tolerated her meals without nausea or vomiting. I again offered to call and update her significant other, she indicates he will be here a little later and she has been updating him. Discussed DNR status with her and offered to provide community DNR for her to sign, she wishes to sign in later when her significant other has been able to provide her glasses. I have left this document in chart , discussed with primary nurse. Discussed with primary nurse. discussed with medical attending regarding GI consult for maximize management of hepatic disease process. If liver functions , bilirubin cannot improve then patient may be appropriate for hospice services. She is amenable to ongoing discussions regarding hospice/comfort if there are not further treatment options for her liver disease. Advance Directives Health Care Surrogate: Copy in medical record Advance Directive Specifics Date completed: 04/2017. . Health Care Surrogate(s): designated healthcare surrogate significant other Jaya gardiner dated 04/2017. Objective Vital Signs Date Time Temp Pulse Resp B/P Pulse Ox O2 Delivery O2 Flow Rate FiO2 05/12/17 08:00 96.2 100 18 117/63 96 05/12/17 04:00 96.6 96 17 114/63 96 05/12/17 00:07 96.1 91 17 116/63 97 05/11/17 20:00 93 05/11/17 20:00 97.2 90 16 115/59 98 05/11/17 19:13 Room Air 05/11/17 16:00 96.0 93 18 114/57 97 Physical Exam CONSTITUTIONAL/GENERAL: This is an adequately nourished patient, lethargic, flat affect CARDIOVASCULAR: Regular rate and rhythm without murmurs, No JVD. Peripheral pulses symmetric. No peripheral edema RESPIRATORY/CHEST: Symmetric, unlabored respirations. Clear to auscultation. Breath sounds equal bilaterally. No wheezes, rales, or rhonchi. GASTROINTESTINAL: Abdomen soft, non-tender, slight distention. No guarding. Bowel sounds present. GENITOURINARY: Without palpable bladder distension. Morfin catheter in place dark tea color urine present. MUSCULOSKELETAL: Extremities without clubbing, cyanosis, or edema. No joint tenderness or effusion noted. No mottling or clubbing. NEUROLOGICAL: Lethargic. Oriented x3. Flat affect. Appears to have some insight. Moves all 4 extremities with generalized weakness. PSYCHIATRIC: Flat affect. No obvious anxiety. No hallucinations. . Diagnostic Tests Laboratory Laboratory Tests Test 05/10/17 05/10/17 05/10/17 05/11/17 09:05 09:25 10:10 05:52 White Blood Count 8.2 TH/MM3 8.2 TH/MM3 (4.0-11.0) (4.0-11.0) Red Blood Count 1.60 MIL/MM3 2.23 MIL/MM3 (4.00-5.30) (4.00-5.30) Hemoglobin 6.2 GM/DL 7.9 GM/DL (11.6-15.3) (11.6-15.3) Hematocrit 16.9 % 22.2 % (35.0-46.0) (35.0-46.0) Mean Corpuscular Volume 105.6 FL 99.3 FL (80.0-100.0) (80.0-100.0) Mean Corpuscular Hemoglobin 39.0 PG 35.4 PG (27.0-34.0) (27.0-34.0) Mean Corpuscular Hemoglobin 37.0 % 35.6 % Concent (32.0-36.0) (32.0-36.0) Red Cell Distribution Width 29.2 % 26.6 % (11.6-17.2) (11.6-17.2) Platelet Count 74 TH/MM3 62 TH/MM3 (150-450) (150-450) Mean Platelet Volume 9.2 FL 7.9 FL (7.0-11.0) (7.0-11.0) Neutrophils (%) (Auto) 72.6 % (16.0-70.0) Lymphocytes (%) (Auto) 14.7 % (9.0-44.0) Monocytes (%) (Auto) 9.8 % (0.0-8.0) Eosinophils (%) (Auto) 2.3 % (0.0-4.0) Basophils (%) (Auto) 0.6 % (0.0-2.0) Neutrophils # (Auto) 5.9 TH/MM3 (1.8-7.7) Lymphocytes # (Auto) 1.2 TH/MM3 (1.0-4.8) Monocytes # (Auto) 0.8 TH/MM3 (0-0.9) Eosinophils # (Auto) 0.2 TH/MM3 (0-0.4) Basophils # (Auto) 0.0 TH/MM3 (0-0.2) CBC Comment AUTO DIFF Differential Comment AUTO DIFF CONFIRMED Platelet Estimate LOW (NORMAL) Platelet Morphology Comment NORMAL (NORMAL) Radha Cells 1+ (NORMAL) Prothrombin Time 29.8 SEC 28.2 SEC (9.8-11.6) (9.8-11.6) Prothromb Time International 2.6 RATIO 2.5 RATIO Ratio Activated Partial 77.3 SEC Thromboplast Time (24.3-30.1) Sodium Level 132 MEQ/L 134 MEQ/L (136-145) (136-145) Potassium Level 3.1 MEQ/L 3.2 MEQ/L (3.5-5.1) (3.5-5.1) Chloride Level 96 MEQ/L 100 MEQ/L (98-107) (98-107) Carbon Dioxide Level 20.1 MEQ/L 21.8 MEQ/L (21.0-32.0) (21.0-32.0) Anion Gap 16 MEQ/L (5-15) 12 MEQ/L (5-15) Blood Urea Nitrogen 43 MG/DL (7-18) 37 MG/DL (7-18) Creatinine 2.68 MG/DL 2.01 MG/DL (0.50-1.00) (0.50-1.00) Estimat Glomerular Filtration 19 ML/MIN (>89) 26 ML/MIN (>89) Rate Random Glucose 156 MG/DL 94 MG/DL (74-106) (74-106) Lactic Acid Level 4.2 mmol/L (0.4-2.0) Calcium Level 9.5 MG/DL 8.8 MG/DL (8.5-10.1) (8.5-10.1) Phosphorus Level 1.8 MG/DL (2.5-4.9) Magnesium Level 1.0 MG/DL (1.5-2.5) Total Bilirubin 13.4 MG/DL (0.2-1.0) Aspartate Amino Transf 96 U/L (15-37) (AST/SGOT) Alanine Aminotransferase 29 U/L (10-53) (ALT/SGPT) Alkaline Phosphatase 58 U/L (45-117) Ammonia 74 MCMOL/L (11-32) Total Creatine Kinase 156 U/L (26-192) Total Protein 7.3 GM/DL (6.4-8.2) Albumin 3.4 GM/DL (3.4-5.0) Ethyl Alcohol Level LESS THAN 3 MG/DL (0-5) Blood Type AB NEGATIVE Antibody Screen NEGATIVE Crossmatch Leukocyte-Reduced Red Blood Cells Blood Bank Comment Urine Color DARK-BROWN (YELLW/STRAW) Urine Turbidity CLEAR (CLEAR) Urine pH 5.5 (5.0-8.5) Urine Specific [place] 1.016 (1.002-1.035) Urine Protein TRACE mg/dL (NEG-TRACE) Urine Glucose (UA) NEG mg/dL (NEG) Urine Ketones NEG mg/dL (NEG) Urine Occult Blood NEG (NEG) Urine Nitrite NEG (NEG) Urine Bilirubin SMALL (NEG) Urine Urobilinogen LESS THAN 2.0 MG/DL (LESS THAN 2.0) Urine Leukocyte Esterase SMALL (NEG) Urine RBC 5 /hpf (0-3) Urine WBC 7 /hpf (0-5) Urine Hyaline Casts 3 /lpf (RARE) Urine Mucus FEW /lpf (OCC) Urine Yeast (Budding) FEW (NONE) Microscopic Urinalysis Comment CULT NOT INDICATED Test 05/12/17 07:22 White Blood Count 8.3 TH/MM3 (4.0-11.0) Red Blood Count 2.01 MIL/MM3 (4.00-5.30) Hemoglobin 7.3 GM/DL (11.6-15.3) Hematocrit 19.8 % (35.0-46.0) Mean Corpuscular Volume 98.6 FL (80.0-100.0) Mean Corpuscular Hemoglobin 36.4 PG (27.0-34.0) Mean Corpuscular Hemoglobin 36.9 % Concent (32.0-36.0) Red Cell Distribution Width 26.1 % (11.6-17.2) Platelet Count 66 TH/MM3 (150-450) Mean Platelet Volume 8.6 FL (7.0-11.0) Sodium Level 134 MEQ/L (136-145) Potassium Level 3.3 MEQ/L (3.5-5.1) Chloride Level 99 MEQ/L (98-107) Carbon Dioxide Level 23.8 MEQ/L (21.0-32.0) Anion Gap 11 MEQ/L (5-15) Blood Urea Nitrogen 32 MG/DL (7-18) Creatinine 1.48 MG/DL (0.50-1.00) Estimat Glomerular Filtration 37 ML/MIN (>89) Rate Random Glucose 100 MG/DL (74-106) Calcium Level 8.4 MG/DL (8.5-10.1) Phosphorus Level 2.7 MG/DL (2.5-4.9) Magnesium Level 1.1 MG/DL (1.5-2.5) Total Bilirubin 13.1 MG/DL (0.2-1.0) Aspartate Amino Transf 83 U/L (15-37) (AST/SGOT) Alanine Aminotransferase 29 U/L (10-53) (ALT/SGPT) Alkaline Phosphatase 52 U/L (45-117) Total Protein 7.1 GM/DL (6.4-8.2) Albumin 3.1 GM/DL (3.4-5.0) Result Diagram: 05/12/17 0722 05/12/17 0722 Microbiology Microbiology Date/Time Procedure Status Source Growth 05/10/17 09:56 Aerobic Blood Culture - Preliminary Resulted Blood Peripheral NO GROWTH IN 2 DAYS 05/10/17 09:56 Anaerobic Blood Culture - Preliminary Resulted Blood Peripheral NO GROWTH IN 2 DAYS 05/10/17 10:04 Aerobic Blood Culture - Preliminary Resulted Blood Peripheral NO GROWTH IN 2 DAYS 05/10/17 10:04 Anaerobic Blood Culture - Preliminary Resulted Blood Peripheral NO GROWTH IN 2 DAYS Imaging Last Impressions Pelvis X-Ray 05/10/17 0000 Signed Impressions: Service Date/Time: Wednesday, May 10, 2017 09:07 - CONCLUSION: Negative for fracture Michael Sevilla MD FACR Femur X-Ray 05/10/17 0000 Signed Impressions: Service Date/Time: Wednesday, May 10, 2017 09:09 - CONCLUSION: Degenerative changes about the knee otherwise negative. Michael Sevilla MD FACR Chest X-Ray 05/10/17 0000 Signed Impressions: Service Date/Time: Wednesday, May 10, 2017 09:08 - CONCLUSION: No acute disease. Michael Sevilla MD FACR Assessment and Plan Disease Oriented Problem List: (1) Lactic acidosis (2) Anemia (3) Coagulopathy (4) Liver failure Comment: Hepatitis C, chronic alcoholism (5) NEGRO (acute kidney injury) (6) Hepatic encephalopathy (7) Lackey's esophagus Comment: EGD 04/16/17 (8) Erosive gastritis Comment: EGD 04/16/17 (9) Duodenal ulcer Comment: EGD 04/16/17 Symptom Scale: (1) Encephalopathy (2) Pain Pertinent Non-Medical Issues Psychosocial: Supported by significant other Jaya, whom she shares an apartment with. 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 Spiritual: Mosque Legal:Patient capacity and ability to make decisions fluctuates, she has some hepatic encephalopathy. She does have designated healthcare surrogate significant other Jaya gardiner dated 04/2017. Ethical issues impacting care: Important Contacts Sig Other- Jaya Gardiner([phone]) . Prognosis Pt admitted for generalized pain, +findings of acute renal failure, +underlying liver disease. Recent GI bleed, h&h again trending down. Prognosis guarded-- recently admitted w EDG findings of duodenal ulcer, acute alcoholic hepatitis. Current ARF could be secondary to GI bleeding?, as BUN/creatinine had improved at last DC. Current MELD 35. total bilirubin remains elevated. BUN and creatinine remain elevated. Coagulopathic. . Code Status: No Code Plan * Legal decision maker:Patient capacity and ability to make decisions fluctuates , she has some hepatic encephalopathy. She does have designated healthcare surrogate significant other Jaya Gardiner dated 04/2017. Likely she can participate in decision-making, but may benefit from shared decision making with her designated healthcare surrogate. * Goals: On one hand patient endorsing "just wanting to go home and be comfortable"; however she does not have completely comfort oriented goals, she would still want to pursue some level of treatment if her conditions were treatable, short of resuscitation. I did briefly review with her hospice option today however she would like to further try to correct her underlying disease process if possible. She indicates that she has not been consuming alcohol since prior to her last hospitalization, but that she began feeling progressively worse following her last discharge. 05/12: Patient's goals remain semi-aggressive, she would want to maintain treatment for her liver disease if possible if she might see her liver disease stabilize however she is also open to ongoing discussions regarding hospice if there are no further treatment options. * Recommend GI consultation; patient with recent duodenal ulcer, erosive gastritis, Lackey's esophagitis per EGD 04/16/17; ongoing anemia * CODE STATUS: DNR * SYMPTOMS: --Pain-generalized pain to lower extremity/hip region. She is unable to further describe indicates a deep pain inside her hips, no point tenderness. No trauma. Imaging negative for fracture or acute process. She indicates it started a couple of days ago. Slight improvement here. Ultram PO added yesterday, used x1 yesterday, x1 today. she is not sure if this has helped the pain, cannot remember when her last dose was . Encourage her to request prn when painful, monitor requirements. * Concern for lethargy, AMS , encephalopathy --cautious use of opiates. --Encephalopathy-multifactorial: hepatic, renal. Ammonia 74. blood cultures no growth 2 days. BUN 43/creatinine 2.6. Anemic at admission 6.2/ 16.9. Currently oriented and for the most part appropriate though very lethargic. Currently has lactulose available prn--?consider scheduled given high ammonia level. * Palliative care will continue to follow during hospital course as condition evolves, to assist patient/decision-maker with understanding of medical conditions, weighing benefits/burdens of treatment options, for clarification of goals of treatment. Additionally will assist with any symptoms of palliative concern Time Spent Total Floor Time (mins): 25 Attestation To help prompt me to consider important information that might be impacting today's encounter and assessment, information from prior notes written by myself or my colleagues may have been "brought forward" into today's note. My signature on this note, however, is an attestation that I personally performed the exam, history, and/or decision-making noted today, and, unless otherwise indicated, the interactions with patient, family, and staff as well as the review of records all occurred today. I also attest that the listed assessment and stated plan reflect my best clinical judgment today based on the combination of historical information, prior notes, and today's exam/ interactions. When time spent is documented, it refers only to time spent today by the signer, or if indicated, combined time spent today by collaborating physician/nurse practitioner. Connie Pearce May 12, 2017 13:19
--- NOTE | 2017-05-12 13:24 | HHI.PR ---
Subjective Remarks patient feels tired denies melanotic stools denies hematochezia heart rate slightly tachy in the 100's Objective Vitals Vital Signs Date Time Temp Pulse Resp B/P Pulse Ox O2 Delivery O2 Flow Rate FiO2 05/12/17 08:00 96.2 100 18 117/63 96 05/12/17 04:00 96.6 96 17 114/63 96 05/12/17 00:07 96.1 91 17 116/63 97 05/11/17 20:00 93 05/11/17 20:00 97.2 90 16 115/59 98 05/11/17 19:13 Room Air 05/11/17 16:00 96.0 93 18 114/57 97 I/O 05/11/17 05/11/17 05/11/17 05/12/17 05/12/17 05/12/17 07:00 15:00 23:00 07:00 15:00 23:00 Intake Total 946 ml 480 ml 600 ml 717 ml Output Total 400 ml 450 ml 300 ml 100 ml Balance 546 ml 30 ml 300 ml 617 ml Intake Oral 240 ml 480 ml 600 ml 240 ml IV Total 706 ml 477 ml Output Urine Total 400 ml 450 ml 300 ml 100 ml # Voids 0 # Bowel Movements 0 0 1 Result Diagram: 05/12/1772105/12/17721 Imaging Last Impressions Pelvis X-Ray 05/10/17 0000 Signed Impressions: Service Date/Time: Wednesday, May 10, 2017 09:07 - CONCLUSION: Negative for fracture Michael Sevilla MD FACR Femur X-Ray 05/10/17 0000 Signed Impressions: Service Date/Time: Wednesday, May 10, 2017 09:09 - CONCLUSION: Degenerative changes about the knee otherwise negative. Michael Sevilla MD FACR Chest X-Ray 05/10/17 0000 Signed Impressions: Service Date/Time: Wednesday, May 10, 2017 09:08 - CONCLUSION: No acute disease. Michael Sevilla MD FACR Objective Remarks GENERAL: This is a chronic ill appearing patient's in no acute distress but his jaundice. SKIN: (+) jaundice skin HEAD: Atraumatic. Normocephalic. No temporal or scalp tenderness. EYES: Pupils equal round and reactive. Extraocular motions intact.+ scleral icterus. No injection or drainage. ENT: Nose without bleeding, purulent drainage or septal hematoma. Throat without erythema, tonsillar hypertrophy or exudate. Uvula midline. Airway patent. NECK: Trachea midline. No JVD or lymphadenopathy. Supple, nontender, no meningeal signs. CARDIOVASCULAR: Regular rate and rhythm without murmurs, gallops, or rubs. RESPIRATORY: Clear to auscultation. Breath sounds equal bilaterally. No wheezes , rales, or rhonchi. GASTROINTESTINAL: Abdomen soft, tender to palpation over RUQ, positive for distention. Negative for any peritoneal signs. MUSCULOSKELETAL: Right lower extremity patient was able to move her lower extremity with full range of motion, but per patient had pain. She cannot localize the pain. No calf tenderness. Negative Homans sign bilaterally. NEUROLOGICAL: Awake and alert. Cranial nerves II through XII intact. Motor and sensory grossly within normal limits. Speech is normal. Medications and IVs Current Medications Medications (Trade) Dose Ordered Sig/Teresa Route Start Time Stop Time Status Last Admin (10/13 NS 1000 ml Inj) 1,000 ml @ 75 mls/hr [id number] IV 05/10/17 10:32 05/12/17 02:50 (NS Flush) 2 ml UNSCH PRN IV FLUSH 05/10/17 10:45 (NS Flush) 2 ml BID IV FLUSH 05/10/17 21:00 05/11/17 22:54 (Zofran Inj) 4 mg Q6H PRN IVP 05/10/17 10:45 (Narcan Inj) 0.4 mg UNSCH PRN IV 05/10/17 10:45 (Anna-Colace) 1 tab BID PO 05/10/17 21:00 05/12/17 09:45 (Milk Of Magnesia Liq) 30 ml Q12H PRN PO 05/10/17 10:45 (Senokot) 17.2 mg Q12H PRN PO 05/10/17 10:45 (Dulcolax Supp) 10 mg DAILY PRN RECTAL 05/10/17 10:45 (Lactulose Liq) 30 ml DAILY PRN PO 05/10/17 10:45 (Lasix) 20 mg DAILY PO 05/11/17 09:00 05/12/17 09:45 (Protonix) 40 mg BID PO 05/10/17 21:00 05/12/17 09:44 (TRENtal SR) 400 mg Q8HR PO 05/10/17 14:00 05/12/17 05:22 (Mephyton) 10 mg DAILY PO 05/11/17 09:00 05/12/17 09:45 (Aldactone) 50 mg DAILY PO 05/11/17 09:00 05/12/17 09:44 (Carafate) 1 gm ACHS PO 05/10/17 16:00 05/12/17 09:45 (KCl) 20 meq DAILY PO 05/12/17 09:00 05/12/17 09:45 (Ultram) 50 mg Q6H PRN PO 05/11/17 18:15 05/12/17 05:22 (KCl) 30 meq ONCE ONCE PO 05/12/17 12:30 05/12/17 12:31 UNV A/P Problem List: (1) Severe anemia ICD Code: D64.9 Status: Acute Plan: This a 52-year-old female with liver disease secondary to alcoholic hepatitis and coagulopathy complicated by ascites secondary to alcoholism and hepatitis C. Patient is a very poor prognosis and an INR of 2.6. The patient is very well-known to me and during a recent admission she was given multiple transfusions. 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 The patient was treated with Carafate, Protonix and was discharged home. The patient presented this time with hemoglobin 6.2, on last admission the patient was discharged with a hemoglobin of 8. The patient was transfused 2 units of packed red blood cells with appropriate response, however hemoglobin is slowly trending down and it is 7.3 today. The patient is symptomatic with extreme weakness and fatigue. The patient however denies any GI bleed or melena. Continue Protonix twice a day and I will transfuse 1 unit of packed red blood cells to keep the patient's hemoglobin above 8. (2) Alcoholic liver failure ICD Code: K70.40 Status: Acute Plan: Elisabeth to monitor liver function tests. Alcoholic liver failure secondary to alcohol abuse. Patient has a meld score of 25. On previous admission the patient had extensive workup. The patient has positive hepatitis C virus RNA, negative ASA, negative ASMA, AMA less than 20. The patient has a coagulopathy with INR at INR of 2.5 which seems to be better from discharge when the patient had 3.2. We'll continue vitamin K. I will also continue pentoxifylline which the patient was discharged with a previous admission. (3) GI bleed ICD Code: K92.2 Status: Acute Plan: We'll consult gastroenterology since the patient will likely need to have a repeat upper endoscopy, continue PPI, continue vitamin K. (4) NEGRO (acute kidney injury) ICD Code: N17.9 Status: Resolved Plan: Nephrology consulted. Creatinine on admission very elevated at 2.68. Likely secondary to prerenal azotemia due to anemia. Creatinine is trending down. Continue to monitor BUN/creatinine, avoid nephrotoxins, monitor strict I's and O's. (5) Coagulopathy ICD Code: D68.9 Status: Chronic Plan: This is secondary to liver failure secondary to alcoholic hepatitis and liver cirrhosis. We'll continue to monitor PT, PTT and INR. (6) Elevated lactic acid level ICD Code: R79.89 Status: Acute Plan: And clear etiology at this time. Could be secondary to dehydration. I will recheck monitor lactic acid. I will also check blood cultures since patient had a gram-negative bacteremia on previous admission. Continue IV fluids for now and will hold diuretics. Assessment and Plan GI prophylaxis: PPI DVT prophylaxis: SCDs, no chemoprophylaxis given severe anemia and high risk for GI bleed. Discharge Planning Pending clinical improvement, GI consultation Problem Qualifiers (1) GI bleed: Qualified Code: K92.2 - Gastrointestinal hemorrhage, unspecified gastrointestinal hemorrhage type Dago Beavers MD May 12, 2017 13:24
[2017-05-12] MEDS ORDERED: ACETAMINOPHEN 325 MG TAB PO PRN (13:30)
[2017-05-12] MEDS ORDERED: diphenhydrAMINE HCL 25 MG CAP PO PRN (13:30)
[2017-05-12] MEDS ORDERED: SODIUM CHLOR 0.9% 250 ML INJ 250 ML IV ONE (13:30)
--- NOTE | 2017-05-12 13:40 | PD.CONS ---
HPI History of Present Illness This is a 52 year old female with a history of liver cirrhosis secondary to Hepatitis C and ETOH abuse, who was recently hospitalized from April 16, 2017- May 02, 2017 for bacteremia, new onset ascites, liver disease, coagulopathy, duodenal ulcer, anemia secondary to acute blood loss, and healthcare associated pneumonia. She reports that she was told that she had liver disease for several years, but never specifically told that she had liver cirrhosis until her last hospitalization. She quit drinking a week prior to that hospitalization, but prior to that she was drinking 3-4 beers per day. Liver workup----> ASA negative; ASMA negative; AMA < 20.0, Hepatitis C Genotype 1A with viral load of 121,000, Iron saturation 93%. During that hospitalization, she was evaluated with EGD (04/16/17)----> Lackey's Esophagus, erosive gastritis , duodenal ulcers. No obvious active bleeding. She was treated with Protonix and Carafate. She was seen by nephrology for kidney injury, but her renal status improved during her hospitalization. She did require 5 units of PRBC and 6 units of FFP for her anemia and coagulopathy. She was also treated with Vitamin K. On discharge, she had an H/H of 8.0/22.5, Platelet 48, INR 3.2. She was discharged home on Lasix 20mg po daily, Pantoprazole 40mg po BID, Pentoxifylline 400mg po q8h, Spironolactone 50mg daily, and carafate 1 tab achs. She has taken her medications as prescribed. She was discharged on May 02. She reports that she has continued to feel "ill" since her discharge. She has generalized fatigue and pain in her lower abdomen, bilateral hips, and lower back. This is a constant dull ache, although she cannot really describe it other than an ache and cannot identify any other aggravating or alleviating factors. She reports that she cannot take any pain meds because of her liver and therefore she returned to the ER. She was noted to have severe anemia with an HH of 6.2/16.9. She was transfused 2 units PRBC. She denies any obvious GI bleeding. She reports that she did vomit once today, after taking a "handful of medication" but otherwise denies any nausea/vomiting. She denies any hematemesis, heartburn, reflux, bowel changes, worsening ascites, confusion. She reports that her bowel movements are a "normal brown" and denies any melena or hematochezia. (Krystyna Jessica) PFSH Past Medical History Liver cirrhosis Alcoholic hepatitis Hepatitis C, tx naive Alcohol abuse, recently quit drinking 04/15. Arthritis HTN CAD COPD Asthma TIA [place] Recent duodenal ulcer Gastritis Lackey's esophagus Recently treated for bacteremia/pna Ascites Past Surgical History Angioplasty Tubal Back surgery Bilateral TM (tympanic membrane) surgery EGD Paracentesis (Krystyna Jessica) Coded Allergies: No Known Allergies (Verified , 05/10/17) Family History Mom: Cirrhosis Brother: DM Social History Quit smoking and drinking April 15. Prior to that, had 3-4 alcoholic drinks per day (Krystyna Jessica) Review of Systems Constitutional: COMPLAINS OF: Fatigue, DENIES: Fever, Weight loss, Chills, Change in appetite Respiratory: COMPLAINS OF: Cough, Sputum production Cardiovascular: DENIES: Chest pain Gastrointestinal: COMPLAINS OF: Abdominal pain, Nausea, Vomiting, Swelling of Abdomen, DENIES: Black stools, Bloody stools, Constipation, Diarrhea, Anorexia , Heartburn, Hematemesis Musculoskeletal: COMPLAINS OF: Joint pain, Back pain Integumentary: COMPLAINS OF: Abnormal pigmentation, Jaundice Hematologic/lymphatic: COMPLAINS OF: Bruising Psychiatric: DENIES: Confusion (Krystyna Jessica) GI Exam Vitals I&O Vital Signs Date Time Temp Pulse Resp B/P Pulse Ox O2 Delivery O2 Flow Rate FiO2 05/12/17 08:00 96.2 100 18 117/63 96 05/12/17 04:00 96.6 96 17 114/63 96 05/12/17 00:07 96.1 91 17 116/63 97 05/11/17 20:00 93 05/11/17 20:00 97.2 90 16 115/59 98 05/11/17 19:13 Room Air 05/11/17 16:00 96.0 93 18 114/57 97 I/O 05/11/17 05/11/17 05/11/17 05/12/17 05/12/17 05/12/17 07:00 15:00 23:00 07:00 15:00 23:00 Intake Total 946 ml 480 ml 600 ml 717 ml Output Total 400 ml 450 ml 300 ml 100 ml Balance 546 ml 30 ml 300 ml 617 ml Intake Oral 240 ml 480 ml 600 ml 240 ml IV Total 706 ml 477 ml Output Urine Total 400 ml 450 ml 300 ml 100 ml # Voids 0 # Bowel Movements 0 0 1 Imaging Last Impressions Pelvis X-Ray 05/10/17 0000 Signed Impressions: Service Date/Time: Wednesday, May 10, 2017 09:07 - CONCLUSION: Negative for fracture Michael Sevilla MD FACR Femur X-Ray 05/10/17 0000 Signed Impressions: Service Date/Time: Wednesday, May 10, 2017 09:09 - CONCLUSION: Degenerative changes about the knee otherwise negative. Michael Sevilla MD FACR Chest X-Ray 05/10/17 0000 Signed Impressions: Service Date/Time: Wednesday, May 10, 2017 09:08 - CONCLUSION: No acute disease. Michael Sevilla MD FACR Laboratory Test 05/12/17 07:22 White Blood Count 8.3 TH/MM3 Red Blood Count 2.01 MIL/MM3 Hemoglobin 7.3 GM/DL Hematocrit 19.8 % Mean Corpuscular Volume 98.6 FL Mean Corpuscular Hemoglobin 36.4 PG Mean Corpuscular Hemoglobin 36.9 % Concent Red Cell Distribution Width 26.1 % Platelet Count 66 TH/MM3 Mean Platelet Volume 8.6 FL Sodium Level 134 MEQ/L Potassium Level 3.3 MEQ/L Chloride Level 99 MEQ/L Carbon Dioxide Level 23.8 MEQ/L Anion Gap 11 MEQ/L Blood Urea Nitrogen 32 MG/DL Creatinine 1.48 MG/DL Estimat Glomerular Filtration 37 ML/MIN Rate Random Glucose 100 MG/DL Calcium Level 8.4 MG/DL Phosphorus Level 2.7 MG/DL Magnesium Level 1.1 MG/DL Total Bilirubin 13.1 MG/DL Aspartate Amino Transf 83 U/L (AST/SGOT) Alanine Aminotransferase 29 U/L (ALT/SGPT) Alkaline Phosphatase 52 U/L Total Protein 7.1 GM/DL Albumin 3.1 GM/DL Date/Time Procedure Status Source Growth 05/10/17 10:04 Aerobic Blood Culture - Preliminary Resulted Blood Peripheral NO GROWTH IN 2 DAYS 05/10/17 10:04 Anaerobic Blood Culture - Preliminary Resulted Blood Peripheral NO GROWTH IN 2 DAYS Physical Examination HEENT: Normocephalic; atraumatic; + jaundice. CHEST: CTA CARDIAC: RRR. ABDOMEN: Soft, mildly distended, lower abdominal tenderness; hepatosplenomegaly ; bowel sounds are present in all four quadrants. EXTREMITIES: No clubbing, cyanosis, or edema. SKIN: Normal; no rash; + jaundice. [employer]ATOR: No focal deficits; alert and oriented times three. (Krystyna Jessica [facility]) Assessment and Plan Plan ASSESSMENT: - Severe anemia. Recent hospitalization and underwent evaluation with EGD ()----> Lackey's Esophagus, erosive gastritis, duodenal ulcers. No obvious active bleeding. She was treated with Protonix and Carafate. She denies any obvious blood loss. She had one episode of n/v today, but denies hematemesis, melena, or hematochezia. On discharge, she had an H/H of 8.0/22.5, Platelet 48, INR 3.2. On admission, she was found to have HH 6.2/16.9, S/P 2 units PRBC. 7.3/19.8. INR is 2.5, Vitamin K. - Alcoholic hepatitis on underlying liver cirrhosis with coagulopathy/ thrombocytopenia. Pt has been told for years that she has liver disease, but never told she had cirrhosis until last admission. Liver workup----> ASA negative; ASMA negative; AMA < 20.0, Hepatitis C Genotype 1A with viral load of 121,000, Iron saturation 93%. DF 87.620. MELD 30. She does have advanced liver disease, although it is difficult to say exactly what her underlying liver disease is , as she still has alcoholic hepatitis on her underlying liver disease. However , the persistent coagulopathy is worrisome. - Coagulopathy. On discharge, she had Platelet 48, INR 3.2. PT 28.2, INR 2.5. Vitamin K - NEGRO with electrolyte abnormalities. Was seen by renal during last hospitalization and at discharged had creat 0.94. This is now 1.48. - Recent GIB to erosive gastritis, duodenal ulcers. PPI - HCV, Genotype 1A with viral load of 121,000. Outpt fu - Ascites. S/P paracentesis during last hospitalization. Lasix/Spironolactone per attending with NEGRO. Controlled - HTN, CAD, Hx TIA, COPD, Hx DVT per primary PLAN: - EGD once coagulopathy corrected - will d/w Dr. Lee adding FFP prior to procedure - Obtain consents - Clear liquids - NPO after MN - Protonix 40mg po BID - Carafate 1 gram po ACHS - Vitamin K 10mg daily - Pentoxifylline 400mg po q8h - Diuretics per attending because of NEGRO - Monitor labs - Supportive care - Further recommendations to follow based on results of above - Pt seen and examined by Dr. Lee and myself and this note is written on her behalf (Krystyna Jessica) Physician Comments seen, examined agree with above (Tamara Lee MD) Krystyna Jessica May 12, 2017 13:40 Tamara Lee MD May 12, 2017 16:05
[2017-05-12] MEDS ORDERED: POTASSIUM CHLORIDE 10 MEQ CONTROLLED RELEASE TAB PO ONE (14:00)
[2017-05-12] MEDS ORDERED: PHYTONADIONE 10 MG/ML VIAL SQ ONE (14:15)
[2017-05-12] MEDS ORDERED: METOPROLOL TARTRATE 25 MG TAB PO PRN (23:45)
[2017-05-12] MEDS ORDERED: CHLORHEXIDINE GLUCONATE 2 % 1 PACK (2 CLOTHS) TOPICAL PRN (23:45)
[2017-05-12] MEDS ORDERED: INSULIN HUMAN REGULAR 1,000 UNITS/10 ML VIAL SQ PRN (23:45)
[2017-05-12] MEDS ORDERED: LACTATED RINGER'S 1000 ML IV PRN (23:45)
[2017-05-12] MEDS ORDERED: POVIDONE IODINE 5% (ANTISEPSIS KIT) 4 APPLICATIONS EACH NARE PRN (23:45)
[2017-05-12] MEDS ORDERED: SODIUM CHLORID 0.9% 500 ML IV PRN (23:45)
[2017-05-13] VITALS (9 sets, daily range): BP systolic 107–129; BP diastolic 65–97; PULSE 95–98; RESP 16–17; TEMP 96.2–96.8; O2SAT 96–98
[2017-05-13] MEDS: traMADol HCL 50 MG TAB PO PRN ×3 (00:24→13:44)
[2017-05-13] MEDS: SODIUM CHLOR 0.45% 1000 ML INJ 1,000 ML IV SCH ×2 (06:16→20:44)
[2017-05-13] MEDS: SUCRALFATE 1 GM TAB PO SCH ×4 (06:16→19:41)
[2017-05-13] MEDS: PENTOXIFYLLINE 400 MG CONTROLLED RELEASE TAB PO SCH ×3 (06:16→20:44)
[2017-05-13 06:58] LABS: APTT (PATIENT) 72.8 SEC (24.3-30.1); INTERNATIONAL NORMALIZED RATIO 2.5 RATIO; PROTHROMBIN TIME - PATIENT 28.2 SEC (9.8-11.6)
[2017-05-13 07:11] LABS: ANION GAP 11 MEQ/L (5-15); AST (GOT) 83 U/L (15-37); BICARBONATE 22.3 MEQ/L (21.0-32.0); BLOOD UREA NITROGEN 28 MG/DL (7-18); CHLORIDE 98 MEQ/L (98-107); GLOMERULAR FILTRATION RATE 46 ML/MIN (>89); MAGNESIUM 0.9 MG/DL (1.5-2.5); POTASSIUM 3.4 MEQ/L (3.5-5.1); SODIUM (NA) 131 MEQ/L (136-145)
[2017-05-13 07:12] LABS: ALT (GPT) 29 U/L (10-53); AUTOMATED NEUTROPHIL # 8.4 TH/MM3 (1.8-7.7); BASOPHIL % 0.3 % (0.0-2.0); EOSINOPHIL # 0.2 TH/MM3 (0-0.4); EOSINOPHIL % 1.5 % (0.0-4.0); HEMATOCRIT 22.5 % (35.0-46.0); LYMPH % 12.3 % (9.0-44.0); LYMPHOCYTE # 1.3 TH/MM3 (1.0-4.8); MEAN CELL VOLUME 98.8 FL (80.0-100.0); MEAN CORPUSCULAR HGB CONC 35.5 % (32.0-36.0); NEUT % 78.9 % (16.0-70.0); PLATELET COUNT 67 TH/MM3 (150-450); RED BLOOD COUNT 2.28 MIL/MM3 (4.00-5.30); RED CELL DISTRIBUTION WIDTH 28.1 % (11.6-17.2); WHITE BLOOD COUNT 10.6 TH/MM3 (4.0-11.0)
[2017-05-13 07:14] LABS: ALKALINE PHOSPHATASE 53 U/L (45-117); TOTAL BILIRUBIN ADULT 14.1 MG/DL (0.2-1.0)
[2017-05-13 07:21] LABS: HEMO FLAGS AUTO DIFF
[2017-05-13 08:54] LABS: BURR CELLS 1+ (NORMAL); TARGET CELLS 1+ (NORMAL)
[2017-05-13 08:57] LABS: PLATELET ESTIMATE SMEAR LOW (NORMAL); TOXIC GRANULATION 2+ (NORMAL)
[2017-05-13 08:58] LABS: ACANTHOCYTES OCC (NORMAL); PLATELET MORPHOLOGY NORMAL (NORMAL); SCAN/DIFF AUTO DIFF CONFIRMED
--- NOTE | 2017-05-13 09:03 | EKG ---
Date Performed: 05/13/2017 Time Performed: 05:38:32 PTAGE: 52 years EKG: Sinus tachycardia. Lead(s) unsuitable for analysis: V3 Anterior T wave changes are nonspeci fic Borderline ECG PREVIOUS TRACING : 02/10/2014 22.36 DOCTOR: Leopoldo Osman Interpretating Date/Time 05/13/2017 09:02:10
[2017-05-13] MEDS: POTASSIUM CHLORIDE 20 MEQ CONTROLLED RELEASE TAB PO SCH (11:01)
[2017-05-13] MEDS: PHYTONADIONE 5 MG TAB PO SCH (11:01)
[2017-05-13] MEDS: PANTOPRAZOLE SOD 40 MG DELAYED RELEASE TAB PO SCH ×2 (11:02→19:41)
[2017-05-13] MEDS: SODIUM CHLORIDE 0.9% FLUSH 10 ML FLUSH IV FLUSH SCH ×2 (11:02→19:42)
[2017-05-13] MEDS: DOCUSATE SODIUM 50 MG/SENNA 8.6 MG TAB PO SCH ×2 (11:02→19:42)
--- NOTE | 2017-05-13 12:09 | HHI.PR ---
Subjective Remarks states had nausea earlier denies vomiting denies fevers/chills denies cp/sob Objective Vitals Vital Signs Date Time Temp Pulse Resp B/P Pulse Ox O2 Delivery O2 Flow Rate FiO2 05/13/17 10:42 96.4 98 16 129/74 98 05/13/17 10:41 96.4 98 16 129/74 98 05/13/17 10:34 Room Air 05/13/17 10:25 96.6 98 16 124/67 96 05/13/17 08:10 96.7 97 16 116/72 97 05/13/17 04:00 96.7 97 16 107/65 97 05/12/17 20:15 96.1 91 16 116/64 98 05/12/17 20:10 94 05/12/17 18:59 Room Air 05/12/17 18:56 96.0 98 20 120/69 97 05/12/17 18:40 96.3 98 20 114/69 98 05/12/17 16:00 96.0 97 18 126/65 99 I/O 05/12/17 05/12/17 05/12/17 05/13/17 05/13/17 05/13/17 07:00 15:00 23:00 07:00 15:00 23:00 Intake Total 717 ml 1972 ml 628 ml Output Total 100 ml 975 ml 250 ml Balance 617 ml 997 ml 378 ml Intake Oral 240 ml 720 ml 0 ml IV Total 477 ml 930 ml 628 ml Packed Cells 322 ml Output Urine Total 100 ml 975 ml 250 ml # Bowel Movements 1 2 1 Result Diagram: 05/13/17 0620 05/13/17 0620 Imaging Last Impressions Pelvis X-Ray 05/10/17 0000 Signed Impressions: Service Date/Time: Wednesday, May 10, 2017 09:07 - CONCLUSION: Negative for fracture Michael Sevilla MD FACR Femur X-Ray 05/10/17 0000 Signed Impressions: Service Date/Time: Wednesday, May 10, 2017 09:09 - CONCLUSION: Degenerative changes about the knee otherwise negative. Michael Sevilla MD FACR Chest X-Ray 05/10/17 0000 Signed Impressions: Service Date/Time: Wednesday, May 10, 2017 09:08 - CONCLUSION: No acute disease. Michael Sevilla MD FACR Objective Remarks GENERAL: This is a chronic ill appearing patient's in no acute distress but his jaundice. SKIN: (+) jaundice skin HEAD: Atraumatic. Normocephalic. No temporal or scalp tenderness. EYES: Pupils equal round and reactive. Extraocular motions intact.+ scleral icterus. No injection or drainage. ENT: Nose without bleeding, purulent drainage or septal hematoma. Throat without erythema, tonsillar hypertrophy or exudate. Uvula midline. Airway patent. NECK: Trachea midline. No JVD or lymphadenopathy. Supple, nontender, no meningeal signs. CARDIOVASCULAR: Regular rate and rhythm without murmurs, gallops, or rubs. RESPIRATORY: Clear to auscultation. Breath sounds equal bilaterally. No wheezes , rales, or rhonchi. GASTROINTESTINAL: Abdomen soft, tender to palpation over RUQ, positive for distention. Negative for any peritoneal signs. MUSCULOSKELETAL: Right lower extremity patient was able to move her lower extremity with full range of motion, but per patient had pain. She cannot localize the pain. No calf tenderness. Negative Homans sign bilaterally. NEUROLOGICAL: Awake and alert. Cranial nerves II through XII intact. Motor and sensory grossly within normal limits. Speech is normal. Medications and IVs Current Medications Medications (Trade) Dose Ordered Sig/Teresa Route Start Time Stop Time Status Last Admin (10/13 NS 1000 ml Inj) 1,000 ml @ 75 mls/hr [id number] IV 05/10/17 10:32 05/13/17 06:16 (NS Flush) 2 ml UNSCH PRN IV FLUSH 05/10/17 10:45 (NS Flush) 2 ml BID IV FLUSH 05/10/17 21:00 05/13/17 11:02 (Zofran Inj) 4 mg Q6H PRN IVP 05/10/17 10:45 05/12/17 22:53 (Narcan Inj) 0.4 mg UNSCH PRN IV 05/10/17 10:45 (Anna-Colace) 1 tab BID PO 05/10/17 21:00 05/13/17 11:02 (Milk Of Magnesia Liq) 30 ml Q12H PRN PO 05/10/17 10:45 (Senokot) 17.2 mg Q12H PRN PO 05/10/17 10:45 (Dulcolax Supp) 10 mg DAILY PRN RECTAL 05/10/17 10:45 (Lactulose Liq) 30 ml DAILY PRN PO 05/10/17 10:45 (Lasix) 20 mg DAILY PO 05/11/17 09:00 Hold 05/12/17 09:45 (Protonix) 40 mg BID PO 05/10/17 21:00 05/13/17 11:02 (TRENtal SR) 400 mg Q8HR PO 05/10/17 14:00 05/13/17 06:16 (Mephyton) 10 mg DAILY PO 05/11/17 09:00 05/13/17 11:01 (Aldactone) 50 mg DAILY PO 05/11/17 09:00 Hold 05/12/17 09:44 (Carafate) 1 gm ACHS PO 05/10/17 16:00 05/13/17 11:02 (KCl) 20 meq DAILY PO 05/12/17 09:00 05/13/17 11:01 Tramadol HCl 50 mg 50 mg Q6H PRN PO 05/11/17 18:15 05/13/17 06:17 Lactated Ringer's 1,000 ml @ 30 mls/hr Q24H PRN IV 05/12/17 23:45 05/15/17 23:44 (NS 500 ml Inj) 500 ml @ 30 mls/hr [id number] PRN IV 05/12/17 23:45 05/15/17 23:44 Urinary Catheter: No Vascular Central Line Catheter: No A/P Problem List: (1) Severe anemia ICD Code: D64.9 Status: Acute Plan: This a 52-year-old female with liver disease secondary to alcoholic hepatitis and coagulopathy complicated by ascites secondary to alcoholism and hepatitis C. Patient is a very poor prognosis and an INR of 2.6. The patient is very well-known to me and during a recent admission she was given multiple transfusions. 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 The patient was treated with Carafate, Protonix and was discharged home. The patient presented this time with hemoglobin 6.2, on last admission the patient was discharged with a hemoglobin of 8. The patient was transfused 2 units of packed red blood cells with appropriate response, however hemoglobin was slowly trending down and was 7.3 on 05/12 and the patient was transfuse 1 unit of packed blood cells with appropriate response. 05/13 Continue PPI and continue to monitor CBC. Hemoglobin stable. Continue to monitor H&H. GI consulted, the patient will undergo a repeat EGD once coagulopathy is corrected with transfusion of her frozen plasma being administered. (2) Alcoholic liver failure ICD Code: K70.40 Status: Acute Plan: Elisabeth to monitor liver function tests. Alcoholic liver failure secondary to alcohol abuse. Patient has a meld score of 25. On previous admission the patient had extensive workup. The patient has positive hepatitis C virus RNA, negative ASA, negative ASMA, AMA less than 20. The patient has a coagulopathy with INR at INR of 2.5 which seems to be better from discharge when the patient had 3.2. We'll continue vitamin K. I will also continue pentoxifylline which the patient was discharged with a previous admission. Appreciate palliative care consultation and efforts. (3) GI bleed ICD Code: K92.2 Status: Acute Plan: GI consulted, will repeat EGD once coagulopathy improved. Patient been transfused 2 units of FFP. Continue to monitor PT, INR and PTT. Continue vitamin K (4) NEGRO (acute kidney injury) ICD Code: N17.9 Status: Resolved Plan: Nephrology consulted. Creatinine on admission very elevated at 2.68. Likely secondary to prerenal azotemia due to anemia. Creatinine is trending down. Continue to monitor BUN/creatinine, avoid nephrotoxins, monitor strict I's and O's. 05/13 creatinine is trending down today 1.22. Continue to monitor BUN/creatinine , continue IV fluids, avoid nephrotoxins. (5) Coagulopathy ICD Code: D68.9 Status: Chronic Plan: Coagulopathy secondary to liver disease. INR 2.5, PTT 72.8. Transfuse 2 units of fresh frozen plasma. (6) Elevated lactic acid level ICD Code: R79.89 Status: Acute Plan: Unclear etiology at this time. Could be secondary to dehydration. I will recheck monitor lactic acid. I will also check blood cultures since patient had a gram-negative bacteremia on previous admission. Continue IV fluids for now and will hold diuretics. 05/13 blood cultures are negative 3 days. Lactic acid is slowly trending down with IV fluids. Lactic acid down from 4.1 - 2.1. We'll continue to monitor. Continue IV fluids. (7) Hyperammonemia ICD Code: E72.20 Status: Acute Plan: Ammonia elevated at 74 on admission, down to 38. Continue lactulose. (8) Hypokalemia ICD Code: E87.6 Status: Acute Plan: Likely a combination of poor nutritional status and decreased oral intake along with IV fluid administration. We'll replace orally and continue to monitor BMP (9) Hyponatremia ICD Code: E87.1 Status: Acute Plan: Patient has chronic hyponatremia. Sodium 131, continue to monitor BMP. (10) DNR (do not resuscitate) ICD Code: Z66 Status: Acute Plan: Palliative care following. Patient has a DO NOT RESUSCITATE status. Assessment and Plan GI prophylaxis: PPI DVT prophylaxis: SCDs, no chemoprophylaxis given severe anemia and high risk for GI bleed. Discharge Planning Pending clinical improvement, GI consultation Problem Qualifiers (1) GI bleed: Qualified Code: K92.2 - Gastrointestinal hemorrhage, unspecified gastrointestinal hemorrhage type Dago Beavers MD May 13, 2017 12:09
--- NOTE | 2017-05-13 12:11 | HHI.HCPN ---
Met with Ms. Kilpatrick for follow-up palliative care support. She is currently lying in bed, awake and able to make needs known. She is appropriate in conversation. Tells me she is having a "bad day". Verbalizes this is because she is "not able to get any rest", also states she is upset because she is not allowed to drink anything (patient NPO for procedure later today). Her mouth has some dried blood, nurse providing mouth care at my visit. Briefly and gently discussed AA resources for post discharge support. She declines information and states "I have self-support, I don't need AA". Offered emotional support. Declines any questions or concerns. Palliative care will continue to follow throughout hospitalization. Huong Potter, SPEEDER MACHINE OPERATOR May 13, 2017 12:11
[2017-05-13] MEDS ORDERED: POTASSIUM CHLORIDE 20 MEQ CONTROLLED RELEASE TAB PO ONE (12:15)
--- NOTE | 2017-05-13 13:25 | HHI.HCPN ---
Reason for visit a. To assist with evaluation and management of symptoms including: encephalopathy , pain b. To assist medical decision maker(s) with: better understanding of current medical conditions; weighing benefits/burdens of medical treatment options; making medical treatment decisions. Subjective/Interval History Seen today to follow-up on goals, comfort. Stable overnight. GI evaluated, NPO after midnight for EGD tomorrow once coagulopathy corrected. + FFP transfusing today. Platelet slowly trending down 67 today. GI started Pentoxifylline 400mg po q8h. BUN 28/ creatinine 1.22. Total bili 14.1 Pt seen in room, sleeping initially. She is irritable, indicates has not been getting rest, always being woken up. Oriented x3. appropriate. Explore GI consultation, she tells me "they didn't tell me anything". She agrees that procedure is planned, explore that if she serrano NOT wish to proceed w further evaluation/interventions that she would have the right to comfort, hospice care in her home. She tells me that she "might as well go through with the workup now that she's here." Gently explore that her liver disease is advanced, could be approaching end stage. She wishes to proceed w workup/GI recommendations and further decisions pending clinical course. Review DNR, community DNR-- she signed community DNR today. D/w ANNIE BOB. Advance Directives Health Care Surrogate: Copy in medical record Advance Directive Specifics Date completed: 04/2017. . Health Care Surrogate(s): designated healthcare surrogate significant other Jaya gardiner dated 04/2017. Objective Vital Signs Date Time Temp Pulse Resp B/P Pulse Ox O2 Delivery O2 Flow Rate FiO2 05/13/17 10:42 96.4 98 16 129/74 98 05/13/17 10:41 96.4 98 16 129/74 98 05/13/17 10:34 Room Air 05/13/17 10:25 96.6 98 16 124/67 96 05/13/17 08:10 96.7 97 16 116/72 97 05/13/17 04:00 96.7 97 16 107/65 97 05/12/17 20:15 96.1 91 16 116/64 98 05/12/17 20:10 94 05/12/17 18:59 Room Air 05/12/17 18:56 96.0 98 20 120/69 97 8/1/17 18:40 96.3 98 20 114/69 98 05/12/17 16:00 96.0 97 18 126/65 99 Intake & Output 05/13/17 05/13/17 06:59 18:59 Intake Total 2240 ml Output Total 525 ml Balance 1715 ml Intake Oral 360 ml IV Total 1558 ml Packed Cells 322 ml Output Urine Total 525 ml # Bowel Movements 2 Physical Exam CONSTITUTIONAL/GENERAL: This is an adequately nourished patient, lethargic, flat affect PIV upper extremities CARDIOVASCULAR: Regular rate and rhythm without murmurs, No JVD. Peripheral pulses symmetric. No peripheral edema RESPIRATORY/CHEST: Symmetric, unlabored respirations. Clear to auscultation. Breath sounds equal bilaterally. No wheezes, rales, or rhonchi. GASTROINTESTINAL: Abdomen soft, non-tender, slight distention. No guarding. Bowel sounds present. GENITOURINARY: Without palpable bladder distension. Morfin catheter in place dark tea color urine present. MUSCULOSKELETAL: Extremities without clubbing, cyanosis, or edema. No joint tenderness or effusion noted. No mottling or clubbing. NEUROLOGICAL: Lethargic. Oriented x3. Flat affect. Appears to have some insight. Moves all 4 extremities with generalized weakness. PSYCHIATRIC: Flat affect. No obvious anxiety. No hallucinations. . Diagnostic Tests Laboratory Laboratory Tests Test 05/11/17 05/12/17 05/12/17 05/12/17 05:52 07:22 13:24 14:12 White Blood Count 8.2 TH/MM3 8.3 TH/MM3 (4.0-11.0) (4.0-11.0) Red Blood Count 2.23 MIL/MM3 2.01 MIL/MM3 (4.00-5.30) (4.00-5.30) Hemoglobin 7.9 GM/DL 7.3 GM/DL (11.6-15.3) (11.6-15.3) Hematocrit 22.2 % 19.8 % (35.0-46.0) (35.0-46.0) Mean Corpuscular Volume 99.3 FL 98.6 FL (80.0-100.0) (80.0-100.0) Mean Corpuscular Hemoglobin 35.4 PG 36.4 PG (27.0-34.0) (27.0-34.0) Mean Corpuscular Hemoglobin 35.6 % 36.9 % Concent (32.0-36.0) (32.0-36.0) Red Cell Distribution Width 26.6 % 26.1 % (11.6-17.2) (11.6-17.2) Platelet Count 62 TH/MM3 66 TH/MM3 (150-450) (150-450) Mean Platelet Volume 7.9 FL 8.6 FL (7.0-11.0) (7.0-11.0) Prothrombin Time 28.2 SEC (9.8-11.6) Prothromb Time International 2.5 RATIO Ratio Sodium Level 134 MEQ/L 134 MEQ/L (136-145) (136-145) Potassium Level 3.2 MEQ/L 3.3 MEQ/L (3.5-5.1) (3.5-5.1) Chloride Level 100 MEQ/L 99 MEQ/L (98-107) (98-107) Carbon Dioxide Level 21.8 MEQ/L 23.8 MEQ/L (21.0-32.0) (21.0-32.0) Anion Gap 12 MEQ/L (5-15) 11 MEQ/L (5-15) Blood Urea Nitrogen 37 MG/DL (7-18) 32 MG/DL (7-18) Creatinine 2.01 MG/DL 1.48 MG/DL (0.50-1.00) (0.50-1.00) Estimat Glomerular Filtration 26 ML/MIN (>89) 37 ML/MIN (>89) Rate Random Glucose 94 MG/DL 100 MG/DL (74-106) (74-106) Calcium Level 8.8 MG/DL 8.4 MG/DL (8.5-10.1) (8.5-10.1) Phosphorus Level 2.7 MG/DL (2.5-4.9) Magnesium Level 1.1 MG/DL (1.5-2.5) Total Bilirubin 13.1 MG/DL (0.2-1.0) Aspartate Amino Transf 83 U/L (15-37) (AST/SGOT) Alanine Aminotransferase 29 U/L (10-53) (ALT/SGPT) Alkaline Phosphatase 52 U/L (45-117) Total Protein 7.1 GM/DL (6.4-8.2) Albumin 3.1 GM/DL (3.4-5.0) Blood Type AB NEGATIVE Crossmatch Leukocyte-Reduced Red Blood Cells Blood Bank Comment Lactic Acid Level 4.1 mmol/L (0.4-2.0) Ammonia 38 MCMOL/L (11-32) Test 05/13/17 05/13/17 06:20 08:53 White Blood Count 10.6 TH/MM3 (4.0-11.0) Red Blood Count 2.28 MIL/MM3 (4.00-5.30) Hemoglobin 8.0 GM/DL (11.6-15.3) Hematocrit 22.5 % (35.0-46.0) Mean Corpuscular Volume 98.8 FL (80.0-100.0) Mean Corpuscular Hemoglobin 35.0 PG (27.0-34.0) Mean Corpuscular Hemoglobin 35.5 % Concent (32.0-36.0) Red Cell Distribution Width 28.1 % (11.6-17.2) Platelet Count 67 TH/MM3 (150-450) Mean Platelet Volume 8.1 FL (7.0-11.0) Neutrophils (%) (Auto) 78.9 % (16.0-70.0) Lymphocytes (%) (Auto) 12.3 % (9.0-44.0) Monocytes (%) (Auto) 7.0 % (0.0-8.0) Eosinophils (%) (Auto) 1.5 % (0.0-4.0) Basophils (%) (Auto) 0.3 % (0.0-2.0) Neutrophils # (Auto) 8.4 TH/MM3 (1.8-7.7) Lymphocytes # (Auto) 1.3 TH/MM3 (1.0-4.8) Monocytes # (Auto) 0.7 TH/MM3 (0-0.9) Eosinophils # (Auto) 0.2 TH/MM3 (0-0.4) Basophils # (Auto) 0.0 TH/MM3 (0-0.2) CBC Comment AUTO DIFF Differential Comment AUTO DIFF CONFIRMED Toxic Granulation 2+ (NORMAL) Platelet Estimate LOW (NORMAL) Platelet Morphology Comment NORMAL (NORMAL) Basophilic Stippling FAINT (NORMAL) Target Cells 1+ (NORMAL) Radha Cells 1+ (NORMAL) Acanthocytes OCC (NORMAL) Red Cell Morphology Comment (NORMAL) Prothrombin Time 28.2 SEC (9.8-11.6) Prothromb Time International 2.5 RATIO Ratio Activated Partial 72.8 SEC Thromboplast Time (24.3-30.1) Sodium Level 131 MEQ/L (136-145) Potassium Level 3.4 MEQ/L (3.5-5.1) Chloride Level 98 MEQ/L (98-107) Carbon Dioxide Level 22.3 MEQ/L (21.0-32.0) Anion Gap 11 MEQ/L (5-15) Blood Urea Nitrogen 28 MG/DL (7-18) Creatinine 1.22 MG/DL (0.50-1.00) Estimat Glomerular Filtration 46 ML/MIN (>89) Rate Random Glucose 111 MG/DL (74-106) Lactic Acid Level 2.9 mmol/L (0.4-2.0) Calcium Level 8.3 MG/DL (8.5-10.1) Phosphorus Level 2.5 MG/DL (2.5-4.9) Magnesium Level 0.9 MG/DL (1.5-2.5) Total Bilirubin 14.1 MG/DL (0.2-1.0) Aspartate Amino Transf 83 U/L (15-37) (AST/SGOT) Alanine Aminotransferase 29 U/L (10-53) (ALT/SGPT) Alkaline Phosphatase 53 U/L (45-117) Total Protein 7.1 GM/DL (6.4-8.2) Albumin 3.1 GM/DL (3.4-5.0) Blood Bank Comment Result Diagram: 05/13/17 0620 05/13/17 0620 Microbiology Microbiology Date/Time Procedure Status Source Growth 05/12/17 14:00 Stool Occult Blood (JAVI) - Final Complete Stool Stool HEMOCCULT POSITIVE Imaging Last Impressions Pelvis X-Ray 05/10/17 0000 Signed Impressions: Service Date/Time: Wednesday, May 10, 2017 09:07 - CONCLUSION: Negative for fracture Michael Sevilla MD FACR Femur X-Ray 05/10/17 0000 Signed Impressions: Service Date/Time: Wednesday, May 10, 2017 09:09 - CONCLUSION: Degenerative changes about the knee otherwise negative. Michael Sevilla MD FACR Chest X-Ray 05/10/17 0000 Signed Impressions: Service Date/Time: Wednesday, May 10, 2017 09:08 - CONCLUSION: No acute disease. Michael Sevilla MD FACR Assessment and Plan Disease Oriented Problem List: (1) Lactic acidosis (2) Anemia (3) Coagulopathy (4) Liver failure Comment: Hepatitis C, chronic alcoholism (5) NEGRO (acute kidney injury) (6) Hepatic encephalopathy (7) Lackey's esophagus Comment: EGD 04/16/17 (8) Erosive gastritis Comment: EGD 04/16/17 (9) Duodenal ulcer Comment: EGD 04/16/17 Symptom Scale: (1) Encephalopathy (2) Pain Pertinent Non-Medical Issues Psychosocial: Supported by significant other Jaya, whom she shares an apartment with. 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 Spiritual: Tenriism Legal:Patient capacity and ability to make decisions fluctuates, she has some hepatic encephalopathy. She does have designated healthcare surrogate significant other Jaya gardiner dated 04/2017. Ethical issues impacting care: Important Contacts Sig Other- Jaya Gardiner([phone]) . Prognosis Pt admitted for generalized pain, +findings of acute renal failure, +underlying liver disease. Recent GI bleed, h&h again trending down. Prognosis guarded-- recently admitted w EDG findings of duodenal ulcer, acute alcoholic hepatitis. Current ARF could be secondary to GI bleeding?, as BUN/creatinine had improved at last DC. Current MELD 35. total bilirubin remains elevated. BUN and creatinine remain elevated. Coagulopathic. . Code Status: No Code Plan * Legal decision maker:Patient capacity and ability to make decisions fluctuates , she has some hepatic encephalopathy. She does have designated healthcare surrogate significant other Jaya Gardiner dated 04/2017. Likely she can participate in decision-making, but may benefit from shared decision making with her designated healthcare surrogate. * Goals: On one hand patient endorsing "just wanting to go home and be comfortable"; however she does not have completely comfort oriented goals, she would still want to pursue some level of treatment if her conditions were treatable, short of resuscitation. I did briefly review with her hospice option today however she would like to further try to correct her underlying disease process if possible. She indicates that she has not been consuming alcohol since prior to her last hospitalization, but that she began feeling progressively worse following her last discharge. 05/13: Patient's goals remain semi-aggressive, she would want to maintain treatment/undergo GI evaluation for her liver disease if possible if she might see her liver disease stabilize however she is also open to ongoing discussions regarding hospice if there are no further treatment options. * CODE STATUS: DNR * SYMPTOMS: --Pain-generalized pain to lower extremity/hip region. She is unable to further describe indicates a deep pain inside her hips, no point tenderness. No trauma. Imaging negative for fracture or acute process. She indicates it started a couple of days ago. Slight improvement here. Ultram PO added -- used x2 yesterday, x2 today. she is not sure if this has helped the pain,thinks it is helping a little. * Concern for lethargy, AMS , encephalopathy --cautious use of opiates. --Encephalopathy-multifactorial: hepatic, renal. Ammonia 74. blood cultures no growth 3 days. BUN 28/creatinine 1.22. Anemic at admission 6.2/ 16.9. Currently oriented and for the most part appropriate though at times lethargic. Pentoxifylline 400mg po q8h added by GI. * Palliative care will continue to follow during hospital course as condition evolves, to assist patient/decision-maker with understanding of medical conditions, weighing benefits/burdens of treatment options, for clarification of goals of treatment. Additionally will assist with any symptoms of palliative concern Attestation To help prompt me to consider important information that might be impacting today's encounter and assessment, information from prior notes written by myself or my colleagues may have been "brought forward" into today's note. My signature on this note, however, is an attestation that I personally performed the exam, history, and/or decision-making noted today, and, unless otherwise indicated, the interactions with patient, family, and staff as well as the review of records all occurred today. I also attest that the listed assessment and stated plan reflect my best clinical judgment today based on the combination of historical information, prior notes, and today's exam/ interactions. When time spent is documented, it refers only to time spent today by the signer, or if indicated, combined time spent today by collaborating physician/nurse practitioner. Connie Pearce May 13, 2017 13:25
[2017-05-13] MEDS ORDERED: PROPOFOL 200 MG/20 ML AMP IV PUSH ONE (14:40)
--- NOTE | 2017-05-13 14:48 | GIPROC ---
[facility] [address] [facility]. [facility], [address] EGD PROCEDURE REPORT EXAM DATE: 05/13/2017 PATIENT NAME: Nicki Kilpatrick MR #: [id number] BIRTHDATE: 1965 ATTENDING: Tamara Lee MD ORDER #: [id number] RUBBER GOODS TESTER: Huong Jamil and Glenn Salmon STATUS: inpatient INDICATIONS: The patient is a 52 yr old female here for an EGD due to anemia liver cirrhosis PROCEDURE PERFORMED: EGD, diagnostic MEDICATIONS: None and Per Anesthesia. TOPICAL ANESTHETIC: none CONSENT: The patient understands the risks and benefits of the procedure and understands that these risks include, but are not limited to: sedation, allergic reaction, infection, perforation and/or bleeding. Alternative means of evaluation and treatment include, among others: physical exam, x-rays, and/or surgical intervention. The patient elects to proceed with this endoscopic procedure. medical equipment was checked for proper function. Hand hygiene and appropriate measures for infection prevention was taken. After the risks, benefits and alternatives of the procedure were thoroughly explained, Informed consent was verified, confirmed and timeout was successfully executed by the treatment team. The patient was anesthetized with topical anesthesia and the Pentax [id number] and [id number] endoscope was introduced through the mouth and advanced to the second portion of the duodenum. Retroflexed views revealed a hiatal hernia The gastroscope was then slowly withdrawn and removed. Portal gastropathy retained food in stomach no esophageal varices. ADVERSE EVENTS: There were no complications. IMPRESSIONS: 1. Portal gastropathy retained food in stomach no esophageal varices 2. Retroflexed views revealed a hiatal hernia RECOMMENDATIONS: 1. Anti-reflux regimen 2. Full liquid diet gastric emptying study trial of REglan PATIENT CONDITION: stable DISPOSITION: Inpatient REPEAT EXAM: Return as needed for EGD Tamara Lee MD eSigned: Tamara Lee MD 05/13/2017 2:48 PM cc:
[2017-05-13] MEDS: METOCLOPRAMIDE HCL 10 MG/2 ML VIAL IV PUSH SCH (20:44)
[2017-05-14] VITALS (10 sets, daily range): BP systolic 107–135; BP diastolic 57–73; PULSE 96–107; RESP 18; TEMP 96.4–98.1; O2SAT 92–98
[2017-05-14] MEDS: METOCLOPRAMIDE HCL 10 MG/2 ML VIAL IV PUSH SCH ×3 (05:57→20:16)
[2017-05-14] MEDS: PENTOXIFYLLINE 400 MG CONTROLLED RELEASE TAB PO SCH ×3 (05:57→20:16)
[2017-05-14] MEDS: SUCRALFATE 1 GM TAB PO SCH ×4 (05:57→20:16)
[2017-05-14] MEDS: SODIUM CHLOR 0.45% 1000 ML INJ 1,000 ML IV SCH ×2 (07:52→13:27)
[2017-05-14] MEDS: DOCUSATE SODIUM 50 MG/SENNA 8.6 MG TAB PO SCH ×2 (09:00→20:16)
[2017-05-14] MEDS: POTASSIUM CHLORIDE 20 MEQ CONTROLLED RELEASE TAB PO SCH (09:31)
[2017-05-14] MEDS: SODIUM CHLORIDE 0.9% FLUSH 10 ML FLUSH IV FLUSH SCH ×2 (09:32→20:17)
[2017-05-14] MEDS: PHYTONADIONE 5 MG TAB PO SCH (09:32)
[2017-05-14] MEDS: PANTOPRAZOLE SOD 40 MG DELAYED RELEASE TAB PO SCH ×2 (09:32→20:16)
[2017-05-14 09:53] LABS: MEAN CORPUSCULAR HGB CONC 36.6 % (32.0-36.0)
--- NOTE | 2017-05-14 13:35 | HHI.GIFU ---
Subjective Remarks Resting in bed. Could not tolerate lying on back for GES and therefore refused. States she wants to eat. Continues to have abdominal pain- constant dull ache. No n/v. No bleeding. (Krystyna Jessica) Objective Vitals I&O Vital Signs Date Time Temp Pulse Resp B/P Pulse Ox O2 Delivery O2 Flow Rate FiO2 05/14/17 12:31 98 05/14/17 11:22 96.9 104 18 110/65 98 05/14/17 07:30 96.4 101 18 112/73 98 05/14/17 05:00 96.6 96 18 121/64 98 05/14/17 00:00 96.7 104 18 107/57 98 05/13/17 20:00 96.6 95 17 110/97 97 05/13/17 18:25 21 05/13/17 17:00 96.2 96 16 110/66 98 05/13/17 14:52 93 16 117/72 100 05/13/17 14:47 93 16 128/67 100 05/13/17 14:42 97.7 92 16 121/68 100 05/13/17 14:22 96 16 120/72 98 05/13/17 14:07 96.8 96 16 120/72 98 I/O 05/13/17 05/13/17 05/13/17 05/14/17 05/14/17 05/14/17 07:00 15:00 23:00 07:00 15:00 23:00 Intake Total 628 ml 950 ml 950 ml 650 ml 375 ml Output Total 250 ml 250 ml 300 ml 250 ml Balance 378 ml 700 ml 650 ml 650 ml 125 ml Intake Oral 0 ml 0 ml 620 ml 0 ml IV Total 628 ml 850 ml 650 ml 375 ml Packed Cells 330 ml Other 100 ml Output Urine Total 250 ml 250 ml 300 ml 250 ml # Bowel Movements 1 2 1 1 Laboratory Date/Time Procedure Status Source Growth 05/12/17 14:00 Stool Occult Blood (JAVI) - Final Complete Stool Stool HEMOCCULT POSITIVE 05/10/17 10:04 Aerobic Blood Culture - Preliminary Resulted Blood Peripheral NO GROWTH IN 4 DAYS 05/10/17 10:04 Anaerobic Blood Culture - Preliminary Resulted Blood Peripheral NO GROWTH IN 4 DAYS Imaging Last Impressions Pelvis X-Ray 05/10/17 0000 Signed Impressions: Service Date/Time: Wednesday, May 10, 2017 09:07 - CONCLUSION: Negative for fracture Michael Sevilla MD FACR Femur X-Ray 05/10/17 0000 Signed Impressions: Service Date/Time: Wednesday, May 10, 2017 09:09 - CONCLUSION: Degenerative changes about the knee otherwise negative. Michael Sevilla MD FACR Chest X-Ray 05/10/17 0000 Signed Impressions: Service Date/Time: Wednesday, May 10, 2017 09:08 - CONCLUSION: No acute disease. Michael Sevilla MD FACR Physical Exam HEENT: Normocephalic; atraumatic; + jaundice. CHEST: CTA CARDIAC: RRR. ABDOMEN: Soft, mildly distended, lower abdominal tenderness; hepatosplenomegaly ; bowel sounds are present in all four quadrants. EXTREMITIES: No clubbing, cyanosis, or edema. SKIN: Normal; no rash; + jaundice. PLAYGROUND WORKER: No focal deficits; alert and oriented times three. (Krystyna Jessica) Assessment and Plan Plan ASSESSMENT: - Severe anemia. Recent hospitalization and underwent evaluation with EGD ()----> Lackey's Esophagus, erosive gastritis, duodenal ulcers. No obvious active bleeding. She was treated with Protonix and Carafate. She denies any obvious blood loss. She had one episode of n/v today, but denies hematemesis, melena, or hematochezia. On discharge, she had an H /H of 8.0/22.5, Platelet 48, INR 3.2. On admission, she was found to have HH 6.2/16.9. S/P Rpt. EGD (05/13/17)----> 1. Portal gastropathy , retained food in stomach, no esophageal varices, 2. Retroflexed views revealed a hiatal hernia. S/P 3 units PRBC, 2 units FFP. HH 8.0/22.5. - Retained food in stomach on EGD. Refusing GES (cannot tolerate lying on back for that long). Trial of reglan. D/W patient limiting narcotics. - Alcoholic hepatitis on underlying liver cirrhosis with coagulopathy/ thrombocytopenia. Pt has been told for years that she has liver disease, but never told she had cirrhosis until last admission. Liver workup----> ASA negative; ASMA negative; AMA < 20.0, Hepatitis C Genotype 1A with viral load of 121,000, Iron saturation 93%. DF 87.620. MELD 30. She does have advanced liver disease, although it is difficult to say exactly what her underlying liver disease is, as she still has alcoholic hepatitis on her underlying liver disease. However, the persistent coagulopathy is worrisome. Vitamin K. Will recheck labs in am. - Coagulopathy. S/P 2 units FFP, Vitamin K - NEGRO with electrolyte abnormalities. Creat. 1.22 yesterday - Recent GIB to erosive gastritis, duodenal ulcers. PPI - HCV, Genotype 1A with viral load of 121,000. Outpt fu - Ascites. S/P paracentesis during last hospitalization. Lasix/Spironolactone per attending with NEGRO. Controlled - HTN, CAD, Hx TIA, COPD, Hx DVT per primary PLAN: - Heart healthy soft diet - Refused GES - Cont. Reglan - Cont. PPI - Cont. Carafate - Cont. Vit. K - Cont. Pentoxifylline - Diuretics per attending because of NEGRO - Monitor labs - Supportive care - Further recommendations to follow based on results of above - Pt seen and examined by Dr. Lee and myself and this note is written on her behalf (Krystyna Jessica) Physician Comments seen, examined agree with above she is complaining more of back pain -consider mri lumbosacral spine -decision to be made by medical team ok to dc home from gi point supportive care consider pain management (Tamara Lee MD) Krystyna Jessica May 14, 2017 13:35 Tamara Lee MD May 14, 2017 13:55
--- NOTE | 2017-05-14 13:43 | HHI.PR ---
Subjective Remarks As per RN the patient had an episode of nonsustained V. tach. The patient also refused gastric emptying study. The patient complains of severe lower back pain and right lower leg pain. Denies fevers or chills Potassium low at 3.4. Objective Vitals Vital Signs Date Time Temp Pulse Resp B/P Pulse Ox O2 Delivery O2 Flow Rate FiO2 05/14/17 12:31 98 05/14/17 11:22 96.9 104 18 110/65 98 05/14/17 07:30 96.4 101 18 112/73 98 05/14/17 05:00 96.6 96 18 121/64 98 05/14/17 00:00 96.7 104 18 107/57 98 05/13/17 20:00 96.6 95 17 110/97 97 05/13/17 18:25 21 05/13/17 17:00 96.2 96 16 110/66 98 05/13/17 14:52 93 16 117/72 100 05/13/17 14:47 93 16 128/67 100 05/13/17 14:42 97.7 92 16 121/68 100 05/13/17 14:22 96 16 120/72 98 05/13/17 14:07 96.8 96 16 120/72 98 I/O 05/13/17 05/13/17 05/13/17 05/14/17 05/14/17 05/14/17 06:59 14:59 22:59 06:59 14:59 22:59 Intake Total 628 ml 100 ml 1800 ml 650 ml 375 ml Output Total 250 ml 550 ml 250 ml Balance 378 ml 100 ml 1250 ml 650 ml 125 ml Intake Oral 0 ml 620 ml 0 ml IV Total 628 ml 850 ml 650 ml 375 ml Packed Cells 330 ml Other 100 ml Output Urine Total 250 ml 550 ml 250 ml # Bowel Movements 1 3 1 Result Diagram: 05/13/1761905/13/17619 Objective Remarks GENERAL: This is a chronic ill appearing patient's in no acute distress but his jaundice. SKIN: (+) jaundice skin HEAD: Atraumatic. Normocephalic. No temporal or scalp tenderness. EYES: Pupils equal round and reactive. Extraocular motions intact.+ scleral icterus. No injection or drainage. ENT: Nose without bleeding, purulent drainage or septal hematoma. Throat without erythema, tonsillar hypertrophy or exudate. Uvula midline. Airway patent. NECK: Trachea midline. No JVD or lymphadenopathy. Supple, nontender, no meningeal signs. CARDIOVASCULAR: Regular rate and rhythm without murmurs, gallops, or rubs. RESPIRATORY: Clear to auscultation. Breath sounds equal bilaterally. No wheezes , rales, or rhonchi. GASTROINTESTINAL: Abdomen soft, tender to palpation over RUQ, positive for distention. Negative for any peritoneal signs. MUSCULOSKELETAL: Right lower extremity patient was able to move her lower extremity with full range of motion, but per patient had pain. Muscle strength in right lower extremity is 3/5. NEUROLOGICAL: Awake and alert. Cranial nerves II through XII intact. Motor and sensory grossly within normal limits. Speech is normal. Medications and IVs Current Medications Medications (Trade) Dose Ordered Sig/Teresa Route Start Time Stop Time Status Last Admin (10/13 NS 1000 ml Inj) 1,000 ml @ 75 mls/hr [id number] IV 05/10/17 10:32 05/14/17 13:27 (NS Flush) 2 ml UNSCH PRN IV FLUSH 05/10/17 10:45 (NS Flush) 2 ml BID IV FLUSH 05/10/17 21:00 05/14/17 09:32 (Zofran Inj) 4 mg Q6H PRN IVP 05/10/17 10:45 05/12/17 22:53 (Narcan Inj) 0.4 mg UNSCH PRN IV 05/10/17 10:45 (Anna-Colace) 1 tab BID PO 05/10/17 21:00 05/13/17 19:42 (Milk Of Magnesia Liq) 30 ml Q12H PRN PO 05/10/17 10:45 (Senokot) 17.2 mg Q12H PRN PO 05/10/17 10:45 (Dulcolax Supp) 10 mg DAILY PRN RECTAL 05/10/17 10:45 (Lactulose Liq) 30 ml DAILY PRN PO 05/10/17 10:45 (Lasix) 20 mg DAILY PO 05/11/17 09:00 Hold 05/12/17 09:45 (Protonix) 40 mg BID PO 05/10/17 21:00 05/14/17 09:32 (TRENtal SR) 400 mg Q8HR PO 05/10/17 14:00 05/14/17 11:51 (Mephyton) 10 mg DAILY PO 05/11/17 09:00 05/14/17 09:32 (Aldactone) 50 mg DAILY PO 05/11/17 09:00 Hold 05/12/17 09:44 (Carafate) 1 gm ACHS PO 05/10/17 16:00 05/14/17 15:36 (KCl) 20 meq DAILY PO 05/12/17 09:00 05/14/17 09:31 Tramadol HCl 50 mg 50 mg Q6H PRN PO 05/11/17 18:15 05/14/17 13:59 Lactated Ringer's 1,000 ml @ 30 mls/hr Q24H PRN IV 05/12/17 23:45 05/15/17 23:44 (NS 500 ml Inj) 500 ml @ 30 mls/hr [id number] PRN IV 05/12/17 23:45 05/15/17 23:44 (Reglan Inj) 5 mg Q8HR IV PUSH 05/13/17 22:00 05/14/17 11:51 (Oramorph Sr) 15 mg Q8H PO 05/14/17 15:00 05/14/17 15:36 A/P Problem List: (1) Severe anemia ICD Code: D64.9 Status: Acute (2) Alcoholic liver failure ICD Code: K70.40 Status: Acute (3) GI bleed ICD Code: K92.2 Status: Acute (4) NEGRO (acute kidney injury) ICD Code: N17.9 Status: Resolved (5) Coagulopathy ICD Code: D68.9 Status: Chronic (6) Elevated lactic acid level ICD Code: R79.89 Status: Acute (7) Hyperammonemia ICD Code: E72.20 Status: Acute (8) Hypokalemia ICD Code: E87.6 Status: Acute (9) Hyponatremia ICD Code: E87.1 Status: Acute (10) DNR (do not resuscitate) ICD Code: Z66 Status: Acute (11) Non-sustained ventricular tachycardia ICD Code: I47.2 Status: Acute Plan: V. tach likely secondary to electrolyte abnormality. Will keep magnesium above 2 and potassium 004. Continue to monitor on telemetry. (12) Hypomagnesemia ICD Code: E83.42 Status: Acute Plan: Likely secondary to nutritional deficiency. I will give 2 g of IV magnesium sulfate and had acute levels above 2 given episode of nonsustained V. tach. (13) Low back pain radiating down leg ICD Code: M54.5 Status: Acute Plan: Upon review of previous records the patient had a lumbar spine x-ray on date 10/23/12 which reports changes of posterior fusion procedure with instrumentation on L3 through L5, and mild disease narrowing at L2-3 with anterior osseous ridging. No fracture seen. Given that the patient has severe low back pain and right lotion any weakness on exam I will order an MRI of the lumbar spine. The patient states she is unable to lay still on the MRI machine, however I offered to give her some pain medication prior to the procedure. I will also start the patient on morphine sulfate 50 mg by mouth every 8 hours for pain control. Continue tramadol. Assessment and Plan (1) Severe anemia Plan: This a 52-year-old female with liver disease secondary to alcoholic hepatitis and coagulopathy complicated by ascites secondary to alcoholism and hepatitis C. Patient is a very poor prognosis and an INR of 2.6. The patient is very well-known to me and during a recent admission she was given multiple transfusions. 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 The patient was treated with Carafate, Protonix and was discharged home. The patient presented this time with hemoglobin 6.2, on last admission the patient was discharged with a hemoglobin of 8. The patient was transfused 2 units of packed red blood cells with appropriate response, however hemoglobin was slowly trending down and was 7.3 on 05/12 and the patient was transfuse 1 unit of packed blood cells with appropriate response. 05/13 Continue PPI and continue to monitor CBC. Hemoglobin stable. Continue to monitor H&H. GI consulted, the patient will undergo a repeat EGD once coagulopathy is corrected with transfusion of her frozen plasma being administered. 05/14 the patient is status post EGD which showed portal gastropathy and retained gastric contents. The patient was started on Reglan for gastropathy. (2) Alcoholic liver failure Continue to monitor liver function tests. Alcoholic liver failure secondary to alcohol abuse. Patient has a meld score of 25. On previous admission the patient had extensive workup. The patient has positive hepatitis C virus RNA, negative ASA, negative ASMA, AMA less than 20. The patient has a coagulopathy with INR at INR of 2.5 which seems to be better from discharge when the patient had 3.2. We'll continue vitamin K. I will also continue pentoxifylline which the patient was discharged with a previous admission. Appreciate palliative care consultation and efforts. GI consulted and following. (3) GI bleed Plan: GI consulted, patient sp 2 units of FFP. EGd as above. Continue to monitor PT, INR and PTT. Continue vitamin K (4) NEGRO (acute kidney injury) Plan: Nephrology consulted. Creatinine on admission very elevated at 2.68. Likely secondary to prerenal azotemia due to anemia. Creatinine is trending down. Continue to monitor BUN/creatinine, avoid nephrotoxins, monitor strict I's and O's. 8/3 at the slowly trending down. Creatinine down to 1.22. Continue to monitor BUN/creatinine. (5) Coagulopathy Plan: Coagulopathy secondary to liver disease. INR 2.5, PTT 72.8. Status post fusion of 3 units of FFP. Continue vitamin K. (6) Elevated lactic acid level Plan: Unclear etiology at this time. Could be secondary to dehydration. I will recheck monitor lactic acid. I will also check blood cultures since patient had a gram-negative bacteremia on previous admission. Continue IV fluids for now and will hold diuretics. 8/2 blood cultures are negative 3 days. Lactic acid is slowly trending down with IV fluids. Lactic acid down from 4.1 - 2.1. We'll continue to monitor. Continue IV fluids. 8/3 lactic acid continued to trend down, now down to 2.5. Continue to monitor lactic. (7) Hyperammonemia Plan: Ammonia elevated at 74 on admission, down to 38. Continue lactulose. (8) Hypokalemia Plan: Likely a combination of poor nutritional status and decreased oral intake along with IV fluid administration. We'll replace orally and continue to monitor BMP 8/3 potassium 3.8. Will keep above for even episode of nonsustained V. tach. (9) Hyponatremia Plan: Patient has chronic hyponatremia. (9) DNR Plan: Palliative care following. Patient has a DO NOT RESUSCITATE status. GI prophylaxis: PPI DVT prophylaxis: SCDs, no chemoprophylaxis given severe anemia and high risk for GI bleed. Case discussed with RN. Discharge Planning Pending clinical improvement, GI consultation Problem Qualifiers (1) GI bleed: Qualified Code: K92.2 - Gastrointestinal hemorrhage, unspecified gastrointestinal hemorrhage type Dago Beavers MD May 14, 2017 13:43
[2017-05-14] MEDS: traMADol HCL 50 MG TAB PO PRN (13:59)
[2017-05-14] MEDS ORDERED: HYDROmorphone HCL PF 1 MG/ML VIAL IV PUSH ONE (14:15)
[2017-05-14] MEDS: MORPHINE SULFATE 15 MG CONTROLLED RELEASE TAB PO SCH (15:36)
[2017-05-14 16:29] LABS: AUTOMATED NEUTROPHIL # 7.3 TH/MM3 (1.8-7.7); BASOPHIL # 0.1 TH/MM3 (0-0.2); BASOPHIL % 0.8 % (0.0-2.0); EOSINOPHIL # 0.1 TH/MM3 (0-0.4); EOSINOPHIL % 1.5 % (0.0-4.0); LYMPH % 11.9 % (9.0-44.0); LYMPHOCYTE # 1.1 TH/MM3 (1.0-4.8); MEAN CELL VOLUME 98.1 FL (80.0-100.0); MEAN CORPUSCULAR HEMOGLOBIN 35.9 PG (27.0-34.0); MONO % 6.3 % (0.0-8.0); NEUT % 79.5 % (16.0-70.0); PLATELET COUNT 74 TH/MM3 (150-450); RED BLOOD COUNT 2.04 MIL/MM3 (4.00-5.30); WHITE BLOOD COUNT 9.2 TH/MM3 (4.0-11.0)
[2017-05-14 16:31] LABS: HEMO FLAGS AUTO DIFF
[2017-05-14 16:46] LABS: ANION GAP 11 MEQ/L (5-15); AST (GOT) 82 U/L (15-37); BICARBONATE 21.9 MEQ/L (21.0-32.0); BLOOD UREA NITROGEN 20 MG/DL (7-18); CHLORIDE 99 MEQ/L (98-107); GLOMERULAR FILTRATION RATE 57 ML/MIN (>89); POTASSIUM 3.8 MEQ/L (3.5-5.1); SODIUM (NA) 132 MEQ/L (136-145)
[2017-05-14 16:47] LABS: ALT (GPT) 26 U/L (10-53)
[2017-05-14 16:49] LABS: ALKALINE PHOSPHATASE 58 U/L (45-117); TOTAL BILIRUBIN ADULT 12.6 MG/DL (0.2-1.0)
[2017-05-14 17:06] LABS: MAGNESIUM 0.8 MG/DL (1.5-2.5)
[2017-05-14 17:15] LABS: ACANTHOCYTES 1+ (NORMAL); KERATOCYTES OCC (NORMAL); OVALOCYTES 1+ (NORMAL); PLATELET ESTIMATE SMEAR LOW (NORMAL); PLATELET MORPHOLOGY NORMAL (NORMAL); TARGET CELLS 1+ (NORMAL); TOXIC GRANULATION 1+ (NORMAL)
[2017-05-14 17:17] LABS: SCAN/DIFF AUTO DIFF CONFIRMED
[2017-05-14] MEDS: MAGNESIUM SULFATE 1 GM PREMIX 100 ML IV SCH ×2 (20:16→21:20)
[2017-05-14] MEDS ORDERED: HYDROmorphone HCL PF 1 MG/ML VIAL IV PUSH SCH (22:45)
[2017-05-14] MEDS ORDERED: GADODIAMIDE PF 287 MG/ML 5 ML VIAL (for RAD MRI) IV ONE (22:52)
[2017-05-15] VITALS (18 sets, daily range): BP systolic 120–139; BP diastolic 62–77; PULSE 100–111; RESP 15–19; TEMP 96.2–97.8; O2SAT 93–99
--- NOTE | 2017-05-15 | RADRPT ---
EXAM DATE/TIME: 05/14/2017 22:21 [facility] COMPARISON: No previous studies available for comparison. INDICATIONS : Pain. CONTRAST: 16 cc Omniscan (gadodiamide) IV MEDICAL HISTORY : Hypertension. Hepatitis C. Cirrhosis. COPD. AK. SURGICAL HISTORY : Tubal ligation. Fusion, lumbar. Left eardrum tympanostomy. ENCOUNTER: Subsequent ACUITY: 4-6 days PAIN SCORE: 8/10 LOCATION: Lower back. TECHNIQUE: Multiplanar multisequence MRI of the lumbar spine was performed with and without contrast. FINDINGS: Sagittal images demonstrate normal vertebral body alignment and curvature. No focal areas of marrow r eplacement are identified. The conus terminates normally. Axial images were performed from T12-L1 thr ough L5-S1. There is anterior and posterior fusion with pedicle screws and interbody graft from L3-L5 . Following the administration of contrast no abnormal enhancement is identified. T12-L1: No significant abnormalities identified. L1-L2: There is mild diffuse annular bulge of the disc. The neural foramina are clear bilaterally. There is no significant spinal canal stenosis. L2-L3: There is no evidence of disc protrusion or spinal canal stenosis. The neural foramina are clear bilat erally. L3-L4: Postsurgical changes as above. There is no significant spinal canal stenosis. L4-L5: There is no evidence of disc protrusion or spinal canal stenosis. Postsurgical changes as above. L5-S1: No significant abnormalities identified. CONCLUSION: 1. Postsurgical changes as above. No evidence of disc protrusion or spinal canal stenosis. Thor Liao MD on May 14, 2017 at 23:52 Board Certified Radiologist. This report was verified electronically.
[2017-05-15] MEDS: MORPHINE SULFATE 15 MG CONTROLLED RELEASE TAB PO SCH ×4 (00:25→23:00)
[2017-05-15] MEDS: PENTOXIFYLLINE 400 MG CONTROLLED RELEASE TAB PO SCH ×3 (06:07→21:54)
[2017-05-15] MEDS: METOCLOPRAMIDE HCL 10 MG/2 ML VIAL IV PUSH SCH ×3 (06:07→21:53)
[2017-05-15] MEDS: SUCRALFATE 1 GM TAB PO SCH ×4 (06:08→21:52)
[2017-05-15] MEDS: SODIUM CHLORIDE 0.9% FLUSH 10 ML FLUSH IV FLUSH SCH ×2 (09:00→21:54)
[2017-05-15] MEDS: DOCUSATE SODIUM 50 MG/SENNA 8.6 MG TAB PO SCH ×2 (09:26→21:53)
[2017-05-15] MEDS: POTASSIUM CHLORIDE 20 MEQ CONTROLLED RELEASE TAB PO SCH (09:26)
[2017-05-15] MEDS: PANTOPRAZOLE SOD 40 MG DELAYED RELEASE TAB PO SCH ×2 (09:26→21:53)
[2017-05-15] MEDS: PHYTONADIONE 5 MG TAB PO SCH (09:28)
[2017-05-15] MEDS: SODIUM CHLOR 0.45% 1000 ML INJ 1,000 ML IV SCH (09:30)
[2017-05-15] MEDS ORDERED: SODIUM CHLOR 0.9% 250 ML INJ 250 ML IV ONE (10:45)
[2017-05-15] MEDS ORDERED: ACETAMINOPHEN 325 MG TAB PO PRN (10:45)
[2017-05-15] MEDS ORDERED: diphenhydrAMINE HCL 25 MG CAP PO PRN (10:45)
--- NOTE | 2017-05-15 11:44 | HHI.GIFU ---
Subjective Remarks Patient resting in bed. She is more lethargic today. She denies any nausea or vomiting. She is not having any obvious active bleeding. She does complain of back pain. (Krystyna Jessica) Objective Vitals I&O Vital Signs Date Time Temp Pulse Resp B/P Pulse Ox O2 Delivery O2 Flow Rate FiO2 05/15/17 07:35 97.1 110 19 122/65 93 05/15/17 04:20 97.1 111 18 136/62 94 05/15/17 04:00 Room Air 05/15/17 00:00 Room Air 05/15/17 00:00 96.7 109 18 124/68 95 05/14/17 21:43 92 21 05/14/17 21:00 98.1 107 18 135/70 95 05/14/17 20:17 107 05/14/17 20:00 Room Air 05/14/17 15:52 102 05/14/17 15:26 96.9 101 18 118/72 96 05/14/17 12:31 98 I/O 05/14/17 05/14/17 05/14/17 05/15/17 05/15/17 05/15/17 07:00 15:00 23:00 07:00 15:00 23:00 Intake Total 650 ml 1075 ml 873 ml 626 ml Output Total 550 ml 250 ml Balance 650 ml 525 ml 873 ml 376 ml Intake Oral 700 ml 120 ml 120 ml IV Total 650 ml 375 ml 753 ml 506 ml Output Urine Total 550 ml 250 ml # Voids 1 # Bowel Movements 2 1 0 Laboratory Laboratory Tests Test 05/14/17 15:36 White Blood Count 9.2 Red Blood Count 2.04 Hemoglobin 7.3 Hematocrit 20.0 Mean Corpuscular Volume 98.1 Mean Corpuscular Hemoglobin 35.9 Mean Corpuscular Hemoglobin 36.6 Concent Red Cell Distribution Width 29.0 Platelet Count 74 Mean Platelet Volume 9.2 Neutrophils (%) (Auto) 79.5 Lymphocytes (%) (Auto) 11.9 Monocytes (%) (Auto) 6.3 Eosinophils (%) (Auto) 1.5 Basophils (%) (Auto) 0.8 Neutrophils # (Auto) 7.3 Lymphocytes # (Auto) 1.1 Monocytes # (Auto) 0.6 Eosinophils # (Auto) 0.1 Basophils # (Auto) 0.1 CBC Comment AUTO DIFF Differential Comment AUTO DIFF CONFIRMED Toxic Granulation 1+ Platelet Estimate LOW Platelet Morphology Comment NORMAL Target Cells 1+ Ovalocytes 1+ Acanthocytes 1+ Keratocytes OCC Sodium Level 132 Potassium Level 3.8 Chloride Level 99 Carbon Dioxide Level 21.9 Anion Gap 11 Blood Urea Nitrogen 20 Creatinine 1.02 Estimat Glomerular Filtration 57 Rate Random Glucose 91 Lactic Acid Level 2.5 Calcium Level 8.1 Magnesium Level 0.8 Total Bilirubin 12.6 Aspartate Amino Transf 82 (AST/SGOT) Alanine Aminotransferase 26 (ALT/SGPT) Alkaline Phosphatase 58 Total Protein 7.1 Albumin 3.0 Date/Time Procedure Status Source Growth 05/12/17 14:00 Stool Occult Blood (JAVI) - Final Complete Stool Stool HEMOCCULT POSITIVE Imaging Last Impressions Lumbar Spine MRI 05/14/17 0000 Signed Impressions: Service Date/Time: May 22:21 - CONCLUSION: 1. Postsurgical changes as above. No evidence of disc protrusion or spinal canal stenosis. Thor Liao MD Pelvis X-Ray 05/10/17 0000 Signed Impressions: Service Date/Time: Wednesday, May 10, 2017 09:07 - CONCLUSION: Negative for fracture Michael Sevilla MD FACR Femur X-Ray 05/10/17 0000 Signed Impressions: Service Date/Time: Wednesday, May 10, 2017 09:09 - CONCLUSION: Degenerative changes about the knee otherwise negative. Michael Sevilla MD FACR Chest X-Ray 05/10/17 0000 Signed Impressions: Service Date/Time: Wednesday, May 10, 2017 09:08 - CONCLUSION: No acute disease. Michael Sevilla MD FACR Physical Exam HEENT: Normocephalic; atraumatic; + jaundice. CHEST: CTA CARDIAC: Tachycardic, 110 ABDOMEN: Soft, mildly distended, nontender; hepatosplenomegaly; bowel sounds are present in all four quadrants. EXTREMITIES: No clubbing, cyanosis, or edema. SKIN: Normal; no rash; + jaundice. 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 Recent hospitalization and underwent evaluation with EGD ()----> Lackey's Esophagus, erosive gastritis, duodenal ulcers. No obvious active bleeding. She was treated with Protonix and Carafate. She denies any obvious blood loss. She had one episode of n/v today, but denies hematemesis, melena, or hematochezia. On discharge, she had an H /H of 8.0/22.5, Platelet 48, INR 3.2. On admission, she was found to have HH 6.2/16.9. S/P Rpt. EGD (05/13/17)----> 1. Portal gastropathy , retained food in stomach, no esophageal varices, 2. Retroflexed views revealed a hiatal hernia. S/P 3 units PRBC, 2 units FFP. H&H is 7.3/ 20.0 today. An additional 2 units of PRBC has been ordered - Retained food in stomach on EGD. Refusing GES (cannot tolerate lying on back for that long). Trial of reglan. D/W patient limiting narcotics. No nausea today. - Worsening lethargy today, ? Hepatic encephalopathy. Will check ammonia level - Alcoholic hepatitis on underlying liver cirrhosis with coagulopathy/ thrombocytopenia. Pt has been told for years that she has liver disease, but never told she had cirrhosis until last admission. Liver workup----> ASA negative; ASMA negative; AMA < 20.0, Hepatitis C Genotype 1A with viral load of 121,000, Iron saturation 93%. DF 87.620. MELD 30. She does have advanced liver disease, although it is difficult to say exactly what her underlying liver disease is, as she still has alcoholic hepatitis on her underlying liver disease. However, the persistent coagulopathy is worrisome. Vitamin K. Plt 74, PT/INR pending. - Coagulopathy. S/P 2 units FFP, Vitamin K. Rpt coag's pending. - NEGRO with electrolyte abnormalities. Improved - Recent GIB to erosive gastritis, duodenal ulcers. PPI - HCV, Genotype 1A with viral load of 121,000. Outpt fu - Ascites. S/P paracentesis during last hospitalization. Lasix/Spironolactone per attending with NEGRO. Controlled - HTN, CAD, Hx TIA, COPD, Hx DVT per primary PLAN: - Heart healthy soft diet - Ammonia level (add to today's labs) - Refused GES - Cont. Reglan - Cont. PPI - Cont. Carafate - Cont. Vit. K - Cont. Pentoxifylline - Add Xifaxan/Lactulose - Diuretics per attending because of NEGRO - Monitor labs - Supportive care - Further recommendations to follow based on results of above - Pt seen and examined by Dr. Lee and myself and this note is written on her behalf (Krystyna Jessica) Physician Comments seen, examined agree with above post prbc transfusion overall poor prognosis mri spine noted -good pain control (Tamara Lee MD) Krystyna Jessica May 15, 2017 11:44 Tamara Lee MD May 15, 2017 19:21
[2017-05-15 11:49] LABS: AUTOMATED NEUTROPHIL # 8.1 TH/MM3 (1.8-7.7); BASOPHIL % 0.5 % (0.0-2.0); EOSINOPHIL # 0.1 TH/MM3 (0-0.4); EOSINOPHIL % 1.2 % (0.0-4.0); LYMPH % 14.5 % (9.0-44.0); LYMPHOCYTE # 1.5 TH/MM3 (1.0-4.8); MEAN CELL VOLUME 98.6 FL (80.0-100.0); MEAN CORPUSCULAR HEMOGLOBIN 34.8 PG (27.0-34.0); MEAN CORPUSCULAR HGB CONC 35.2 % (32.0-36.0); MONO % 7.9 % (0.0-8.0); NEUT % 75.9 % (16.0-70.0); PLATELET COUNT 75 TH/MM3 (150-450); RED BLOOD COUNT 1.88 MIL/MM3 (4.00-5.30); RED CELL DISTRIBUTION WIDTH 28.8 % (11.6-17.2); WHITE BLOOD COUNT 10.7 TH/MM3 (4.0-11.0)
[2017-05-15 11:52] LABS: HEMO FLAGS AUTO DIFF
[2017-05-15 11:54] LABS: HEMATOCRIT 18.6 % (35.0-46.0)
[2017-05-15 11:58] LABS: INTERNATIONAL NORMALIZED RATIO 1.9 RATIO; PROTHROMBIN TIME - PATIENT 21.4 SEC (9.8-11.6)
[2017-05-15] MEDS ORDERED: FUROSEMIDE 20 MG/2 ML VIAL IV ONE (12:00)
[2017-05-15 12:18] LABS: ALT (GPT) 28 U/L (10-53); ANION GAP 10 MEQ/L (5-15); AST (GOT) 87 U/L (15-37); BICARBONATE 23.4 MEQ/L (21.0-32.0); BLOOD UREA NITROGEN 21 MG/DL (7-18); CHLORIDE 99 MEQ/L (98-107); GLOMERULAR FILTRATION RATE 48 ML/MIN (>89); SODIUM (NA) 132 MEQ/L (136-145)
[2017-05-15 12:20] LABS: ALKALINE PHOSPHATASE 59 U/L (45-117); TOTAL BILIRUBIN ADULT 13.2 MG/DL (0.2-1.0)
[2017-05-15] MEDS ORDERED: LACTULOSE SYRUP 20 GM/30 ML CUP PO SCH (12:30)
[2017-05-15 12:44] LABS: ACANTHOCYTES OCC (NORMAL); KERATOCYTES OCC (NORMAL)
[2017-05-15 12:45] LABS: PLATELET ESTIMATE SMEAR LOW (NORMAL); PLATELET MORPHOLOGY NORMAL (NORMAL); SCAN/DIFF AUTO DIFF CONFIRMED
--- NOTE | 2017-05-15 14:02 | HHI.PR ---
Subjective Remarks patient states back pain is much better As per RN, the patient has dried blood around mouth Denies chest pain or shortness of breath Tachycardic Afebrile Denies hematochezia or melena Objective Vitals Vital Signs Date Time Temp Pulse Resp B/P Pulse Ox O2 Delivery O2 Flow Rate FiO2 05/15/17 13:50 97.0 105 15 123/77 95 05/15/17 12:55 96.3 104 18 131/69 94 05/15/17 11:49 96.7 109 19 132/67 94 05/15/17 07:35 97.1 110 19 122/65 93 05/15/17 04:20 97.1 111 18 136/62 94 05/15/17 04:00 Room Air 05/15/17 00:00 Room Air 05/15/17 00:00 96.7 109 18 124/68 95 05/14/17 21:43 92 21 05/14/17 21:00 98.1 107 18 135/70 95 05/14/17 20:17 107 05/14/17 20:00 Room Air 05/14/17 15:52 102 05/14/17 15:26 96.9 101 18 118/72 96 I/O 05/14/17 05/14/17 05/14/17 05/15/17 05/15/17 05/15/17 07:00 15:00 23:00 07:00 15:00 23:00 Intake Total 650 ml 1075 ml 873 ml 626 ml Output Total 550 ml 250 ml Balance 650 ml 525 ml 873 ml 376 ml Intake Oral 700 ml 120 ml 120 ml IV Total 650 ml 375 ml 753 ml 506 ml Output Urine Total 550 ml 250 ml # Voids 1 # Bowel Movements 2 1 0 Result Diagram: 05/15/17 1126 05/15/17 1126 Imaging Last Impressions Lumbar Spine MRI 05/14/17 0000 Signed Impressions: Service Date/Time: May 22:21 - CONCLUSION: 1. Postsurgical changes as above. No evidence of disc protrusion or spinal canal stenosis. Thor Liao MD Pelvis X-Ray 05/10/17 0000 Signed Impressions: Service Date/Time: Wednesday, May 10, 2017 09:07 - CONCLUSION: Negative for fracture Michael Sevilla MD FACR Femur X-Ray 05/10/17 0000 Signed Impressions: Service Date/Time: Wednesday, May 10, 2017 09:09 - CONCLUSION: Degenerative changes about the knee otherwise negative. Michael Sevilla MD FACR Chest X-Ray 05/10/17 0000 Signed Impressions: Service Date/Time: Wednesday, May 10, 2017 09:08 - CONCLUSION: No acute disease. Michael Sevilla MD FACR Objective Remarks GENERAL: This is a chronic ill appearing patient's in no acute distress but his jaundice. SKIN: (+) jaundice skin HEAD: Atraumatic. Normocephalic. No temporal or scalp tenderness. EYES: Pupils equal round and reactive. Extraocular motions intact.+ scleral icterus. No injection or drainage. ENT: Nose without bleeding, purulent drainage or septal hematoma. Throat without erythema, tonsillar hypertrophy or exudate. Uvula midline. Airway patent. (+) dry blood around mouth. No active bleeding observed. NECK: Trachea midline. No JVD or lymphadenopathy. Supple, nontender, no meningeal signs. CARDIOVASCULAR: Regular rate and rhythm without murmurs, gallops, or rubs. RESPIRATORY: Clear to auscultation. Breath sounds equal bilaterally. No wheezes , rales, or rhonchi. GASTROINTESTINAL: Abdomen soft, tender to palpation over RUQ, positive for distention. Negative for any peritoneal signs. MUSCULOSKELETAL: Right lower extremity patient was able to move her lower extremity with full range of motion, but per patient had pain. Muscle strength in right lower extremity is 4/5. NEUROLOGICAL: Awake and alert. Cranial nerves II through XII intact. Motor and sensory grossly within normal limits. Speech is normal. Procedures EGD on 05/13/17 ---> portal gastropathy, retained gastric contents. Medications and IVs Current Medications Medications (Trade) Dose Ordered Sig/Teresa Route Start Time Stop Time Status Last Admin (10/13 NS 1000 ml Inj) 1,000 ml @ 75 mls/hr [id number] IV 05/10/17 10:32 05/14/17 13:27 (NS Flush) 2 ml UNSCH PRN IV FLUSH 05/10/17 10:45 (NS Flush) 2 ml BID IV FLUSH 05/10/17 21:00 05/15/17 09:00 (Zofran Inj) 4 mg Q6H PRN IVP 05/10/17 10:45 05/12/17 22:53 (Narcan Inj) 0.4 mg UNSCH PRN IV 05/10/17 10:45 (Anna-Colace) 1 tab BID PO 05/10/17 21:00 05/15/17 09:26 (Milk Of Magnesia Liq) 30 ml Q12H PRN PO 05/10/17 10:45 (Senokot) 17.2 mg Q12H PRN PO 05/10/17 10:45 (Dulcolax Supp) 10 mg DAILY PRN RECTAL 05/10/17 10:45 (Lactulose Liq) 30 ml DAILY PRN PO 05/10/17 10:45 (Lasix) 20 mg DAILY PO 05/11/17 09:00 Hold 05/12/17 09:45 (Protonix) 40 mg BID PO 05/10/17 21:00 05/15/17 09:26 (TRENtal SR) 400 mg Q8HR PO 05/10/17 14:00 05/15/17 06:07 (Mephyton) 10 mg DAILY PO 05/11/17 09:00 05/15/17 09:28 (Aldactone) 50 mg DAILY PO 05/11/17 09:00 Hold 05/12/17 09:44 (Carafate) 1 gm ACHS PO 05/10/17 16:00 05/15/17 10:59 (KCl) 20 meq DAILY PO 05/12/17 09:00 05/15/17 09:26 Tramadol HCl 50 mg 50 mg Q6H PRN PO 05/11/17 18:15 05/14/17 13:59 Lactated Ringer's 1,000 ml @ 30 mls/hr Q24H PRN IV 05/12/17 23:45 05/15/17 23:44 (NS 500 ml Inj) 500 ml @ 30 mls/hr [id number] PRN IV 05/12/17 23:45 05/15/17 23:44 (Reglan Inj) 5 mg Q8HR IV PUSH 05/13/17 22:00 05/15/17 06:07 Morphine Sulfate 15 mg 15 mg Q8H PO 05/14/17 15:00 05/15/17 06:08 (NS 250 ml Inj) 250 ml @ 15 mls/hr ONCE ONCE IV 05/15/17 10:45 05/16/17 03:24 (Tylenol) 650 mg Q4H PRN PO 05/15/17 10:45 05/15/17 14:46 (Benadryl) 25 mg Q4H PRN PO 05/15/17 10:45 05/15/17 14:46 (Xifaxan) 550 mg BID PO 05/15/17 13:00 (Lactulose Liq) 30 ml DAILY PO 05/15/17 12:30 Urinary Catheter: No Vascular Central Line Catheter: No A/P Problem List: (1) Severe anemia ICD Code: D64.9 Status: Acute (2) Alcoholic liver failure ICD Code: K70.40 Status: Acute (3) GI bleed ICD Code: K92.2 Status: Acute (4) NEGRO (acute kidney injury) ICD Code: N17.9 Status: Resolved (5) Coagulopathy ICD Code: D68.9 Status: Chronic (6) Elevated lactic acid level ICD Code: R79.89 Status: Resolved (7) Hyperammonemia ICD Code: E72.20 Status: Acute (8) Hypokalemia ICD Code: E87.6 Status: Acute (9) Hyponatremia ICD Code: E87.1 Status: Acute (10) DNR (do not resuscitate) ICD Code: Z66 Status: Acute (11) Non-sustained ventricular tachycardia ICD Code: I47.2 Status: Acute (12) Hypomagnesemia ICD Code: E83.42 Status: Acute (13) Low back pain radiating down leg ICD Code: M54.5 Status: Acute Assessment and Plan (1) Severe anemia Plan: This a 52-year-old female with liver disease secondary to alcoholic hepatitis and coagulopathy complicated by ascites secondary to alcoholism and hepatitis C. Patient is a very poor prognosis and an INR of 2.6. The patient is very well-known to me and during a recent admission she was given multiple transfusions. 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 The patient was treated with Carafate, Protonix and was discharged home. The patient presented this time with hemoglobin 6.2, on last admission the patient was discharged with a hemoglobin of 8. The patient was transfused 2 units of packed red blood cells with appropriate response, however hemoglobin was slowly trending down and was 7.3 on 05/12 and the patient was transfuse 1 unit of packed blood cells with appropriate response. The patient was also started on PPI underwent EGD once coagulopathy was treated with just fusion for frozen plasma. EGD showed portal gastropathy and retained gastric contents. The patient was started on Reglan for gastropathy. 05/15 hemoglobin is dropping and down to 6.5 today, patient with severe anemia. Transfuse 2 units of packed red blood cells and 2 units of fresh frozen plasma to treat coagulopathy. Continue w vitamin K. (2) Alcoholic liver failure Continue to monitor liver function tests. Alcoholic liver failure secondary to alcohol abuse. Patient has a meld score of 25. On previous admission the patient had extensive workup. The patient has positive hepatitis C virus RNA, negative ASA, negative ASMA, AMA less than 20. The patient has a coagulopathy with INR at INR of 2.5 which seems to be better from discharge when the patient had 3.2. We'll continue vitamin K. I will also continue pentoxifylline which the patient was discharged with a previous admission. Appreciate palliative care consultation and efforts. GI consulted and following. (3) GI bleed Plan: GI consulted, patient sp 2 units of FFP. EGD as above Continue to monitor PT, INR and PTT. Continue vitamin K 05/15 transfuse 2 units prbc and 2 units of FFP. (4) NEGRO (acute kidney injury) Plan: Nephrology consulted. Creatinine on admission very elevated at 2.68. Likely secondary to prerenal azotemia due to anemia. Creatinine is trending down. Continue to monitor BUN/creatinine, avoid nephrotoxins, monitor strict I's and O's. 05/15 Creatinine down to 1.19. (5) Coagulopathy Plan: Coagulopathy secondary to liver disease. INR 2.5, PTT 72.8. Status post fusion of 3 units of FFP. Continue vitamin K. I want to transfuse 2 more units of FFP since hemoglobin continues to drop. (6) Elevated lactic acid level Plan: Unclear etiology at this time. Could be secondary to dehydration. I will recheck monitor lactic acid. I will also check blood cultures since patient had a gram-negative bacteremia on previous admission. Continue IV fluids for now and will hold diuretics. 05/13 blood cultures are negative 3 days. Lactic acid is slowly trending down with IV fluids. Lactic acid down from 4.1 - 2.1. We'll continue to monitor. Continue IV fluids. 05/14 lactic acid continued to trend down, now down to 2.5. Continue to monitor lactic. 05/15 Lactic acid level down to 1.8 - Will DC Iv fluids. (7) Hyperammonemia Plan: Ammonia trending up - will start patient on lactulose 30 mL's by mouth 3 times a day and rifaximin. (8) Hypokalemia Plan: Likely a combination of poor nutritional status and decreased oral intake along with IV fluid administration. We'll replace orally and continue to monitor BMP 05/14 potassium 3.8. Will keep above for even episode of nonsustained V. tach. (9) Hyponatremia Plan: Patient has chronic hyponatremia which seems to be stable at 132. (10) DNR Plan: Palliative care following. Patient has a DO NOT RESUSCITATE status. (11) Non-sustained ventricular tachycardia Plan: V. tach likely secondary to electrolyte abnormality. Will keep magnesium above 2 and potassium 004. Continue to monitor on telemetry. 05/15 no further v tach episodes on telemetry. Continue to monitor. (12) Hypomagnesemia Plan: Likely secondary to nutritional deficiency. I will give 2 g of IV magnesium sulfate and had acute levels above 2 given episode of nonsustained V. tach. (13) Low back pain radiating down leg Plan: Upon review of previous records the patient had a lumbar spine x-ray on date 10/23/12 which reports changes of posterior fusion procedure with instrumentation on L3 through L5, and mild disease narrowing at L2-3 with anterior osseous ridging. No fracture seen. Given that the patient has severe low back pain and right lotion any weakness on exam I will order an MRI of the lumbar spine. The patient states she is unable to lay still on the MRI machine, however I offered to give her some pain medication prior to the procedure. Patient also started on morphine sulfate extended release 50 mg by mouth every 8 hours for pain control. Patient states back pain is now better controlled. The patient will need pain management as an outpatient. MRI of the lumbar spine shows some postsurgical changes however no evidence of disc protrusion or spinal Stenosis. GI prophylaxis: PPI DVT prophylaxis: SCDs, no chemoprophylaxis given severe anemia and high risk for GI bleed. Case discussed with RN. Discharge Planning Continue to monitor the medical floor. Discharge pending stabilization of hemoglobin, improvement of ammonia and GI clearance. Problem Qualifiers (1) GI bleed: Qualified Code: K92.2 - Gastrointestinal hemorrhage, unspecified gastrointestinal hemorrhage type Dago Beavers MD May 15, 2017 14:02
[2017-05-15] MEDS: RIFAXIMIN 550 MG TAB PO SCH ×2 (14:04→21:53)
[2017-05-15] MEDS: LACTULOSE SYRUP 20 GM/30 ML CUP PO SCH (16:52)
[2017-05-16] VITALS (7 sets, daily range): BP systolic 119–137; BP diastolic 66–75; PULSE 97–104; RESP 16–20; TEMP 96.7–97.8; O2SAT 96–98
[2017-05-16] MEDS: MORPHINE SULFATE 15 MG CONTROLLED RELEASE TAB PO SCH ×3 (05:41→23:41)
[2017-05-16] MEDS: PENTOXIFYLLINE 400 MG CONTROLLED RELEASE TAB PO SCH ×3 (05:41→23:41)
[2017-05-16] MEDS: SUCRALFATE 1 GM TAB PO SCH ×4 (05:46→23:41)
[2017-05-16] MEDS: METOCLOPRAMIDE HCL 10 MG/2 ML VIAL IV PUSH SCH ×3 (05:47→23:41)
[2017-05-16] MEDS: LACTULOSE SYRUP 20 GM/30 ML CUP PO SCH ×3 (09:17→18:35)
[2017-05-16] MEDS: PANTOPRAZOLE SOD 40 MG DELAYED RELEASE TAB PO SCH ×2 (09:17→23:41)
[2017-05-16] MEDS: PHYTONADIONE 5 MG TAB PO SCH (09:17)
[2017-05-16] MEDS: POTASSIUM CHLORIDE 20 MEQ CONTROLLED RELEASE TAB PO SCH (09:17)
[2017-05-16] MEDS: SODIUM CHLORIDE 0.9% FLUSH 10 ML FLUSH IV FLUSH SCH ×2 (09:17→23:42)
[2017-05-16] MEDS: RIFAXIMIN 550 MG TAB PO SCH ×2 (09:17→23:41)
[2017-05-16] MEDS: DOCUSATE SODIUM 50 MG/SENNA 8.6 MG TAB PO SCH ×2 (09:17→23:41)
[2017-05-16 09:19] LABS: MEAN CORPUSCULAR HGB CONC 36.4 % (32.0-36.0)
[2017-05-16] MEDS: MAGNESIUM SULFATE 1 GM PREMIX 100 ML IV SCH ×2 (11:00→12:00)
[2017-05-16 11:02] LABS: BASOPHIL # 0.1 TH/MM3 (0-0.2); BASOPHIL % 0.6 % (0.0-2.0); EOSINOPHIL # 0.1 TH/MM3 (0-0.4); EOSINOPHIL % 1.4 % (0.0-4.0); HEMATOCRIT 22.5 % (35.0-46.0); LYMPH % 14.5 % (9.0-44.0); LYMPHOCYTE # 1.3 TH/MM3 (1.0-4.8); MEAN CORPUSCULAR HEMOGLOBIN 33.9 PG (27.0-34.0); MONO % 7.7 % (0.0-8.0); NEUT % 75.8 % (16.0-70.0); PLATELET COUNT 64 TH/MM3 (150-450); RED BLOOD COUNT 2.42 MIL/MM3 (4.00-5.30); RED CELL DISTRIBUTION WIDTH 20.5 % (11.6-17.2); WHITE BLOOD COUNT 9.3 TH/MM3 (4.0-11.0)
[2017-05-16 11:06] LABS: HEMO FLAGS AUTO DIFF
[2017-05-16 11:13] LABS: INTERNATIONAL NORMALIZED RATIO 1.6 RATIO; PROTHROMBIN TIME - PATIENT 18.5 SEC (9.8-11.6)
[2017-05-16 11:21] LABS: ALT (GPT) 27 U/L (10-53); ANION GAP 11 MEQ/L (5-15); AST (GOT) 73 U/L (15-37); BICARBONATE 24.3 MEQ/L (21.0-32.0); BLOOD UREA NITROGEN 20 MG/DL (7-18); CHLORIDE 100 MEQ/L (98-107); GLOMERULAR FILTRATION RATE 48 ML/MIN (>89); MAGNESIUM 1.3 MG/DL (1.5-2.5); POTASSIUM 3.6 MEQ/L (3.5-5.1); SODIUM (NA) 135 MEQ/L (136-145)
[2017-05-16 11:23] LABS: ALKALINE PHOSPHATASE 64 U/L (45-117); TOTAL BILIRUBIN ADULT 12.7 MG/DL (0.2-1.0)
[2017-05-16 11:46] LABS: ACANTHOCYTES OCC (NORMAL); KERATOCYTES OCC (NORMAL)
[2017-05-16 11:47] LABS: PLATELET ESTIMATE SMEAR LOW (NORMAL); PLATELET MORPHOLOGY NORMAL (NORMAL); SCAN/DIFF AUTO DIFF CONFIRMED
--- NOTE | 2017-05-16 13:21 | HHI.PR ---
Subjective Remarks Denies melena, hematochezia Denies chest pain or shortness of breath Denies abdominal pain, nausea vomiting Eating well Objective Vitals Vital Signs Date Time Temp Pulse Resp B/P Pulse Ox O2 Delivery O2 Flow Rate FiO2 05/16/17 12:00 96.7 99 18 134/74 98 05/16/17 09:23 Room Air 05/16/17 08:00 97.4 104 20 122/69 97 05/16/17 05:30 97.0 98 18 125/69 96 05/16/17 02:25 97.8 103 18 134/69 98 05/16/17 02:25 97.8 103 18 134/69 98 05/16/17 01:30 97.5 100 16 136/66 96 05/16/17 01:30 97.5 100 16 137/66 96 05/15/17 23:42 97.6 100 17 139/76 98 05/15/17 23:20 97.6 100 17 139/76 98 05/15/17 22:55 97.8 102 16 138/75 98 05/15/17 20:05 96.8 102 18 120/72 99 05/15/17 18:40 97.0 102 15 135/69 05/15/17 18:35 97.0 103 16 129/69 97 05/15/17 18:30 97.0 104 17 136/73 95 05/15/17 17:31 98 05/15/17 15:30 96.2 105 19 124/68 96 05/15/17 14:00 97.1 105 15 124/67 95 05/15/17 13:55 97.2 105 17 132/71 95 05/15/17 13:50 97.0 105 15 123/77 95 I/O 05/15/17 05/15/17 05/15/17 05/16/17 05/16/17 05/16/17 07:00 15:00 23:00 07:00 15:00 23:00 Intake Total 626 ml 985 ml 560 ml 897 ml Output Total 250 ml Balance 376 ml 985 ml 560 ml 897 ml Intake Oral 120 ml 400 ml 240 ml 240 ml IV Total 506 ml 585 ml Packed Cells 320 ml FFP 657 ml Output Urine Total 250 ml # Voids 1 0 3 # Bowel Movements 0 0 0 Result Diagram: 05/16/17 1049 05/16/17 1049 Imaging Last Impressions Lumbar Spine MRI 05/14/17 0000 Signed Impressions: Service Date/Time: May 22:21 - CONCLUSION: 1. Postsurgical changes as above. No evidence of disc protrusion or spinal canal stenosis. Thor Liao MD Pelvis X-Ray 05/10/17 0000 Signed Impressions: Service Date/Time: Wednesday, May 10, 2017 09:07 - CONCLUSION: Negative for fracture Michael Sevilla MD FACR Femur X-Ray 05/10/17 0000 Signed Impressions: Service Date/Time: Wednesday, May 10, 2017 09:09 - CONCLUSION: Degenerative changes about the knee otherwise negative. Michael Sevilla MD FACR Chest X-Ray 05/10/17 0000 Signed Impressions: Service Date/Time: Wednesday, May 10, 2017 09:08 - CONCLUSION: No acute disease. Michael Sevilla MD FACR Objective Remarks GENERAL: This is a chronic ill appearing patient's in no acute distress but his jaundice. SKIN: (+) jaundice skin HEAD: Atraumatic. Normocephalic. No temporal or scalp tenderness. EYES: Pupils equal round and reactive. Extraocular motions intact.+ scleral icterus. No injection or drainage. ENT: Nose without bleeding, purulent drainage or septal hematoma. Throat without erythema, tonsillar hypertrophy or exudate. Uvula midline. Airway patent. No active bleeding observed. NECK: Trachea midline. No JVD or lymphadenopathy. Supple, nontender, no meningeal signs. CARDIOVASCULAR: Regular rate and rhythm without murmurs, gallops, or rubs. RESPIRATORY: Clear to auscultation. Breath sounds equal bilaterally. No wheezes , rales, or rhonchi. GASTROINTESTINAL: Abdomen soft, tender to palpation over RUQ, positive for distention. Negative for any peritoneal signs. MUSCULOSKELETAL: Right lower extremity patient was able to move her lower extremity with full range of motion, but per patient had pain. Muscle strength in right lower extremity is 4/5. NEUROLOGICAL: Awake and alert. Cranial nerves II through XII intact. Motor and sensory grossly within normal limits. Speech is normal. Procedures EGD on 05/13/17 ---> portal gastropathy, retained gastric contents. Medications and IVs Current Medications Medications (Trade) Dose Ordered Sig/Teresa Route Start Time Stop Time Status Last Admin (NS Flush) 2 ml UNSCH PRN IV FLUSH 05/10/17 10:45 (NS Flush) 2 ml BID IV FLUSH 05/10/17 21:00 05/16/17 09:17 (Zofran Inj) 4 mg Q6H PRN IVP 05/10/17 10:45 05/12/17 22:53 (Narcan Inj) 0.4 mg UNSCH PRN IV 05/10/17 10:45 (Anna-Colace) 1 tab BID PO 05/10/17 21:00 05/16/17 09:17 (Milk Of Magnesia Liq) 30 ml Q12H PRN PO 05/10/17 10:45 (Senokot) 17.2 mg Q12H PRN PO 05/10/17 10:45 (Dulcolax Supp) 10 mg DAILY PRN RECTAL 05/10/17 10:45 (Lactulose Liq) 30 ml DAILY PRN PO 05/10/17 10:45 (Lasix) 20 mg DAILY PO 05/11/17 09:00 Hold 05/12/17 09:45 (Protonix) 40 mg BID PO 05/10/17 21:00 05/16/17 09:17 (TRENtal SR) 400 mg Q8HR PO 05/10/17 14:00 05/16/17 15:48 (Mephyton) 10 mg DAILY PO 05/11/17 09:00 05/16/17 09:17 (Aldactone) 50 mg DAILY PO 05/11/17 09:00 Hold 05/12/17 09:44 (Carafate) 1 gm ACHS PO 05/10/17 16:00 05/16/17 15:48 (KCl) 20 meq DAILY PO 05/12/17 09:00 05/16/17 09:17 (Ultram) 50 mg Q6H PRN PO 05/11/17 18:15 05/14/17 13:59 (Reglan Inj) 5 mg Q8HR IV PUSH 05/13/17 22:00 05/16/17 15:49 (Oramorph Sr) 15 mg Q8H PO 05/14/17 15:00 05/16/17 15:50 (Xifaxan) 550 mg BID PO 05/15/17 13:00 8/5/17 09:17 (Lactulose Liq) 30 ml TID PO 05/15/17 18:00 05/16/17 13:43 Urinary Catheter: No Vascular Central Line Catheter: No A/P Problem List: (1) Severe anemia ICD Code: D64.9 Status: Resolved (2) Alcoholic liver failure ICD Code: K70.40 Status: Acute (3) GI bleed ICD Code: K92.2 Status: Resolved (4) NEGRO (acute kidney injury) ICD Code: N17.9 Status: Resolved (5) Coagulopathy ICD Code: D68.9 Status: Chronic (6) Elevated lactic acid level ICD Code: R79.89 Status: Resolved (7) Hyperammonemia ICD Code: E72.20 Status: Acute (8) Hypokalemia ICD Code: E87.6 Status: Resolved (9) Hyponatremia ICD Code: E87.1 Status: Resolved (10) DNR (do not resuscitate) ICD Code: Z66 Status: Acute (11) Non-sustained ventricular tachycardia ICD Code: I47.2 Status: Resolved (12) Hypomagnesemia ICD Code: E83.42 Status: Acute (13) Low back pain radiating down leg ICD Code: M54.5 Status: Resolved Assessment and Plan (1) Severe anemia Plan: This a 52-year-old female with liver disease secondary to alcoholic hepatitis and coagulopathy complicated by ascites secondary to alcoholism and hepatitis C. Patient is a very poor prognosis and an INR of 2.6. The patient is very well-known to me and during a recent admission she was given multiple transfusions. 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 The patient was treated with Carafate, Protonix and was discharged home. The patient presented this time with hemoglobin 6.2, on last admission the patient was discharged with a hemoglobin of 8. The patient was transfused 2 units of packed red blood cells with appropriate response, however hemoglobin was slowly trending down and was 7.3 on 05/12 and the patient was transfuse 1 unit of packed blood cells with appropriate response. The patient was also started on PPI underwent EGD once coagulopathy was treated with just fusion for frozen plasma. EGD showed portal gastropathy and retained gastric contents. The patient was started on Reglan for gastropathy. 8/ hemoglobin is dropping and down to 6.5 today, patient with severe anemia. Transfuse 2 units of packed red blood cells and 2 units of fresh frozen plasma to treat coagulopathy. Continue w vitamin K. 8/5 status post fusion of 2 units of packed blood cells with appropriate hemoglobin response. Hemoglobin 8.2 today. I will continue to monitor CBC. Check CBC in a.m. and if stable then I will discharge home. (2) Alcoholic liver failure Continue to monitor liver function tests. Alcoholic liver failure secondary to alcohol abuse. Patient has a meld score of 25. On previous admission the patient had extensive workup. The patient has positive hepatitis C virus RNA, negative ASA, negative ASMA, AMA less than 20. The patient has a coagulopathy with INR at INR of 2.5 which seems to be better from discharge when the patient had 3.2. We'll continue vitamin K. I will also continue pentoxifylline which the patient was discharged with a previous admission. Appreciate palliative care consultation and efforts. GI consulted and following. (3) GI bleed Plan: GI consulted, patient sp 2 units of FFP. EGD as above Continue to monitor PT, INR and PTT. Continue vitamin K 84/5 status post infusion of 2 units of packed red blood cells and 2 units of FFP. There does not seem to be any obvious bleeding. Recheck CBC in a.m. (4) NEGRO (acute kidney injury) Plan: Nephrology consulted. Creatinine on admission very elevated at 2.68. Likely secondary to prerenal azotemia due to anemia. Creatinine is trending down. Continue to monitor BUN/creatinine, avoid nephrotoxins, monitor strict I's and O's. Creatinine is stable at 1.1. (5) Coagulopathy Plan: Coagulopathy secondary to liver disease. INR 2.5, PTT 72.8. Status post fusion of 3 units of FFP. Continue vitamin K. 8/5 INR improved and down to 1.6. Continue vitamin K orally. (6) Elevated lactic acid level Plan: Unclear etiology at this time. Could be secondary to dehydration. I will recheck monitor lactic acid. I will also check blood cultures since patient had a gram-negative bacteremia on previous admission. Continue IV fluids for now and will hold diuretics. 05/13 blood cultures are negative 3 days. Lactic acid is slowly trending down with IV fluids. Lactic acid down from 4.1 - 2.1. We'll continue to monitor. Continue IV fluids. 05/14 lactic acid continued to trend down, now down to 2.5. Continue to monitor lactic. 05/15 Lactic acid level down to 1.8 - Will DC Iv fluids. (7) Hyperammonemia Plan: Ammonia trending up - will start patient on lactulose 30 mL's by mouth 3 times a day and rifaximin. 05/16 ammonia trending down. Level down from 73-50. Continue lactulose. (8) Hypokalemia Plan: Likely a combination of poor nutritional status and decreased oral intake along with IV fluid administration. We'll replace orally and continue to monitor BMP 05/14 potassium 3.8. Will keep above for even episode of nonsustained V. tach. 05/16 will give 40 mEq by mouth 1 to keep above 4.0. (9) Hyponatremia Plan: Patient has chronic hyponatremia which seems to be stable at 132. Hyponatremia resolved. Sodium 135 now. (10) DNR Plan: Palliative care following. Patient has a DO NOT RESUSCITATE status. (11) Non-sustained ventricular tachycardia Plan: V. tach likely secondary to electrolyte abnormality. Will keep magnesium above 2 and potassium 004. Continue to monitor on telemetry. 05/15 no further v tach episodes on telemetry. Continue to monitor. (12) Hypomagnesemia Plan: Likely secondary to nutritional deficiency. 05/16 will continue to supplement with IV magnesium sulfate to keep above 2. (13) Low back pain radiating down leg Plan: Upon review of previous records the patient had a lumbar spine x-ray on date 10/23/12 which reports changes of posterior fusion procedure with instrumentation on L3 through L5, and mild disease narrowing at L2-3 with anterior osseous ridging. No fracture seen. Given that the patient has severe low back pain and right lotion any weakness on exam I will order an MRI of the lumbar spine. The patient states she is unable to lay still on the MRI machine, however I offered to give her some pain medication prior to the procedure. Patient also started on morphine sulfate extended release 50 mg by mouth every 8 hours for pain control. Patient states back pain is now better controlled. The patient will need pain management as an outpatient. MRI of the lumbar spine shows some postsurgical changes however no evidence of disc protrusion or spinal Stenosis. GI prophylaxis: PPI DVT prophylaxis: SCDs, no chemoprophylaxis given severe anemia and high risk for GI bleed. Case discussed with RN. Discharge Planning Discharge in a.m. pending CBC and hemoglobint to remain stable. Problem Qualifiers (1) GI bleed: Qualified Code: K92.2 - Gastrointestinal hemorrhage, unspecified gastrointestinal hemorrhage type Dago Beavers MD May 16, 2017 13:20
[2017-05-16] MEDS ORDERED: POTASSIUM CHLORIDE 10 MEQ CONTROLLED RELEASE TAB PO ONE (16:45)
[2017-05-16 21:08] LABS: MEAN CORPUSCULAR HGB CONC 36.5 % (32.0-36.0)
[2017-05-17 00:05] VITALS: BP 127/72; PULSE 105; RESP 18; TEMP 97; O2SAT 96
[2017-05-17 04:02] VITALS: BP 124/61; PULSE 100; RESP 18; TEMP 96.9; O2SAT 95
[2017-05-17] MEDS: MORPHINE SULFATE 15 MG CONTROLLED RELEASE TAB PO SCH ×2 (06:46→15:56)
[2017-05-17] MEDS: SUCRALFATE 1 GM TAB PO SCH ×4 (06:46→20:36)
[2017-05-17] MEDS: PENTOXIFYLLINE 400 MG CONTROLLED RELEASE TAB PO SCH ×2 (06:46→15:56)
[2017-05-17] MEDS: METOCLOPRAMIDE HCL 10 MG/2 ML VIAL IV PUSH SCH ×2 (06:46→16:51)
[2017-05-17 08:00] VITALS: BP 139/86; PULSE 102; RESP 18; TEMP 96.6; O2SAT 97
[2017-05-17 08:36] LABS: INTERNATIONAL NORMALIZED RATIO 1.8 RATIO; PROTHROMBIN TIME - PATIENT 20.4 SEC (9.8-11.6)
[2017-05-17 08:41] LABS: MEAN CELL VOLUME 93.1 FL (80.0-100.0); MEAN CORPUSCULAR HEMOGLOBIN 33.9 PG (27.0-34.0); PLATELET COUNT 64 TH/MM3 (150-450); RED BLOOD COUNT 2.47 MIL/MM3 (4.00-5.30); WHITE BLOOD COUNT 9.1 TH/MM3 (4.0-11.0)
[2017-05-17 08:42] LABS: REVIEW FLAG FINAL
[2017-05-17 08:48] LABS: BICARBONATE 25.5 MEQ/L (21.0-32.0); MAGNESIUM 1.5 MG/DL (1.5-2.5); POTASSIUM 3.9 MEQ/L (3.5-5.1)
[2017-05-17] MEDS: RIFAXIMIN 550 MG TAB PO SCH ×2 (09:41→20:36)
[2017-05-17] MEDS: LACTULOSE SYRUP 20 GM/30 ML CUP PO SCH ×3 (09:41→18:24)
[2017-05-17] MEDS: POTASSIUM CHLORIDE 20 MEQ CONTROLLED RELEASE TAB PO SCH (09:42)
[2017-05-17] MEDS: PANTOPRAZOLE SOD 40 MG DELAYED RELEASE TAB PO SCH ×2 (09:42→20:36)
[2017-05-17] MEDS: PHYTONADIONE 5 MG TAB PO SCH (09:42)
[2017-05-17] MEDS: DOCUSATE SODIUM 50 MG/SENNA 8.6 MG TAB PO SCH ×2 (09:42→20:34)
[2017-05-17] MEDS: SODIUM CHLORIDE 0.9% FLUSH 10 ML FLUSH IV FLUSH SCH ×2 (09:42→20:35)
[2017-05-17 12:00] VITALS: BP 138/83; PULSE 102; RESP 18; TEMP 97.2; O2SAT 96
[2017-05-17 16:00] VITALS: BP 142/84; PULSE 106; RESP 18; TEMP 97.4; O2SAT 96
[2017-05-17] MEDS ORDERED: Lactulose Liq PO (16:53)
[2017-05-17] MEDS ORDERED: MORP1TAB24 PO (16:53)
[2017-05-17] MEDS ORDERED: XIFA550T4 PO (16:53)
--- NOTE | 2017-05-17 16:55 | HHI.DCPOC ---
Discharge Care Plan Diagnosis: (1) Low back pain radiating down leg (2) Severe anemia (3) Non-sustained ventricular tachycardia (4) GI bleed (5) Hyponatremia (6) Hypokalemia (7) Elevated lactic acid level (8) Hypomagnesemia (9) DNR (do not resuscitate) (10) Hyperammonemia (11) Alcoholic liver failure (12) Coagulopathy (13) Pain (14) Encephalopathy (15) Anemia Goals to Promote Your Health * To prevent worsening of your condition and complications * To maintain your health at the optimal level Directions to Meet Your Goals Take your medications as prescribed Follow your dietary instruction Follow activity as directed Keep your appointments as scheduled Take your immunizations and boosters as scheduled If your symptoms worsen call your PCP, if no PCP go to Urgent Care Center or Emergency Room Smoking is Dangerous to Your Health. Avoid second hand smoke Call the 24-hour hour crisis hotline for domestic abuse at Dago Beavers MD May 17, 2017 16:55
--- NOTE | 2017-05-17 17:14 | HHI.PR ---
Subjective Remarks As per RN patient is not ambulating much patient states had some bleeding in mouth that has resolved afebrile patient denies melena or hematochezia denies fevers/chills Objective Vitals Vital Signs Date Time Temp Pulse Resp B/P Pulse Ox O2 Delivery O2 Flow Rate FiO2 05/17/17 16:00 97.4 106 18 142/84 96 05/17/17 12:00 97.2 102 18 138/83 96 05/17/17 09:46 Room Air 05/17/17 08:00 96.6 102 18 139/86 97 05/17/17 04:02 96.9 100 18 124/61 95 05/17/17 00:05 97.0 105 18 127/72 96 05/16/17 20:05 97.0 98 18 119/74 97 I/O 05/16/17 05/16/17 05/16/17 05/17/17 05/17/17 05/17/17 07:00 15:00 23:00 07:00 15:00 23:00 Intake Total 897 ml 797 ml 240 ml 120 ml 240 ml Balance 897 ml 797 ml 240 ml 120 ml 240 ml Intake Oral 240 ml 600 ml 240 ml 120 ml 240 ml IV Total 197 ml FFP 657 ml # Voids 3 4 1 1 2 # Bowel Movements 0 2 0 0 1 Result Diagram: 05/17/17 0803 05/17/17 0803 Imaging Last Impressions Lumbar Spine MRI 05/14/17 0000 Signed Impressions: Service Date/Time: May 22:21 - CONCLUSION: 1. Postsurgical changes as above. No evidence of disc protrusion or spinal canal stenosis. Thor Liao MD Pelvis X-Ray 05/10/17 0000 Signed Impressions: Service Date/Time: Wednesday, May 10, 2017 09:07 - CONCLUSION: Negative for fracture Michael Sevilla MD FACR Femur X-Ray 05/10/17 0000 Signed Impressions: Service Date/Time: Wednesday, May 10, 2017 09:09 - CONCLUSION: Degenerative changes about the knee otherwise negative. Michael Sevilla MD FACR Chest X-Ray 05/10/17 0000 Signed Impressions: Service Date/Time: Wednesday, May 10, 2017 09:08 - CONCLUSION: No acute disease. Michael Sevilla MD FACR Objective Remarks GENERAL: This is a chronic ill appearing patient's in no acute distress but his jaundice. SKIN: (+) jaundice skin HEAD: Atraumatic. Normocephalic. No temporal or scalp tenderness. EYES: Pupils equal round and reactive. Extraocular motions intact.+ scleral icterus. No injection or drainage. ENT: Nose without bleeding, purulent drainage or septal hematoma. Throat without erythema, tonsillar hypertrophy or exudate. Uvula midline. Airway patent. No active bleeding observed. NECK: Trachea midline. No JVD or lymphadenopathy. Supple, nontender, no meningeal signs. CARDIOVASCULAR: Regular rate and rhythm without murmurs, gallops, or rubs. RESPIRATORY: Clear to auscultation. Breath sounds equal bilaterally. No wheezes , rales, or rhonchi. GASTROINTESTINAL: Abdomen soft, tender to palpation over RUQ, positive for distention. Negative for any peritoneal signs. MUSCULOSKELETAL: Right lower extremity patient was able to move her lower extremity with full range of motion, but per patient had pain. Muscle strength in right lower extremity is 4/5. NEUROLOGICAL: Awake and alert. Cranial nerves II through XII intact. Motor and sensory grossly within normal limits. Speech is normal. Procedures EGD on 05/13/17 ---> portal gastropathy, retained gastric contents. Medications and IVs Current Medications Medications (Trade) Dose Ordered Sig/Teresa Route Start Time Stop Time Status Last Admin (NS Flush) 2 ml UNSCH PRN IV FLUSH 05/10/17 10:45 05/17/17 16:50 (NS Flush) 2 ml BID IV FLUSH 05/10/17 21:00 05/17/17 09:42 (Zofran Inj) 4 mg Q6H PRN IVP 05/10/17 10:45 05/12/17 22:53 (Narcan Inj) 0.4 mg UNSCH PRN IV 05/10/17 10:45 (Anna-Colace) 1 tab BID PO 05/10/17 21:00 05/17/17 09:42 (Milk Of Magnesia Liq) 30 ml Q12H PRN PO 05/10/17 10:45 (Senokot) 17.2 mg Q12H PRN PO 05/10/17 10:45 (Dulcolax Supp) 10 mg DAILY PRN RECTAL 05/10/17 10:45 (Lactulose Liq) 30 ml DAILY PRN PO 05/10/17 10:45 (Lasix) 20 mg DAILY PO 05/11/17 09:00 Hold 05/12/17 09:45 (Protonix) 40 mg BID PO 05/10/17 21:00 05/17/17 09:42 (TRENtal SR) 400 mg Q8HR PO 05/10/17 14:00 05/17/17 15:56 (Mephyton) 10 mg DAILY PO 05/11/17 09:00 05/17/17 09:42 (Aldactone) 50 mg DAILY PO 05/11/17 09:00 Hold 05/12/17 09:44 (Carafate) 1 gm ACHS PO 05/10/17 16:00 05/17/17 15:56 (KCl) 20 meq DAILY PO 05/12/17 09:00 05/17/17 09:42 (Ultram) 50 mg Q6H PRN PO 05/11/17 18:15 05/14/17 13:59 (Reglan Inj) 5 mg Q8HR IV PUSH 05/13/17 22:00 05/17/17 16:51 (Oramorph Sr) 15 mg Q8H PO 05/14/17 15:00 05/17/17 15:56 (Xifaxan) 550 mg BID PO 05/15/17 13:00 05/17/17 09:41 (Lactulose Liq) 30 ml TID PO 05/15/17 18:00 05/17/17 12:10 Urinary Catheter: No Vascular Central Line Catheter: No A/P Problem List: (1) Severe anemia ICD Code: D64.9 Status: Resolved (2) Alcoholic liver failure ICD Code: K70.40 Status: Acute (3) GI bleed ICD Code: K92.2 Status: Resolved (4) NEGRO (acute kidney injury) ICD Code: N17.9 Status: Resolved (5) Coagulopathy ICD Code: D68.9 Status: Chronic (6) Elevated lactic acid level ICD Code: R79.89 Status: Resolved (7) Hyperammonemia ICD Code: E72.20 Status: Acute (8) Hypokalemia ICD Code: E87.6 Status: Resolved (9) Hyponatremia ICD Code: E87.1 Status: Resolved (10) DNR (do not resuscitate) ICD Code: Z66 Status: Acute (11) Non-sustained ventricular tachycardia ICD Code: I47.2 Status: Resolved (12) Hypomagnesemia ICD Code: E83.42 Status: Resolved (13) Low back pain radiating down leg ICD Code: M54.5 Status: Resolved Assessment and Plan (1) Severe anemia Plan: This a 52-year-old female with liver disease secondary to alcoholic hepatitis and coagulopathy complicated by ascites secondary to alcoholism and hepatitis C. Patient is a very poor prognosis and an INR of 2.6. The patient is very well-known to me and during a recent admission she was given multiple transfusions. 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 The patient was treated with Carafate, Protonix and was discharged home. The patient presented this time with hemoglobin 6.2, on last admission the patient was discharged with a hemoglobin of 8. The patient was transfused 2 units of packed red blood cells with appropriate response, however hemoglobin was slowly trending down and was 7.3 on 05/12 and the patient was transfuse 1 unit of packed blood cells with appropriate response. The patient was also started on PPI underwent EGD once coagulopathy was treated with just fusion for frozen plasma. EGD showed portal gastropathy and retained gastric contents. The patient was started on Reglan for gastropathy. 05/15 hemoglobin is dropping and down to 6.5 today, patient with severe anemia. Transfuse 2 units of packed red blood cells and 2 units of fresh frozen plasma to treat coagulopathy. Continue w vitamin K. 05/16 status post fusion of 2 units of packed blood cells with appropriate hemoglobin response. Hemoglobin 8.2 today. I will continue to monitor CBC. Check CBC in a.m. and if stable then I will discharge home. 05/17 Hemoglobin stable. Had some bleeding in mouth on gingiva and corners of mouth which have stoped. Patient may be discharged home with home health PT. (2) Alcoholic liver failure Continue to monitor liver function tests. Alcoholic liver failure secondary to alcohol abuse. Patient has a meld score of 25. On previous admission the patient had extensive workup. The patient has positive hepatitis C virus RNA, negative ASA, negative ASMA, AMA less than 20. The patient has a coagulopathy with INR at INR of 2.5 which seems to be better from discharge when the patient had 3.2. We'll continue vitamin K. I will also continue pentoxifylline which the patient was discharged with a previous admission. Appreciate palliative care consultation and efforts. GI consulted and following. (3) GI bleed Plan: GI consulted, patient sp 2 units of FFP. EGD as above Continue to monitor PT, INR and PTT. Continue vitamin K 8/5 status post transfusion of 2 units of packed red blood cells and 2 units of FFP. There does not seem to be any obvious bleeding. Recheck CBC in a.m. (4) NERGO (acute kidney injury) Plan: Nephrology consulted. Creatinine on admission very elevated at 2.68. Likely secondary to prerenal azotemia due to anemia. Creatinine is trending down. Continue to monitor BUN/creatinine, avoid nephrotoxins, monitor strict I's and O's. NEGRO resolved. (5) Coagulopathy Plan: Coagulopathy secondary to liver disease. INR 2.5, PTT 72.8. Status post fusion of 3 units of FFP. Continue vitamin K. 8/5 INR improved and down to 1.6. Continue vitamin K orally. 8/6 INR increased to 1.8 - continue Vitamin K orally. Will give one dose of Vitamin K IV. (6) Elevated lactic acid level Plan: Unclear etiology at this time. Could be secondary to dehydration. I will recheck monitor lactic acid. I will also check blood cultures since patient had a gram-negative bacteremia on previous admission. Continue IV fluids for now and will hold diuretics. 8/2 blood cultures are negative 3 days. Lactic acid is slowly trending down with IV fluids. Lactic acid down from 4.1 - 2.1. We'll continue to monitor. Continue IV fluids. 8/3 lactic acid continued to trend down, now down to 2.5. Continue to monitor lactic. 8/ Lactic acid level down to 1.8 - Will DC Iv fluids. (7) Hyperammonemia Plan: Ammonia trending up - will start patient on lactulose 30 mL's by mouth 3 times a day and rifaximin. 8/5 ammonia trending down. Level down from 73-50. Continue lactulose. (8) Hypokalemia Plan: Likely a combination of poor nutritional status and decreased oral intake along with IV fluid administration. We'll replace orally and continue to monitor BMP 05/14 potassium 3.8. Will keep above for even episode of nonsustained V. tach. 05/16 will give 40 mEq by mouth 1 to keep above 4.0. 05/17 Hypokalemia resolved. Will give K 20 meq daily. (9) Hyponatremia Plan: Patient has chronic hyponatremia which seems to be stable at 132. Hyponatremia resolved. Sodium 135 now. 05/17 Hyponatremia resolved. (10) DNR Plan: Palliative care following. Patient has a DO NOT RESUSCITATE status. (11) Non-sustained ventricular tachycardia Plan: V. tach likely secondary to electrolyte abnormality. Will keep magnesium above 2 and potassium 004. Continue to monitor on telemetry. 05/15 no further v tach episodes on telemetry. Continue to monitor. (12) Hypomagnesemia Plan: Likely secondary to nutritional deficiency. 05/16 will continue to supplement with IV magnesium sulfate to keep above 2. Will start on oral magnesium daily. (13) Low back pain radiating down leg Plan: Upon review of previous records the patient had a lumbar spine x-ray on date 10/23/12 which reports changes of posterior fusion procedure with instrumentation on L3 through L5, and mild disease narrowing at L2-3 with anterior osseous ridging. No fracture seen. Given that the patient has severe low back pain and right lotion any weakness on exam I will order an MRI of the lumbar spine. The patient states she is unable to lay still on the MRI machine, however I offered to give her some pain medication prior to the procedure. Patient also started on morphine sulfate extended release 50 mg by mouth every 8 hours for pain control. Patient states back pain is now better controlled. The patient will need pain management as an outpatient. MRI of the lumbar spine showed some postsurgical changes however no evidence of disc protrusion or spinal Stenosis. GI prophylaxis: PPI DVT prophylaxis: SCDs, no chemoprophylaxis given severe anemia and high risk for GI bleed. Case discussed with RN. Discharge Planning Discharge in a.m. pending CBC and hemoglobint to remain stable. Dago Beavesr MD May 17, 2017 17:14
[2017-05-17] MEDS ORDERED: POTA20TA5 PO (17:17)
[2017-05-17] MEDS ORDERED: REGL5TAB PO (17:17)
--- NOTE | 2017-05-17 17:49 | HHI.FF ---
Face to Face Verification Diagnosis: (1) Low back pain radiating down leg (2) Severe anemia (3) Non-sustained ventricular tachycardia (4) Alcoholic liver failure (5) Hyperammonemia (6) Hypomagnesemia (7) Coagulopathy (8) Generalized weakness Physical Therapy Order: Improve ambulation, Strength and gait training Home Health Nursing Order: Signs/symptoms of disease process Nursing assessment with vital signs I have seen patient Nicki Kilpatrick on 05/17/17. My clinical findings support the need for the requested home health care services because: Ltd mobility - disease progression Deconditioned w/ increased weakness Med compliance is questionable Limited ability to care for self Need for psychosocial assistance Impaired cognition/judgement High risk of falls I certify that my clinical findings support that this patient is homebound because: Impaired cognitive ability/safety Unsafe to leave home unassisted Need for psychosocial assistance Unable to use public transportation Dago Beavers MD May 17, 2017 17:49
[2017-05-17] MEDS ORDERED: PHYTONADIONE INJ 10 MG in SODIUM CHLORIDE 0.9% INJ 50 ML IV ONE (18:00)
[2017-05-17] MEDS: FUROSEMIDE 20 MG TAB PO SCH (18:24)
[2017-05-17 20:00] VITALS: BP 136/74; PULSE 105; RESP 18; TEMP 96.6; O2SAT 97
[2017-05-17] MEDS: MAGNESIUM OXIDE 400 MG TAB PO SCH (20:36)
[2017-05-18] VITALS (8 sets, daily range): BP systolic 131–151; BP diastolic 76–82; PULSE 100–116; RESP 17–18; TEMP 96.2–97.4; O2SAT 96–98
[2017-05-18] MEDS: PENTOXIFYLLINE 400 MG CONTROLLED RELEASE TAB PO SCH ×4 (00:19→20:46)
[2017-05-18] MEDS: METOCLOPRAMIDE HCL 10 MG/2 ML VIAL IV PUSH SCH ×4 (00:19→20:53)
[2017-05-18] MEDS: MORPHINE SULFATE 15 MG CONTROLLED RELEASE TAB PO SCH ×4 (00:20→23:01)
[2017-05-18] MEDS: SUCRALFATE 1 GM TAB PO SCH ×4 (07:00→20:46)
[2017-05-18] MEDS: FUROSEMIDE 20 MG TAB PO SCH ×2 (09:00→10:03)
[2017-05-18] MEDS: SODIUM CHLORIDE 0.9% FLUSH 10 ML FLUSH IV FLUSH SCH ×2 (09:00→20:53)
[2017-05-18] MEDS: RIFAXIMIN 550 MG TAB PO SCH ×2 (10:02→20:46)
[2017-05-18] MEDS: PANTOPRAZOLE SOD 40 MG DELAYED RELEASE TAB PO SCH ×2 (10:02→20:46)
[2017-05-18] MEDS: MAGNESIUM OXIDE 400 MG TAB PO SCH ×2 (10:02→20:47)
[2017-05-18] MEDS: SPIRONOLACTONE 50 MG TAB PO SCH (10:02)
[2017-05-18] MEDS: DOCUSATE SODIUM 50 MG/SENNA 8.6 MG TAB PO SCH ×2 (10:02→20:47)
[2017-05-18] MEDS: LACTULOSE SYRUP 20 GM/30 ML CUP PO SCH ×3 (10:02→18:00)
[2017-05-18] MEDS: POTASSIUM CHLORIDE 20 MEQ CONTROLLED RELEASE TAB PO SCH (10:03)
[2017-05-18] MEDS: PHYTONADIONE 5 MG TAB PO SCH (10:03)
--- NOTE | 2017-05-18 14:52 | HHI.PR ---
Subjective Remarks Patient denies cp/sob bleeding from mouth Objective Vitals Vital Signs Date Time Temp Pulse Resp B/P Pulse Ox O2 Delivery O2 Flow Rate FiO2 05/18/17 11:54 97.1 111 17 146/78 98 05/18/17 08:39 116 05/18/17 08:00 96.9 112 17 151/76 96 05/18/17 07:39 Room Air 05/18/17 04:05 96.2 107 18 131/82 96 05/18/17 00:05 97.1 106 18 143/79 97 05/17/17 20:00 96.6 105 18 136/74 97 05/17/17 16:00 97.4 106 18 142/84 96 I/O 05/17/17 05/17/17 05/17/17 05/18/17 05/18/17 05/18/17 07:00 15:00 23:00 07:00 15:00 23:00 Intake Total 120 ml 240 ml 240 ml 60 ml Balance 120 ml 240 ml 240 ml 60 ml Intake Oral 120 ml 240 ml 240 ml 60 ml # Voids 1 1 2 2 # Bowel Movements 0 2 1 2 Result Diagram: 05/17/17 0803 05/17/17 0803 Imaging Last Impressions Lumbar Spine MRI 05/14/17 0000 Signed Impressions: Service Date/Time: May 22:21 - CONCLUSION: 1. Postsurgical changes as above. No evidence of disc protrusion or spinal canal stenosis. Thor Liao MD Pelvis X-Ray 05/10/17 0000 Signed Impressions: Service Date/Time: Wednesday, May 10, 2017 09:07 - CONCLUSION: Negative for fracture Michael Sevilla MD FACR Femur X-Ray 05/10/17 0000 Signed Impressions: Service Date/Time: Wednesday, May 10, 2017 09:09 - CONCLUSION: Degenerative changes about the knee otherwise negative. Michael Sevilla MD FACR Chest X-Ray 05/10/17 0000 Signed Impressions: Service Date/Time: Wednesday, May 10, 2017 09:08 - CONCLUSION: No acute disease. Michael Sevilla MD FACR Objective Remarks GENERAL: This is a chronic ill appearing patient's in no acute distress but his jaundice. SKIN: (+) jaundice skin HEAD: Atraumatic. Normocephalic. No temporal or scalp tenderness. EYES: Pupils equal round and reactive. Extraocular motions intact.+ scleral icterus. No injection or drainage. ENT: Nose without bleeding, purulent drainage or septal hematoma. Throat without erythema, tonsillar hypertrophy or exudate. Uvula midline. Airway patent. No active bleeding observed. NECK: Trachea midline. No JVD or lymphadenopathy. Supple, nontender, no meningeal signs. CARDIOVASCULAR: Regular rate and rhythm without murmurs, gallops, or rubs. RESPIRATORY: Clear to auscultation. Breath sounds equal bilaterally. No wheezes , rales, or rhonchi. GASTROINTESTINAL: Abdomen soft, tender to palpation over RUQ, positive for distention. Negative for any peritoneal signs. MUSCULOSKELETAL: Right lower extremity patient was able to move her lower extremity with full range of motion, but per patient had pain. Muscle strength in right lower extremity is 4/5. NEUROLOGICAL: Awake and alert. Cranial nerves II through XII intact. Motor and sensory grossly within normal limits. Speech is normal. Procedures EGD on 05/13/17 ---> portal gastropathy, retained gastric contents. Medications and IVs Current Medications Medications (Trade) Dose Ordered Sig/Teresa Route Start Time Stop Time Status Last Admin (NS Flush) 2 ml UNSCH PRN IV FLUSH 05/10/17 10:45 05/17/17 16:50 (NS Flush) 2 ml BID IV FLUSH 05/10/17 21:00 05/17/17 09:42 (Zofran Inj) 4 mg Q6H PRN IVP 05/10/17 10:45 05/12/17 22:53 (Narcan Inj) 0.4 mg UNSCH PRN IV 05/10/17 10:45 (Anna-Colace) 1 tab BID PO 05/10/17 21:00 05/18/17 10:02 (Milk Of Magnesia Liq) 30 ml Q12H PRN PO 05/10/17 10:45 (Senokot) 17.2 mg Q12H PRN PO 05/10/17 10:45 (Dulcolax Supp) 10 mg DAILY PRN RECTAL 05/10/17 10:45 (Lactulose Liq) 30 ml DAILY PRN PO 05/10/17 10:45 (Lasix) 20 mg DAILY PO 05/11/17 09:00 05/18/17 10:03 (Protonix) 40 mg BID PO 05/10/17 21:00 05/18/17 10:02 (TRENtal SR) 400 mg Q8HR PO 05/10/17 14:00 05/18/17 00:19 (Mephyton) 10 mg DAILY PO 05/11/17 09:00 05/18/17 10:03 (Aldactone) 50 mg DAILY PO 05/11/17 09:00 05/18/17 10:02 (Carafate) 1 gm ACHS PO 05/10/17 16:00 05/17/17 20:36 (KCl) 20 meq DAILY PO 05/12/17 09:00 05/18/17 10:03 (Ultram) 50 mg Q6H PRN PO 05/11/17 18:15 05/14/17 13:59 (Reglan Inj) 5 mg Q8HR IV PUSH 05/13/17 22:00 05/18/17 00:19 (Oramorph Sr) 15 mg Q8H PO 05/14/17 15:00 05/18/17 00:20 (Xifaxan) 550 mg BID PO 05/15/17 13:00 05/18/17 10:02 (Lactulose Liq) 30 ml TID PO 05/15/17 18:00 05/18/17 10:02 (Mag-Ox) 400 mg Q12HR PO 05/17/17 21:00 05/18/17 10:02 (Lasix) 20 mg DAILY PO 05/17/17 17:15 05/17/17 18:24 Urinary Catheter: No A/P Problem List: (1) Severe anemia ICD Code: D64.9 Status: Resolved (2) Alcoholic liver failure ICD Code: K70.40 Status: Acute (3) GI bleed ICD Code: K92.2 Status: Resolved (4) NEGRO (acute kidney injury) ICD Code: N17.9 Status: Resolved (5) Coagulopathy ICD Code: D68.9 Status: Chronic (6) Elevated lactic acid level ICD Code: R79.89 Status: Resolved (7) Hyperammonemia ICD Code: E72.20 Status: Acute (8) Hypokalemia ICD Code: E87.6 Status: Resolved (9) Hyponatremia ICD Code: E87.1 Status: Resolved (10) DNR (do not resuscitate) ICD Code: Z66 Status: Acute (11) Non-sustained ventricular tachycardia ICD Code: I47.2 Status: Resolved (12) Hypomagnesemia ICD Code: E83.42 Status: Resolved (13) Low back pain radiating down leg ICD Code: M54.5 Status: Resolved Assessment and Plan (1) Severe anemia Plan: This a 52-year-old female with liver disease secondary to alcoholic hepatitis and coagulopathy complicated by ascites secondary to alcoholism and hepatitis C. Patient is a very poor prognosis and an INR of 2.6. The patient is very well-known to me and during a recent admission she was given multiple transfusions. 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 The patient was treated with Carafate, Protonix and was discharged home. The patient presented this time with hemoglobin 6.2, on last admission the patient was discharged with a hemoglobin of 8. The patient was transfused 2 units of packed red blood cells with appropriate response, however hemoglobin was slowly trending down and was 7.3 on 05/12 and the patient was transfuse 1 unit of packed blood cells with appropriate response. The patient was also started on PPI underwent EGD once coagulopathy was treated with just fusion for frozen plasma. EGD showed portal gastropathy and retained gastric contents. The patient was started on Reglan for gastropathy. 05/15 hemoglobin is dropping and down to 6.5 today, patient with severe anemia. Transfuse 2 units of packed red blood cells and 2 units of fresh frozen plasma to treat coagulopathy. Continue w vitamin K. 05/16 status post fusion of 2 units of packed blood cells with appropriate hemoglobin response. Hemoglobin 8.2 today. I will continue to monitor CBC. Check CBC in a.m. and if stable then I will discharge home. 05/17 Hemoglobin stable. Had some bleeding in mouth on gingiva and corners of mouth which have stoped. Patient may be discharged home with home health PT. 05/18 Patient is actively bleeding in mouth. check CBC and coags. Transfuse for hemoglobin less than 8 if active bleeding. If INR elevated and patient still bleeding will transfuse fresh frozen plasma. Continue oral vitamin K. (2) Alcoholic liver failure Continue to monitor liver function tests. Alcoholic liver failure secondary to alcohol abuse. Patient has a meld score of 25. On previous admission the patient had extensive workup. The patient has positive hepatitis C virus RNA, negative ASA, negative ASMA, AMA less than 20. The patient has a coagulopathy with INR at INR of 2.5 which seems to be better from discharge when the patient had 3.2. We'll continue vitamin K. I will also continue pentoxifylline which the patient was discharged with a previous admission. Appreciate palliative care consultation and efforts. GI consulted and following. (3) GI bleed Plan: GI consulted, patient sp 2 units of FFP. EGD as above Continue to monitor PT, INR and PTT. Continue vitamin K 8/5 status post transfusion of 2 units of packed red blood cells and 2 units of FFP. There does not seem to be any obvious bleeding. 8/ Bleeding from mouth - check cbc and coags and transfuse as needed. (4) NEGRO (acute kidney injury) Plan: Nephrology consulted. Creatinine on admission very elevated at 2.68. Likely secondary to prerenal azotemia due to anemia. Creatinine is trending down. Continue to monitor BUN/creatinine, avoid nephrotoxins, monitor strict I's and O's. NEGRO resolved. (5) Coagulopathy Plan: Coagulopathy secondary to liver disease. INR 2.5, PTT 72.8. Status post fusion of 3 units of FFP. Continue vitamin K. 8/ INR improved and down to 1.6. Continue vitamin K orally. 8/6 INR increased to 1.8 - continue Vitamin K orally. Will give one dose of Vitamin K IV. (6) Elevated lactic acid level Plan: Unclear etiology at this time. Could be secondary to dehydration. I will recheck monitor lactic acid. I will also check blood cultures since patient had a gram-negative bacteremia on previous admission. Continue IV fluids for now and will hold diuretics. 8/ blood cultures are negative 3 days. Lactic acid is slowly trending down with IV fluids. Lactic acid down from 4.1 - 2.1. We'll continue to monitor. Continue IV fluids. / lactic acid continued to trend down, now down to 2.5. Continue to monitor lactic. 05/15 Lactic acid level down to 1.8 - Will DC Iv fluids. (7) Hyperammonemia Plan: Ammonia trending up - will start patient on lactulose 30 mL's by mouth 3 times a day and rifaximin. 05/16 ammonia trending down. Level down from 73-50. Continue lactulose. (8) Hypokalemia Plan: Likely a combination of poor nutritional status and decreased oral intake along with IV fluid administration. We'll replace orally and continue to monitor BMP. Patient had an episode of V. tach on the night of 05/13. Replace potassium to keep around 4.0. Hypokalemia levels went back to normal on 05/14. (9) Hyponatremia Plan: Patient has chronic hyponatremia which seems to be stable at 132. Hyponatremia resolved. Sodium 135 now. 05/17 Hyponatremia resolved. (10) DNR Plan: Palliative care following. Patient has a DO NOT RESUSCITATE status. (11) Non-sustained ventricular tachycardia Plan: V. tach likely secondary to electrolyte abnormality. Will keep magnesium above 2 and potassium 004. Continue to monitor on telemetry. 05/15 no further v tach episodes on telemetry. Continue to monitor. (12) Hypomagnesemia Plan: Likely secondary to nutritional deficiency. 05/16 will continue to supplement with IV magnesium sulfate to keep above 2. Will start on oral magnesium daily. (13) Low back pain radiating down leg Plan: Upon review of previous records the patient had a lumbar spine x-ray on date 10/23/12 which reports changes of posterior fusion procedure with instrumentation on L3 through L5, and mild disease narrowing at L2-3 with anterior osseous ridging. No fracture seen. Given that the patient has severe low back pain and right lotion any weakness on exam I will order an MRI of the lumbar spine. The patient states she is unable to lay still on the MRI machine, however I offered to give her some pain medication prior to the procedure. Patient also started on morphine sulfate extended release 50 mg by mouth every 8 hours for pain control. Patient states back pain is now better controlled. The patient will need pain management as an outpatient. MRI of the lumbar spine showed some postsurgical changes however no evidence of disc protrusion or spinal Stenosis. GI prophylaxis: PPI DVT prophylaxis: SCDs, no chemoprophylaxis given severe anemia and high risk for GI bleed. Case discussed with RN. Discharge Planning Will discharge once patient oral bleeding stops and hemoglobin remains stable. Dago Beavers MD May 18, 2017 14:52
[2017-05-18 17:06] LABS: MEAN CELL VOLUME 96.8 FL (80.0-100.0); MEAN CORPUSCULAR HEMOGLOBIN 33.2 PG (27.0-34.0); MEAN CORPUSCULAR HGB CONC 34.3 % (32.0-36.0); PLATELET COUNT 65 TH/MM3 (150-450); RED BLOOD COUNT 2.11 MIL/MM3 (4.00-5.30); RED CELL DISTRIBUTION WIDTH 24.7 % (11.6-17.2); WHITE BLOOD COUNT 11.3 TH/MM3 (4.0-11.0)
[2017-05-18 17:16] LABS: APTT (PATIENT) 41.6 SEC (24.3-30.1); INTERNATIONAL NORMALIZED RATIO 1.8 RATIO; PROTHROMBIN TIME - PATIENT 20.9 SEC (9.8-11.6)
[2017-05-18 17:21] LABS: HEMATOCRIT 20.4 % (35.0-46.0); REVIEW FLAG FINAL
[2017-05-18] MEDS ORDERED: SODIUM CHLOR 0.9% 250 ML INJ 250 ML IV ONE ×2 (17:30→18:00)
[2017-05-18] MEDS ORDERED: FUROSEMIDE 20 MG/2 ML VIAL IV ONE (18:00)
[2017-05-19] VITALS (10 sets, daily range): BP systolic 133–151; BP diastolic 77–90; PULSE 102–111; RESP 16–21; TEMP 96.2–97.4; O2SAT 95–98
[2017-05-19] MEDS: METOCLOPRAMIDE HCL 10 MG/2 ML VIAL IV PUSH SCH ×3 (04:52→21:35)
[2017-05-19] MEDS: MORPHINE SULFATE 15 MG CONTROLLED RELEASE TAB PO SCH ×4 (04:52→23:08)
[2017-05-19] MEDS: SUCRALFATE 1 GM TAB PO SCH ×4 (04:52→21:34)
[2017-05-19] MEDS: PENTOXIFYLLINE 400 MG CONTROLLED RELEASE TAB PO SCH ×3 (04:52→21:34)
[2017-05-19] MEDS: PANTOPRAZOLE SOD 40 MG DELAYED RELEASE TAB PO SCH ×2 (09:00→21:34)
[2017-05-19] MEDS: LACTULOSE SYRUP 20 GM/30 ML CUP PO SCH ×3 (09:00→18:00)
[2017-05-19] MEDS: DOCUSATE SODIUM 50 MG/SENNA 8.6 MG TAB PO SCH ×2 (09:00→21:35)
[2017-05-19] MEDS: FUROSEMIDE 20 MG TAB PO SCH ×2 (09:00)
[2017-05-19] MEDS: POTASSIUM CHLORIDE 20 MEQ CONTROLLED RELEASE TAB PO SCH (09:00)
[2017-05-19] MEDS: SPIRONOLACTONE 50 MG TAB PO SCH (09:00)
[2017-05-19] MEDS: RIFAXIMIN 550 MG TAB PO SCH ×2 (09:01→21:34)
[2017-05-19] MEDS: PHYTONADIONE 5 MG TAB PO SCH (09:01)
[2017-05-19] MEDS: MAGNESIUM OXIDE 400 MG TAB PO SCH ×2 (09:01→21:34)
[2017-05-19] MEDS: SODIUM CHLORIDE 0.9% FLUSH 10 ML FLUSH IV FLUSH SCH ×2 (09:03→21:35)
[2017-05-19 11:56] LABS: HEMATOCRIT 25.7 % (35.0-46.0); MEAN CELL VOLUME 92.7 FL (80.0-100.0); MEAN CORPUSCULAR HEMOGLOBIN 33.4 PG (27.0-34.0); PLATELET COUNT 61 TH/MM3 (150-450); RED BLOOD COUNT 2.77 MIL/MM3 (4.00-5.30); RED CELL DISTRIBUTION WIDTH 17.8 % (11.6-17.2)
[2017-05-19 11:58] LABS: REVIEW FLAG FINAL
[2017-05-19 12:29] LABS: BICARBONATE 24.8 MEQ/L (21.0-32.0); POTASSIUM 4.2 MEQ/L (3.5-5.1)
--- NOTE | 2017-05-19 16:22 | HHI.DS ---
Discharge Summary Admission Date May 10, 2017 at 10:33 Discharge Date: May 19, 2017 Admitting Diagnosis anemia, lactic acidosis, hepatic encephalopathy (1) Severe anemia ICD Code: D64.9 (2) Alcoholic liver failure ICD Code: K70.40 (3) GI bleed ICD Code: K92.2 (4) NEGRO (acute kidney injury) ICD Code: N17.9 (5) Coagulopathy ICD Code: D68.9 (6) Elevated lactic acid level ICD Code: R79.89 (7) Hyperammonemia ICD Code: E72.20 (8) Hypokalemia ICD Code: E87.6 (9) Hyponatremia ICD Code: E87.1 (10) DNR (do not resuscitate) ICD Code: Z66 (11) Non-sustained ventricular tachycardia ICD Code: I47.2 (12) Hypomagnesemia ICD Code: E83.42 (13) Low back pain radiating down leg ICD Code: M54.5 Procedures EGD on 05/13/17 ---> portal gastropathy, retained gastric contents. Brief History - From Admission 52-year-old female with recent admission secondary to end-stage liver disease with coagulopathy secondary to hepatitis C and alcoholism, GI bleed, bacteremia who presented with right lower extremity pain. Patient stated that before being discharged on her last admission in April she did have right lower extremity pain but it was not addressed. She stated it got worse where she was unable get up because of the pain. She cannot tell me where the pain was exactly located and stated that it's was generalized to her entire right lower leg only when she moves. She denies any calf pain. During the workup in the emergency department patient was found to be anemic with hemoglobin is 6.2 and in renal failure. She denies any fevers or chills. Patient denies any GI bleed. Alcohol use. She could not tell me about her urine output. Patient stated that she would want to be comfortable. CBC/BMP: 05/19/17 1053 05/19/17 1053 Significant Findings Laboratory Tests Test 05/17/17 05/18/17 05/19/17 08:03 16:17 10:53 Red Blood Count 2.47 MIL/MM3 2.11 MIL/MM3 2.77 MIL/MM3 (4.00-5.30) (4.00-5.30) (4.00-5.30) Hemoglobin 8.4 GM/DL 7.0 GM/DL 9.2 GM/DL (11.6-15.3) (11.6-15.3) (11.6-15.3) Hematocrit 23.0 % 20.4 % 25.7 % (35.0-46.0) (35.0-46.0) (35.0-46.0) Mean Corpuscular Hemoglobin 36.5 % Concent (32.0-36.0) Red Cell Distribution Width 21.0 % 24.7 % 17.8 % (11.6-17.2) (11.6-17.2) (11.6-17.2) Platelet Count 64 TH/MM3 65 TH/MM3 61 TH/MM3 (150-450) (150-450) (150-450) Prothrombin Time 20.4 SEC 20.9 SEC (9.8-11.6) (9.8-11.6) Estimat Glomerular Filtration 60 ML/MIN (>89) 67 ML/MIN (>89) Rate Calcium Level 8.2 MG/DL (8.5-10.1) Ammonia 55 MCMOL/L (11-32) White Blood Count 11.3 TH/MM3 13.0 TH/MM3 (4.0-11.0) (4.0-11.0) Activated Partial 41.6 SEC Thromboplast Time (24.3-30.1) Imaging Last Impressions Lumbar Spine MRI 05/14/17 0000 Signed Impressions: Service Date/Time: May 22:21 - CONCLUSION: 1. Postsurgical changes as above. No evidence of disc protrusion or spinal canal stenosis. Thor Liao MD Pelvis X-Ray 05/10/17 0000 Signed Impressions: Service Date/Time: Wednesday, May 10, 2017 09:07 - CONCLUSION: Negative for fracture Michael Sevilla MD FACR Femur X-Ray 05/10/17 0000 Signed Impressions: Service Date/Time: Wednesday, May 10, 2017 09:09 - CONCLUSION: Degenerative changes about the knee otherwise negative. Michael Sevilla MD FACR Chest X-Ray 05/10/17 0000 Signed Impressions: Service Date/Time: Wednesday, May 10, 2017 09:08 - CONCLUSION: No acute disease. Michael Sevilla MD FACR PE at Discharge GENERAL: This is a chronic ill appearing patient's in no acute distress but his jaundice. SKIN: (+) jaundice skin HEAD: Atraumatic. Normocephalic. No temporal or scalp tenderness. EYES: Pupils equal round and reactive. Extraocular motions intact.+ scleral icterus. No injection or drainage. ENT: Nose without bleeding, purulent drainage or septal hematoma. Throat without erythema, tonsillar hypertrophy or exudate. Uvula midline. Airway patent. No active bleeding observed. NECK: Trachea midline. No JVD or lymphadenopathy. Supple, nontender, no meningeal signs. CARDIOVASCULAR: Regular rate and rhythm without murmurs, gallops, or rubs. RESPIRATORY: Clear to auscultation. Breath sounds equal bilaterally. No wheezes , rales, or rhonchi. GASTROINTESTINAL: Abdomen soft, tender to palpation over RUQ, positive for distention. Negative for any peritoneal signs. MUSCULOSKELETAL: Right lower extremity patient was able to move her lower extremity with full range of motion, but per patient had pain. Muscle strength in right lower extremity is 4/5. NEUROLOGICAL: Awake and alert. Cranial nerves II through XII intact. Motor and sensory grossly within normal limits. Speech is normal. Pt update on day of discharge Patient states bleeding through moth has stopped. Denies melena or hematochezia. denies nausea, vomiting, abdominal pain or chest pain/sob. Pt Condition on Discharge: Stable Discharge Disposition: Disch w/ Home Health Serv Discharge Time: > 30 minutes Discharge Instructions DIET: Follow Instructions for: Heart Healthy Diet Activities you can perform: See Additionl Instruction Other Activity Instructions: Out of bed with assistance Follow up Referrals: PCP Follow-up - 2-3 Days with Farzana Rodriguez MD New Medications: Bedside Commode (Bedside Commode) 1 Mis Mis 1 EA .ROUTE DIRECTED Shortness of Breath #1 EA Metoclopramide (Reglan) 5 Mg Tab 5 MG PO TIDAC gastroparesis #93 Ref 0 TAB Walker with Front Wheels (Walker with Front Wheels) 1 Mis Mis 1 EA .ROUTE DIRECTED weakness #1 Ref 0 EA Morphine ER (Morphine ER) 15 Mg Tab 15 MG PO Q8H Pain Management #30 TAB Potassium Chloride Microencaps (Potassium Chloride Microencaps) 20 Meq Tab 20 MEQ PO DAILY prevent hypokalemia #30 TAB Rifaximin (Xifaxan) 550 Mg Tab 550 MG PO BID liver cirrhosis #62 TAB ([Lactulose Liq]) 30 ML SYRP 30 ML PO TID high ammonia #1 Ref 1 ML Continued Medications: Furosemide (Furosemide) 20 Mg Tab 20 MG PO DAILY liver cirrhosis #30 Ref 3 TAB Pantoprazole (Pantoprazole) 40 Mg Tab 40 MG PO BID GI bleed #62 Ref 3 TAB Pentoxifylline ER (Pentoxifylline ER) 400 Mg Tab 400 MG PO Q8HR alcoholic hepatitis #120 Ref 3 TAB Phytonadione (Mephyton) 5 Mg Tab 10 MG PO DAILY coagulopathy #31 Ref 3 TAB Spironolactone (Aldactone) 50 Mg Tab 50 MG PO DAILY liver cirrhosis #31 Ref 3 TAB Sucralfate (Sucralfate) 1 Gm Tab 1 GM PO ACHS on empty stomach Duodenal ulcer #120 Ref 3 TAB Dago Beavers MD May 19, 2017 16:22
--- NOTE | 2017-05-19 17:42 | HHI.PR ---
Subjective Remarks Bleeding through mouth has stopped still tachycardic denies cp/sob denies abdominal pain, nausea or vomiting Objective Vitals Vital Signs Date Time Temp Pulse Resp B/P Pulse Ox O2 Delivery O2 Flow Rate FiO2 05/19/17 12:00 96.3 108 20 151/90 97 05/19/17 08:00 96.6 106 16 144/80 96 05/19/17 07:46 96.6 106 16 144/80 96 05/19/17 05:05 97.4 111 17 151/83 96 05/19/17 04:50 97.0 107 18 133/80 95 05/19/17 04:10 97.0 107 18 133/80 95 05/19/17 00:40 96.2 103 18 135/77 95 05/19/17 00:25 96.9 105 18 139/79 96 05/18/17 21:21 103 05/18/17 20:05 97.4 104 18 146/79 97 I/O 05/18/17 05/18/17 05/18/17 05/19/17 05/19/17 05/19/17 07:00 15:00 23:00 07:00 15:00 23:00 Intake Total 60 ml 0 ml 240 ml 578 ml 240 ml Output Total 300 ml Balance 60 ml 0 ml 240 ml 578 ml -60 ml Intake Oral 60 ml 0 ml 240 ml 240 ml 240 ml Packed Cells 338 ml Output Urine Total 300 ml # Voids 2 2 0 4 1 # Bowel Movements 2 2 0 2 1 Result Diagram: 05/19/17 1053 05/19/17 1053 Imaging Last Impressions Lumbar Spine MRI 05/14/17 0000 Signed Impressions: Service Date/Time: May 22:21 - CONCLUSION: 1. Postsurgical changes as above. No evidence of disc protrusion or spinal canal stenosis. Thor Liao MD Pelvis X-Ray 05/10/17 0000 Signed Impressions: Service Date/Time: Wednesday, May 10, 2017 09:07 - CONCLUSION: Negative for fracture Michael Sevilla MD FACR Femur X-Ray 05/10/17 0000 Signed Impressions: Service Date/Time: Wednesday, May 10, 2017 09:09 - CONCLUSION: Degenerative changes about the knee otherwise negative. Michael Sevilla MD FACR Chest X-Ray 05/10/17 0000 Signed Impressions: Service Date/Time: Wednesday, May 10, 2017 09:08 - CONCLUSION: No acute disease. Michael Sevilla MD FACR Objective Remarks GENERAL: This is a chronic ill appearing patient's in no acute distress but his jaundice. SKIN: (+) jaundice skin HEAD: Atraumatic. Normocephalic. No temporal or scalp tenderness. EYES: Pupils equal round and reactive. Extraocular motions intact.+ scleral icterus. No injection or drainage. ENT: Nose without bleeding, purulent drainage or septal hematoma. Throat without erythema, tonsillar hypertrophy or exudate. Uvula midline. Airway patent. No active bleeding observed. NECK: Trachea midline. No JVD or lymphadenopathy. Supple, nontender, no meningeal signs. CARDIOVASCULAR: Regular rate and rhythm without murmurs, gallops, or rubs. RESPIRATORY: Clear to auscultation. Breath sounds equal bilaterally. No wheezes , rales, or rhonchi. GASTROINTESTINAL: Abdomen soft, tender to palpation over RUQ, positive for distention. Negative for any peritoneal signs. MUSCULOSKELETAL: Right lower extremity patient was able to move her lower extremity with full range of motion, but per patient had pain. Muscle strength in right lower extremity is 4/5. NEUROLOGICAL: Awake and alert. Cranial nerves II through XII intact. Motor and sensory grossly within normal limits. Speech is normal. Procedures EGD on 05/13/17 ---> portal gastropathy, retained gastric contents. Medications and IVs Current Medications Medications (Trade) Dose Ordered Sig/Teresa Route Start Time Stop Time Status Last Admin (NS Flush) 2 ml UNSCH PRN IV FLUSH 05/10/17 10:45 05/17/17 16:50 (NS Flush) 2 ml BID IV FLUSH 05/10/17 21:00 05/19/17 09:03 (Zofran Inj) 4 mg Q6H PRN IVP 05/10/17 10:45 05/12/17 22:53 (Narcan Inj) 0.4 mg UNSCH PRN IV 05/10/17 10:45 (Anna-Colace) 1 tab BID PO 05/10/17 21:00 05/18/17 10:02 (Milk Of Magnesia Liq) 30 ml Q12H PRN PO 05/10/17 10:45 (Senokot) 17.2 mg Q12H PRN PO 05/10/17 10:45 (Dulcolax Supp) 10 mg DAILY PRN RECTAL 05/10/17 10:45 (Lactulose Liq) 30 ml DAILY PRN PO 05/10/17 10:45 (Lasix) 20 mg DAILY PO 05/11/17 09:00 05/19/17 09:00 (Protonix) 40 mg BID PO 05/10/17 21:00 05/19/17 09:00 (TRENtal SR) 400 mg Q8HR PO 05/10/17 14:00 05/19/17 16:09 (Mephyton) 10 mg DAILY PO 05/11/17 09:00 05/19/17 09:01 (Aldactone) 50 mg DAILY PO 05/11/17 09:00 05/19/17 09:00 (Carafate) 1 gm ACHS PO 05/10/17 16:00 05/19/17 16:10 (KCl) 20 meq DAILY PO 05/12/17 09:00 05/19/17 09:00 (Ultram) 50 mg Q6H PRN PO 05/11/17 18:15 05/14/17 13:59 (Reglan Inj) 5 mg Q8HR IV PUSH 05/13/17 22:00 05/19/17 04:52 (Oramorph Sr) 15 mg Q8H PO 05/14/17 15:00 05/19/17 00:00 (Xifaxan) 550 mg BID PO 05/15/17 13:00 05/19/17 09:01 (Lactulose Liq) 30 ml TID PO 05/15/17 18:00 05/18/17 10:02 (Mag-Ox) 400 mg Q12HR PO 05/17/17 21:00 05/19/17 09:01 (Lasix) 20 mg DAILY PO 05/17/17 17:15 05/17/17 18:24 Urinary Catheter: No Vascular Central Line Catheter: No A/P Problem List: (1) Severe anemia ICD Code: D64.9 Status: Resolved (2) Alcoholic liver failure ICD Code: K70.40 Status: Acute (3) GI bleed ICD Code: K92.2 Status: Resolved (4) NEGRO (acute kidney injury) ICD Code: N17.9 Status: Resolved (5) Coagulopathy ICD Code: D68.9 Status: Chronic (6) Elevated lactic acid level ICD Code: R79.89 Status: Resolved (7) Hyperammonemia ICD Code: E72.20 Status: Acute (8) Hypokalemia ICD Code: E87.6 Status: Resolved (9) Hyponatremia ICD Code: E87.1 Status: Resolved (10) DNR (do not resuscitate) ICD Code: Z66 Status: Acute (11) Non-sustained ventricular tachycardia ICD Code: I47.2 Status: Resolved (12) Hypomagnesemia ICD Code: E83.42 Status: Resolved (13) Low back pain radiating down leg ICD Code: M54.5 Status: Resolved Assessment and Plan (1) Severe anemia Plan: This a 52-year-old female with liver disease secondary to alcoholic hepatitis and coagulopathy complicated by ascites secondary to alcoholism and hepatitis C. Patient is a very poor prognosis and an INR of 2.6. The patient is very well-known to me and during a recent admission she was given multiple transfusions. 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 The patient was treated with Carafate, Protonix and was discharged home. The patient presented this time with hemoglobin 6.2, on last admission the patient was discharged with a hemoglobin of 8. The patient was transfused 2 units of packed red blood cells with appropriate response, however hemoglobin was slowly trending down and was 7.3 on 05/12 and the patient was transfuse 1 unit of packed blood cells with appropriate response. The patient was also started on PPI underwent EGD once coagulopathy was treated with just fusion for frozen plasma. EGD showed portal gastropathy and retained gastric contents. The patient was started on Reglan for gastropathy. Hemoglobin dropped on 05/15/17 down to 6.5. The patient is status post transfusion of 2 units of packed red blood cells and 2 units of for frozen plasma to treat coagulopathy. Vitamin K orally was continued. The patient had a good response to the transfusion, however had some bleeding from mouth, specifically gingiva and corners of the mouth. Hemoglobin dropped again down to 7 from 8.9 on 05/18/17 and the patient was transfused 2 units of packed red blood cells. Hemoglobin on 05/19/17 was up to 9.2 and bleeding from mouth had subsided. Patient cleared to be discharged home, however pharmacy is already closed and patient will need to apple picker some medications before leaving. The patient will be discharged tomorrow morning. (2) Alcoholic liver failure Continue to monitor liver function tests. Alcoholic liver failure secondary to alcohol abuse. Patient has a meld score of 25. On previous admission the patient had extensive workup. The patient has positive hepatitis C virus RNA, negative ASA, negative ASMA, AMA less than 20. The patient has a coagulopathy with INR at INR of 2.5 which seems to be better from discharge when the patient had 3.2. We'll continue vitamin K. Vitamin K and pentoxifylline was continued. Palliative care consulted as well as gastroenterology. (3) GI bleed Plan: GI consulted, patient sp 2 units of FFP. EGD as above Continue to monitor PT, INR and PTT. Continue vitamin K 8/ status post transfusion of 2 units of packed red blood cells and 2 units of FFP. There does not seem to be any obvious bleeding. 05/19 hemoglobin dropped down to 7.0 from 8.4. Patient status post transfusion of 2 units of packed red blood cells with appropriate response. Continue to monitor CBC. (4) NEGRO (acute kidney injury) Plan: Nephrology consulted. Creatinine on admission very elevated at 2.68. Likely secondary to prerenal azotemia due to anemia. Diuretics held on admission. NEGRO resolved after IV fluid administration. (5) Coagulopathy Plan: Coagulopathy secondary to liver disease. INR 2.5, PTT 72.8. Status post fusion of 3 units of FFP. Continue vitamin K. 05/16 INR improved and down to 1.6. Continue vitamin K orally. 8 INR increased to 1.8 - continue Vitamin K orally. Will give one dose of Vitamin K IV. (6) Elevated lactic acid level Plan: Unclear etiology at this time. Could be secondary to dehydration. I will recheck monitor lactic acid. I will also check blood cultures since patient had a gram-negative bacteremia on previous admission. Continue IV fluids for now and will hold diuretics. 05/13 blood cultures are negative 3 days. Lactic acid is slowly trending down with IV fluids. Lactic acid down from 4.1 - 2.1. We'll continue to monitor. Continue IV fluids. 05/14 lactic acid continued to trend down, now down to 2.5. Continue to monitor lactic. 05/15 Lactic acid level down to 1.8 - Will DC Iv fluids. (7) Hyperammonemia Plan: Ammonia trending up - will start patient on lactulose 30 mL's by mouth 3 times a day and rifaximin. 05/16 ammonia trending down. Level down from 73-50. Continue lactulose. (8) Hypokalemia Plan: Likely a combination of poor nutritional status and decreased oral intake along with IV fluid administration. We'll replace orally and continue to monitor BMP. Patient had an episode of V. tach on the night of 05/13. Replace potassium to keep around 4.0. Hypokalemia levels went back to normal on 05/14. (9) Hyponatremia Plan: Patient has chronic hyponatremia which seems to be stable at 132. Hyponatremia resolved. Sodium 135 now. 05/17 Hyponatremia resolved. (10) DNR Plan: Palliative care following. Patient has a DO NOT RESUSCITATE status. (11) Non-sustained ventricular tachycardia Plan: V. tach likely secondary to electrolyte abnormality. Will keep magnesium above 2 and potassium 004. Continue to monitor on telemetry. 05/15 no further v tach episodes on telemetry. Continue to monitor. (12) Hypomagnesemia Plan: Likely secondary to nutritional deficiency. 05/16 will continue to supplement with IV magnesium sulfate to keep above 2. Will start on oral magnesium daily. (13) Low back pain radiating down leg Plan: Upon review of previous records the patient had a lumbar spine x-ray on date 10/23/12 which reports changes of posterior fusion procedure with instrumentation on L3 through L5, and mild disease narrowing at L2-3 with anterior osseous ridging. No fracture seen. Given that the patient has severe low back pain and right lotion any weakness on exam I will order an MRI of the lumbar spine. The patient states she is unable to lay still on the MRI machine, however I offered to give her some pain medication prior to the procedure. Patient also started on morphine sulfate extended release 50 mg by mouth every 8 hours for pain control. Patient states back pain is now better controlled. The patient will need pain management as an outpatient. MRI of the lumbar spine showed some postsurgical changes however no evidence of disc protrusion or spinal Stenosis. GI prophylaxis: PPI DVT prophylaxis: SCDs, no chemoprophylaxis given severe anemia and high risk for GI bleed. Case discussed with RN. Discharge Planning Dc in am. Dago Beavers MD May 19, 2017 17:42
[2017-05-19] MEDS: traMADol HCL 50 MG TAB PO PRN (18:09)
[2017-05-20] VITALS (11 sets, daily range): BP systolic 92–140; BP diastolic 54–76; PULSE 102–117; RESP 12–20; TEMP 95.4–97.2; O2SAT 96–98
[2017-05-20] MEDS: traMADol HCL 50 MG TAB PO PRN ×2 (01:59→10:19)
[2017-05-20] MEDS: SUCRALFATE 1 GM TAB PO SCH ×4 (05:48→20:37)
[2017-05-20] MEDS: PENTOXIFYLLINE 400 MG CONTROLLED RELEASE TAB PO SCH ×3 (05:48→20:37)
[2017-05-20] MEDS: METOCLOPRAMIDE HCL 10 MG/2 ML VIAL IV PUSH SCH (05:49)
[2017-05-20] MEDS: MORPHINE SULFATE 15 MG CONTROLLED RELEASE TAB PO SCH ×3 (05:49→23:19)
[2017-05-20 08:22] LABS: MEAN CELL VOLUME 93.2 FL (80.0-100.0); MEAN CORPUSCULAR HEMOGLOBIN 33.3 PG (27.0-34.0); MEAN CORPUSCULAR HGB CONC 35.7 % (32.0-36.0); PLATELET COUNT 50 TH/MM3 (150-450); RED CELL DISTRIBUTION WIDTH 17.9 % (11.6-17.2); WHITE BLOOD COUNT 15.7 TH/MM3 (4.0-11.0)
[2017-05-20 08:32] LABS: REVIEW FLAG FINAL
[2017-05-20 08:33] LABS: HEMATOCRIT 20.5 % (35.0-46.0)
[2017-05-20] MEDS: FUROSEMIDE 20 MG TAB PO SCH ×2 (09:00→10:19)
[2017-05-20] MEDS: PHYTONADIONE 5 MG TAB PO SCH (10:12)
[2017-05-20] MEDS: SPIRONOLACTONE 50 MG TAB PO SCH (10:12)
[2017-05-20] MEDS: LACTULOSE SYRUP 20 GM/30 ML CUP PO SCH ×3 (10:12→17:06)
[2017-05-20] MEDS: MAGNESIUM OXIDE 400 MG TAB PO SCH ×2 (10:12→20:37)
[2017-05-20] MEDS: PANTOPRAZOLE SOD 40 MG DELAYED RELEASE TAB PO SCH ×2 (10:12→20:37)
[2017-05-20] MEDS: RIFAXIMIN 550 MG TAB PO SCH ×2 (10:12→20:37)
[2017-05-20] MEDS: DOCUSATE SODIUM 50 MG/SENNA 8.6 MG TAB PO SCH ×2 (10:12→20:37)
[2017-05-20] MEDS: POTASSIUM CHLORIDE 20 MEQ CONTROLLED RELEASE TAB PO SCH (10:13)
[2017-05-20] MEDS: SODIUM CHLORIDE 0.9% FLUSH 10 ML FLUSH IV FLUSH SCH ×2 (10:13→20:37)
--- NOTE | 2017-05-20 10:53 | HHI.PR ---
Subjective Remarks Follow-up anemia. Called by RN secondary to myoglobin of 7.3 a drop of 2 points from yesterday. Patient continues to have blood oozing from her mouth which according to the patient and nurse improving from the previous days. No other gross bleeding. She has not been out of bed today. Yesterday she was ambulating in the hallway and felt weak denies dizziness, chest pain and palpitations. She had non-bloody bowel movement yesterday. She wants to go home pending repeat hemoglobin. Objective Vitals Vital Signs Date Time Temp Pulse Resp B/P Pulse Ox O2 Delivery O2 Flow Rate FiO2 05/20/17 08:34 110 05/20/17 07:58 96.4 111 16 140/72 97 05/20/17 07:38 Room Air 05/20/17 04:57 96.4 111 20 123/72 97 05/20/17 00:05 97.2 102 18 120/76 96 05/19/17 20:05 97.2 106 19 135/80 98 05/19/17 20:05 104 05/19/17 16:00 96.7 102 21 145/79 98 05/19/17 12:00 96.3 108 20 151/90 97 I/O 05/19/17 05/19/17 05/19/17 05/20/17 05/20/17 05/20/17 06:59 14:59 22:59 06:59 14:59 22:59 Intake Total 578 ml 480 ml 120 ml Output Total 300 ml Balance 578 ml 180 ml 120 ml Intake Oral 240 ml 480 ml 120 ml Packed Cells 338 ml Output Urine Total 300 ml # Voids 4 3 1 # Bowel Movements 2 2 0 Result Diagram: 05/20/17 0740 05/19/17 1053 Imaging Last Impressions Lumbar Spine MRI 05/14/17 0000 Signed Impressions: Service Date/Time: May 22:21 - CONCLUSION: 1. Postsurgical changes as above. No evidence of disc protrusion or spinal canal stenosis. Thor Liao MD Pelvis X-Ray 05/10/17 0000 Signed Impressions: Service Date/Time: Wednesday, May 10, 2017 09:07 - CONCLUSION: Negative for fracture Michael Sevilla MD FACR Femur X-Ray 05/10/17 0000 Signed Impressions: Service Date/Time: Wednesday, May 10, 2017 09:09 - CONCLUSION: Degenerative changes about the knee otherwise negative. Michael Sevilla MD FACR Chest X-Ray 05/10/17 0000 Signed Impressions: Service Date/Time: Wednesday, May 10, 2017 09:08 - CONCLUSION: No acute disease. Michael Sevilla MD FACR Objective Remarks GENERAL: Well-developed, well-nourished in no distress EYES: Pupils equal and round. Has scleral icterus. No injection or drainage. ENT: No nasal bleeding or discharge. Mucous membranes pink and moist. Lips are raw but no active bleeding CARDIOVASCULAR: Tachycardic with regular rhythm. RESPIRATORY: No accessory muscle use. Clear to auscultation. Breath sounds equal bilaterally. GASTROINTESTINAL: Abdomen soft, non-tender, nondistended. Hepatic and splenic margins not palpable. MUSCULOSKELETAL: Extremities without clubbing, cyanosis. No obvious deformities. NEUROLOGICAL: Awake and alert. No obvious cranial nerve deficits. Motor grossly within normal limits. Five out of 5 muscle strength in the arms and legs. Normal speech. Procedures EGD on 05/13/17 ---> portal gastropathy, retained gastric contents. A/P Problem List: (1) Severe anemia ICD Code: D64.9 Status: Acute (2) Alcoholic liver failure ICD Code: K70.40 Status: Acute (3) GI bleed ICD Code: K92.2 Status: Resolved (4) NEGRO (acute kidney injury) ICD Code: N17.9 Status: Resolved (5) Coagulopathy ICD Code: D68.9 Status: Chronic (6) Elevated lactic acid level ICD Code: R79.89 Status: Resolved (7) Hyperammonemia ICD Code: E72.20 Status: Acute (8) Hypokalemia ICD Code: E87.6 Status: Resolved (9) Hyponatremia ICD Code: E87.1 Status: Resolved (10) Non-sustained ventricular tachycardia ICD Code: I47.2 Status: Resolved (11) Hypomagnesemia ICD Code: E83.42 Status: Resolved (12) Low back pain radiating down leg ICD Code: M54.5 Status: Resolved Assessment and Plan (1) Severe anemia This is recurrent status post multiple transfusions. 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 Repeat EGD showed portal gastropathy and retained gastric contents. The patient was started on Reglan for gastropathy, she refused gastric emptying study. Hemoglobin dropped to 7.3 today repeat H&H pending. Slight bleeding from mouth, specifically gingiva and corners of the mouth. (2) Alcoholic liver failure Continue to monitor liver function tests. Alcoholic liver failure secondary to alcohol abuse. Patient has a meld score of 25. On previous admission the patient had extensive workup. The patient has positive hepatitis C virus RNA, negative ASA, negative ASMA, AMA less than 20. The patient has a coagulopathy with INR at INR of 2.5 which seems to be better from discharge when the patient had 3.2. We'll continue vitamin K and pentoxifylline was continued. Palliative care consulted as well as gastroenterology. (3) GI bleed. Improving oral bleeding GI consulted, patient s/p 2 units of FFP. EGD as above Continue to monitor PT, INR and PTT. Continue vitamin K (4) NEGRO (acute kidney injury) Nephrology consulted. Creatinine on admission very elevated at 2.68. Likely secondary to prerenal azotemia due to anemia. Diuretics held on admission. NEGRO resolved after IV fluid administration. (5) Coagulopathy Coagulopathy secondary to liver disease. INR 2.5, PTT 72.8. Status post fusion of 3 units of FFP. Continue vitamin K. (6) Elevated lactic acid level Could be secondary to dehydration. Improved. Repeat blood cultures negative (7) Hyperammonemia ammonia trending down. Continue lactulose. (8) Hypokalemia Likely a combination of poor nutritional status and decreased oral intake along with IV fluid administration. We'll replace orally and continue to monitor BMP. Patient had an episode of V. tach on the night of 05/13. Replace potassium to keep around 4.0. (9) Hyponatremia Patient has chronic hyponatremia which seems to be stable (10) Non-sustained ventricular tachycardia V. tach likely secondary to electrolyte abnormality. Will keep magnesium above 2 and potassium above 4. Continue to monitor on telemetry. Has persistent sinus tachycardia. Consider beta dana if repeat H&H improved (11) Hypomagnesemia Likely secondary to nutritional deficiency. Ct oral magnesium daily. (12) Low back pain radiating down leg MRI of the lumbar spine showed some postsurgical changes however no evidence of disc protrusion or spinal Stenosis. Improving GI prophylaxis: PPI DVT prophylaxis: SCDs, no chemoprophylaxis given severe anemia and high risk for GI bleed. Bebeto Nihcole MD May 20, 2017 10:53
[2017-05-20 12:14] LABS: AUTOMATED NEUTROPHIL # 14.7 TH/MM3 (1.8-7.7); BASOPHIL # 0.1 TH/MM3 (0-0.2); BASOPHIL % 0.3 % (0.0-2.0); EOSINOPHIL # 0.1 TH/MM3 (0-0.4); EOSINOPHIL % 0.5 % (0.0-4.0); LYMPH % 7.5 % (9.0-44.0); LYMPHOCYTE # 1.3 TH/MM3 (1.0-4.8); MEAN CELL VOLUME 94.7 FL (80.0-100.0); MEAN CORPUSCULAR HEMOGLOBIN 32.9 PG (27.0-34.0); MEAN CORPUSCULAR HGB CONC 34.7 % (32.0-36.0); MONO % 7.6 % (0.0-8.0); NEUT % 84.1 % (16.0-70.0); PLATELET COUNT 63 TH/MM3 (150-450); RED BLOOD COUNT 2.04 MIL/MM3 (4.00-5.30); RED CELL DISTRIBUTION WIDTH 18.4 % (11.6-17.2); WHITE BLOOD COUNT 17.4 TH/MM3 (4.0-11.0)
[2017-05-20 12:16] LABS: HEMO FLAGS AUTO DIFF
[2017-05-20 12:19] LABS: HEMATOCRIT 19.3 % (35.0-46.0)
[2017-05-20 12:23] LABS: INTERNATIONAL NORMALIZED RATIO 2.1 RATIO; PROTHROMBIN TIME - PATIENT 23.5 SEC (9.8-11.6)
[2017-05-20] MEDS ORDERED: SODIUM CHLOR 0.9% 250 ML INJ 250 ML IV ONE (12:30)
[2017-05-20 12:41] LABS: TRANSFERRIN IRON PROFILE 79 MG/DL (200-360)
[2017-05-20 12:51] LABS: EOSINOPHILS 1 % (0-4); NEUTROPHIL # MANUAL DIFF 16.5 TH/MM3 (1.8-7.7); POLYS (SEG NEUTROPHILS) 95 % (16-70); WBC DIFF SAMPLE 100
[2017-05-20 12:52] LABS: ACANTHOCYTES 1+ (NORMAL); BURR CELLS 1+ (NORMAL); KERATOCYTES OCC (NORMAL); PLATELET ESTIMATE SMEAR LOW (NORMAL); PLATELET MORPHOLOGY NORMAL (NORMAL); SCAN/DIFF FINAL DIFF MANUAL
[2017-05-20 12:56] LABS: FERRITIN 2315 NG/ML (8-252)
[2017-05-20] MEDS: METOCLOPRAMIDE HCL 10 MG TAB PO SCH ×2 (14:32→17:06)
[2017-05-20] MEDS: FERROUS SULFATE 325 MG (65 MG ELEMENTAL IRON) TAB PO SCH ×2 (14:33→17:06)
--- NOTE | 2017-05-20 22:07 | HHI.GIFU ---
Subjective Remarks Pt had drop in hemoglobin without melena or overt GI bleed. Earlier this admission she had EGD that showed no varices. She had portal hypertensive gastropathy. she refused to have a colonoscopy. Today she denies abdominal pain. Does not want colonoscopy. She reports feeling pain all over but vague. Objective Vitals I&O Vital Signs Date Time Temp Pulse Resp B/P Pulse Ox O2 Delivery O2 Flow Rate FiO2 05/20/17 21:09 21 05/20/17 18:10 95.6 110 18 102/61 97 05/20/17 17:55 95.4 109 16 99/64 97 05/20/17 15:45 95.8 115 16 97/63 97 05/20/17 15:30 96.1 117 12 93/56 96 05/20/17 11:57 96.2 117 18 118/71 97 05/20/17 08:34 110 05/20/17 07:58 96.4 111 16 140/72 97 05/20/17 07:38 Room Air 05/20/17 04:57 96.4 111 20 123/72 97 05/20/17 00:05 97.2 102 18 120/76 96 I/O 05/19/17 05/19/17 05/19/17 05/20/17 05/20/17 05/20/17 07:00 15:00 23:00 07:00 15:00 23:00 Intake Total 578 ml 240 ml 240 ml 120 ml Output Total 300 ml Balance 578 ml -60 ml 240 ml 120 ml Intake Oral 240 ml 240 ml 240 ml 120 ml Packed Cells 338 ml Output Urine Total 300 ml Bladder Scan Volume Amount 941 ml # Voids 4 1 2 1 # Bowel Movements 2 1 1 0 Laboratory Laboratory Tests Test 05/20/17 05/20/17 05/20/17 05/20/17 07:40 11:40 11:46 12:28 White Blood Count 15.7 17.4 Red Blood Count 2.20 2.04 Hemoglobin 7.3 6.7 Hematocrit 20.5 19.3 Mean Corpuscular Volume 93.2 94.7 Mean Corpuscular Hemoglobin 33.3 32.9 Mean Corpuscular Hemoglobin 35.7 34.7 Concent Red Cell Distribution Width 17.9 18.4 Platelet Count 50 63 Mean Platelet Volume 8.6 8.5 Neutrophils (%) (Auto) 84.1 Lymphocytes (%) (Auto) 7.5 Monocytes (%) (Auto) 7.6 Eosinophils (%) (Auto) 0.5 Basophils (%) (Auto) 0.3 Neutrophils # (Auto) 14.7 Lymphocytes # (Auto) 1.3 Monocytes # (Auto) 1.3 Eosinophils # (Auto) 0.1 Basophils # (Auto) 0.1 CBC Comment AUTO DIFF Differential Total Cells 100 Counted Neutrophils % (Manual) 95 Lymphocytes % 2 Monocytes % 2 Eosinophils % 1 Neutrophils # (Manual) 16.5 Differential Comment FINAL DIFF MANUAL Platelet Estimate LOW Platelet Morphology Comment NORMAL [place] Cells 1+ Acanthocytes 1+ Keratocytes OCC Prothrombin Time 23.5 Prothromb Time International 2.1 Ratio Activated Partial 45.0 Thromboplast Time Iron Level 93 Total Iron Binding Capacity 111 Percent Iron Saturation 84.1 Ferritin 2315 Thyroid Stimulating Hormone 0.665 3rd Gen Blood Type AB NEGATIVE Crossmatch Leukocyte-Reduced Red Blood Cells Blood Bank Comment Physical Exam HEENT: Normocephalic; atraumatic; + jaundice. Mouth has bloody residue at the corners. CHEST: CTA CARDIAC: Tachycardic, 110 ABDOMEN: Soft, mildly distended, nontender; hepatosplenomegaly; bowel sounds are present in all four quadrants. EXTREMITIES: No clubbing, cyanosis, or edema. SKIN: Normal; no rash; + jaundice. 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 Recent hospitalization and underwent evaluation with EGD ()----> Lackey's Esophagus, erosive gastritis, duodenal ulcers. No obvious active bleeding. She was treated with Protonix and Carafate. She denies any obvious blood loss. She had one episode of n/v today, but denies hematemesis, melena, or hematochezia. On discharge, she had an H /H of 8.0/22.5, Platelet 48, INR 3.2. On admission, she was found to have HH 6.2/16.9. S/P Rpt. EGD (05/13/17)----> 1. Portal gastropathy , retained food in stomach, no esophageal varices, 2. Retroflexed views revealed a hiatal hernia. S/P 3 units PRBC, 2 units FFP. H&H is 7.3/ 20.0 today. An additional 2 units of PRBC has been ordered - Retained food in stomach on EGD. Refusing GES (cannot tolerate lying on back for that long). Trial of reglan. D/W patient limiting narcotics. No nausea today. - Worsening lethargy today, ? Hepatic encephalopathy. Will check ammonia level - Alcoholic hepatitis on underlying liver cirrhosis with coagulopathy/ thrombocytopenia. Pt has been told for years that she has liver disease, but never told she had cirrhosis until last admission. Liver workup----> ASA negative; ASMA negative; AMA < 20.0, Hepatitis C Genotype 1A with viral load of 121,000, Iron saturation 93%. DF 87.620. MELD 30. She does have advanced liver disease, although it is difficult to say exactly what her underlying liver disease is, as she still has alcoholic hepatitis on her underlying liver disease. However, the persistent coagulopathy is worrisome. Vitamin K. Plt 74, PT/INR pending. - Coagulopathy. S/P 2 units FFP, Vitamin K. Rpt coag's pending. - NEGRO with electrolyte abnormalities. Improved - Recent GIB to erosive gastritis, duodenal ulcers. PPI - HCV, Genotype 1A with viral load of 121,000. Outpt fu - Ascites. S/P paracentesis during last hospitalization. Lasix/Spironolactone per attending with NEGRO. Controlled - HTN, CAD, Hx TIA, COPD, Hx DVT per primary PLAN: - Heart healthy soft diet - Ammonia level (add to today's labs) - Refused GES - Cont. Reglan - Cont. PPI - Cont. Carafate - Cont. Vit. K - Cont. Pentoxifylline - Add Xifaxan/Lactulose - Diuretics per attending because of NEGRO - Monitor labs - Supportive care - consider colonoscopy if she is willing to do. Ryan Lemos MD May 20, 2017 22:07
[2017-05-21] VITALS (14 sets, daily range): BP systolic 61–123; BP diastolic 27–61; PULSE 81–122; RESP 18–26; TEMP 93–97.9; O2SAT 76–100
[2017-05-21] MEDS ORDERED: LORazepam 2 MG/ML VIAL ONE ×2 (00:39→05:22)
--- NOTE | 2017-05-21 00:51 | HHI.FPPN ---
Addendum to progress note ADDENDUM Reason for addendum: Additonal documentation Additional information Tere Martinez and Yue responded to [facility] at 0030 hours to [address], Room 1602. Dr German was already managing the [facility] and did not require any additional assistance. Rob Turner MD R1 May 21, 2017 00:51
[2017-05-21] MEDS ORDERED: DEXTROSE 50% IN WATER 50 ML SYRINGE ONE (00:58)
[2017-05-21] MEDS ORDERED: DEXTROSE 50% IN WATER 50 ML VIAL(D50) IV PUSH ONE (01:00)
[2017-05-21] MEDS ORDERED: SODIUM BICARBONATE 8.4% INJ 50 MEQ/50 ML SYR IV PUSH ONE ×2 (01:00→01:30)
--- NOTE | 2017-05-21 01:02 | RADRPT ---
EXAM DATE/TIME: 05/21/2017 00:47 [facility] COMPARISON: CHEST SINGLE AP, May 10, 2017, 9:08. INDICATIONS : Respiratory distress. MEDICAL HISTORY : Hypertension. Hepatitis C. Myocardial infarction. ETOH. COPD. TIA. SURGICAL HISTORY : None. ENCOUNTER: Initial ACUITY: 4 - 6 days PAIN SCORE: Non-responsive. LOCATION: Bilateral chest FINDINGS: A single view of the chest demonstrates the lungs to be symmetrically aerated without evidence of mas s, infiltrate or effusion. The cardiomediastinal contours are unremarkable. Osseous structures are intact. CONCLUSION: No acute disease. Isreal García MD on May 21, 2017 at 1:00 Board Certified Radiologist. This report was verified electronically.
[2017-05-21] MEDS ORDERED: SODIUM BICARBONATE 8.4% INJ 50 ML ONE ×2 (01:06→02:35)
[2017-05-21] MEDS ORDERED: Vancomycin Consult Pharmacy 1 EA OTHER SCH (01:30)
[2017-05-21] MEDS ORDERED: SODIUM CHLOR 0.9% 250 ML INJ 250 ML IV ONE (01:30)
[2017-05-21] MEDS ORDERED: ALBUMIN HUMAN 5% 25 GM/500 ML BOTTLE IV ONE (01:30)
--- NOTE | 2017-05-21 01:37 | PD.CONS ---
[facility] Service Critical Care Medicine Consult Requested By Dr. German Reason for Consult respiratory distress Primary Care Physician Farzana Rodriguez MD History of Present Illness 52-year-old female with recent admission secondary to end-stage liver disease with coagulopathy secondary to hepatitis C and alcoholism, GI bleed, bacteremia who presented with right lower extremity pain. Patient stated that before being discharged on her last admission in April she did have right lower extremity pain but it was not addressed. She stated it got worse where she was unable get up because of the pain. She cannot tell me where the pain was exactly located and stated that it's was generalized to her entire right lower leg only when she moves. She denies any calf pain. During the workup in the emergency department patient was found to be anemic with hemoglobin is 6.2 and in renal failure. She denies any fevers or chills. Patient denies any GI bleed. Alcohol use. She could not tell me about her urine output. Patient stated that she would want to be comfortable. Review of Systems ROS Limitations: Clinical Condition, Altered Mental Status Past Family Social History Allergies: Coded Allergies: No Known Allergies (Verified , 05/10/17) Past Medical History End-stage liver disease Cirrhosis of the liver Alcohol abuse Arthritis HTN CAD Hep C COPD Asthma hx TIA hx [place] Gastritis, duodenal ulcer, Lackey's esophagus Recently treated for bacteremia Past Surgical History Angioplasty Tubal Back surgery Bilateral TM (tympanic membrane) surgery Reported Medications Furosemide 20 Mg Tab 20 Mg PO DAILY Sucralfate 1 Gm Tab 1 Gm PO ACHS on empty stomach Aldactone (Spironolactone) 50 Mg Tab 50 Mg PO DAILY Mephyton (Phytonadione) 5 Mg Tab 10 Mg PO DAILY Pentoxifylline ER (Pentoxifylline) 400 Mg Tab 400 Mg PO Q8HR Pantoprazole (Pantoprazole Sodium) 40 Mg Tab 40 Mg PO BID Active Ordered Medications See MAR Family History Mom: Cirrhosis Brother: DM Social History Per patient quit smoking on last admission. Also denied any recent alcohol use since recent admission. Denies any illicit drug use. Physical Exam Vital Signs Vital Signs Date Time Temp Pulse Resp B/P Pulse Ox O2 Delivery O2 Flow Rate FiO2 05/20/17 21:09 21 05/20/17 18:10 95.6 110 18 102/61 97 05/20/17 17:55 95.4 109 16 99/64 97 05/20/17 15:45 95.8 115 16 97/63 97 05/20/17 15:30 96.1 117 12 93/56 96 05/20/17 11:57 96.2 117 18 118/71 97 05/20/17 08:34 110 05/20/17 07:58 96.4 111 16 140/72 97 05/20/17 07:38 Room Air 05/20/17 04:57 96.4 111 20 123/72 97 Physical Exam middle-aged female, appears much older than stated age. severe respiratory distress. NRB in place, spo2 99%. labored. tachypneic. altered. RASS -2. nods to questions. follows commands weakly. not oriented. confused. Laboratory Laboratory Tests Test 05/20/17 05/20/17 05/20/17 05/20/17 07:40 11:40 11:46 12:28 White Blood Count 15.7 17.4 Red Blood Count 2.20 2.04 Hemoglobin 7.3 6.7 Hematocrit 20.5 19.3 Mean Corpuscular Volume 93.2 94.7 Mean Corpuscular Hemoglobin 33.3 32.9 Mean Corpuscular Hemoglobin 35.7 34.7 Concent Red Cell Distribution Width 17.9 18.4 Platelet Count 50 63 Mean Platelet Volume 8.6 8.5 Neutrophils (%) (Auto) 84.1 Lymphocytes (%) (Auto) 7.5 Monocytes (%) (Auto) 7.6 Eosinophils (%) (Auto) 0.5 Basophils (%) (Auto) 0.3 Neutrophils # (Auto) 14.7 Lymphocytes # (Auto) 1.3 Monocytes # (Auto) 1.3 Eosinophils # (Auto) 0.1 Basophils # (Auto) 0.1 CBC Comment AUTO DIFF Differential Total Cells 100 Counted Neutrophils % (Manual) 95 Lymphocytes % 2 Monocytes % 2 Eosinophils % 1 Neutrophils # (Manual) 16.5 Differential Comment FINAL DIFF MANUAL Platelet Estimate LOW Platelet Morphology Comment NORMAL [place] Cells 1+ Acanthocytes 1+ Keratocytes OCC Prothrombin Time 23.5 Prothromb Time International 2.1 Ratio Activated Partial 45.0 Thromboplast Time Iron Level 93 Total Iron Binding Capacity 111 Percent Iron Saturation 84.1 Ferritin 2315 Thyroid Stimulating Hormone 0.665 3rd Gen Blood Type AB NEGATIVE Crossmatch Leukocyte-Reduced Red Blood Cells Blood Bank Comment Result Diagram: 05/20/17 1140 05/19/17 1053 Imaging Last Impressions Chest X-Ray 05/21/17 0000 Signed Impressions: Service Date/Time: May 00:47 - CONCLUSION: No acute disease. Isreal García MD Lumbar Spine MRI 05/14/17 0000 Signed Impressions: Service Date/Time: May 22:21 - CONCLUSION: 1. Postsurgical changes as above. No evidence of disc protrusion or spinal canal stenosis. Thor Liao MD Pelvis X-Ray 05/10/17 0000 Signed Impressions: Service Date/Time: Wednesday, May 10, 2017 09:07 - CONCLUSION: Negative for fracture Michael Sevilla MD FACR Femur X-Ray 05/10/17 0000 Signed Impressions: Service Date/Time: Wednesday, May 10, 2017 09:09 - CONCLUSION: Degenerative changes about the knee otherwise negative. Michael Sevilla MD FACR Assessment and Plan Assessment and Plan Assessment: 52yF ESLD, gastritis, GI bleed, coagulopathy, chronic debilitation, and now acute severe metabolic acidosis which is causing severe respiratory distress. She is DNR, so we will honor her wishes and not pursue intubation or CPR. We will give her sodium bicarbonate as this may help with her respiratory distress symptoms. likely causes of her acidosis are inadequate o2 delivery from anemia, sepsis (?source, urine vs. peritonitis?, unlikely to be lungs given her prior exam documented without respiratory symptoms). will volume resuscitate with blood products. may not survive this acute illness. very critically ill. Active Problems: Acute Hepatic/Metabolic encephalopathy Severe respiratory distress Possible sepsis Severe life-threatening metabolic acidosis Coagulopathy secondary to end-stage liver disease anemia secondary to acute blood loss from portal gastropathy Plan: -- admit to ICU -- 2 ffp, 2 prbc -- 500cc 5% albumin -- 4 amps bicarb x 1 now, then bicarb drip at 100 mL/hr -- daily cbc, bmp, lft, coags -- lactate. -- montilla culture -- start empiric abx: vanc, cefepime, flagyl. will also add Levaquin as patient has had prior enterobacter which was ?sensitive to cefepime (JAVI 8). -- hold lasix, aldactone. congruent with her wishes, will continue DNR status. This patient remains critically ill with one or more organ systems which are or may become a threat to life. I have spent in excess of 55 minutes discontinuously in the care and management of this patient. This time is exclusive of procedures, and includes, but is not limited to, evaluation of the patient, review of the medical record, discussions with family, consultants, nursing staff, or respiratory therapy, and documentation in the medical record. Code Status DNR Trell Barry MD May 21, 2017 01:37
[2017-05-21 01:40] LABS: AUTOMATED NEUTROPHIL # 18.8 TH/MM3 (1.8-7.7); BASOPHIL # 0.3 TH/MM3 (0-0.2); BASOPHIL % 1.3 % (0.0-2.0); EOSINOPHIL % 0.2 % (0.0-4.0); LYMPH % 4.4 % (9.0-44.0); LYMPHOCYTE # 0.9 TH/MM3 (1.0-4.8); MEAN CELL VOLUME 95.6 FL (80.0-100.0); MEAN CORPUSCULAR HEMOGLOBIN 32.2 PG (27.0-34.0); MEAN CORPUSCULAR HGB CONC 33.7 % (32.0-36.0); MONO % 3.6 % (0.0-8.0); NEUT % 90.5 % (16.0-70.0); PLATELET COUNT 52 TH/MM3 (150-450); RED BLOOD COUNT 1.92 MIL/MM3 (4.00-5.30); RED CELL DISTRIBUTION WIDTH 15.9 % (11.6-17.2); WHITE BLOOD COUNT 20.8 TH/MM3 (4.0-11.0)
[2017-05-21 01:43] LABS: BLOOD GAS BASE EXCESS -21.2 mmol/L (-2-2); BLOOD GAS CARBOXYHEMOGLOBIN 0.9 % (0-4); BLOOD GAS HCO3 6 mmol/L (22-26); BLOOD GAS O2 HGB SATURATION 99 % (90-100); BLOOD GAS OXYGEN CONTENT 10.5 Vol % (12.0-20.0); BLOOD GAS PCO2 21 mmHg (38-42); BLOOD GAS PO2 345 mmHG (61-120); BLOOD GAS TOTAL HGB 6.9 G/DL (12.0-16.0); TEMP CORR TO 98.6
--- NOTE | 2017-05-21 01:43 | HHI.PR ---
Addendum to Inpatient Note Addendum Reason: Additional Documentation Additional Information Rapid response was called on this patient because patient was in respiratory distress. Came to see patient at the bedside. Chart reviewed. Patient's nurse stated that patient's bed alarm was making noise and when she came to check on the patient, patient was slumped over around the bed rail. She did not fall. Patient complained to her nurse that she was short of breath. Her vitals measured at that time showed hypotension in the 80s over 50s. Saturation at the time was around 96% on room air. Rapid response was called and immediately, patient became unresponsive, Upon my arrival, patient is unresponsive, agonal breathing pattern. She is nonverbal. Her O2 sat was still 96% on room air despite her abdominal breathing pattern. She is noted to have quite severe neck rigidity. Upper extremities and lower extremities do not reveal rigidity though not responding. Abdomen is soft,. Lower extremities reveal significant calf asymmetry and swelling of the right lower extremity as compared to the left. On review of medical records, patient is endstage liver disease patient who is DNR/DNI. She was receiving blood transfusions during the day for her anemia which was followed by gastroenterology. Notes reviewed. No varices seen. She did have some blood around her mouth which is dry. From nursing staff, this is more of an aberration/damage through the EGD process and that was done today. Hypercoagulopathy noted on labs for which she was receiving vitamin K as well. Impression: Altered mental status/obtundationpossible seizures/metabolic encephalopathy Acute respiratory failurewith abdominal breathing pattern. Recent blood transfusion in setting of respiratory failurerule out pulmonary edema. Metabolic acidosiswith respiratory alkalosislikely from seizures. Hypoglycemiapatient is also noted to have blood sugar of 70. Calf asymmetryin a patient with long-term hospitalization. Would need to rule out PE/DVT causing Acute respiratory distress. However, treatment options would be limited given that the patient has coagulopathy. Plan: Ativan 1 g IV was given. Oxygen supplementation with nonrebreather. Fluid bolus 800 cc total given. Chest x-ray stat. ABG stat. Review chest x-ray personally. No acute infiltrates/pneumothorax/pulmonary edema. ABG statusreviewed. Metabolic acidosis with pH of 7.13. Bicarbonate in the range of 6. Respiratory alkalosis with PCO2 of 20. Give sodium bicarbonate 50 mEq 1 dose. Dextrose D50 1 ampule IV push. Stat labs ordered. Ultrasound of bilateral lower extremityto rule out DVT. If positive, possibly would consider IVC filter. Patient has coagulopathy, with significant anemia and anticoagulation is contraindicated. After the treatment with Ativan, patient became awake, alert and answered questions. However, her breathing pattern is still agonal/labored. Case is discussed with dynamics ax developer at the bedside. Transfer patient to ICU for close monitoring. We'll transfer patient to dynamics ax developer service for critical care management as well. Patient does have grave prognosis. However, we would try to evaluate and treat for reversible causes of her acute decompensation. Total care time 35 minutes Noble German MD May 21, 2017 01:43
[2017-05-21 01:44] LABS: CRITICAL VALUE YES; DRAW SITE LT BRACHIAL; FIO2 100 %; LITER FLOW 15 L/M; NUMBER OF ARTERIAL PUNCTURES 1; OXYGEN DEVICE NRB; STAT YES
[2017-05-21 01:46] LABS: HEMO FLAGS AUTO DIFF
[2017-05-21 01:49] LABS: HEMATOCRIT 18.3 % (35.0-46.0)
[2017-05-21] MEDS ORDERED: VANCOMYCIN INJ 1,250 MG in SODIUM CHLOR 0.9% 250 ML INJ 250 ML IV ONE (01:50)
[2017-05-21] MEDS ORDERED: SODIUM BICARBONATE 8.4% INJ 150 MEQ in DEXTROSE 5% IN WATE 1000ML INJ 1,000 ML IV SCH ×2 (02:00)
[2017-05-21] MEDS ORDERED: LEVOFLOXACIN 750 MG PREMIX INJ 150 ML IV SCH (02:00)
[2017-05-21 02:19] LABS: BICARBONATE 10.8 MEQ/L (21.0-32.0); POTASSIUM 4.8 MEQ/L (3.5-5.1)
--- NOTE | 2017-05-21 02:31 | RADRPT ---
EXAM DATE/TIME: 05/21/2017 01:33 [place] COMPARISON: No previous studies available for comparison. INDICATIONS : Bilateral leg pain. MEDICAL HISTORY : Chronic obstructive pulmonary disease. Cerebrovascular accident. Myocardial infarction. Hypertens ion. Transient ischemic attack. Asthma. Arthritis. Jaundice. Alcohol use. Hepatitis C. SURGICAL HISTORY : Tubal ligation. Left eardrum repair. Tympanostomy tube. Cardiac catheterization. Two steel rods in back, L1-L6. Angioplasty. Paracentesis. ENCOUNTER: Initial ACUITY: 1 day PAIN SCORE: Non-responsive LOCATION: Bilateral legs. TECHNIQUE: Venous ultrasound of the left and right leg was performed from the inguinal ligament to the proximal calf. Real-time, color Doppler and spectral tracing, compression and augmentation techniques were us ed. FINDINGS: RIGHT LEG: There is nonocclusive thrombus in the right common femoral and proximal and mid portions of the femor al vein. There is also thrombus in the greater saphenous vein. The peroneal, popliteal and posterior tibial veins are patent and subcutaneous edema is noted. Right iliac vein is patent. LEFT LEG: There is normal compressibility of the deep venous system from the inguinal region to the proximal ca lf. No echogenic clot is seen in the lumen of the common femoral, femoral, popliteal, and posterior tibial veins. There is a normal response of the venous system to proximal and distal augmentation an d respiration. CONCLUSION: 1. There is superficial and deep venous thrombosis on the right as described above. Isreal García MD on May 21, 2017 at 2:28 Board Certified Radiologist. This report was verified electronically.
[2017-05-21 02:38] LABS: APTT (PATIENT) 86.4 SEC (24.3-30.1)
[2017-05-21 02:39] LABS: INTERNATIONAL NORMALIZED RATIO 2.9 RATIO; PROTHROMBIN TIME - PATIENT 33.5 SEC (9.8-11.6)
[2017-05-21 02:51] LABS: BANDS 2 % (0-6); CORRECTED NUCLEATED RBC 3 /100 WBC (0-0); METAMYELOCYTES 1 % (0-1); NEUTROPHIL # MANUAL DIFF 17.1 TH/MM3 (1.8-7.7); POLYS (SEG NEUTROPHILS) 79 % (16-70); SCAN/DIFF FINAL DIFF MANUAL; WBC DIFF SAMPLE 100
[2017-05-21 02:52] LABS: BURR CELLS 1+ (NORMAL); PLATELET ESTIMATE SMEAR LOW (NORMAL); PLATELET MORPHOLOGY NORMAL (NORMAL)
[2017-05-21 02:54] LABS: TOXIC VACUOLATION PRESENT (NONE SEEN)
--- NOTE | 2017-05-21 03:13 | PD.PROCEDR ---
Procedure Note Procedure Procedure: Arterial Line Placement 16 [place] right femoral arterial line Diagnosis: Acute metabolic acidosis Indications: For serial arterial blood gas sampling Consent: Emergent Description of the Procedure: The right groin was prepped and draped sterilely. 1% lidocaine was used for local anesthesia. The pulse was located and a needle was advanced into the artery. A 16 gauge, 20 cm catheter was advanced into the artery using a modified Seldinger technique. The catheter was sutured to the skin and a sterile dressing was applied. The catheter was connected to a pressure transducer and an arterial waveform was noted. There were no immediate complications noted. There was minimal EBL. I personally performed the procedure. Trell Barry MD May 21, 2017 03:13
--- NOTE | 2017-05-21 03:14 | PD.PROCEDR ---
Procedure Note Procedure Central Line Procedure Note Right femoral triple lumen catheter Diagnosis: Acute metabolic acidosis Indications: For highly potent vasoactive substances Consent: Emergent Anesthesia: 1% lidocaine locally Description of the Procedure: The patient was placed in the supine position. The area was prepped and draped sterilely. A 19g needle was inserted under negative pressure aspiration and dark venous blood was obtained. A guidewire was inserted easily without resistance. A small incision was made using a #11 blade. Using a modified Seldinger technique, the dilator and 7 Chinese, 20 cm catheter were advanced over the guidewire without resistance. All ports were aspirated and flushed, and had brisk blood return. The line was secured at the skin using 2-0 silk interrupted sutures. A Biopatch and Transparent sterile dressing were applied. There were no immediate complications noted. There was minimal EBL. The patient tolerated the procedure well. Ultrasound guidance was not used for this procedure I personally performed the procedure. Trell Barry MD May 21, 2017 03:14
[2017-05-21] MEDS ORDERED: NOREPINEPHRINE-DEXTROSE DRIP 250 ML IV ONE (03:22)
[2017-05-21] MEDS ORDERED: CEFEPIME INJ 2,000 MG in SODIUM CHLORIDE 0.9% INJ 100 ML IV SCH (04:00)
[2017-05-21] MEDS: metroNIDAZOLE 500 MG INJ 100 ML IV SCH ×2 (04:09→07:50)
[2017-05-21] MEDS ORDERED: MORPHINE SULFATE 8 MG/ML INJ ONE (05:21)
[2017-05-21] MEDS: PENTOXIFYLLINE 400 MG CONTROLLED RELEASE TAB PO SCH (05:28)
[2017-05-21] MEDS: MORPHINE SULFATE 15 MG CONTROLLED RELEASE TAB PO SCH (05:29)
[2017-05-21] MEDS: SUCRALFATE 1 GM TAB PO SCH ×2 (05:29→11:00)
[2017-05-21] MEDS: LORazepam 2 MG/ML VIAL IV PUSH PRN ×6 (05:30→09:31)
[2017-05-21] MEDS: MORPHINE SULFATE 4 MG/ML INJ IV PUSH PRN ×6 (05:30→09:32)
[2017-05-21] MEDS: POTASSIUM CHLORIDE 20 MEQ CONTROLLED RELEASE TAB PO SCH (07:52)
[2017-05-21] MEDS: FERROUS SULFATE 325 MG (65 MG ELEMENTAL IRON) TAB PO SCH (07:52)
[2017-05-21] MEDS: METOCLOPRAMIDE HCL 10 MG TAB PO SCH (07:52)
[2017-05-21] MEDS: PHYTONADIONE 5 MG TAB PO SCH (07:53)
[2017-05-21] MEDS: DOCUSATE SODIUM 50 MG/SENNA 8.6 MG TAB PO SCH (07:53)
[2017-05-21] MEDS: LACTULOSE SYRUP 20 GM/30 ML CUP PO SCH (07:53)
[2017-05-21] MEDS: MAGNESIUM OXIDE 400 MG TAB PO SCH (07:53)
[2017-05-21] MEDS: RIFAXIMIN 550 MG TAB PO SCH (07:54)
[2017-05-21] MEDS: PANTOPRAZOLE SOD 40 MG DELAYED RELEASE TAB PO SCH (07:54)
[2017-05-21] MEDS: SODIUM CHLORIDE 0.9% FLUSH 10 ML FLUSH IV FLUSH SCH (07:55)
[2017-05-21] MEDS ORDERED: VANCOMYCIN 500 MG/NS 100 ML IV ONE ×2 (10:00)
--- NOTE | 2017-05-21 10:30 | DEATH SUM ---
Summary Demographics Date Pronounced : May 21, 2017 Time Of : 09:59 Pronounced By: Savannah Latham M.D. Preliminary Cause of : Multi Organ Failure Eric Latham MD May 21, 2017 10:30
--- NOTE | 2017-05-21 10:35 | HHI.DS ---
Discharge Summary Admission Date May 10, 2017 at 10:33 Admitting Diagnosis anemia, lactic acidosis, hepatic encephalopathy (1) Multiple organ failure with liver failure ICD Code: K72.90 (2) Alcoholic liver failure ICD Code: K70.40 (3) NEGRO (acute kidney injury) ICD Code: N17.9 (4) Severe anemia ICD Code: D64.9 (5) GI bleed ICD Code: K92.2 (6) Coagulopathy ICD Code: D68.9 (7) Elevated lactic acid level ICD Code: R79.89 (8) Hyperammonemia ICD Code: E72.20 (9) Hypokalemia ICD Code: E87.6 (10) Hyponatremia ICD Code: E87.1 (11) Non-sustained ventricular tachycardia ICD Code: I47.2 (12) Hypomagnesemia ICD Code: E83.42 (13) Low back pain radiating down leg ICD Code: M54.5 Procedures EGD on 05/13/17 ---> portal gastropathy, retained gastric contents. Brief History 52-year-old female with recent admission secondary to end-stage liver disease with coagulopathy secondary to hepatitis C and alcoholism, GI bleed, bacteremia who presented with right lower extremity pain. Patient stated that before being discharged on her last admission in April she did have right lower extremity pain but it was not addressed. She stated it got worse where she was unable get up because of the pain. She cannot tell me where the pain was exactly located and stated that it's was generalized to her entire right lower leg only when she moves. She denies any calf pain. During the workup in the emergency department patient was found to be anemic with hemoglobin is 6.2 and in renal failure. She denies any fevers or chills. Patient denies any GI bleed. Alcohol use. She could not tell me about her urine output. Patient stated that she would want to be comfortable. CBC/BMP: 05/21/17 0130 05/21/17 013 Significant Findings Laboratory Tests Test 05/18/17 05/19/17 05/20/17 05/20/17 16:17 10:53 07:40 11:40 White Blood Count 11.3 TH/MM3 13.0 TH/MM3 15.7 TH/MM3 17.4 TH/MM3 (4.0-11.0) (4.0-11.0) (4.0-11.0) (4.0-11.0) Red Blood Count 2.11 MIL/MM3 2.77 MIL/MM3 2.20 MIL/MM3 2.04 MIL/MM3 (4.00-5.30) (4.00-5.30) (4.00-5.30) (4.00-5.30) Hemoglobin 7.0 GM/DL 9.2 GM/DL 7.3 GM/DL 6.7 GM/DL (11.6-15.3) (11.6-15.3) (11.6-15.3) (11.6-15.3) Hematocrit 20.4 % 25.7 % 20.5 % 19.3 % (35.0-46.0) (35.0-46.0) (35.0-46.0) (35.0-46.0) Red Cell Distribution Width 24.7 % 17.8 % 17.9 % 18.4 % (11.6-17.2) (11.6-17.2) (11.6-17.2) (11.6-17.2) Platelet Count 65 TH/MM3 61 TH/MM3 50 TH/MM3 63 TH/MM3 (150-450) (150-450) (150-450) (150-450) Prothrombin Time 20.9 SEC 23.5 SEC (9.8-11.6) (9.8-11.6) Activated Partial 41.6 SEC 45.0 SEC Thromboplast Time (24.3-30.1) (24.3-30.1) Estimat Glomerular Filtration 67 ML/MIN (>89) Rate Neutrophils (%) (Auto) 84.1 % (16.0-70.0) Lymphocytes (%) (Auto) 7.5 % (9.0-44.0) Neutrophils # (Auto) 14.7 TH/MM3 (1.8-7.7) Monocytes # (Auto) 1.3 TH/MM3 (0-0.9) Neutrophils % (Manual) 95 % (16-70) Lymphocytes % 2 % (9-44) Neutrophils # (Manual) 16.5 TH/MM3 (1.8-7.7) Platelet Estimate LOW (NORMAL) Radha Cells 1+ (NORMAL) Acanthocytes 1+ (NORMAL) Keratocytes OCC (NORMAL) Test 05/20/17 05/21/17 05/21/17 11:46 00:40 01:30 Total Iron Binding Capacity 111 MCG/DL (250-450) Percent Iron Saturation 84.1 % (20-50) Ferritin 2315 NG/ML (8-252) Blood Gas HCO3 6 mmol/L (22-26) Blood Gas Base Excess -21.2 mmol/L (-2-2) Arterial Blood pH 7.12 (7.380-7.420) Arterial Blood Partial 21 mmHg (38-42) Pressure CO2 Arterial Blood Partial 345 mmHG Pressure O2 (61-120) Arterial Blood Oxygen Content 10.5 Vol % (12.0-20.0) Blood Gas Hemoglobin 6.9 G/DL (12.0-16.0) White Blood Count 20.8 TH/MM3 (4.0-11.0) Red Blood Count 1.92 MIL/MM3 (4.00-5.30) Hemoglobin 6.2 GM/DL (11.6-15.3) Hematocrit 18.3 % (35.0-46.0) Platelet Count 52 TH/MM3 (150-450) Neutrophils (%) (Auto) 90.5 % (16.0-70.0) Lymphocytes (%) (Auto) 4.4 % (9.0-44.0) Neutrophils # (Auto) 18.8 TH/MM3 (1.8-7.7) Lymphocytes # (Auto) 0.9 TH/MM3 (1.0-4.8) Basophils # (Auto) 0.3 TH/MM3 (0-0.2) Neutrophils % (Manual) 79 % (16-70) Monocytes % 9 % (0-8) Neutrophils # (Manual) 17.1 TH/MM3 (1.8-7.7) Nucleated Red Blood Cells 3 /100 WBC (0-0) Toxic Vacuolation PRESENT (NONE SEEN) Platelet Estimate LOW (NORMAL) [place] Cells 1+ (NORMAL) Prothrombin Time 33.5 SEC (9.8-11.6) Activated Partial 86.4 SEC Thromboplast Time (24.3-30.1) Carbon Dioxide Level 10.8 MEQ/L (21.0-32.0) Anion Gap 26 MEQ/L (5-15) Blood Urea Nitrogen 22 MG/DL (7-18) Creatinine 1.94 MG/DL (0.50-1.00) Estimat Glomerular Filtration 27 ML/MIN (>89) Rate Random Glucose 150 MG/DL (74-106) Calcium Level 7.6 MG/DL (8.5-10.1) B-Type Natriuretic Peptide 150 PG/ML (0-100) PE at Discharge Hospital Course Woman with end-stage liver disease progressed to fulminant hepatic failure and multiple organ dysfunction. She was transferred to ICU on 05/21 but shortly after from refractory metabolic acidosis and MODS. Time of 0959 on 05/21/17. Pt Condition on Discharge: Deteriorating Discharge Disposition: Disch w/ Home Health Serv Discharge Instructions DIET: Follow Instructions for: Heart Healthy Diet Activities you can perform: See Additionl Instruction Other Activity Instructions: Out of bed with assistance Eric Latham MD May 21, 2017 10:35
== END 2017-05-21 13:20 | disposition expired | DRG 432 ==
LOC: NEPE 08:23 → NEDA 10:33 → N06A 13:27 → N03B 05-21 01:30
PROVIDERS: ADMIT Internal Medicine Critical Care Medicine; ATTEND Internal Medicine Critical Care Medicine
PROC: 30233N1 Transfusion of Nonautologous Red Blood Cells into Peripheral Vein, Percutaneous Approach (ICD-10-PCS; 2017-05-10)
PROC: 0DJ08ZZ Inspection of Upper Intestinal Tract, Via Natural or Artificial Opening Endoscopic (ICD-10-PCS; 2017-05-13)
PROC: 30233K1 Transfusion of Nonautologous Frozen Plasma into Peripheral Vein, Percutaneous Approach (ICD-10-PCS; principal; 2017-05-13 14:25)
PROC: 04HY32Z Insertion of Monitoring Device into Lower Artery, Percutaneous Approach (ICD-10-PCS; 2017-05-21)
PROC: 06HM33Z Insertion of Infusion Device into Right Femoral Vein, Percutaneous Approach (ICD-10-PCS; 2017-05-21)
DX: K70.40 Alcoholic hepatic failure without coma (principal); G93.41 Metabolic encephalopathy; J96.00 Acute respiratory failure, unspecified whether with hypoxia or hypercapnia; I47.2 Ventricular tachycardia; N17.9 Acute kidney failure, unspecified; K92.2 Gastrointestinal hemorrhage, unspecified; D68.4 Acquired coagulation factor deficiency; E87.2 Acidosis; D62 Acute posthemorrhagic anemia; E87.1 Hypo-osmolality and hyponatremia; D69.59 Other secondary thrombocytopenia; K31.89 Other diseases of stomach and duodenum; E87.6 Hypokalemia; B18.2 Chronic viral hepatitis C; I10 Essential (primary) hypertension; I25.10 Atherosclerotic heart disease of native coronary artery without angina pectoris; J44.9 Chronic obstructive pulmonary disease, unspecified; K22.70 Barrett's esophagus without dysplasia; K44.9 Diaphragmatic hernia without obstruction or gangrene; E83.42 Hypomagnesemia; E16.2 Hypoglycemia, unspecified; Z66 Do not resuscitate; K70.31 Alcoholic cirrhosis of liver with ascites; K70.11 Alcoholic hepatitis with ascites; Z87.891 Personal history of nicotine dependence; Z86.73 Personal history of transient ischemic attack (TIA), and cerebral infarction without residual deficits; I25.2 Old myocardial infarction; Z51.5 Encounter for palliative care
CPT/HCPCS: 36430; 36600; 51702; 71010; 72158; 72170; 73552; 80048; 80053; 80307; 81001; 82140; 82272; 82550; 82728; 82805; 82948; 83540; 83550; 83605; 83735; 83880; 84100; 84443; 85007; 85025; 85027; 85610; 85730; 86850; 86900; 86901; 86920; 86927; 87040; 87070; 87205; 87641; 93005; 93970; 96365; 96375; A9579; C9113; J0692; J1170; J1940; J1956; J2060; J2270; J2405; J2543; J2765; J3370; J3430; J3475; J7030; J7050; J7070; P9016; P9017; P9040; P9045